=== PATIENT | male | born 1935 | race Caucasian/White ===

== ENCOUNTER 2016-11-01 09:59 | Inpatient (IN) | payer MEDICARE, BC ==
[~2016-11-01] VITALS: Ht 162.6 cm; Wt 98.9 kg
[~2016-11-01 09:59] MED LIST: AMLO10TA2 PO; ASPI81TA2 PO; CLOP75TA PO; FURO20TA4 PO; POTA10CA37 PO
--- OUTSIDE RECORDS SUMMARY | 2016-11-01 10:04 | XMS REPORT | Referral Summary ---
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 Discharge Diagnosis: Chronic obstructive pulmonary disease, unspecified Discharge Disposition: 01-Home or Self Care Attending Physician: Tatiana Baptiste APRN Admitting Physician: Tataina Baptiste APRN Vital Signs Most recent to 1 oldest [Reference Range]: Temperature Tympanic 36 degC [36.6-38.1 degC] *LOW* (08/26/16 10:42 AM) Peripheral Pulse 76 bpm Rate [60-100 bpm] (08/26/16 10:42 AM) Blood Pressure 148/88 mmHg [90-140/60-90 mmHg] *HI* (08/26/16 10:42 AM) Problem List Condition Effective Dates Status Health Status Informant Obesity(Confirmed) Active patient Allergies, Adverse Reactions, Alerts No Known Medication Allergies Medications atorvastatin 80 mg oral tablet 80 mg 1 tabs, Oral, Daily, given by dr merlyn mcgregor, # 30 tabs, 6 Refill(s), Pharmacy: [id number], 1 tabs Oral Daily,Instr:given by dr merlyn mcgregor Start Date: 08/26/16 Status: Ordered losartan 50 mg oral tablet 50 mg 1 tabs, Oral, Daily, # 30 tabs, 2 Refill(s), Pharmacy: [facility], 1 tabs Oral Daily Start Date: 08/26/16 Status: Ordered nitrofurantoin macrocrystals 50 mg oral capsule 50 mg 1 caps, Oral, QID, X 7 days, # 28 caps, 0 Refill(s), Pharmacy: [facility], 1 caps Oral QID,x7 days Start Date: 08/24/16 Stop Date: 08/31/16 Status: Ordered Nitrostat 0.4 mg sublingual tablet 0.4 mg 1 tabs, SubLingual, q5min, as needed for chest pain, If chest pain not relieved in 5 minutes after first dose, seek immediate medical attention, # 25 tabs, 3 Refill(s) Start Date: 08/26/16 Status: Ordered Plavix 75 mg oral tablet 75 mg 1 tabs, Oral, Daily, # 30 tabs, 2 Refill(s), Pharmacy: [facility], 1 tabs Oral Daily Start Date: 08/26/16 Status: Ordered Results No data available for this section Immunizations No data available for this section Procedures No data available for this section Social History Social History Type Response Smoking Status Former smoker; Type: Cigarettes Assessment and Plan Extracted from: Title: Office Visit Note-UTI/CDM Author: Tatiana Baptiste DIAZO TECHNICIAN Date: Assessment/Plan 1.Bacterial urinary tract infection Change to Macrodantinwhenavailable from the pharmacy. Continue to push fluids. Plan repeat UA in 2 weeks to verify resolution of infection. Ordered: Office Visit Level 4 Est 76213 2.Atherosclerotic heart disease of [place] coronary artery without angina pectoris Discussed with the patient the rationale forrestartingLipitor. He is agreeable. He wasn't aware that with a long-term medication. Refill of nitroglycerin provided if he has anyangina. Ordered: Office Visit Level 4 Est 71166 3.Benign essential HTN Restart [id number] mg daily. Monitor blood pressures periodically. Goal is less than 140/90. This will also be beneficial for his kidney disease. Ordered: Office Visit Level 4 Est 37411 4.Chronic combined systolic (congestive) and diastolic (congestive) heart failure Continue support stockings. For now I do not feel like me to restart his Lasix and potassium supplementation. Ordered: Office Visit Level 4 Est 80216 5.Chronic kidney disease, stage 3 (moderate) Plan to recheck in 2 weeks. Ordered: Office Visit Level 4 Est 88893 6.Chronic obstructive pulmonary disease, unspecified No specific respiratory issues at this time. Will not restart respiratory meds. Ordered: Office Visit Level 4 Est 31678 Plan follow-up in 2 weeks or sooner if medical needs arise.
--- OUTSIDE RECORDS SUMMARY | 2016-11-01 10:04 | XMS REPORT | Continuity of Care Document ---
Author Author [facility] Organization [facility] Address Unknown Phone Unavailable Support Name Relationship Address Phone LOUANN ROBERTO MD Caregiver [address] [place] [address] Unavailable WERNER ALARCON MD Caregiver [address] [place] [address] Unavailable ANDREA PICHARDO Next Of Kin [address] [place], [place] [id number] Insurance Providers Guarantor Elie Pichardo Address [address] [place] [address] Email DENIED PT PORTAL Payer [employer]Me Federal Policy Number [id number] Subscriber's Name FrankieElie Charanjit Relationship 18 Self Group Number [id number] Payer Medicare Policy Number [id number] Subscriber's Name FrankieElie Charanjit Relationship 18 Self Advance Directives Directive Response Recorded Date/Time Advanced Directives Type None 04/16/16 8:10pm Chief Complaint and Reason for Visit Chief Complaint Neuro Symptoms/Deficits Reason for Visit TIA (transient ischemic attack) Problems Active Problems Medical Problem Onset Date Status Acute exacerbation of chronic bronchitis Unknown Acute Hypertension Unknown Acute Past Problems Medical Problem Onset Date TIA (transient ischemic attack) Unknown Medications Current Home Medications Medication Dose Units Route Directions Days Qty Instructions Start Date Amlodipine Besylate 10 Mg Tablet 10 Mg Oral Daily 04/16/16 Aspirin 81 Mg Tab.chew 81 Mg Oral Daily 04/16/16 Clopidogrel Bisulfate (Plavix) 75 Mg Tablet 1 Tab Oral Daily 30 Tablet 04/16/16 Furosemide 20 Mg Tablet 20 Mg Oral Daily 04/16/16 Potassium Chloride 10 Meq Capsule.er 10 Meq Oral Daily 04/16/16 Social History Social History Problem Response Recorded Date/Time Onset Date Status Hx Substance Use No 04/16/2016 8:30pm Not Applicable Not Applicable Hx Alcohol Use Y SOCIALLY 04/16/2016 8:30pm Not Applicable Not Applicable Tobacco Usage none 10/04/2015 12:53pm Not Applicable Not Applicable Query Response Start Date Stop Date Smoking Status Former smoker Hospital Discharge Instructions No hospital discharge instructions. Plan of Care Discharge Date 04/16/16 10:25pm Disposition 01 DISCHARGED HOME, SELF-CARE Condition at Discharge Improved Instructions/Education Provided DI for Transient Ischemic Attack Prescriptions See Medication Section Referrals WERNER ALARCON MD Address: [address] [place] [address] [phone] Additional Instructions/Education Plavix one tablet daily instead of aspirin Stop aspirin therapy Call Dr. Alarcon first thing Tuesday to arrange outpatient evaluation for transient ischemic attack, TIA. Return immediately by ambulance for any worsening in symptoms Care Plan and Goals Physician Care Plan Problem: TIA Goal: Follow up with primary care provider Instructions: Take medications and follow care plan as discussed/written Plavix one tablet daily instead of aspirin Stop aspirin therapy Call Dr. Alarcon first thing Tuesday to arrange outpatient evaluation for transient ischemic attack, TIA. Return immediately by ambulance for any worsening in symptoms Functional Status No functional status results. Allergies, Adverse Reactions, Alerts No known allergies. Immunizations Query Response on File Recorded Date/Time Hx Influenza Vaccination Y 05/201109/14/11 10:02am Hx Pneumococcal Vaccination No 09/14/11 10:02am Hx Influenza Vaccination Y 05/201109/14/11 10:02am Influenza Vaccine Hx NOT REC'D 04/16/16 8:30pm Vital Signs Acute Vital Signs Vital Response Date/Time Temperature (Fahrenheit) 97.7 deg F (96.8 - 99.1) 04/16/2016 10:25pm Temperature (Calculated Celsius) 36.73618 degrees C (36.0 - 37.3) 04/16/2016 10:25pm Pulse Rate (adult) 63 bpm (60 - 100) 04/16/2016 10:25pm Respiratory Rate 38 breaths/min (10 - 20) 04/16/2016 10:25pm O2 Sat by Pulse Oximetry 95 % (90 - 100) 04/16/2016 10:25pm Blood Pressure 186/81 mm Hg 04/16/2016 10:25pm Height (Feet) 5 feet 04/16/2016 8:10pm Height (Inches) 4.50 inches 04/16/2016 8:10pm Weight (Kilograms) 106.700 kg 04/16/2016 8:10pm Body Mass Index (BMI) 39.0 04/16/2016 8:10pm Results Laboratory Results Test Name Result Units Flags Reference Collection Date/Time Result Date/ Time Comments White Blood Count 8.8 T/MM3 4.5-11.0 04/16/2016 8:47pm 04/16/2016 9: 03pm Red Blood Count 4.57 M/MM3 4.50-5.90 04/16/2016 8:47pm 04/16/2016 9: 03pm Hemoglobin 13.7 GM/DL 13.5-17.5 04/16/2016 8:47pm 04/16/2016 9:03pm Hematocrit 43.0 % 41-53 04/16/2016 8:47pm 04/16/2016 9:03pm Mean Corpuscular Volume 94.1 UM3 80-100 04/16/2016 8:47pm 04/16/2016 9: 03pm Mean Corpuscular Hemoglobin 30.0 UUG 26-34 04/16/2016 8:47pm 2015 9:03pm Mean Corpuscular Hemoglobin Concent 31.9 GM/DL 31-37 04/16/2016 8:47pm 04/16/2016 9:03pm RDW Standard Deviation 47.7 FL 36.9-50.2 04/16/2016 8:47pm 04/16/2016 9 :03pm Platelet Count 231 T/MM3 130-400 04/16/2016 8:47pm 04/16/2016 9:03pm Mean Platelet Volume 9.4 UM3 9.4-12.4 04/16/2016 8:47pm 04/16/2016 9: 03pm Neutrophils (%) (Auto) 63.0 % 33-66 04/16/2016 8:47pm 04/16/2016 9: 03pm Lymphocytes (%) (Auto) 25.3 % 23-45 04/16/2016 8:47pm 04/16/2016 9: 03pm Monocytes (%) (Auto) 6.9 % 0-9.0 04/16/2016 8:47pm 04/16/2016 9:03pm Eosinophils (%) (Auto) 4.2 % H 0-4 04/16/2016 8:47pm 04/16/2016 9:03pm Basophils (%) (Auto) 0.3 % 0-2 04/16/2016 8:47pm 04/16/2016 9:03pm Immature Granulocyte % (Auto) 0.3 % 0.0-0.5 04/16/2016 8:47pm 2015 9:03pm Absolute Neutrophils (auto) 5.5 T/MM3 1.8-7.7 04/16/2016 8:47pm 2015 9:03pm Absolute Lymphocytes (auto) 2.2 T/MM3 1-4.8 04/16/2016 8:47pm 2015 9:03pm Absolute Monocytes (auto) 0.6 T/MM3 0-0.8 04/16/2016 8:47pm 04/16/2016 9:03pm Absolute Eosinophils (auto) 0.4 T/MM3 0-0.5 04/16/2016 8:47pm 2015 9:03pm Absolute Basophils (auto) 0.0 T/MM3 0-0.2 04/16/2016 8:47pm 04/16/2016 9:03pm Absolute Immature Granulocyte (auto 0.03 T/MM3 0.00-0.03 04/16/2016 8: 47pm 04/16/2016 9:03pm Prothromb Time International Ratio 1.00 0.99-1.21 04/16/2016 8:47pm 04/16/2016 9:00pm THERAPUTIC RANGE=2.00-3.00 FOR ANTI-THROMBOSIS THERAPUTIC RANGE=2.50-3.50 FOR IMPLANTED VALVE Activated Partial Thromboplast Time 30.9 SEC 24-36 04/16/2016 8:47pm 9:00pm Icterus Index < 2 0-7 04/16/2016 8:47pm 04/16/2016 9:02pm Chemistry Specimen Hemolysis < 15 0-25 04/16/2016 8:47pm 04/16/2016 9 :02pm 0-25: Specimen Exhibited No Hemolysis. Turbidity < 20 0-20 04/16/2016 8:47pm 04/16/2016 9:02pm Sodium Level 144 MEQ/L 134-144 04/16/2016 8:47pm 04/16/2016 9:02pm Potassium Level 4.1 MEQ/L 3.6-5 04/16/2016 8:47pm 04/16/2016 9:02pm Chloride Level 104 MEQ/L 98-107 04/16/2016 8:47pm 04/16/2016 9:02pm Carbon Dioxide Level 31 MEQ/L H 22-30 04/16/2016 8:47pm 04/16/2016 9: 02pm Anion Gap 9 MEQ/L 5-15 04/16/2016 8:47pm 04/16/2016 9:02pm Blood Urea Nitrogen 17.0 MG/DL 9-20 04/16/2016 8:47pm 04/16/2016 9: 02pm Creatinine 1.2 MG/DL 0.8-1.5 04/16/2016 8:47pm 04/16/2016 9:02pm BUN/Creatinine Ratio 14 RATIO 6-26 04/16/2016 8:47pm 04/16/2016 9:02pm Glomerular Filtration Rate Calc 58 04/16/2016 8:47pm 04/16/2016 9: 02pm Glucose Level 81 MG/DL 75-110 04/16/2016 8:47pm 04/16/2016 9:02pm Calculated Osmolality 278 MOSM/KG 261-280 04/16/2016 8:47pm 04/16/2016 9:02pm Calcium Level 9.3 MG/DL 8.4-10.2 04/16/2016 8:47pm 04/16/2016 9:02pm Total Bilirubin 0.50 MG/DL 0.20-1.30 04/16/2016 8:47pm 04/16/2016 9: 02pm Alkaline Phosphatase 105 U/L 38-126 04/16/2016 8:47pm 04/16/2016 9: 02pm Total Protein 6.2 G/DL L 6.3-8.2 04/16/2016 8:47pm 04/16/2016 9:02pm Albumin 3.4 G/DL L 3.5-5.0 04/16/2016 8:47pm 04/16/2016 9:02pm Globulin 2.8 G/DL 2.4-3.6 04/16/2016 8:47pm 04/16/2016 9:02pm Albumin/Globulin Ratio 1.2 RATIO 1.1-2.2 04/16/2016 8:47pm 04/16/2016 9 :02pm Aspartate Amino Transf (AST/SGOT) 17 U/L 17-59 04/16/2016 8:47pm 2015 9:02pm Alanine Aminotransferase (ALT/SGPT) 20 U/L L 21-72 04/16/2016 8:47pm 04/2016 9:02pm Troponin I < 0.012 ng/ml 0-0.12 04/16/2016 8:47pm 04/16/2016 9:13pm Troponin values with a difference of 55% increase from orginal troponin value represent a true biological DELTA value. (%increase Calc=Orginal Troponin value, divided by subsequent Troponin value, multiplied by 100) Urine Collection Type CLEANCATCH-MIDSTREAM 04/16/2016 9:52pm 2015 9:56pm Urine Color YELLOW YELLOW 04/16/2016 9:52pm 04/16/2016 9:56pm Urine Turbidity CLEAR CLEAR 04/16/2016 9:52pm 04/16/2016 9:56pm Urine Specific [place] 1.015 1.015-1.025 04/16/2016 9:52pm 2015 9:56pm Urine pH 7.0 5.0-8.0 04/16/2016 9:52pm 04/16/2016 9:56pm Urine Leukocyte Esterase NEGATIVE NEGATIVE 04/16/2016 9:52pm 2015 9:56pm Urine Nitrite NEGATIVE NEGATIVE 04/16/2016 9:52pm 04/16/2016 9:56pm Urine Protein NEGATIVE NEGATIVE 04/16/2016 9:52pm 04/16/2016 9:56pm Urine Glucose (UA) NEGATIVE NEGATIVE 04/16/2016 9:52pm 04/16/2016 9: 56pm Urine Ketones NEGATIVE NEGATIVE 04/16/2016 9:52pm 04/16/2016 9:56pm Urine Urobilinogen 0.2 EU/DL NORMAL 04/16/2016 9:52pm 04/16/2016 9: 56pm Urine Bilirubin NEGATIVE NEGATIVE 04/16/2016 9:52pm 04/16/2016 9: 56pm Urine Blood NEGATIVE NEGATIVE 04/16/2016 9:52pm 04/16/2016 9:56pm Urinalysis Comment MICROSCOPIC NOT IND. 04/16/2016 9:52pm 2015 9:56pm Procedures No known history of procedures. Encounters Encounter Location Arrival/Admit Date Discharge/Depart Date Attending Provider Departed Emergency Room [facility] 04/16/16 8:10pm 04/16/16 10: 25pm LOUANN ROBERTO MD Recent Diagnosis
--- OUTSIDE RECORDS SUMMARY | 2016-11-01 10:05 | XMS REPORT | Continuity of Care Document ---
Author Author [facility] Organization [facility] Address Unknown Phone Unavailable Allergies Active Description Code Type Severity Reaction Onset Reported/Identified Relationship to Patient Clinical Status Yes No Known Drug Allergies No Known Drug Allergies Drug Allergy Unknown NONE 02/12/2013 Yes No Known Drug Intolerances No Known Drug Intolerances Drug Allergy Unknown NONE 02/12/2013 Yes No Known Allergies No Known Allergies Drug Allergy Unknown N/A 02/18/2014 Yes No Known Medication Allergies NKMA N/A N/A 10/08/2015 Medications Problems Date Dx Coded Attending Type Code Diagnosis Diagnosed By 02/12/2013 Serge Blankenship DO 272.4 HYPERLIPIDEMIA NEC/NOS 02/12/2013 Serge Blankenship DO 327.23 OBSTRUCTIVE SLEEP APNEA (ADULT) (PEDIATRIC) 02/12/2013 Serge Blankenship DO 414.00 CORON ATHEROSCLER NOS TYPE VESSEL, STEBBINS OR GRAFT 02/12/2013 Serge Blankenship DO 435.9 TRANS CEREB ISCHEMIA NOS 02/12/2013 Serge Blankenship DO 511.9 PLEURAL EFFUSION NOS 02/12/2013 Serge Blankenship DO 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 02/12/2013 Serge Blankenship DO 784.51 DYSARTHRIA 02/12/2013 Serge Blankenship DO 784.59 OTHER SPEECH DISTURBANCE 02/12/2013 Serge Blankenship DO 799.02 HYPOXEMIA 02/12/2013 Serge Blankenship DO V45.81 AORTOCORONARY BYPASS Procedures Code Description Performed By Performed On 86.04 OTHER SKIN SUBQ I D Aaron MIX, Valeri Burns 02/18/2014 Results Test Result Range CBC W/DIFF - 02/12/13 17:20 GRANULOCYTE # 6.8 k/cumm 2.0-9.0 GRANULOCYTE % 79 % 50-75 LYMPHOCYTE # 1.5 k/cumm 1.0-4.0 LYMPHOCYTE % 17 % 20-30 MEAN CELL HGB 30.7 pg 27.0-33.0 MEAN CELL HGB CONCENTRATION 33.6 g/dl 32.0-36.0 MEAN CELL VOLUME 91.5 fl 80.0-100.0 MONOCYTE # 0.3 k/cumm 0.1-1.0 MONOCYTE % 4 % 4-6 RED BLOOD CELL 5.09 m/cumm 4.00-6.00 RED CELL DISTRIBUTION WIDTH 13.8 % 11.0- 15.6 WHITE BLOOD CELL 8.6 k/cumm 5.0-10.0 HEMOGLOBIN 15.6 gm/dL 14.0-18.0 HEMATOCRIT 46.5 % 40.0-54.0 PLATELET COUNT 183 k/cumm 150-450 METABOLIC PANEL, BASIC - 02/12/13 17:20 POTASSIUM 4.5 mmol/L 3.5-5.3 EST GFR (MDRD) > 60 mL/min > 59 ANION GAP 10 mmol/L 5-15 EST CrCl (CG) 45 mL/min > 59 GLUCOSE 94 mg/dL 70-99 CALCIUM 9.0 mg/dL 8.5-10.1 BLOOD UREA NITROGEN 21 mg/dL 7-20 CREATININE 1.2 mg/dL 0.8-1.3 SODIUM 141 mmol/L 135-148 CHLORIDE 104 mmol/L 98-110 CARBON DIOXIDE 27 mmol/L 21-32 PROTHROMBIN TIME WITH INR - 02/12/13 17:20 INTERNATIONAL NORMAL RATIO 1.0 0.9-1.1 PROTHROMBIN TIME 10.8 sec 9.2-12.2 TROPONIN I - 02/12/13 23:57 TROPONIN I < 0.02 ng/mL < 0.07 CBC W/DIFF - 02/13/13 05:55 EOSINOPHIL # 0.3 k/cumm 0.1-0.5 EOSINOPHIL % 4 % 2-4 GRANULOCYTE # 4.7 k/cumm 2.0-9.0 GRANULOCYTE % 60 % 50-75 LYMPHOCYTE # 2.0 k/cumm 1.0-4.0 LYMPHOCYTE % 26 % 20-30 MEAN CELL HGB 29.4 pg 27.0-33.0 MEAN CELL HGB CONCENTRATION 31.5 g/dL 32.0-37.0 MEAN CELL VOLUME 93.2 fl 80.0-100.0 MONOCYTE # 0.7 k/cumm 0.1-1.0 MONOCYTE % 9 % 4-6 RED BLOOD CELL 5.14 m/cumm 4.00-6.00 RED CELL DISTRIBUTION WIDTH 13.7 % 11.0- 15.6 WHITE BLOOD CELL 7.7 k/cumm 5.0-10.0 HEMOGLOBIN 15.1 gm/dL 14.0-18.0 HEMATOCRIT 47.9 % 40.0-54.0 PLATELET COUNT 185 k/cumm 150-400 METABOLIC PANEL, BASIC - 02/13/13 05:55 POTASSIUM 4.8 mmol/L 3.5-5.3 EST GFR (MDRD) > 60 mL/min > 59 ANION GAP 6 mmol/L 5-15 EST CrCl (CG) 49 mL/min > 59 GLUCOSE 83 mg/dL 70-99 CALCIUM 8.6 mg/dL 8.5-10.1 BLOOD UREA NITROGEN 20 mg/dL 7-20 CREATININE 1.1 mg/dL 0.8-1.3 SODIUM 143 mmol/L 135-148 CHLORIDE 107 mmol/L 98-110 CARBON DIOXIDE 30 mmol/L 21-32 LIPID PANEL - 02/13/13 05:55 CHOLESTEROL/HDL RATIO 4.6 < 5.0 LDL CHOLESTEROL 97 mg/dL < 100 VLDL CHOLESTEROL 19 mg/dL < 30 TRIGLYCERIDES 96 mg/dL < 150 CHOLESTEROL 148 mg/dL < 200 HDL CHOLESTEROL 32 mg/dL > 39 PHOSPHORUS - 02/13/13 05:55 PHOSPHORUS 2.4 mg/dL 2.5-4.9 MAGNESIUM - 02/13/13 05:55 MAGNESIUM 2.0 mg/dL 1.8-2.4 TROPONIN I - 02/13/13 05:55 TROPONIN I < 0.02 ng/mL < 0.07 GLUCOSE (POC) - 02/13/13 06:10 GLUCOSE (POC) 98 mg/dL 70-99 GLUCOSE (POC) - 02/13/13 09:37 GLUCOSE (POC) 107 mg/dL 70-99 TROPONIN I - 02/13/13 12:49 TROPONIN I < 0.02 ng/mL < 0.07 GLUCOSE (POC) - 02/13/13 14:08 GLUCOSE (POC) 109 mg/dL 70-99 GLUCOSE (POC) - 02/13/13 19:34 GLUCOSE (POC) 122 mg/dL 70-99 GRAM STAIN - 02/18/14 12:12 Microbiology Comprehensive Metabolic Panel (CMP) - 12/26/15 10:33 Albumin 3.6 g/dL 3.4-4.8 Alkaline Phosphatase 108 U/L 40-150 ALT (SGPT) 11 U/L 0-55 Anion Gap 9 NA 3-20 AST (SGOT) 15 U/L 5-34 Bilirubin Total 0.8 mg/dL 0.2-1.2 BUN 16 mg/dL 8-26 Calcium 9.1 mg/dL 8.9-10.5 Chloride 105 mEq/L 99-111 CO2 29 mEq/L 23-31 Creatinine 1.18 mg/dL 0.72-1.25 Globulin 1.7 g/dL 1.8-4.0 Glucose 84 mg/dL 70-99 Potassium 4.3 mEq/L 3.5-5.2 Protein 5.3 g/dL 6.2-8.1 Sodium 143 mEq/L 135-144 Lipid Panel - 12/26/15 10:33 Cardiac Risk 3.3 0.0-5.7 Cholesterol 133 mg/dL 0-199 HDL Cholesterol 40 mg/dL 40-84 LDL Cholesterol 78 mg/dL 0-130 Triglycerides 76 mg/dL 0-149 VLDL Cholesterol 15 mg/dL 0-28 eGFR - 12/26/15 10:33 eGFR 59 mL/min >60 Urinalysis with reflex microscopic - 08/18/16 11:32 Appearance Cloudy NA Bilirubin Negative NA Negative Blood Pos 2+ NA Negative Color Yellow NA Glucose, Urine Negative NA Negative Ketones Negative NA Negative Leukocyte Esterase Pos 3+ NA Negative Nitrites Positive NA Negative pH 5.5 NA 5.0-8.0 Protein Pos 1+ NA Negative Specific [place] 1.010 NA 1.003-1.030 UA Collection type Clean Catch NA Urobilinogen 0.2 mg/dL <=1.0 Urine Microscopic - 08/18/16 11:32 Bacteria Numerous NA Epithelial Cells 2 /hpf RBC, Urine 10 /hpf 0-2 WBC, Urine >50 /hpf 0-4 Encounters ACCT No. Visit Date/Time Discharge Status Pt. Type Provider Facility Loc./Unit Complaint [id number] 02/18/2014 09:34:00 2013 12:20:00 [id number] 02/12/2013 17:37:00 2012 21:15:00 DIS Inpatient Pattie INMAN [facility] [id number].10TN
--- OUTSIDE RECORDS SUMMARY | 2016-11-01 10:05 | XMS REPORT | Referral Summary ---
Author Author [facility] Organization [facility] Address Unknown Phone Unavailable Care Team Providers Care Customer Program Specialist Name Role Phone Antoine Nellie Primary Care Physician [phone] Encounter VC Date(s): 08/18/16 - 08/18/16 [facility], [address] [place] [id number] Discharge Diagnosis: Lower urinary tract symptoms Discharge Disposition: 01-Home or Self Care Attending Physician: Tatiana Baptiste APRN Admitting Physician: Tatiana Baptiste APRN Vital Signs Most recent to 1 oldest [Reference Range]: Temperature Tympanic 36.4 degC [36.6-38.1 degC] *LOW* (08/18/16 11:06 AM) Peripheral Pulse 76 bpm Rate [60-100 bpm] (08/18/16 11:06 AM) Blood Pressure 148/90 mmHg [90-140/60-90 mmHg] *HI* (08/18/16 11:06 AM) Problem List Condition Effective Dates Status Health Status Informant Obesity(Confirmed) Active patient Allergies, Adverse Reactions, Alerts No Known Medication Allergies Medications amLODIPine 5 mg oral tablet 5 mg 1 tabs, Oral, Daily, # 30 tabs, 6 Refill(s), Pharmacy: [facility], 1 tabs Oral Daily Start Date: 10/08/15 Status: Ordered Anoro Ellipta 62.5 mcg-25 mcg/inh inhalation powder 1 puffs, Inhalation, Daily, # 30 Each, 0 Refill(s), samples given to patient (Rx ) Start Date: 10/23/15 Status: Ordered atorvastatin 80 mg oral tablet 80 mg 1 tabs, Oral, Daily, given by dr merlyn mcgregor, # 30 tabs, 6 Refill(s), Pharmacy: [facility], 1 tabs Oral Daily,Instr:given by dr merlyn mcgregor Start Date: 03/26/16 Status: Ordered Cipro 500 mg oral tablet 500 mg 1 tabs, Oral, q12hr, X 10 days, # 20 tabs, 0 Refill(s), Pharmacy: [facility], 1 tabs Oral q12hr,x10 days Start Date: 08/18/16 Stop Date: 08/28/16 Status: Ordered furosemide 20 mg oral tablet 20 mg 1 tabs, Oral, Daily, # 30 tabs, 6 Refill(s), Pharmacy: [facility], 1 tabs Oral Daily Start Date: 10/23/15 Status: Ordered losartan 50 mg oral tablet 50 mg 1 tabs, Oral, Daily, # 30 tabs, 6 Refill(s), Pharmacy: [facility], 1 tabs Oral Daily Start Date: 03/26/16 Status: Ordered Mucinex Fast-Max Severe Congestion & Cold oral tablet 1 tabs, Oral, q4hr, as needed for cold symptoms, # 50 tabs, 0 Refill(s), called to pharmacy (Rx) Start Date: 01/01/16 Stop Date: 12/31/16 Status: Ordered Nitrostat 0.4 mg sublingual tablet 0.4 mg 1 tabs, SubLingual, q5min, as needed for chest pain, given by dr merlyn mcgregor , # 25 tabs, 3 Refill(s), called to pharmacy (Rx) Start Date: 01/01/16 Status: Ordered Plavix 75 mg oral tablet 75 mg 1 tabs, Oral, Daily, 0 Refill(s) Start Date: 04/19/16 Status: Ordered potassium chloride 10 mEq oral tablet, extended release 10 mEq 1 tabs, Oral, Daily, # 30 tabs, 6 Refill(s), Pharmacy: [facility], 1 tabs Oral Daily Start Date: 10/23/15 Status: Ordered Ventolin HFA 90 mcg/inh inhalation aerosol 90 mcg 1 puffs, Inhalation, q4hr, as needed for wheezing, # 18 g, 3 Refill(s), Pharmacy: [facility], 1 puffs Inhalation q4hr,PRN:as needed for wheezing Start Date: 10/21/15 Status: Ordered Results Urinalysis Most recent to 1 oldest [Reference Range]: UA Color Yellow (08/18/16 11:32 AM) UA Appear Cloudy *ABN* (08/18/16 11:32 AM) UA pH [5.0-8.0] 5.5 (08/18/16 11:32 AM) UA Leuk Est Pos 3+ [Negative] *ABN* (08/18/16 11:32 AM) UA Nitrite Positive [Negative] *ABN* (08/18/16 11:32 AM) UA Protein Pos 1+ [Negative] *ABN* (08/18/16 11:32 AM) UA Glucose Negative [Negative] (08/18/16 11:32 AM) UA Ketones Negative [Negative] (08/18/16 11:32 AM) UA Urobilinogen 0.2 mg/dL [<=1.0 mg/dL] (08/18/16 11:32 AM) UA Bili [Negative] Negative (08/18/16 11:32 AM) UA Blood [Negative] Pos 2+ *ABN* (08/18/16 11:32 AM) UA Spec Grav 1.010 [1.003-1.030] (08/18/16 11:32 AM) Type Clean Catch (08/18/16 11:32 AM) UA WBC [0-4 /HPF] >50 /HPF *ABN* (08/18/16 11:32 AM) UA RBC [0-2] 10-20 *ABN* (08/18/16 11:32 AM) Epithelial Cells 2-5 (08/18/16 11:32 AM) UA Bacteria Numerous *ABN* (08/18/16 11:32 AM) Immunizations No data available for this section Procedures No data available for this section Social History Social History Type Response Smoking Status Former smoker; Type: Cigarettes Assessment and Plan Extracted from: Title: Office Visit Note-UTI Author: Tatiana Baptiste APRN Date: 08/18/16 Assessment/Plan 1.Lower urinary tract symptoms Urinalysis indicative of urinary tract infection.Results reviewed with patient. Start Cipro 500 mg one by mouth twice a day 10 days. Push fluids. If he is unable to void her symptoms felt to improve over the next 24- 48 hours he is to let us know or go to the ER. Questions and concerns were answered.
[2016-11-01] MEDS ORDERED: NORMAL SALINE 1,000 ML IV ONE (10:11)
--- NOTE | 2016-11-01 10:27 | ERPDOC ---
Departure Disposition Decision Date: Nov 01, 2016 Disposition Decision Time: 11:45 Disposition: 02 TO [facility] Impression Impression Impression: Primary Impression: Atrial fibrillation, new onset Additional Impressions: Elevated troponin Rhabdomyolysis Rhabdomyolysis type: traumatic Encounter type: initial encounter Qualified Codes: T79.6XXA - Traumatic ischemia of muscle, initial encounter Fall at home Encounter type: initial encounter Qualified Codes: W19.XXXA - Unspecified fall, initial encounter; Y92.099 - Unspecified place in other non-institutional residence as the place of occurrence of the external cause COPD (chronic obstructive pulmonary disease) COPD type: COPD with acute exacerbation Qualified Codes: J44.1 - Chronic obstructive pulmonary disease with (acute) exacerbation Severity: Moderate Condition: Improved Seen By: Physician only Referrals: WERNER ALARCON MD (Family) Problems/Meds/Labs Reviewed?: Yes Medications reviewed and manag: Yes Follow up care ordered?: Yes (admitted) Mental Status: Alert, Oriented HPI - General Medical General Chief Complaint: Acute Medical Problem Stated Complaint: DIFF BREATHING Time Seen by Provider: 10:11 Source: patient, RN notes reviewed, old records Exam Limitations: no limitations HPI - General Medical Initial Comments This patient comes in via EMS after he was found on the floor of his garage all night. He did fall and hit his head. He was incontinent so he took off his clothes. He was complaining of difficulty breathing when his son found him this morning. 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 He is not sure if he lost consciousness, but he was uncertain of where he was through the night. He did try to get up several times, but couldn't make it. He does not complain of any specific injury from the fall, but was very cold. He was noted to have some dyspnea by EMS so they gave him several nebulized treatments en route to the hospital. He does say that he has been feeling like he was catching a cold the past few days. He denies chest pain. Occurred At: home Onset: Rapid Duration: 12-24 hrs Date Last Known Well: Oct 31, 2016 Time Last Known Well: 19:00 Last Known Well Approximated: No Pain Scale: Now: 0/10, Worst: 5/10 Modifying Factors: IMPROVES WITH: medication, other (warm blankets) Associated Symptoms: shortness of breath, weakness Hx of Similar Symptoms: Yes Allergies: Coded Allergies: No Known Allergies (Unverified , 11/01/16) Past History Past Medical History Metabolic: hypercholesterolemia, hypertension ENMT: sleep apnea (doesn't use C PAP) Cardiac: CAD, CHF Respiratory: COPD, other (part of my lung "is no good"), pulmonary embolus GI: GERD Male: BPH, UTI, kidney stones Neurological: TIA Musculoskeletal: osteoarthritis Psychological: depression Surgical History Cardiac: cardiac bypass Joint: other (left wrist) Vaccines Hx Influenza Vaccination: Yes (05/2011) Hx Pneumococcal Vaccination: No Social History Smoking Status: Unknown if ever smoked Substance Use Type: does not use Alcohol Intake: occasionally, a few times a month Last Drink: unknown Marital Status: Single Housing: house Current Occupational Status: retired Record Review Pertinent history updated: Yes Review of Systems Constitutional Constitutional: see HPI, weakness, DENIES: fever Eyes General: DENIES: erythema, exudate Lids/Accessories: DENIES: erythema Vision: blurring (wears glasses) ENMT Ears: DENIES: pain Sinuses: DENIES: congestion, rhinorrhea Mouth/Throat: DENIES: sore throat Cardiovascular Cardiac: dyspnea on exertion, DENIES: chest pain Rhythm/Rate: DENIES: tachycardia Vascular: DENIES: pedal edema Pulmonary Respiratory: cough, dyspnea, see HPI GI Upper Abdomen: DENIES: heartburn/indigestion, nausea, vomiting Lower Abdomen: DENIES: blood in stool, constipation, diarrhea General: incontinence, nocturia, see HPI, DENIES: dysuria, hematuria Male: frequency, DENIES: hesitancy Musculoskeletal General: DENIES: joint pain, pain Integumentary Skin: DENIES: itching, rash Neurological General: memory disturbances ("age related"), see HPI, weakness, DENIES: headache, seizures, syncope Psychiatric Psychiatric: DENIES: anxiety, depression Endocrine Endocrine: DENIES: heat/cold intolerance Hematologic/Lymphatic Hematologic/Lymphatic: DENIES: anemia, easy bruising Allergic/Immunological Allergic/Immunoligical: DENIES: hives All other Systems All Other Systems: Reviewed and Negative Physical Exam General General Nourishment: well nourished, well developed, appears stated age, no acute distress, adult General Body Habitus: disheveled Vitals and Pain First Documented Vital Signs Date Time Temp Pulse Resp B/P Pulse Ox O2 Delivery O2 Flow Rate FiO2 11/01/16 10:03 96.7 123 24 136/83 96 Room Air 11/01/16 11:26 1.00 Weight: Kilograms: 105.200 Height (feet): 5 Height (inches): 4.00 Triage Pain Scale: RN VS reviewed by Provider: Yes Comments shaking since neb treatments given Normal Exams: Head: Normocephalic w/o trauma Eyes: Pupils are PERRLA w/ EOMI, No scleral icterus, irritation, or foreign bodies noted ENMT: No facial trauma, nasal exudates, pharyngeal erythema, or exudates are noted Dental: No fractured Neck: Full range of motion, without adenopathy, JVD, bruits or thyromegaly Chest/Resp: Clear all [place] CV: Pulses 2+ all extremities, capillary refill, no pedal edema noted Abdomen: Bowel sounds positive, soft, non-tender Lymphatic: No lymphadenopathy Musculoskeletal: No tenderness, or deformity noted, good range of motion, all extremities Integumentary: No rashes, hives Neurologic: Patient is alert, and oriented, cranial nerves, motor/sensory/ cerebellar, exams w/o gross deficits, to observation Psychiatric: Patient exhibits, appropriate attention, emotion and affect Respiratory (brief) Comments air flow symmetrical, decreased at bases Cardiovascular (brief) Cardiac: NOT FOUND: regular rate, regular rhythm Comments irregularly irregular rhythm, with mildly elevated rate in [id number] Differential Diagnoses Considering: Hypo/Hyperglycemia, Hypo/Hyperkalemia, Hypo/Hypernatremia, Intracranial Hemorrhage, Metabolic, Pneumonia, TIA, UTI, Other (rhabdomyolysis, hyothermia from exposure) Progress Results/Orders Orders Procedure Category Date Status Time Cmp - Comprehensive LAB 11/01/16 Complete Metabolic 10:11 Cbc W/Auto LAB 11/01/16 Complete Diff-Reflex Manual 10:11 Blood Culture IAN 11/01/16 In Process 10:11 Tsh - Thyroid Stim LAB 11/01/16 Complete Hormone 10:11 Troponin I W LAB 11/01/16 Complete Hemolysis Index 10:11 Ua, Dip Wreflex LAB 11/01/16 Logged [employer]sc & [employer]al Manager 10:11 Bgm (Ed) EDM 11/01/16 Transmitted 10:11 EKG EKG 11/01/16 Taken 10:11 Chest 1 View RAD 11/01/16 Resulted 10:11 Iv Lock (Ed Only) EDM 11/01/16 Transmitted 10:11 Normal Saline (Normal PHA 11/01/16 Complete Saline Iv) 10:11 Oxygen Administration EDM 11/01/16 Transmitted 10:11 Ck - Cpk LAB 11/01/16 Complete Probnp LAB 11/01/[address] Head W/O Contrast CT 11/01/16 Resulted Lab Results Laboratory Tests Test 11/01/16 10:06 11/01/16 10:34 11/01/16 10:46 White Blood Count 12.4T/MM3 Red Blood Count 5.26M/MM3 Hemoglobin 15.5GM/DL Hematocrit 48.0% Mean Corpuscular Volume 91.3UM3 Mean Corpuscular Hemoglobin 29.5UUG Mean Corpuscular Hemoglobin Concent 32.3GM/DL RDW Standard Deviation 49.0FL Platelet Count 207T/MM3 Mean Platelet Volume 10.1UM3 Immature Granulocyte % (Auto) 0.2% Neutrophils (%) (Auto) 84.8% Lymphocytes (%) (Auto) 5.6% Monocytes (%) (Auto) 9.0% Eosinophils (%) (Auto) 0.0% Basophils (%) (Auto) 0.4% Absolute Immature Granulocyte (auto 0.03T/MM3 Absolute Neutrophils (auto) 10.5T/MM3 Absolute Lymphocytes (auto) 0.7T/MM3 Absolute Monocytes (auto) 1.1T/MM3 Absolute Eosinophils (auto) 0.0T/MM3 Absolute Basophils (auto) 0.1T/MM3 Turbidity < 20 Sodium Level 144MEQ/L Potassium Level 4.5MEQ/L Chloride Level 102MEQ/L Carbon Dioxide Level 26MEQ/L Anion Gap 16MEQ/L Blood Urea Nitrogen 30.0MG/DL Creatinine 1.2MG/DL Glomerular Filtration Rate Calc 58 BUN/Creatinine Ratio 25RATIO Glucose Level 127MG/DL Calculated Osmolality 285MOSM/KG Calcium Level 9.3MG/DL Total Bilirubin 1.30MG/DL Icterus Index < 2 Aspartate Amino Transf (AST/SGOT) 114U/L Alanine Aminotransferase (ALT/SGPT) 37U/L Alkaline Phosphatase 150U/L Total Creatine Kinase 4331U/L Troponin I 0.441ng/ml Total Protein 7.1G/DL Albumin 3.7G/DL Globulin 3.4G/DL Albumin/Globulin Ratio 1.1RATIO Thyroid Stimulating Hormone (TSH) 1.65MIU/L Chemistry Specimen Hemolysis 20 Glucometer 129mg/dL OD-Wgr-O-Type Natriuretic Peptide 34567TW/ML Medications Current ED Medications Sodium Chloride (Normal Saline IV) 1,000 ml @ 0 mls/hr Q0M ONCE IV Last administered on 11/01/16t 10:36; Start 11/01/16 at 10:11; Stop 11/01/16 at 10:15 ; Status DC Progress Progress Patient given warm blankets and IV fluids. He was quite shaky on arrival after several nebs. EKG shows new rhythm since last two EKGs here. His troponin is elevated as is the BNP. CK is quite elevated consistent with history of laying on the ground overnight, giving concern for rhabdomyolysis. His creatinine is stable at 1.2 with elevated BUN today probably due to volume contraction. UA is still pending at the time of admission. Patient will need to be admitted for further care. Hospitalist contacted. EKG EKG : Rate: >100 Rhythm: atrial fibrillation [place]: normal QRS: normal ST/T: non-specific changes Interpreted by: signing physician EKG Comments past two EKGS show sinus nhung with 1st degree AV block -- no history of a fib noted Consult/PCP Consult/PCP : Type of discussion: Admit Discussion/PCP Comments 11:45 -- Dr John -- admit -- discussed presentation and labs and EKG and CT Xray Xray : Xray: CXR Portable Interpretation: Abnormal (pleural thickening and volume loss on left, stable from prior film) CT Date CT Interpreted for [place]: Nov 01, 2016 CT : CT: Head no contrast Interpretation: Abnormal (chronic mild ischemic changes/atrophy, ethmoid and maxillary sinusitis, no acute bleeds), Reviewed Written Report JENNIFER VOGEL MD Nov 01, 2016 10:27
--- OUTSIDE RECORDS SUMMARY | 2016-11-01 10:27 | XMS REPORT | Continuity of Care Document ---
Author Author [facility] Organization [facility] Address Unknown Phone Unavailable Allergies Active Description [...] DO 414.00 CORON ATHEROSCLER NOS TYPE VESSEL, [place] OR GRAFT 02/12/2013 Serge Blankenship DO 435.9 [...] 5.0-8.0 Protein Pos 1+ NA Negative Specific [place] 1.010 NA 1.003-1.030 UA Collection type Clean Catch NA Urobilinogen 0.2 mg/dL <=1.0 Urine Microscopic - 08/18/16 11:32 Bacteria Numerous NA Epithelial Cells 2 /hpf RBC, Urine 10 /hpf 0-2 WBC, Urine >50 /hpf 0-4 Encounters ACCT No. Visit Date/Time Discharge Status Pt. Type Provider Facility Loc./Unit Complaint [id number] 02/18/2014 09:34:00 2013 12:20:00 [id number] 02/12/2013 17:37:00 2012 21:15:00 DIS Inpatient Pattie INMAN [facility] W.10TN
[2016-11-01 10:28] LABS: BASOPHILS # (AUTO) 0.1 T/MM3 (0-0.2); BASOPHILS % (AUTO) 0.4 % (0-2); HGB - HEMOGLOBIN 15.5 GM/DL (13.5-17.5); IMMATURE GRANULOCYTE # (AUTO) 0.03 T/MM3 (0.00-0.03); IMMATURE GRANULOCYTE % (AUTO) 0.2 % (0.0-0.5); LYMPHOCYTES # (AUTO) 0.7 T/MM3 (1-4.8); LYMPHOCYTES % (AUTO) 5.6 % (23-45); MEAN CORPUSCULAR HGB 29.5 UUG (26-34); MEAN CORPUSCULAR HGB CONC(MCHC 32.3 GM/DL (31-37); MEAN CORPUSCULAR VOLUME 91.3 UM3 (80-100); MEAN PLATELET VOLUME 10.1 UM3 (9.4-12.4); MONOCYTES # (AUTO) 1.1 T/MM3 (0-0.8); NEUTROPHILS #(AUTO)-ABSOLUTE 10.5 T/MM3 (1.8-7.7); NEUTROPHILS % (AUTO) 84.8 % (33-66); RED BLOOD COUNT 5.26 M/MM3 (4.50-5.90); WBC - WHITE BLOOD COUNT 12.4 T/MM3 (4.5-11.0)
--- NOTE | 2016-11-01 10:28 | NUR ---
LAB LAB AT BEDSIDE FOR BLOOD CULTURES
--- NOTE | 2016-11-01 10:31 | NUR ---
PROVIDER DR Nellie VOGEL AT BEDSIDE FOR H&P
--- NOTE | 2016-11-01 10:39 | NUR ---
XRAY RADIOLOGY AT BEDSIDE FOR CHEST XRAY
[2016-11-01] MEDS ORDERED: LOSA50TA52 PO (10:41)
[2016-11-01] MEDS ORDERED: NITR0.4T39 SL (10:41)
[2016-11-01] MEDS ORDERED: CLOP75TA33 PO (10:41)
[2016-11-01] MEDS ORDERED: ATOR80TA76 PO (10:41)
--- NOTE | 2016-11-01 11:00 | DI ---
Indication: ITS.REASON: low sats PROCEDURE: CHEST 1 VIEW: Encounter: Initial Comparison: Two-view chest, 10/04/2015 Findings: A single frontal chest radiograph demonstrates volume loss on the left with left hemidiaphragmatic elevation, ipsilateral tracheal shift, and diffuse pleural thickening enveloping the left lung. Although fibrothorax is the strongest consideration, would recommend clinical correlation for surgical or posttraumatic or inflammatory history of the pleura. The right lung remains clear. No pleural fluid on the right. Heart unenlarged. Impression: 1. Stable volume loss in the left with pleural thickening on the left. See above discussion. .
[2016-11-01 11:08] LABS: ALBUMIN 3.7 G/DL (3.5-5.0); ALBUMIN/GLOBULIN RATIO 1.1 RATIO (1.1-2.2); ALKALINE PHOSPHATASE 150 U/L (38-126); ALT (SGPT) 37 U/L (21-72); ANION GAP 16 MEQ/L (5-15); AST (SGOT) 114 U/L (17-59); BUN/CREATININE RATIO 25 RATIO (6-26); CALCIUM 9.3 MG/DL (8.4-10.2); CHLORIDE 102 MEQ/L (98-107); CO2 - CARBON DIOXIDE 26 MEQ/L (22-30); CREATININE 1.2 MG/DL (0.8-1.5); GLOMERULAR FILTRATION RATE 58; GLUCOSE 127 MG/DL (75-110); POTASSIUM 4.5 MEQ/L (3.6-5); SODIUM 144 MEQ/L (134-144); TOTAL PROTEIN 7.1 G/DL (6.3-8.2)
[2016-11-01 11:26] VITALS: BP 133/58; PULSE 115; RESP 24; TEMP 96.4; O2SAT 95
--- NOTE | 2016-11-01 11:31 | DI ---
Indication: ITS.REASON: fall, hit head PROCEDURE: CT HEAD W/O CONTRAST: Encounter: Initial Comparison: None Technique: Axial CT images through the head were performed without contrast. Iterative Reconstruction dose reducing technique was utilized. FINDINGS: The ventricles are of normal size, shape, and contour for the patient's age. There are scattered areas of low attenuation in the white matter which most likely represent changes from chronic microvascular ischemia. The brainstem, cerebellum, and cerebral hemispheres otherwise have a normal morphology and CT attenuation. There is no evidence of midline displacement. No hemorrhage, signs of acute territorial stroke, mass effect, mass lesions, or edema is evident. There is mild mucosal thickening of some ethmoid air cells and maxillary sinuses consistent with chronic inflammatory changes. IMPRESSION: 1. Chronic ischemia and atrophy. 2. No acute intracranial abnormality or hemorrhage. 3. Mild chronic sinusitis. .
[2016-11-01 11:37] LABS: THYROID STIM HORMONE-TSH 1.65 MIU/L (0.47-4.68)
--- NOTE | 2016-11-01 12:12 | NUR ---
REPORT REPORT GIVEN TO GRACIA LINCOLN ON MEDICAL UNIT.
--- OUTSIDE RECORDS SUMMARY | 2016-11-01 12:16 | XMS REPORT | Continuity of Care Document ---
Author Author [facility] Organization [facility] Address Unknown Phone Unavailable Allergies Active [...] DO 414.00 CORON ATHEROSCLER NOS TYPE VESSEL, [place] OR GRAFT 02/12/2013 Serge Blankenship DO 435.9 [...] 5.0-8.0 Protein Pos 1+ NA Negative Specific [place] 1.010 NA 1.003-1.030 UA Collection type Clean Catch NA Urobilinogen 0.2 mg/dL <=1.0 Urine Microscopic - 08/18/16 11:32 Bacteria Numerous NA Epithelial Cells 2 /hpf RBC, Urine 10 /hpf 0-2 WBC, Urine >50 /hpf 0-4 Encounters ACCT No. Visit Date/Time Discharge Status Pt. Type Provider Facility Loc./Unit Complaint [id number] 02/18/2014 09:34:00 2013 12:20:00 [id number] 02/12/2013 17:37:00 2012 21:15:00 DIS Inpatient Pattie INMAN [facility] W.10TN
--- NOTE | 2016-11-01 12:20 | NUR ---
ADMIT PATIENT TAKEN TO ROOM 147 PER CART, STABLE. BELONGINGS WITH PATIENT.
--- NOTE | 2016-11-01 12:20 | NUR ---
ADMIT PT ARRIVED TO ROOM 147 VIA CART. PT MOVED FROM CART TO THE BED VIA SMOOTH DISTILLERY MANAGER, PT MOVED WITH ASSIST X4. PT SETTLED IN THE BED. VITALS TAKEN. OXYGEN APPLIED. PT'S SON PRESENT IN ROOM TO HELP GIVE INFORMATION RELATED TO PT'S HEALTH HISTORY.
[2016-11-01 12:28] VITALS: Ht 162.6 cm; Wt 98.9 kg
--- NOTE | 2016-11-01 12:30 | NUR ---
Admit Patient admitted to medical room 147. Patient alert and oriented however seems to have a little confusion at times. Patient dirty from laying on garage floor, shower given. Patient placed on 1l/nc, sats 86% on RA. SOA, wheezes. Patient complains of a sore throat.
[2016-11-01 14:12] VITALS: O2SAT 94
[2016-11-01] MEDS: ALBUTEROL/IPRATROPIUM INHAL. 2.5mg-0.5mg/3ml Neb. AEROSOL SCH ×2 (14:20→19:00)
[2016-11-01] MEDS ORDERED: GUAIFENESIN 200 MG TABLET PO PRN (14:45)
[2016-11-01] MEDS ORDERED: NITROGLYCERIN 0.4 MG SUBLINGUAL TABLET SL PRN (14:45)
[2016-11-01] MEDS ORDERED: PredniSONE 20 MG TABLET PO ONE (14:45)
[2016-11-01] MEDS ORDERED: ONDANSETRON 4mg/2ml INJECTION IV PRN (14:45)
[2016-11-01] MEDS ORDERED: ALBUTEROL/IPRATROPIUM INHAL. 2.5mg-0.5mg/3ml Neb. AEROSOL PRN (14:45)
[2016-11-01] MEDS ORDERED: MILK OF MAGNESIA 30 ML SUSP PO PRN (14:45)
[2016-11-01] MEDS: FLUTICASONE NASAL SPRAY 50 MCG EA NOSTRIL SCH (14:45)
[2016-11-01] MEDS ORDERED: BISACODYL 10 MG SUPPOSITORY RECTALLY PRN (14:45)
[2016-11-01] MEDS ORDERED: SENNA + DOCUSATE TAB PO PRN (14:45)
[2016-11-01] MEDS: NORMAL SALINE 1,000 ML IV SCH (15:27)
[2016-11-01 15:33] LABS: INR 1.15 (0.76-1.04); PROTHROMBIN TIME 12.5 SEC (9.31-12.49); PTT 26.9 SEC (24-36)
--- NOTE | 2016-11-01 15:36 | HPPDOC ---
AJAY ANDINO SALES AND MARKETING SPECIALIST 11/01/16 1340: HPI - Adult Date DATE: 11/01/16 TIME: 13:37 General Chief Complaint: Fall History of Present Illness "Chris" is an 81 year old male went into the garage looking for a lal in the evening of 11/01/16, but then lost his balance and fell onto his left side, striking the left side of his head. He was knocked unconscious, but isn't sure if he passed out before he fell or as a result of the fall. He describes a spinning sensation before the fall, and reports that he hears ringing in his ears. He ended up spending all night on the wet concrete floor of the garage, too weak and dizzy to get up on his own. He estimated spending about 14 hours on the floor. 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 He's fallen 2-3 times in the last 6 months or so. He lives independently and still drives. Patient describes memory problems, and son Foreign confirms - sometimes he cannot recall where [place] is or forgets previous conversations. He still takes care of his own ADLs and IADLs though his self-hygiene has begun to suffer. His son, Foreign, calls him every morning at 0800, and on 11/01/16 he didn't answer which is unusual. Foreign called the police for a wellness check, and he was found lying on the floor of his detached garage. 911 was activated and he was transferred to [facility] [place] Leukocytosis was noted with a white count of 12.4. On CMP, BUN was 30 and creatinine was 1.2, GFR 58. AST was mildly elevated at 114, and alkaline phosphatase was also slightly high at 150. Total creatinine kinase was 4331. Troponin was 0.441, and BNP was 31,000. Head CT showed chronic ischemia and atrophy, mild chronic sinusitis, but was negative for intracranial abnormality or hemorrhage. Chest x-ray showed volume loss in the left with pleural thickening, and his son reports that this is actually improving. He was also found to be in A. fib with RVR with rates up to 124. He was given a liter of IV fluids, and his heart rate decreased to 100-110. Blood pressure was stable. Given this patient's multiple diagnoses, including new onset A. fib with RVR, rhabdomyolysis, and elevated troponin, he was placed into inpatient admission status. Length of stay is expected to exceed 2 overnights, as the patient will require close renal and cardiovascular evaluation and treatment. ROS is positive for recent congestion, runny nose, sore throat, no fever or sweating, c/o pounding heart rate on occasion. He's had a poor appetite - just doesn't feel like eating. No chest pain, or shortness of breath until he arrived in his room on the medical unit, but states he does use oxygen at home HS and during the day if he needs it (though he's not sure how much he uses). Denies abdominal pain, n/v/d, or bloody urine. He's seen Dr. Schultz a couple times over the last few months for burning on urination and dx with UTI. He states he bruises and bleeds very easily. Past Medical History Past Medical History Patient's Medical History: (1) TIA (transient ischemic attack) (2) CAD (coronary artery disease) (3) COPD (chronic obstructive pulmonary disease) (4) Systolic and diastolic CHF, chronic (5) Dyslipidemia (6) CKD (chronic kidney disease), stage III (7) BPH (benign prostatic hypertrophy) (8) Atrial fibrillation, new onset (9) Hypertension (10) JAYLA (obstructive sleep apnea) (11) Obesity (BMI 30-39.9) Surgical History Patient's Surgical History: CABG x5 (2007) left wrist ORIF (2011) Never had colonoscopy Current Medications Home Meds Reported Medications Atorvastatin Calcium (Atorvastatin Calcium) 80 Mg Tablet, 80 MG PO HS 11/01/16 Losartan Potassium (Losartan Potassium) 50 Mg Tablet, 50 MG PO DAILY 11/01/16 Nitroglycerin (Nitroglycerin) 0.4 Mg Tab.subl, 0.4 MG SL Q5MIN Y for CHEST PAIN 11/01/16 Clopidogrel Bisulfate (Clopidogrel) 75 Mg Tablet, 75 MG PO DAILY 11/01/16 Allergies: Coded Allergies: No Known Allergies (Unverified , 11/01/16) Family History Family History: Father at age 65 of pulmonary embolism Mother at age 102, old age. Sister is 84, healthy. 1 son, 1 daughter - healthy. 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 Schultz Chainstitch Felled Seam Operator: Dr. Ahumada Review of Systems Constitutional: REPORTS: appetite decrease, chills, dizziness, weakness, DENIES : fever Eyes Vision: DENIES: vision changes ENMT Sinuses: FOUND: congestion, rhinorrhea Mouth/Throat: REPORTS: sore throat ENMT Teeth: other (decay) Cardiovascular DENIES: chest pain, dyspnea on exertion Rhythm/Rate: palpitations (pounding) Vascular: DENIES: pedal edema Pulmonary Respiratory: cough, sputum GI Upper Abdomen: DENIES: nausea, pain, vomiting Lower Abdomen: DENIES: constipation, diarrhea General: dysuria, see HPI, DENIES: hematuria Musculoskeletal General: joint pain (left hip) Integumentary Skin: DENIES: color change, rash Neurological General: headache, memory disturbances, syncope, weakness, DENIES: vertigo Psychiatric Psychiatric: memory impairment Hematologic/Lymphatic easy bruising Allergic/Immunological DENIES: frequent infections All Other Systems All Other Systems: Reviewed (remainder of 10-point ROS Neg.) Physical Exam General General Nourishment: well nourished, well developed, obese Vital Signs Vital Signs Date Time Temp Pulse Resp B/P Pulse Ox O2 Delivery O2 Flow Rate FiO2 11/01/16 12:20 96.8 102 22 129/73 91 Room Air Height (Feet): 5 Height (Inches): 4.00 Eyes Brief: FOUND: EOMI, PERRL, NOT FOUND: scleral icterus, trauma ENMT Brief: FOUND: pharnyx erythema (mild), NOT FOUND: mucosa moist (dry), normal dentition (decayed) Neck Brief: NOT FOUND: JVD, adenopathy, nuchal rigidity Respiratory Inspection: FOUND: audible wheezing, increased effort Auscultation: FOUND: decreased, wheezes, NOT FOUND: rales, rhonchi Cardiovascular Auscultation: FOUND: S1, S2, irregular Peripheral Pulses: 2+: Dorasalis Pedis (L), Dorsalis Pedis (R), Posterior Tibial (L), Posterior Tibial (R), Radial (L), Radial (R) Edema: 0: Anasarca, Arm (L), Arm (R), Face Comments trace lower ext edema Abdomen Inspection: NOT FOUND: distention Palpation: FOUND: soft, NOT FOUND: McBurney's point tender, Agrawal's sign, involuntary guarding, rebound, tender, voluntary guarding Auscultation: FOUND: normo active Lymphatic (brief) Lymphatic Brief: NOT FOUND: adenopathy Musculoskeletal (brief) Musculoskeletal Brief: FOUND: extremities move equally, NOT FOUND: deformity Integumentary (brief) Integumentary Brief: FOUND: other (mottled; cap refill >3 sec.) Comments left shoulder contusion bruising to both forearms erythema to left thigh/hip ecchymosis to left ear pinna Integumentary General: FOUND: dry, warm Color: FOUND: pink Neurologic (brief) Neurological Brief: FOUND: cranial 2-12 intact (grossly), motor (equal b/l) Neurologic GCS Eye Opening: (4)Spontaneous GCS Verbal: (5)Oriented GCS Motor: (6)Obeys Commands RN Documented GCS Eye Opening: (4)Spontaneous Verbal: (5)Oriented Motor: (6)Obeys Commands Total: 15 Psychiatric (brief) FOUND: alert, attentive, normal affect, oriented Laboratory Laboratory Tests Test 11/01/16 10:06 11/01/16 10:34 11/01/16 10:46 White Blood Count 12.4T/MM3 Red Blood Count 5.26M/MM3 Hemoglobin 15.5GM/DL Hematocrit 48.0% Mean Corpuscular Volume 91.3UM3 Mean Corpuscular Hemoglobin 29.5UUG Mean Corpuscular Hemoglobin Concent 32.3GM/DL RDW Standard Deviation 49.0FL Platelet Count 207T/MM3 Mean Platelet Volume 10.1UM3 Immature Granulocyte % (Auto) 0.2% Neutrophils (%) (Auto) 84.8% Lymphocytes (%) (Auto) 5.6% Monocytes (%) (Auto) 9.0% Eosinophils (%) (Auto) 0.0% Basophils (%) (Auto) 0.4% Absolute Immature Granulocyte (auto 0.03T/MM3 Absolute Neutrophils (auto) 10.5T/MM3 Absolute Lymphocytes (auto) 0.7T/MM3 Absolute Monocytes (auto) 1.1T/MM3 Absolute Eosinophils (auto) 0.0T/MM3 Absolute Basophils (auto) 0.1T/MM3 Turbidity < 20 Sodium Level 144MEQ/L Potassium Level 4.5MEQ/L Chloride Level 102MEQ/L Carbon Dioxide Level 26MEQ/L Anion Gap 16MEQ/L Blood Urea Nitrogen 30.0MG/DL Creatinine 1.2MG/DL Glomerular Filtration Rate Calc 58 BUN/Creatinine Ratio 25RATIO Glucose Level 127MG/DL Calculated Osmolality 285MOSM/KG Calcium Level 9.3MG/DL Total Bilirubin 1.30MG/DL Icterus Index < 2 Aspartate Amino Transf (AST/SGOT) 114U/L Alanine Aminotransferase (ALT/SGPT) 37U/L Alkaline Phosphatase 150U/L Total Creatine Kinase 4331U/L Troponin I 0.441ng/ml Total Protein 7.1G/DL Albumin 3.7G/DL Globulin 3.4G/DL Albumin/Globulin Ratio 1.1RATIO Thyroid Stimulating Hormone (TSH) 1.65MIU/L Chemistry Specimen Hemolysis 20 Glucometer 129mg/dL NO-Ajy-Q-Type Natriuretic Peptide 28384XA/ML Assessment & Plan Problems: (1) Atrial fibrillation, new onset Status: Acute (2) Rhabdomyolysis Status: Acute Qualifiers: Rhabdomyolysis type: traumatic Encounter type: initial encounter Qualified Codes: T79.6XXA - Traumatic ischemia of muscle, initial encounter (3) COPD (chronic obstructive pulmonary disease) Status: Acute Qualifiers: COPD type: COPD with acute exacerbation Qualified Codes: J44.1 - Chronic obstructive pulmonary disease with (acute) exacerbation (4) Elevated troponin Status: Acute (5) Fall at home Status: Acute Qualifiers: Encounter type: initial encounter Qualified Codes: W19.XXXA - Unspecified fall, initial encounter; Y92.099 - Unspecified place in other non-institutional residence as the place of occurrence of the external cause (6) Leukocytosis Status: Acute (7) Elevated liver function tests Status: Acute (8) Systolic and diastolic CHF, chronic Status: Chronic Assessment & Plan: hx 5-vessel bypass 2007 (9) Hypertension Status: Chronic (10) TIA (transient ischemic attack) Status: Chronic (11) JAYLA (obstructive sleep apnea) Status: Chronic Assessment & Plan: Supposed to wear CPAP HS but doesn't like to use it. He does use nocturnal oxygen (he doesn't know flow rate). (12) BPH (benign prostatic hypertrophy) Status: Chronic (13) CAD (coronary artery disease) Status: Chronic (14) Dyslipidemia Status: Chronic (15) CKD (chronic kidney disease), stage III Status: Chronic (16) Obesity (BMI 30-39.9) Status: Chronic Plan/Intensity of Service Admit, inpatient status. Attending: Dr. Galvez. PCP: Dr. Schultz 1. New onset atrial fibrillation with rapid ventricular response and 2. Elevated troponin, NSTEMI vs. CHF vs.effect of rhabdomyolysis * Heart rate improved after 1 L of IV fluids in the emergency department. * Consult Dr. Ahumada * Monitor on telemetry and trend troponin * Check lipid panel * Continue Plavix. Check PTT and INR and consider additional testing for blood dyscrasias based on patient history and son's history of easy bruising and [id number]-[id number]-[id number] bleeding. With history of frequent falls, will defer starting an anticoagulant at this time. The patient is in agreement. 2. Rhabdomyolysis 3. Elevated AST and alkaline phosphatase * Normal saline at 75 ML's per hour. * Hold statin * Monitor renal status. 4. COPD exacerbation * DuoNeb 4 times a day, incentive spirometer. * Prednisone 40 mg daily. * 84-[id number]-[id number] history of smoking. 5. Vertigo and gait instability * Consult PT and OT. 6. Leukocytosis. * Suspect stress response * Check urinalysis 7. Mild chronic sinusitis. * Start Flonase. * Consider follow-up with ENT, as this may be contributing to vertigo. 8. Memory deficits * Recommend MAX prior to discharge. Pt lives independently. 9. CODE STATUS * Patient requests full resuscitation. Recommend further discussion prior to discharge, or in outpatient setting. DVT Prophylaxis: SCD'S Code Status Full Code Hospital Course Summary Disclaimer The hospital course summary below is not to be considered part of the above Progress Note. Hospital Course Summary 11/01/16 Admit, inpatient status. 1. New onset atrial fibrillation with rapid ventricular response and 2. Elevated troponin, NSTEMI vs. CHF vs.effect of rhabdomyolysis * Heart rate improved after 1 L of IV fluids in the emergency department. * Consult Dr. Ahumada * Monitor on telemetry and trend troponin * Check lipid panel * Continue Plavix. Check PTT and INR and consider additional testing for blood dyscrasias based on patient history and son's history of easy bruising and [id number] bleeding. With history of frequent falls, will defer starting an anticoagulant at this time. The patient is in agreement. 2. Rhabdomyolysis 3. Elevated AST and alkaline phosphatase * Normal saline at 75 ML's per hour. * Hold statin * Monitor renal status. 4. COPD exacerbation * DuoNeb 4 times a day, incentive spirometer. * Prednisone 40 mg daily. * [id number]-osse-[id number] history of smoking. 5. Vertigo and gait instability * Consult PT and OT. 6. Leukocytosis. * Suspect stress response * Check urinalysis 7. Mild chronic sinusitis. * Start Flonase. * Consider follow-up with ENT, as this may be contributing to vertigo. 8. Memory deficits * Recommend MAX prior to discharge. Pt lives independently. 9. CODE STATUS * Patient requests full resuscitation. Recommend further discussion prior to discharge, or in outpatient setting. LAISHA GALVEZ DO 11/01/16 1819: HPI - Adult General History of Present Illness 11/01/2016 Dr. Galvez note: I saw Mr. David right after he first came to his room from the emergency department. He complained of candidate being achy all over and denied any chest pain. Admits to shortness of breath. He is single but infused. It took him a while to remember to tell us he was found in his garage. He states his legs don't work to only falls down a lot. He also states his memory is not the best and he forgets a lot, sometimes with frequency. He thinks he may been knocked out when he fell in his garage. He tells us his CT of his head and ER was negative for any trauma Past Medical History Current Medications Home Meds Reported Medications Atorvastatin Calcium (Atorvastatin Calcium) 80 Mg Tablet, 80 MG PO HS 11/01/16 Losartan Potassium (Losartan Potassium) 50 Mg Tablet, 50 MG PO DAILY 11/01/16 Nitroglycerin (Nitroglycerin) 0.4 Mg Tab.subl, 0.4 MG SL Q5MIN Y for CHEST PAIN 11/01/16 Clopidogrel Bisulfate (Clopidogrel) 75 Mg Tablet, 75 MG PO DAILY 11/01/16 Allergies: Coded Allergies: No Known Allergies (Unverified , 11/01/16) Assessment & Plan Plan/Intensity of Service 11/01/2016 Dr. Galvez assessment and plan: When examined his heart demonstrates an irregularly irregular rhythm, he is in atrial fib; lives at this time show no wheezing, breath sounds are heard equally bilaterally ; abdomen is obese, bowel sounds are physiologic; extremities show no clubbing cyanosis or edema; no large areas of bruising or raw skin are seen on the integument; diagnoses are as follows: 1. Rhabdomyolysis with a CK of 3918 2. Elevated troponin of 0.441; 3. New onset atrial fibrillation with RVR, EKG shows a heart rate of 112; 4. Leukocytosis with a white count of over 12,000; 5. Coronary artery disease, chronic; 6. COPD, chronic 7. CHF, chronic with a BNP of 31,000 in our emergency department 8. Hypertension, chronic 9. BPH, chronic 10. Memory deficits which have been obvious to family for some time patient does live by himself and that may need to be addressed in the near future here we plan to monitor his troponin Dr. Ahumada who has been his protozoology teacher for some time has been consulted. We will Hydrate this patient and watch him closely. I reviewed the history and physical as done by Ms. Andino and I agree with the findings, the listing of problems and the assessment and plan as stated. AJAY ANDINO APRN Nov 01, 2016 13:40 LAISHA GALVEZ DO Nov 01, 2016 18:19
[2016-11-01 15:42] LABS: PREALBUMIN 10.4 MG/DL (17.6-36.0)
[2016-11-01 16:34] VITALS: BP 140/67; PULSE 104; RESP 24
[2016-11-01 17:02] LABS: CK - CPK 3918 U/L (55-170)
[2016-11-01 20:00] VITALS: PULSE 106; RESP 22
[2016-11-01] MEDS: GUAIFENESIN LA 600 MG TABLET PO SCH (21:00)
[2016-11-01] MEDS ORDERED: ATORVASTATIN 40 MG TABLET PO SCH (22:00)
[2016-11-01 23:00] VITALS: BP 146/71; PULSE 100; RESP 24; TEMP 98.5; O2SAT 94
[2016-11-02] VITALS (9 sets, daily range): BP systolic 154–171; BP diastolic 78–111; PULSE 75–94; RESP 16–22; TEMP 96.7–98.5; O2SAT 76–96
[2016-11-02 03:12] LABS: LDL CHOLESTEROL,CALCULATED 83.2 (66-159); RISK FACTOR 3.4 RATIO (0-5.0); VLDL CHOLESTEROL 17.8 MG/DL (0-28)
[2016-11-02 05:51] LABS: HCT - HEMATOCRIT 39.9 % (41-53); MEAN CORPUSCULAR HGB 29.5 UUG (26-34); MEAN CORPUSCULAR HGB CONC(MCHC 32.6 GM/DL (31-37); MEAN CORPUSCULAR VOLUME 90.7 UM3 (80-100); MEAN PLATELET VOLUME 11.1 UM3 (9.4-12.4); WBC - WHITE BLOOD COUNT 11.8 T/MM3 (4.5-11.0)
[2016-11-02 06:23] LABS: LYMPHOCYTES # (MANUAL) 1.2 T/MM3 (1-4.8); MONOCYTES # (MANUAL) 0.6 T/MM3 (0-0.8); TOTAL CELLS COUNTED 100 %
[2016-11-02 06:23] LABS: ANION GAP 12 MEQ/L (5-15); BUN/CREATININE RATIO 29 RATIO (6-26); CALCIUM 8.6 MG/DL (8.4-10.2); CHLORIDE 111 MEQ/L (98-107); CO2 - CARBON DIOXIDE 21 MEQ/L (22-30); CREATININE 1.4 MG/DL (0.8-1.5); GLOMERULAR FILTRATION RATE 49; GLUCOSE 83 MG/DL (75-110); SODIUM 144 MEQ/L (134-144)
[2016-11-02] MEDS: NORMAL SALINE 1,000 ML IV SCH (06:25)
--- NOTE | 2016-11-02 06:33 | NUR ---
STATUS PT IS ALERT AND ORIENTED X 2-3. NOTED TO BE CONFUSED AT TIMES. PT WILL STATE HE IS [place]. IT SEEMS AT TIMES HE DON'T UNDERSTAND WHAT STAFF IS TELLING HIM. AT TIMES HE BECOMES VERY UP SET AT STAFF. HE THEN WILL TELL STAFF HE IS VERY SORRY, THEN SAY I DON'T KNOW WHY I DO THAT. PT IN BED AND CONTINUE TO SIT ON THE SIDE OF THE BED OR TO STAND UP. BED ALARM WAS ON. PT WAS CONFUSED ATTEMPTED TO SIT UP. HE WRAPPED HIS 02 TUBING AROUND HIS NECK X 3. THIS NURSE ENTER HIS ROOM AND ASSISTED HIM BY TAKING THE TUBING OFF OF HIS NECK. APPLIED 02 PER NC, PT WOULD PULL IT OFF. CONTINUE TO REORIENT PT WHY HE NEEDED THE 02 ON. PT WAS TRANSFER TO RECLINER, PAD ALARM ON, SOFT CALL LIGHT WITHIN REACH. PT ATTEMPTED TO STAND UP TO GO INTO THE BATHROOM. STAFF X 2 ASSIST, WITH GAIT BELT, FWW. PT BECAME UPSET WHEN ASKED IF HE COULD USE THE URINAL OR BSC. WHEN HE WALKED INTO THE BATHROOM STAFF ENCOURAGE PT TO SIT DOWN TO VOID. PT STATES I AM A MAN, I STAND UP. HE TOLD STAFF HE WAS SORRY AFTER RETURNING TO BED. PT VISITED CONCERNING WHAT A DNR IS? HE FELT IT WAS TO DIFFICULT TO TALK ABOUT. ENCOURAGE PT TO TALK WITH SPANISH LITERATURE PROFESSOR OR HIS FREIGHT BREAKER. CALL LIGHT WITHIN REACH. CHAIR ALARM ON.
[2016-11-02] MEDS: ALBUTEROL/IPRATROPIUM INHAL. 2.5mg-0.5mg/3ml Neb. AEROSOL SCH ×4 (07:41→19:25)
[2016-11-02 07:44] LABS: BLOOD, URINE 3+ (NEGATIVE); COLOR,URINE YELLOW (YELLOW); LEUKOCYTE ESTERASE ,URINE NEGATIVE (NEGATIVE); NITRITE,URINE POSITIVE (NEGATIVE); UROBILINOGEN,URINE 0.2 EU/DL (NORMAL)
[2016-11-02 07:57] LABS: BACTERIA,URINE 4+ (NEGATIVE); RBC,URINE 0-1 /HPF (0-3); SQUAMOUS EPITHELIAL CELL,UR 0-5
[2016-11-02 07:58] LABS: COARSE GRANULAR CASTS,URINE 0-1 /LPF; HYALINE CASTS, URINE 0-1 /LPF
[2016-11-02] MEDS ORDERED: LOSARTAN 50 MG TABLET PO SCH (09:00)
[2016-11-02] MEDS: PredniSONE 20 MG TABLET PO SCH (09:08)
[2016-11-02] MEDS: CLOPIDOGREL 75 MG TABLET PO SCH (09:08)
[2016-11-02] MEDS: GUAIFENESIN LA 600 MG TABLET PO SCH ×2 (09:08→22:59)
[2016-11-02] MEDS: FLUTICASONE NASAL SPRAY 50 MCG EA NOSTRIL SCH (09:10)
--- NOTE | 2016-11-02 11:16 | DI ---
Indication: ITS.REASON: hypoxia PROCEDURE: CHEST 1 VIEW: Encounter: Initial Comparison: November 01, 2016 Findings: Left-sided pleural thickening and volume loss is again noted. No new consolidative process identified. No pneumothorax or definite pleural effusion. Poststernotomy changes. Cardiomediastinal contours are stable. Pulmonary vascularity is mildly congested. Impression: No focal pneumonia. Mild vascular congestion. .
[2016-11-02] MEDS ORDERED: HALOPERIDOL 0.5 MG TABLET PO PRN (11:45)
--- NOTE | 2016-11-02 11:49 | PNPDOC ---
AJAY ANDINO AWNING HANGER HELPER 11/02/16 1013: Subjective Date DATE: 11/02/16 TIME: 10:10 Subjective Chris was alert and oriented this morning, but was confused to the night. At times, he became upset with staff. Patient complains of having some soreness from lying on the ground for so long, and some left hip pain. He has been ambulating fairly well. He continues to have audible wheezing, and states that he feels a little bit short of breath. He states he notices heart palpitations more when he short of breath. He denies any chest pain. He denies any abdominal pain or nausea, and ate 100% of his breakfast. Objective Vital Signs Vital signs Vital Signs Date Time Temp Pulse Resp B/P Pulse Ox O2 Delivery O2 Flow Rate FiO2 11/02/16 09:17 94 22 11/02/16 07:51 76 Nasal Cannula 3.00 11/02/16 07:19 96.7 171/78 Height (Feet): 5 Height (Inches): 4.00 Weight (Kilograms): 106.600 General General Appearance: Alert, Orientated x 3, Well Nourished, Well Developed, Confused, No Acute Distress Eyes (Brief) Eyes: FOUND: PERRL, NOT FOUND: scleral icterus ENMT (Brief) ENMT: FOUND: mucosa moist, NOT FOUND: pharnyx erythema Respiratory (Brief) Respiratory: FOUND: rales, wheezes Cardiovascular (Brief) Cardiac: FOUND: other (irregularly irregular), NOT FOUND: regular rate, regular rhythm Abdomen (Brief) Abdominal: FOUND: BS normo active x4, soft, NOT FOUND: distended, tender Extremities (Brief) Extremity : Side: Bilateral Extremity: leg Extremity Finding: FOUND: edema (2+) Musculoskeletal (Brief) Musculoskeletal: NOT FOUND: tenderness Comments Ecchymosis/bruising to left shoulder. Range of motion at baseline, difficulty with flexion secondary to previous rotator cuff injury. Integumentary (Brief) Integumentary: FOUND: dry, other (areas of bruising as noted yesterday), pink ( mottled appearance has resolved), warm Neurologic (Brief) Neurological: FOUND: cranial 2-12 intact (grossly intact) Psychiatric (Brief) Psychiatric: FOUND: alert, attentive, normal affect, oriented Laboratory Laboratory Laboratory Tests 11/01/16 10:06 11/02/16 06:06 Laboratory Tests 11/01/16 10:06 11/02/16 04:36 Microbiology Microbiology Microbiology Date/Time Source Procedure Growth Status 11/01/16 10:47 Peripheral/Iv Start Blood Culture - Preliminary CULTURE INITIATED - RESULTS PENDING Resulted 11/01/16 10:46 Peripheral/Iv Start Blood Culture - Preliminary CULTURE INITIATED - RESULTS PENDING Resulted 11/02/16 07:58 Not Provided Urine Culture - Preliminary CULTURE INITIATED - RESULTS PENDING Resulted Assessment & Plan Problems: (1) Atrial fibrillation, new onset Status: Acute (2) Rhabdomyolysis Status: Acute Qualifiers: Rhabdomyolysis type: traumatic Encounter type: initial encounter Qualified Codes: T79.6XXA - Traumatic ischemia of muscle, initial encounter (3) COPD (chronic obstructive pulmonary disease) Status: Acute Qualifiers: COPD type: COPD with acute exacerbation Qualified Codes: J44.1 - Chronic obstructive pulmonary disease with (acute) exacerbation (4) Elevated troponin Status: Acute (5) Fall at home Status: Acute Qualifiers: Encounter type: initial encounter Qualified Codes: W19.XXXA - Unspecified fall, initial encounter; Y92.099 - Unspecified place in other non-institutional residence as the place of occurrence of the external cause (6) Leukocytosis Status: Acute Qualifiers: Leukocytosis type: bandemia Qualified Codes: D72.825 - Bandemia (7) Elevated liver function tests Status: Acute (8) Systolic and diastolic CHF, chronic Status: Chronic Assessment & Plan: hx 5-vessel bypass 2007 (9) Hypertension Status: Chronic (10) TIA (transient ischemic attack) Status: Chronic (11) JAYLA (obstructive sleep apnea) Status: Chronic Assessment & Plan: Supposed to wear CPAP HS but doesn't like to use it. He does use nocturnal oxygen (he doesn't know flow rate). (12) BPH (benign prostatic hypertrophy) Status: Chronic (13) CAD (coronary artery disease) Status: Chronic (14) Dyslipidemia Status: Chronic (15) CKD (chronic kidney disease), stage III Status: Chronic (16) Obesity (BMI 30-39.9) Status: Chronic (17) Protein-calorie malnutrition, mild Status: Acute Plan/Intensity of Service Hypoxia, positive fluid balance and 3.3 kg weight gain since yesterday: Stop IV fluids, repeat chest x-ray today. May need cautious diuresis. Repeat creatinine kinase this morning. Creatinine increased to 1.4. Will hold Cozaar. A. fib with RVR: Heart rate is under better control. Discussed with Dr. Ahumada, will obtain echocardiogram. Troponins are trending down. COPD exacerbation: Continue with prednisone and DuoNeb treatments. Acute encephalopathy: Patient was confused, restless, irritable and angry with staff last night. This morning he is calm and cooperative. We'll add Haldol BID PRN. DVT Prophylaxis: SCD'S Code Status Full Code Hospital Course Summary Disclaimer The hospital course summary below is not to be considered part of the above Progress Note. Hospital Course Summary 11/01/16 Admit, inpatient status. 1. New onset atrial fibrillation with rapid ventricular response and 2. Elevated troponin, NSTEMI vs. CHF vs.effect of rhabdomyolysis * Heart rate improved after 1 L of IV fluids in the emergency department. * Consult Dr. Ahumada * Monitor on telemetry and trend troponin * Check lipid panel * Continue Plavix. Check PTT and INR and consider additional testing for blood dyscrasias based on patient history and son's history of easy bruising and [id number] bleeding. With history of frequent falls, will defer starting an anticoagulant at this time. The patient is in agreement. 2. Rhabdomyolysis 3. Elevated AST and alkaline phosphatase * Normal saline at 75 ML's per hour. * Hold statin * Monitor renal status. 4. COPD exacerbation * DuoNeb 4 times a day, incentive spirometer. * Prednisone 40 mg daily. * [id number] history of smoking. 5. Vertigo and gait instability * Consult PT and OT. 6. Leukocytosis. * Suspect stress response * Check urinalysis 7. Mild chronic sinusitis. * Start Flonase. * Consider follow-up with ENT, as this may be contributing to vertigo. 8. Memory deficits * Recommend MAX prior to discharge. Pt lives independently. 9. CODE STATUS * Patient requests full resuscitation. Recommend further discussion prior to discharge, or in outpatient setting. * * Hypoxia, positive fluid balance and 3.3 kg weight gain since yesterday: Stop IV fluids, repeat chest x-ray today. May need cautious diuresis. 11/02/16 Hypoxia, positive fluid balance and 3.3 kg weight gain since yesterday: Stop IV fluids, repeat chest x-ray today. May need cautious diuresis. Repeat creatinine kinase this morning. Creatinine increased to 1.4. Will hold Cozaar. A. fib with RVR: Heart rate is under better control. Discussed with Dr. Ahumada, will obtain echocardiogram. Troponins are trending down. COPD exacerbation: Continue with prednisone and DuoNeb treatments. Acute encephalopathy: Patient was confused, restless, irritable and angry with staff last night. This morning he is calm and cooperative. We'll add Haldol BID PRN. LAISHA GALVEZ DO 11/02/166: Assessment & Plan Plan/Intensity of Service 11/02/2016 Dr. Galvez note: I saw Elie David in his room today and he was quite cheerful. He was being interviewed by occupational therapy and he was clearly in join the interview. He stated he felt short of breath part of the time but perhaps not all the time; he denied any current chest pain; he denied any abdominal pain; and he denied any problem with bowel or bladder. He is still somewhat confused but is doing better than yesterday. He thinks that his general aches and pains from his fall and extended stay on the floor might be getting a little better. His exam shows a heart with an irregular rhythm; rate is stable; lungs are auscultated and we hear a few coarse wheezes; abd. is soft and nontender ext show no cyanosis of edema. Cranial nerves II through XII are grossly intact assessment is for Elie David are as follows: Sinus rhythm with many PACs, I spoke with Dr. Ahumada today and he had looked carefully at the EKG and did see some P waves in there, he stresses we will treated any differently than if it were atrial fib because the patient falls down a lot and that would limit our ability to put him on anticoagulants, to rhabdomyolysis from his fall 3. COPD, chronic 4. Elevated troponin, being watched 5. Leukocytosis 6. A follow-up home. CHF, chronic 8. Hypertension, chronic 9. Chronic kidney disease stage III, chronic 10. Hyperlipidemia, chronic and 11 BPH, chronic . We plan to continue the hydration and monitor the CK and monitor his HF is cardiac rhythm. As for now we plan to add no new medications to his regimen. I have read the progress note by Ms. Andino and I fully agree with the findings of assessment and plan as stated. AJAY ANDION APRN Nov 02, 2016 10:13 LAISHA GALVEZ DO Nov 02, 2016 22:36
--- NOTE | 2016-11-02 13:31 | NUR ---
ONESIMO GODINEZ IS 9 Addendum: 11/02/16 at 1332 by JAYSON CORRIGAN Amended: Links added.
--- NOTE | 2016-11-02 13:55 | NUR ---
CM THIS WORKER VISITED PT IN ROOM, WAS PRESENT. THIS WORKER INTRODUCED SELF AND ROLE OF CASE MANAGEMENT. THIS WORKER DISCUSSED PLANS AFTER BEING DISCHARGED, PT STATED HE WILL BE RETURNING HOME WITH . PT STATED HE HAS GOOD FINANCIAL SUPPORT AND FAMILY SUPPORT. CHILDREN AND FAMILY LIVE IN [place]. PT AND DENIED ANY NEEDS. THIS PT WAS GIVEN THIS WORKER'S CONTACT INFORMATION AND ENCOURAGED TO CALL WITH ANY QUESTIONS/NEEDS. Addendum: 11/02/16 at 1359 by MARY CORRIGAN Amended: Links added. Addendum: 11/02/16 at 1422 by MARY CORRIGAN THIS NOTE WAS ENTERED ON WRONG PATIENT, PLEASE DISREGARD.
--- NOTE | 2016-11-02 14:22 | NUR ---
CM THIS WORKER VISITED PT, PT LAYING IN BED RESTING. THIS WORKER INTRODUCED SELF AND ROLE OF CASE MANAGEMENT. THIS WORKER DISCUSSED PT'S PLANS AFTER RETURNING HOME. PT STATED HE WILL BE RETURNING BACK HOME TO [place]. PT STATED HE LIVES BY HIMSELF, AND HIS CHILDREN LIVE IN [facility]. PT STATED HIS CHILDREN HAVE CAME TO VISIT HIM AND WILL BE BACK LATER. PT STATED HIS SON AND HIS ARE CONSIDERING BUYING HIM "LIFE ALERT TO PUT AROUND NECK". PT STATED HE HAS GOOD FINANCIAL SUPPORT. PT DENIED ANY NEEDS AT THIS MOMENT. PT WAS GIVEN THIS WORKER'S CONTACT INFORMATION AND ENCOURAGED TO CALL WITH ANY QUESTIONS/NEEDS. D/C PLANNING WILL BE ONGOING FOR APPROPRIATENESS DUE TO CONCERN OF PT LIVING ALONE. Addendum: 11/02/16 at 1430 by MARY CORRIGAN Amended: Links added.
[2016-11-02] MEDS ORDERED: INFLUENZA VAC High Dose 2016-17 (Fluzone HD*)(>=65yo) 0.5ml IM ONE (16:00)
[2016-11-02] MEDS: MENTHOL COUGH DROPS (RICOLA) MM PRN ×2 (16:23→23:00)
[2016-11-02] MEDS ORDERED: INFLUENZA VAC. ADMIN CHARGE INJ ONE (16:30)
[2016-11-02] MEDS ORDERED: PNEUMOCOCCAL 13 VACCINE 0.5 ML SYRINGE IM ONE (16:30)
[2016-11-02] MEDS ORDERED: PNEUMOCOCCAL VAC. ADMIN. CHARGE INJ ONE (16:30)
--- NOTE | 2016-11-02 18:42 | NUR ---
SHIFT SUMMARY PT ALERT AND ORIENTED X3, HOWEVER CONFUSED AT TIMES. PLEASANT AND COOPERATIVE WITH STAFF THIS SHIFT. PT ON 1.5L/NC, DENIES SOA AT THIS TIME BUT DOES EXPERIENCES SOA WITH EXERTION AND WHEN LYING FLAT IN BED. REPORTS ACHING PAIN TO LEFT SHOULDER, DENIES NEED FOR PAIN MEDICATION. DENIES N/V. TURN Q2H WITH ASSIST X1, UP WITH ASSIST X1, GAIT BELT, WALKER TO RECLINER FOR MEALS. ADEQUATE URINE OUTPUT, INCONTINENT. IVL LEFT CEPHALIC VEIN MIDLINE PATENT, ABLE TO ASPIRATE. BED ALARM ON, CALL LIGHT WITHIN REACH.
[2016-11-02] MEDS ORDERED: BUMETANIDE 1 MG/4 ML INJECTION IV ONE (22:00)
--- NOTE | 2016-11-02 22:10 | CONSPD ---
Consultation Info Date DATE: 11/02/16 TIME: 21:57 Attending Physician: 81 yo wm pt of Dr Lisandro Law , who lives with his son. He has a limited functional capacity as he s been having gradually increased SOA . He denies CP. had a dry cough. didnt notice LE edema. he has known COPD and CHF and ?h/o afib per record. H ehasn't had a heart cath or a stress nuc scan for a "long time" He was admitted thru ER after suffering a fall. He say was stumbling around in his garage when he triped by something and down he went. He hit his head against concrete floor and thats the last thing he remembers. denies angina or palpiations. laid on the floor x 14 hrs and couldnt get up due to feeling very dizzy and weak. seems more like a spinning. son checks on him twice daily he says. was brought to [facility] ED and found to have a rhabdomyolysis an delevated troponin GREGORIA. c/o chronic SOA. denies angina. HPI - Adult Date DATE: 11/02/16 TIME: 21:57 General Date of Admission Date of Admission: Nov 01, 2016 at 11:56 Chief Complaint: Fall History of Present Illness chronic CP . he s feeling soa and congested. lost balance and fell . coudnt get up due to dizziness. doesn's get around much , walks only a little around the house. smoked 1PPD quit 30 ysr ago. has suffered multiple falls. records do indicate copd. Past Medical History Past Medical History Metabolic: hypercholesterolemia, hypertension ENMT: sleep apnea (doesn't use C PAP) Cardiac: CAD, CHF Respiratory: COPD, other (part of my lung "is no good"), pulmonary embolus GI: GERD Male: BPH, UTI, kidney stones Neurological: TIA Musculoskeletal: osteoarthritis Psychological: depression Surgical History Cardiac: cardiac bypass Joint: other (left wrist) Current Medications Home Meds Reported Medications Atorvastatin Calcium (Atorvastatin Calcium) 80 Mg Tablet, 80 MG PO HS 11/01/16 Losartan Potassium (Losartan Potassium) 50 Mg Tablet, 50 MG PO DAILY 11/01/16 Nitroglycerin (Nitroglycerin) 0.4 Mg Tab.subl, 0.4 MG SL Q5MIN Y for CHEST PAIN 11/01/16 Clopidogrel Bisulfate (Clopidogrel) 75 Mg Tablet, 75 MG PO DAILY 11/01/16 Allergies: Coded Allergies: No Known Allergies (Unverified , 11/01/16) Family History FOUND: CAD, CHF, COPD (x 30 yrs +) Vaccines 11/02/16 11/02/16 PCV13 No Social History Smoking Status: Former smoker (quit 30 years ago) # of Packs/Tins per Day: 1 # of Years: 35 Substance Use Type: does not use Alcohol Intake: occasionally, other (once per month) Last Drink: unknown Marital Status: Single, (after 56 years of marraige) Housing: house Service: Yes ([employer]) Current Occupational Status: 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 Advance Directives: No DPOA for Healthcare Only Review of Systems Constitutional: REPORTS: see HPI Eyes Vision: DENIES: vision changes ENMT Ears: DENIES: erythema Hearing: REPORTS: hearing loss Cardiovascular dyspnea on exertion, DENIES: chest pain, orthopnea, paroxysmal nocturnal dysp Vascular: DENIES: intermittent claudication Pulmonary Respiratory: cough, dyspnea, DENIES: pleuritic chest pain, sputum GI Upper Abdomen: DENIES: hematemesis Lower Abdomen: DENIES: blood in stool General: DENIES: hematuria Musculoskeletal General: DENIES: cramps, weakness Integumentary Skin: DENIES: rash Neurological General: memory disturbances, poor coordination, vertigo, DENIES: aphasia, blackouts, blindness Psychiatric Psychiatric: depression Endocrine DENIES: heat/cold intolerance Physical Exam General General Nourishment: obese Vital Signs Vital Signs Date Time Temp Pulse Resp B/P Pulse Ox O2 Delivery O2 Flow Rate FiO2 11/02/16 19:37 88 11/02/16 19:27 16 94 11/02/16 19:27 Nasal Cannula 2.00 11/02/16 16:27 98.5 154/111 Height (Feet): 5 Height (Inches): 4.00 Telemetry Rhythm: Sinus Rhythm Eyes Brief: FOUND: EOMI, PERRL, NOT FOUND: trauma ENMT Brief: FOUND: mucosa moist Neck Brief: FOUND: JVD (mild), NOT FOUND: carotid bruits Respiratory Brief: FOUND: rales (L base), wheezes (diffuse B ronchi ) Cardiovascular (brief) Cardiac Brief: FOUND: gallop (s4 and s3 gallops ), pedal edema (min ankle edema B ), regular rate, regular rhythm, NOT FOUND: murmur (distant s1 s2) Capillary Refill: <2 sec Abdomen (brief) Abdominal Brief: FOUND: BS normo active x4, soft, tender, NOT FOUND: distended Lymphatic (brief) Lymphatic Brief: NOT FOUND: adenopathy, lymphedema Integumentary (brief) Integumentary Brief: FOUND: pink, warm Neurologic (brief) Neurological Brief: FOUND: cranial 2-12 intact, motor, NOT FOUND: facial droop , ptosis Neurologic RN Documented GCS Eye Opening: (4)Spontaneous Verbal: (5)Oriented Motor: (6)Obeys Commands Total: Psychiatric (brief) FOUND: alert, normal affect, oriented Psychiatric Psychiatric General: FOUND: other (very pleasant) Attitude: FOUND: cooperative Laboratory Laboratory Tests Test 11/01/16 10:06 11/01/16 10:34 11/01/16 10:46 11/01/16 15:13 White Blood Count 12.4T/MM3 Red Blood Count 5.26M/MM3 Hemoglobin 15.5GM/DL Hematocrit 48.0% Mean Corpuscular Volume 91.3UM3 Mean Corpuscular Hemoglobin 29.5UUG Mean Corpuscular Hemoglobin Concent 32.3GM/DL RDW Standard Deviation 49.0FL Platelet Count 207T/MM3 Mean Platelet Volume 10.1UM3 Immature Granulocyte % (Auto) 0.2% Neutrophils (%) (Auto) 84.8% Lymphocytes (%) (Auto) 5.6% Monocytes (%) (Auto) 9.0% Eosinophils (%) (Auto) 0.0% Basophils (%) (Auto) 0.4% Absolute Immature Granulocyte (auto 0.03T/MM3 Absolute Neutrophils (auto) 10.5T/MM3 Absolute Lymphocytes (auto) 0.7T/MM3 Absolute Monocytes (auto) 1.1T/MM3 Absolute Eosinophils (auto) 0.0T/MM3 Absolute Basophils (auto) 0.1T/MM3 Turbidity < 20 Sodium Level 144MEQ/L Potassium Level 4.5MEQ/L Chloride Level 102MEQ/L Carbon Dioxide Level 26MEQ/L Anion Gap 16MEQ/L Blood Urea Nitrogen 30.0MG/DL Creatinine 1.2MG/DL Glomerular Filtration Rate Calc 58 BUN/Creatinine Ratio 25RATIO Glucose Level 127MG/DL Calculated Osmolality 285MOSM/KG Calcium Level 9.3MG/DL Total Bilirubin 1.30MG/DL Icterus Index < 2 Aspartate Amino Transf (AST/SGOT) 114U/L Alanine Aminotransferase (ALT/SGPT) 37U/L Alkaline Phosphatase 150U/L Total Creatine Kinase 4331U/L 3918U/L Troponin I 0.441ng/ml 0.366ng/ml Total Protein 7.1G/DL Albumin 3.7G/DL Globulin 3.4G/DL Albumin/Globulin Ratio 1.1RATIO Thyroid Stimulating Hormone (TSH) 1.65MIU/L 1.53MIU/L Chemistry Specimen Hemolysis 20 26 Glucometer 129mg/dL LF-Uwu-K-Type Natriuretic Peptide 36160ID/ML Prothromb Time International Ratio 1.15 Activated Partial Thromboplast Time 26.9SEC Magnesium Level 2.0MG/DL Prealbumin 10.4MG/DL Triglycerides Level 89MG/DL Cholesterol Level 143MG/DL LDL Cholesterol, Calculated 83.2 VLDL Cholesterol 17.8MG/DL HDL Cholesterol Direct 42MG/DL Cholesterol/HDL Ratio 3.4RATIO Test 11/01/16 21:55 11/02/16 04:36 11/02/16 06:06 11/02/16 07:37 Troponin I 0.376ng/ml 0.244ng/ml Chemistry Specimen Hemolysis 88 125 White Blood Count 11.8T/MM3 Red Blood Count 4.40M/MM3 Hemoglobin 13.0GM/DL Hematocrit 39.9% Mean Corpuscular Volume 90.7UM3 Mean Corpuscular Hemoglobin 29.5UUG Mean Corpuscular Hemoglobin Concent 32.6GM/DL RDW Standard Deviation 49.8FL Platelet Count 181T/MM3 Mean Platelet Volume 11.1UM3 Immature Granulocyte % (Auto) % Neutrophils (%) (Auto) % Lymphocytes (%) (Auto) % Monocytes (%) (Auto) % Eosinophils (%) (Auto) % Basophils (%) (Auto) % Absolute Immature Granulocyte (auto T/MM3 Absolute Neutrophils (auto) T/MM3 Absolute Lymphocytes (auto) T/MM3 Absolute Monocytes (auto) T/MM3 Absolute Eosinophils (auto) T/MM3 Absolute Basophils (auto) T/MM3 Neutrophils % (Manual) 68.0% Band Neutrophils % 17.0% Lymphocytes % (Manual) 10.0% Monocytes % (Manual) 5.0% Absolute Neutrophils (Manual) 8.0T/MM3 Band Neutrophils # 2.0T/MM3 Lymphocytes # (Manual) 1.2T/MM3 Monocytes # (Manual) 0.6T/MM3 Red Cell Morphology Comment Normal Turbidity < 20 Sodium Level 144MEQ/L Potassium Level 5.0MEQ/L Chloride Level 111MEQ/L Carbon Dioxide Level 21MEQ/L Anion Gap 12MEQ/L Blood Urea Nitrogen 40.0MG/DL Creatinine 1.4MG/DL Glomerular Filtration Rate Calc 49 BUN/Creatinine Ratio 29RATIO Glucose Level 83MG/DL Calculated Osmolality 286MOSM/KG Calcium Level 8.6MG/DL Icterus Index < 2 Urine Collection Type Urine Color Yellow Urine Turbidity Sl cloudy Urine pH 5.5 Urine Specific [place] >=1.030 Urine Protein 2+ Urine Glucose (UA) Negative Urine Ketones 1+ Urine Blood 3+ Urine Nitrite Positive Urine Bilirubin Negative Urine Urobilinogen 0.2EU/DL Urine Leukocyte Esterase Negative Urine RBC 0-1/HPF Urine WBC 10-20/HPF Urine Squamous Epithelial Cells 0-5 Urine Bacteria 4+ Urine Hyaline Casts 0-1/LPF Urine Coarse Granular Casts 0-1/LPF Urine Culture Indicated Cult reflexed &setup Test 11/02/16 10:40 Total Creatine Kinase 4394U/L Microbiology extensive artifact ,prob NSR w frequent pac's. no acute changes Radiology mild pulm edema. 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
[2016-11-03] VITALS (13 sets, daily range): BP systolic 147–183; BP diastolic 69–140; PULSE 66–87; RESP 18–22; TEMP 95.5–96.8; O2SAT 82–97
--- NOTE | 2016-11-03 04:44 | NUR ---
STATUS PT ALERT AND ORIENTED X 3, PLEASANT AND COOPERATIVE WITH CARES. PT STATES HE LIKES TO JOKE AROUND AND IS VERY SORRY IF HE HAS HURT ANY STAFFS FEELING. RE-SURE PT HIS JOKING IS OK AND NO ONE IS UP SET AT HIM. PT ENJOYS TO VISIT WITH STAFF WHEN CARES ARE PROVIDED. DENIES PAIN, MILD LEFT SHOULDER DISCOMFORT. PT REFUSED PAIN MEDICATION. PT REQUEST TO WALK TO THE BATHROOM TO VOID. PT WAS ASSISTED WITH 1-2 ASSIST, FWW AND GAIT BELT. GAIT IS UNSTEADY AT TIMES. INCONTINENT OF URINE AND STOOL SMEAR. PT ENCOURAGED TO SIT ON THE TOILET. HE WAS ABLE TO HAVE A MED BM. ATTEMPTED TO DRAW BLOOD FROM MIDLINE. WAS UNSUCCESSFUL TO CHERYL BLOOD. CALL LIGHT WITHIN REACH. CHAIR ALARM ON.
[2016-11-03 05:54] LABS: BASOPHILS % (AUTO) 0.2 % (0-2); HCT - HEMATOCRIT 40.3 % (41-53); HGB - HEMOGLOBIN 13.3 GM/DL (13.5-17.5); IMMATURE GRANULOCYTE # (AUTO) 0.03 T/MM3 (0.00-0.03); IMMATURE GRANULOCYTE % (AUTO) 0.3 % (0.0-0.5); LYMPHOCYTES # (AUTO) 1.2 T/MM3 (1-4.8); LYMPHOCYTES % (AUTO) 10.2 % (23-45); MEAN CORPUSCULAR HGB 29.6 UUG (26-34); MEAN CORPUSCULAR VOLUME 89.8 UM3 (80-100); MEAN PLATELET VOLUME 10.5 UM3 (9.4-12.4); MONOCYTES % (AUTO) 8.7 % (0-9.0); NEUTROPHILS #(AUTO)-ABSOLUTE 9.4 T/MM3 (1.8-7.7); NEUTROPHILS % (AUTO) 80.6 % (33-66); RED BLOOD COUNT 4.49 M/MM3 (4.50-5.90); WBC - WHITE BLOOD COUNT 11.7 T/MM3 (4.5-11.0)
[2016-11-03 05:57] LABS: ALBUMIN 3.1 G/DL (3.5-5.0); ALKALINE PHOSPHATASE 86 U/L (38-126); ALT (SGPT) 58 U/L (21-72); ANION GAP 9 MEQ/L (5-15); AST (SGOT) 166 U/L (17-59); BUN/CREATININE RATIO 32 RATIO (6-26); CALCIUM 9.2 MG/DL (8.4-10.2); CHLORIDE 110 MEQ/L (98-107); CO2 - CARBON DIOXIDE 23 MEQ/L (22-30); CREATININE 1.3 MG/DL (0.8-1.5); GLOMERULAR FILTRATION RATE 53; GLUCOSE 92 MG/DL (75-110); MAGNESIUM 2.2 MG/DL (1.6-2.3); POTASSIUM 4.9 MEQ/L (3.6-5); SODIUM 142 MEQ/L (134-144); TOTAL PROTEIN 6.2 G/DL (6.3-8.2)
[2016-11-03] MEDS: ALBUTEROL/IPRATROPIUM INHAL. 2.5mg-0.5mg/3ml Neb. AEROSOL SCH ×3 (08:02→18:29)
[2016-11-03] MEDS: MENTHOL COUGH DROPS (RICOLA) MM PRN ×3 (09:30→11:56)
[2016-11-03] MEDS: CLOPIDOGREL 75 MG TABLET PO SCH (09:30)
[2016-11-03] MEDS: PredniSONE 20 MG TABLET PO SCH (09:31)
[2016-11-03] MEDS: GUAIFENESIN LA 600 MG TABLET PO SCH ×2 (09:31→22:12)
[2016-11-03] MEDS: FLUTICASONE NASAL SPRAY 50 MCG EA NOSTRIL SCH (09:32)
[2016-11-03] MEDS ORDERED: CEFTRIAXONE 1 G in NORMAL SALINE 100 ML IV SCH (13:00)
--- NOTE | 2016-11-03 13:14 | PNPDOC ---
AJAY ANDINO PHOTORESIST PRINTER 11/03/16 1246: Subjective Date DATE: 11/03/16 TIME: 12:44 Subjective Chris is about the same. His breathing is sometimes good, and sometimes a bit short. He isn't wheezing as much, but started to have a cough last night. He states it kept him up all night. He also reports that he choked last night and couldn't swallow his chambers. He has a hx of choking. He feels very weak in general. He began to have a coughing fit, which took his breath away and took him a couple minutes to recover. Objective Vital Signs Vital signs Vital Signs Date Time Temp Pulse Resp B/P Pulse Ox O2 Delivery O2 Flow Rate FiO2 11/03/16 09:35 93 Nasal Cannula 1.50 11/03/16 08:09 63 11/03/16 08:00 16 11/03/16 07:30 95.5 162/71 Telemetry Rhythm: Sinus Rhythm Height (Feet): 5 Height (Inches): 4.00 Weight (Kilograms): 106.800 General General Appearance: Alert, Obese, Orientated x 3, Well Nourished, Well Developed, No Acute Distress Eyes (Brief) Eyes: FOUND: PERRL, NOT FOUND: scleral icterus ENMT (Brief) ENMT: FOUND: mucosa moist, NOT FOUND: pharnyx erythema Respiratory (Brief) Respiratory: FOUND: wheezes (coarse, decreased, wheezing) Comments coughs frequently Cardiovascular (Brief) Cardiac: FOUND: regular rate, regular rhythm Abdomen (Brief) Abdominal: FOUND: BS normo active x4, soft, NOT FOUND: distended, tender Extremities (Brief) Extremity : Side: Bilateral Extremity: thigh Extremity Finding: FOUND: edema Musculoskeletal (Brief) Musculoskeletal: NOT FOUND: tenderness (calves nontender) Integumentary (Brief) Integumentary: FOUND: dry, pink, rash (arms, back, legs - nonpruritic, papular ; slightly scaly to arms), warm Comments multiple areas of ecchymosis new areas noted to right side of back left shoulder with significant bruising Psychiatric (Brief) Psychiatric: FOUND: alert, attentive, normal affect, oriented Laboratory Laboratory Laboratory Tests 11/02/16 06:06 11/03/16 04:54 Laboratory Tests 11/02/16 04:36 11/03/16 04:54 Microbiology Microbiology Microbiology Date/Time Source Procedure Growth Status 11/01/16 10:47 Peripheral/Iv Start Blood Culture - Preliminary NO GROWTH AFTER 48 HOURS Resulted 11/01/16 10:46 Peripheral/Iv Start Blood Culture - Preliminary NO GROWTH AFTER 48 HOURS Resulted 11/02/16 07:58 Not Provided Urine Culture - Preliminary Gram Negative Suraj Resulted Assessment & Plan Problems: (1) CHF (congestive heart failure) Status: Acute Qualifiers: Congestive heart failure chronicity: acute Assessment & Plan: volume up. (2) Atrial fibrillation, new onset Status: Acute (3) Rhabdomyolysis Status: Acute Qualifiers: Rhabdomyolysis type: traumatic Encounter type: initial encounter Qualified Codes: T79.6XXA - Traumatic ischemia of muscle, initial encounter (4) COPD (chronic obstructive pulmonary disease) Status: Acute Qualifiers: COPD type: COPD with acute exacerbation Qualified Codes: J44.1 - Chronic obstructive pulmonary disease with (acute) exacerbation (5) Elevated troponin Status: Acute Assessment & Plan: Type 2 PR demand/supply imbalance (6) Fall at home Status: Acute Qualifiers: Encounter type: initial encounter Qualified Codes: W19.XXXA - Unspecified fall, initial encounter; Y92.099 - Unspecified place in other non-institutional residence as the place of occurrence of the external cause (7) Leukocytosis Status: Acute Qualifiers: Leukocytosis type: bandemia Qualified Codes: D72.825 - Bandemia (8) Elevated liver function tests Status: Acute (9) Systolic and diastolic CHF, chronic Status: Chronic Assessment & Plan: hx 5-vessel bypass 2007 (10) Hypertension Status: Chronic (11) TIA (transient ischemic attack) Status: Chronic (12) JAYLA (obstructive sleep apnea) Status: Chronic Assessment & Plan: Supposed to wear CPAP HS but doesn't like to use it. He does use nocturnal oxygen (he doesn't know flow rate). (13) BPH (benign prostatic hypertrophy) Status: Chronic (14) CAD (coronary artery disease) Status: Chronic (15) Dyslipidemia Status: Chronic (16) CKD (chronic kidney disease), stage III Status: Chronic (17) Obesity (BMI 30-39.9) Status: Chronic (18) Protein-calorie malnutrition, mild Status: Acute Plan/Intensity of Service Type 2 demand ischemia PR; CHF, volume up - Dr. Ahumada saw him yesterday and gave him a dose of Bumex. Recommends low dose BB when wheezing improves. Hx dysphagia & frequent cough - consult speech therapy for eval. CXR in am. COPD exac - cont Prednisone, DuoNebs. Hypoxia - start weaning O2. Likely will need ambulatory O2 assessment and/or nocturnal ox. prior to discharge. Rhabdo - CK decreasing; renal status stable. Cont. to hold ARB & Lipitor. Weakness - cont therapy. Pt and son are interested in going to IRU here. DVT Prophylaxis: SCD'S Code Status Full Code Hospital Course Summary Disclaimer The hospital course summary below is not to be considered part of the above Progress Note. Hospital Course Summary 11/01/16 Admit, inpatient status. 1. New onset atrial fibrillation with rapid ventricular response and 2. Elevated troponin, NSTEMI vs. CHF vs.effect of rhabdomyolysis * Heart rate improved after 1 L of IV fluids in the emergency department. * Consult Dr. Ahumada * Monitor on telemetry and trend troponin * Check lipid panel * Continue Plavix. Check PTT and INR and consider additional testing for blood dyscrasias based on patient history and son's history of easy bruising and [id number]-[id number] bleeding. With history of frequent falls, will defer starting an anticoagulant at this time. The patient is in agreement. 2. Rhabdomyolysis 3. Elevated AST and alkaline phosphatase * Normal saline at 75 ML's per hour. * Hold statin * Monitor renal status. 4. COPD exacerbation * DuoNeb 4 times a day, incentive spirometer. * Prednisone 40 mg daily. * [id number]-levk history of smoking. 5. Vertigo and gait instability * Consult PT and OT. 6. Leukocytosis. * Suspect stress response * Check urinalysis 7. Mild chronic sinusitis. * Start Flonase. * Consider follow-up with ENT, as this may be contributing to vertigo. 8. Memory deficits * Recommend MAX prior to discharge. Pt lives independently. 9. CODE STATUS * Patient requests full resuscitation. Recommend further discussion prior to discharge, or in outpatient setting. * * Hypoxia, positive fluid balance and 3.3 kg weight gain since yesterday: Stop IV fluids, repeat chest x-ray today. May need cautious diuresis. 11/02/16 Hypoxia, positive fluid balance and 3.3 kg weight gain since yesterday: Stop IV fluids, repeat chest x-ray today. May need cautious diuresis. Repeat creatinine kinase this morning. Creatinine increased to 1.4. Will hold Cozaar. A. fib with RVR: Heart rate is under better control. Discussed with Dr. Ahumada, will obtain echocardiogram. Troponins are trending down. COPD exacerbation: Continue with prednisone and DuoNeb treatments. Acute encephalopathy: Patient was confused, restless, irritable and angry with staff last night. This morning he is calm and cooperative. We'll add Haldol BID PRN. 11/03/16 Type 2 demand ischemia PR; CHF, volume up - Dr. Ahumada saw him yesterday and gave him a dose of Bumex. Recommends low dose BB when wheezing improves. Hx dysphagia & frequent cough - consult speech therapy for eval. CXR in am. COPD exac - cont Prednisone, DuoNebs. Hypoxia - start weaning O2. Likely will need ambulatory O2 assessment and/or nocturnal ox. prior to discharge. Rhabdo - CK decreasing; renal status stable. Cont. to hold ARB & Lipitor. Weakness - cont therapy. Pt and son are interested in going to IRU here. LAISHA DECKER DO 11/03/162036: Assessment & Plan Plan/Intensity of Service 11/03/2016 Lenny note I saw Elie Christie in his room when he was just finishing a breathing treatment this afternoon. Does look better and he says he feels better his Resp Therapist says he is slowly improving she is a quite sure. He denies any chest pain. He admits to some coughing occasionally coughing quite hard. He denies any abdominal pain and he feels like he gets much shorter breath when he gets up and walks around. His achiness for the rhabdomyolysis is getting better. Heart is auscultated he still sounds like he has atrial fibrillation at Dr. Héctor Riojas and I agree visits sinus rhythm with a lot of PACs; lungs have some crackles in the bases he has worked pretty hard to breathe ; abdomen is obese, soft, nontender sounds are present; extremities show no edema or cyanosis. Integument is warm pink and dry assessments are as follows : 1 CHF and some exacerbation 2. Sinus rhythm with many PACs, sounds like atrial fib 3. Rhabdomyolysis, doing better with the total CK dropping from 4400 yesterday to 3000 little over 3000 today. He had a type II PR, but demand supply differential but his troponin is down to 0.24 for now 5. Follow home 6. Hypertension, chronic 7. BPH, chronic A. Coronary artery disease, chronic 10. Obesity 11. COPD our current plan is to maintain the antibiotic therapy and the breathing treatments. Although it's a slow process is definitely getting better. Looks like he may want to stay at our rehabilitation unit and I have written fully prove the progress note, assessment and plan Ms. Andino. We discussed that at some length. AJAY ANDINO APRN Nov 03, 2016 12:46 LAISHA DECKER DO Nov 03, 2016 20:37
--- NOTE | 2016-11-03 15:18 | NUR ---
IRU referral received. Met with patient and son (Foreign) and reviewed programmatic expectations of IRU. Patient acknowledged expectation of 3 hrs of therapy, 5 days/week and reported his goal and desire is to return home independently. Patient and son voiced interest in IRU. Case reviewed with Dr. Lopez and Dr. Lopez accepted patient for admission. Discussed with CM and will look to admit on or Tuesday this week.
--- NOTE | 2016-11-03 15:36 | STEVAL ---
Eval Subjective and History Date/Time of Eval DATE: 11/03/16 TIME: 15:19 Medical Diagnosis SPEECH THERAPY CONSULTATION FOR UNSPECIFIED DYSPHAGIA Treatment Order: Assessment, Dev./Imp. tx plan Orientations: x 3, Cooperative Primary Complaint: RHABDOMYOLYSIS Pain: No Date of Onset of Primary Com: 11/03/2016 Secondary Complaint: R/O DYSPHAGIA Prior History of This Problem: Yes (REPORTS "CHOKING A LOT") Patient's Goals: NONE STATED Significant Past Medical Hx: PMH: TIA, CAD, COPD, SYSTOLIC & DIASTOLIC CHF, DYSLIPIDEMIA, CKD, BPH, AFIB, HTN, JAYLA ASSESSMENT: RHABDOMYOLYSIS, AFIB, COPD, LEUKOCYTOSIS Medical History Form Reviewed: Yes Residence Type: Private home/apartment Lives With: Alone Caregiver Status: Yes (SON CALLS AND CHECKS ON HIM DAILY) Prior Functional Status: PATIENT LIVES INDEPENDENTLY IN [place]. HE FELL ON HIS LEFT SIDE, STRIKING HIS HEAD. EMS DID A WELL PERSON CHECK AFTER HIS SON WAS UNABLE TO GET AHOLD OF HIM- THEY REPORT HE WAS PROBABLY DOWN FOR 14(+/-) HOURS. SON REPORTS MEMORY IMPAIRMENT IS BASELINE, STATED HE FEELS IT IS NO WORSE SINCE THE FALL. Current Functional Status: INCREASED RISK OF ASPIRATION Education Subject: Diet Person(s) Educated: Patient Education Comment CERTIFIED MIDWIFE EDUCATED PATIENT AND SON ON REASONING FOR EVALUATION, THEY VERBALIZED UNDERSTANDING. RECOMMENDATIONS WERE REVIEWED AND OUTLINED WITH PATIENT WHO VERBALIZED UNDERSTANDING. PLEASE SEE BELOW FOR LIST OF RECOMMENDATIONS. Subjective and History Comment: "ANDREI" IS A 81YOM WHO WAS EVALUATED THIS AFTERNOON FOR C/O OF CHOKING ON CERRATO. REPORTS HE CHOKES FREQUENTLY ON MEATS. HE HAD NO ACUTE C/O PAIN OR FATIGUE, HE WAS PLEASANT AND COOPERATIVE. SON WAS PRESENT DURING EVALUATION. HE HAD JUST FINISHED PT. Dysphagia Evaluation Evaluation Location: Chair Evaluation Angle: 90 Oral Peripheral Exam-facial: Facial Symmetry: Generalized Facial Asymmetry Comment: BIALTERALLY Tongue Elevation: No Impairment (WFL) Tongue Lateralization: No Impairment (WFL) Tongue Protrusion: No Impairment (WFL) Tongue Retraction: No Impairment (WFL) Tongue Extension Midline: No Impairment (WFL) Labial Approximation: No Impairment (WFL) Intraoral Air Pressure: No Impairment (WFL) Volitional Cough: No Impairment (WFL) Larynx Elevation During Swallo: No Impairment (WFL) Dentition: Natural Oral Peripheral Exam Comment: PATIENTS LINGUAL ROM FUNCTIONAL. PATIENT WITH POOR NATURAL DENTITION. HAS NO UPPER OR LOWER MOLARS. STATES IT IS HARD TO CHEW SECONDARY TO LACK OF DENTITION. REPORTS HE HAS NO PARTIAL DENTURES. HYOLARYNGEAL ELEVATION WAS FUNCTIONAL UPON PALPATION. Lip Seal: Adequate-liquid, Adequate-pudding, Adequate-solid Lingual Manipulation: Adequate-liquid, Adequate-pudding, Adequate-solid Chewing: Adequate-pudding, Adequate-solid Oral cavity clear post swallow: Adequate-liquid, Adequate-pudding, Adequate- solid Swallow initiated w/o delay: Adequate-liquid, Adequate-pudding, Adequate-solid Multiple swallows not needed: Adequate-liquid, Adequate-pudding, Adequate-solid Voice clear&dry post swallow: Adequate-liquid, Adequate-pudding, Adequate-solid No cough/throat clear: Adequate-liquid, Adequate-pudding, Adequate-solid Comments ANDREI WAS EVALUATED SITTING UPRIGHT IN BEDSIDE CHAIR. HE INITIALLY CONSUMED SIPS OF WATER VIA SPOON THEN CUP WITH PROMPT SWALLOW RESPONSE AND NO CLINICAL S/ S OF ASPIRATION. PATIENT THEN CONSUMED SEVERAL BITES OF PUDDING. HE WAS WITHOUT ORAL RESIDUE UPON PROMPT SWALLOW RESPONSE AND NO CLINICAL S/S OF ASPIRATION. FINALLY, PATIENT MASTICATED A JEEVAN CRACKER. MASTICATION WAS REDUCED WITH MINIMAL AMOUNTS OF ORAL RESIDUE PRESENT AFTER INITIAL SWALLOW. NO CLINICAL S/S OF ASPIRATION WERE OBSERVED DURING THIS EVALUATION. WHAT PATIENT IS DESCRIBING WHEN ITEMS GET "STUCK" SOUNDS LIKE REDUCED CRICOPHARYNGEAL OPENING OR POOR PHARYNGEAL CLEARING. RECOMMENDATIONS OUTLINED BELOW. Assessment/Plan of Care Speech Therapy Impressions: PATIENT PRESENTS WITH OROPHARYNGEAL DYSPHAGIA CHARACTERIZED BY REDUCED MASTICATION DURING ORAL PHASE OF SWALLOW AND GLOBUS TYPE SENSATION AFTER SWALLOW ON SOLIDS. ST Treatment Plan: Evaluation Only ST Treatment Plan Frequency: N/A Treatment Plan Duration: N/A Plan of Care Comment RECOMMENDATIONS: 1) MODIFY DIET TO SOFT WITH CHOPPED MEATS, EXTRA GRAVIES - THIN LIQUIDS - MEDICATIONS TOLERATED 2) SWALLOW STRATEGIES: - SMALL SIPS/BITES - ALTERNATE SOLIDS AND LIQUIDS - ADD CONDIMENTS TO DRIED ITEMS SUCH KETCHUP/GRAVIES ON MEAT - LIMIT INTAKE OF HARD TO MASTICATE ITEMS - BE MINDFUL OF CHEWING - SIT UPRIGHT FOR ALL INTAKE - AVOID ITEMS THAT TRIGGER RESPONSE (I.E. CERRATO) 3) PATIENT MAY BENEFIT FROM OUTPATIENT MBSS IF COMPLAINT CONTINUES 4) MAY ALSO BENEFIT FROM OTHER UPPER GI SERIES REVIEW TO R/O REFLUX 5) SON REPORTS MEMORY IS BASELINE- RECOMMEND SUPERVISION UPON DISCHARGE - NO SKILLED ST RECOMMENDED Date of Visit 11/03/16 Time Visit Began: 15:00 Time Visit Ended: 15:11 ST Assess/Plan of Care: ST Treatment Charge: Swallow Eval Minutes of Individual Therapy: 11 CONNOR ARTHUR MS CCC-CERTIFIED MIDWIFE Nov 03, 2016 15:22
--- NOTE | 2016-11-03 16:00 | NUR ---
HYPOXIA PATIENT ON 1L WHEN HE USED BATHROOM. UPON RETURNING TO CHAIR FROM BATHROOM, PATIENT VISIBLY SOA. O2 SAT 82%. PT TURNED TO 3L NC UNTIL ABOVE 90%. NOW ON 2L NC AND O2 SATURATION IS 94%. PATIENT RECOVERED.
--- NOTE | 2016-11-03 17:08 | NUR ---
CM SPOKE WITH PT, RE: DC PLAN OF IRU. PT STATED HE WOULD LIKE THIS. HE GAVE PERMISSION FOR THIS WORKER TO CONTACT HIS SON ABOUT DC PLANNING.
--- NOTE | 2016-11-03 18:08 | NUR ---
SHIFT SUMMARY VSS, HOWEVER PT SLIGHTLY HYPERTENSIVE. CONTINUES ON 2L NC DUE TO SOA AND HYPOXIA WITH ACTIVITY. ADEQUATE URINE OUTPUT. FAIR APPETITE AND INTAKE. MIDLINE FLUSHES BUT DOES NOT ASPIRATE, SALINE LOCKED. UP TO CHAIR ALL DAY, PT DISLIKES BED. CHAIR ALARM IN USE.
--- NOTE | 2016-11-03 19:08 | PNPDOC ---
Subjective Date DATE: 11/03/16 TIME: 18:55 Subjective no new problems . denies cp . still feeling SOA. dry cough Objective Vital Signs Vital signs Vital Signs 11/03/16 11/03/16 11/03/16 11/03/16 07:30 07:40 08:00 08:00 Temp 95.5 Pulse 67 67 65 Resp 20 20 16 B/P 162/71 Pulse Ox 95 93 O2 Delivery Nasal Cannula O2 Flow Rate 2.00 11/03/16 11/03/16 11/03/16 11/03/16 08:00 08:09 09:35 15:14 Temp 96.5 Pulse 63 76 Resp 20 B/P 159/69 Pulse Ox 94 93 94 O2 Delivery Nasal Cannula Nasal Cannula Nasal Cannula O2 Flow Rate 1.00 1.50 1.50 11/03/16 11/03/16 11/03/16 11/03/16 15:15 15:59 15:59 17:12 Pulse 80 Resp 18 Pulse Ox 93 82 93 O2 Delivery Nasal Cannula Nasal Cannula O2 Flow Rate 1.00 1.00 2.00 11/03/16 11/03/16 11/03/16 11/03/16 17:12 17:12 18:31 18:31 Pulse 62 76 Resp 18 Pulse Ox 95 94 O2 Delivery Nasal Cannula O2 Flow Rate 1.00 11/03/16 18:33 Pulse 78 Telemetry Rhythm: Sinus Rhythm Height (Feet): 5 Height (Inches): 4.00 Weight (Kilograms): 106.800 General Alert, Obese (chrconically ill), Orientated x 3, Cooperative, No Acute Distress Eyes (Brief) EOMI, PERRL, NOT FOUND: trauma ENMT (Brief) mucosa moist Neck (Brief) JVD (mild) Respiratory (Brief) rales (L base), wheezes (B with ronchi) Cardiovascular (Brief) gallop (s4), pedal edema (trace ), regular rate, regular rhythm, NOT FOUND: murmur Capillary Refill: <2 sec Abdomen (Brief) BS normo active x4, other (obese), soft, NOT FOUND: distended, tender Extremities (Brief) Extremity : Extremity Finding: edema (trace), NOT FOUND: clubbing, cyanosis, deformity Lymphatic (Brief) NOT FOUND: adenopathy, lymphedema Musculoskeletal (Brief) NOT FOUND: deformity Integumentary (Brief) dry, pink, warm Neurologic (Brief) FOUND: cranial 2-12 intact, motor, NOT FOUND: facial droop, ptosis Psychiatric (Brief) alert, attentive (very pleasant), normal affect, oriented Laboratory Laboratory Laboratory Tests 11/03/16 04:54 Laboratory Tests 11/03/16 04:54 Microbiology Microbiology Microbiology Date/Time Source Procedure Growth Status 11/01/16 10:47 Peripheral/Iv Start Blood Culture - Preliminary NO GROWTH AFTER 48 HOURS Resulted 11/01/16 10:46 Peripheral/Iv Start Blood Culture - Preliminary NO GROWTH AFTER 48 HOURS Resulted 11/02/16 07:58 Not Provided Urine Culture - Preliminary Gram Negative Suraj Resulted Radiology mild pulm congestion on cXR Assessment & Plan Assessment elevated troponin associated with rhabdo and CHF DCHF CABG COPD Rhabdo iV bumex 2 mg x1 (poor response to 1 mg and wt and volume appears up) suspect BUN high due to steroids. CV stable. BP better control ,Rx ordered. please resume usual cardiac meds once stabilized. I ll follow intermittently.please call w CV concerns LORI LAW MD Nov 03, 2016 19:01
[2016-11-03] MEDS ORDERED: AMLODIPINE 5 MG TABLET PO ONE ×2 (19:15)
[2016-11-03] MEDS ORDERED: BUMETANIDE 1 MG/4 ML INJECTION IV ONE (19:15)
--- NOTE | 2016-11-03 19:19 | NUR ---
NORVASC CLARIFICATION DR LAW ENTERED ORDERS FOR NORVASC 5MG AND 2.5MG ONE TIME NOW. CLARIFIED WITH DR LAW, PATIENT ONLY TO RECEIVE NORVASC 2.5MG. DO NOT GIVE 5MG DOSE.
--- NOTE | 2016-11-03 22:48 | NUR ---
MEDICATION REFUSAL: PT REFUSED TO TAKE HIS EVENING MEDICATIONS. I TRIED LATER AND HE WANTED TO TALK TO HIS SON; PT SEEMS A LITTLE CONFUSED. AFTER GETTING OFF THE PHONE FROM HIS SON, HE DECIDED TO TAKE HIS MEDICATIONS. ADMINISTERED MEDS.
[2016-11-04] VITALS (12 sets, daily range): BP systolic 155–186; BP diastolic 69–86; PULSE 65–78; RESP 17–26; TEMP 95.9–97; O2SAT 93–99
--- NOTE | 2016-11-04 00:20 | NUR ---
HIGH BLOOD PRESSURE: PT'S BP WAS 189/86. SENT TIGER TEXT AND RECEIVED A CALL BACK FROM DR. HARRIS. SHE SAID SINCE THE PT IS AGITATED TO ADMINISTER HIS PRN HALDOL. GAVE PT'S PRN HALDOL (SEE EMAR).
--- NOTE | 2016-11-04 04:04 | NUR ---
V-TACH RUN: TELEMETRY CALLED TO SAY PT RAN A 6 BEAT RUN OV V-TACH. SENT TIGER TEXT AND HEARD BACK TO VIA TEXT THAT I JUST NEED TO MONITOR PT. AND THAT THERE IS NO NEW ORDERS. PT'S VITALS ARE STABLE, PT DENIES SOA, AND NO PAIN, SMILING. WILL CONTINUE TO MONITOR.
[2016-11-04 05:06] LABS: HCT - HEMATOCRIT 42.4 % (41-53); HGB - HEMOGLOBIN 13.5 GM/DL (13.5-17.5); MEAN CORPUSCULAR HGB 29.3 UUG (26-34); MEAN CORPUSCULAR HGB CONC(MCHC 31.8 GM/DL (31-37); MEAN CORPUSCULAR VOLUME 92.2 UM3 (80-100); MEAN PLATELET VOLUME 9.9 UM3 (9.4-12.4); WBC - WHITE BLOOD COUNT 9.7 T/MM3 (4.5-11.0)
[2016-11-04 05:17] LABS: ALBUMIN 3.3 G/DL (3.5-5.0); ALBUMIN/GLOBULIN RATIO 1.1 RATIO (1.1-2.2); ALKALINE PHOSPHATASE 92 U/L (38-126); ALT (SGPT) 75 U/L (21-72); ANION GAP 7 MEQ/L (5-15); AST (SGOT) 133 U/L (17-59); BUN/CREATININE RATIO 34 RATIO (6-26); CALCIUM 9.3 MG/DL (8.4-10.2); CHLORIDE 105 MEQ/L (98-107); CK - CPK 1232 U/L (55-170); CO2 - CARBON DIOXIDE 32 MEQ/L (22-30); CREATININE 1.3 MG/DL (0.8-1.5); GLOMERULAR FILTRATION RATE 53; GLUCOSE 109 MG/DL (75-110); POTASSIUM 4.4 MEQ/L (3.6-5); SODIUM 144 MEQ/L (134-144); TOTAL PROTEIN 6.4 G/DL (6.3-8.2)
[2016-11-04 06:35] LABS: BAND NEUTROPHILS # 0.5 T/MM3; LYMPHOCYTES # (MANUAL) 1.1 T/MM3 (1-4.8); MONOCYTES # (MANUAL) 0.3 T/MM3 (0-0.8); NEUTROPHILS #(MANUAL)-ABSOLUTE 7.9 T/MM3 (1.8-7.7); TOTAL CELLS COUNTED 100 %
[2016-11-04] MEDS: ALBUTEROL/IPRATROPIUM INHAL. 2.5mg-0.5mg/3ml Neb. AEROSOL SCH ×4 (07:38→19:12)
--- NOTE | 2016-11-04 07:50 | NUR ---
SHIFT SUMMARY: PT IS A&OX3, DIFFICULT TO DEAL WITH AT TIMES; PT WOULD NOT TAKE HIS EVENING MEDICATIONS, BUT DID TAKE THEM LATER AFTER SPEAKING WITH HIS SON ON THE PHONE. PT TOLD HIS SON THAT WE WERE TRYING TO POISON HIM. PT'S SON CAME SHORTLY AFTER SPEAKING WITH HIS FATHER, AND STAYED OVERNIGHT IN THE PT'S ROOM. PT IS UP TO THE BATHROOM TO VOID, BUT CAN BE FOUND INCONTINENT AT TIMES. PT IS ON 2L 02 NC. MIDLINE FLUSHES, BUT DOES NOT ASPIRATE. CALL LIGHT WITHIN REACH, BED ALARM ON.
--- NOTE | 2016-11-04 08:38 | DI ---
INDICATION: ITS.REASON: chf; cough PROCEDURE: CHEST 2-VIEWS UPRIGHT (PA \T\ LAT) Encounter: Initial COMPARISON: November 02, 2016 FINDINGS: Left-sided pleural thickening is again seen. Increasing peripheral interstitial markings on the left. Right lung is stable and grossly clear. No pneumothorax. Heart size and mediastinal contours are unchanged. Prior CABG. Impression: Mild pulmonary vascular congestion or edema. Extensive left pleural thickening. .
[2016-11-04] MEDS: GUAIFENESIN LA 600 MG TABLET PO SCH ×2 (09:06→21:39)
[2016-11-04] MEDS: CLOPIDOGREL 75 MG TABLET PO SCH (09:06)
[2016-11-04] MEDS: FLUTICASONE NASAL SPRAY 50 MCG EA NOSTRIL SCH (09:07)
[2016-11-04] MEDS: CEFEPIME 1 G in NORMAL SALINE 100 ML IV SCH ×3 (09:08→21:40)
--- NOTE | 2016-11-04 09:16 | PNPDOC ---
AJAY ANDINO SECOND CRUSHER 11/04/16 0904: Subjective Date DATE: 11/04/16 TIME: 09:00 Subjective Chris was awake, alert and oriented 3. He had a rough night, and was confused and at times agitated. Initially, he refused his night meds, but after his son talked to him, he agreed to take them. His son ended up spending the night with him because of his behaviors. This morning, he feels like his breathing is doing a bit better, but he is still coughing. He still feels quite weak in general. Earlier he was on up to 6 L of oxygen, but this was back down to 2 L. He became tearful, and apologized for his behaviors. He also expressed gratitude for the care that has been provided here. He doesn't always want to work with therapy but with his son's encouragement, he consented and was able to walk 190 feet yesterday with the walker. Objective Vital Signs Vital signs Vital Signs Date Time Temp Pulse Resp B/P Pulse Ox O2 Delivery O2 Flow Rate FiO2 11/04/16 07:42 68 11/04/16 07:41 98 Nasal Cannula 3.00 11/04/16 07:38 24 11/04/16 03:52 155/86 11/04/16 00:01 95.9 Telemetry Rhythm: Sinus Rhythm Height (Feet): 5 Height (Inches): 4.00 Weight (Kilograms): 106.800 General General Appearance: Alert, Orientated x 3, Well Nourished, Well Developed, No Acute Distress Eyes (Brief) Eyes: FOUND: PERRL, NOT FOUND: scleral icterus ENMT (Brief) ENMT: FOUND: mucosa moist, NOT FOUND: pharnyx erythema Respiratory (Brief) Respiratory: FOUND: wheezes (+ rhonchi) Comments Decreased air movement bilaterally Cardiovascular (Brief) Cardiac: FOUND: other (distant heart sounds), regular rate, regular rhythm Abdomen (Brief) Abdominal: FOUND: BS normo active x4, soft, NOT FOUND: distended, tender Extremities (Brief) Extremity : Extremity: leg Extremity Finding: FOUND: edema (trace bilaterally) Musculoskeletal (Brief) Musculoskeletal: FOUND: tenderness (left lower back paraspinal tenderness) Integumentary (Brief) Integumentary: FOUND: dry, pink, warm Neurologic (Brief) Neurological: FOUND: cranial 2-12 intact (grossly intact) Psychiatric (Brief) Psychiatric: FOUND: alert, attentive, normal affect, oriented Laboratory Laboratory Laboratory Tests 11/03/16 04:54 11/04/16 04:54 Laboratory Tests 11/03/16 04:54 11/04/16 04:54 Microbiology Microbiology Microbiology Date/Time Source Procedure Growth Status 11/01/16 10:47 Peripheral/Iv Start Blood Culture - Preliminary NO GROWTH AFTER 48 HOURS Resulted 11/01/16 10:46 Peripheral/Iv Start Blood Culture - Preliminary NO GROWTH AFTER 48 HOURS Resulted 11/02/16 07:58 Not Provided Urine Culture - Final Enterobacter Cloacae Complete Assessment & Plan Problems: (1) Ventricular tachyarrhythmia Onset Date: 11/04/2016 Status: Acute (2) CHF (congestive heart failure) Status: Acute Qualifiers: Congestive heart failure chronicity: acute Assessment & Plan: volume up. (3) Encephalopathy Status: Acute (4) Atrial fibrillation, new onset Status: Resolved (5) Rhabdomyolysis Status: Acute Qualifiers: Rhabdomyolysis type: traumatic Encounter type: initial encounter Qualified Codes: T79.6XXA - Traumatic ischemia of muscle, initial encounter (6) COPD (chronic obstructive pulmonary disease) Status: Acute Qualifiers: COPD type: COPD with acute exacerbation Qualified Codes: J44.1 - Chronic obstructive pulmonary disease with (acute) exacerbation (7) Elevated troponin Status: Acute Assessment & Plan: Type 2 AR demand/supply imbalance (8) Fall at home Status: Acute Qualifiers: Encounter type: initial encounter Qualified Codes: W19.XXXA - Unspecified fall, initial encounter; Y92.099 - Unspecified place in other non-institutional residence as the place of occurrence of the external cause (9) Leukocytosis Status: Acute Qualifiers: Leukocytosis type: bandemia Qualified Codes: D72.825 - Bandemia (10) Elevated liver function tests Status: Acute (11) Systolic and diastolic CHF, chronic Status: Chronic Assessment & Plan: hx 5-vessel bypass 2007 (12) Hypertension Status: Chronic (13) TIA (transient ischemic attack) Status: Chronic (14) JAYLA (obstructive sleep apnea) Status: Chronic Assessment & Plan: Supposed to wear CPAP HS but doesn't like to use it. He does use nocturnal oxygen (he doesn't know flow rate). (15) BPH (benign prostatic hypertrophy) Status: Chronic (16) CAD (coronary artery disease) Status: Chronic (17) Dyslipidemia Status: Chronic (18) CKD (chronic kidney disease), stage III Status: Chronic (19) Obesity (BMI 30-39.9) Status: Chronic (20) Protein-calorie malnutrition, mild Status: Acute Plan/Intensity of Service Nurses report 6 beat run of V. tach around 0400. Patient was asymptomatic. Since then, he has been in sinus. Dr. Ahumada is following. Diastolic CHF: Dr. Ahumada gave Bumex 2 mg last night. CXR was repeated this am - showed mild edema. Echo report pending. Acute hypoxic respiratory failure: Required up to 6 L earlier today, and CO2 on lab increased to 32 (contraction alkalosis? - BUN also up to 44 today). He currently is on 2 L oxygen but still has wheezing and coarse breath sounds. Acute encephalopathy: Could be related to steroids. Will decrease dose of prednisone to 20 mg. Vit B12 was low-normal at 261 - will start replacement. COPD exacerbation: O2 and steroids, DuoNebs. Continues to wheeze. Rhabdomyolysis: CK improved to 1232. Discussed with Dr. Galvez. Pt has been accepted to IRU when medically stable. DVT Prophylaxis: SCD'S Code Status Full Code Hospital Course Summary Disclaimer The hospital course summary below is not to be considered part of the above Progress Note. Hospital Course Summary 11/01/16 Admit, inpatient status. 1. New onset atrial fibrillation with rapid ventricular response and 2. Elevated troponin, NSTEMI vs. CHF vs.effect of rhabdomyolysis * Heart rate improved after 1 L of IV fluids in the emergency department. * Consult Dr. Ahumada * Monitor on telemetry and trend troponin * Check lipid panel * Continue Plavix. Check PTT and INR and consider additional testing for blood dyscrasias based on patient history and son's history of easy bruising and [id number] bleeding. With history of frequent falls, will defer starting an anticoagulant at this time. The patient is in agreement. 2. Rhabdomyolysis 3. Elevated AST and alkaline phosphatase * Normal saline at 75 ML's per hour. * Hold statin * Monitor renal status. 4. COPD exacerbation * DuoNeb 4 times a day, incentive spirometer. * Prednisone 40 mg daily. * [id number] history of smoking. 5. Vertigo and gait instability * Consult PT and OT. 6. Leukocytosis. * Suspect stress response * Check urinalysis 7. Mild chronic sinusitis. * Start Flonase. * Consider follow-up with ENT, as this may be contributing to vertigo. 8. Memory deficits * Recommend MAX prior to discharge. Pt lives independently. 9. CODE STATUS * Patient requests full resuscitation. Recommend further discussion prior to discharge, or in outpatient setting. * * Hypoxia, positive fluid balance and 3.3 kg weight gain since yesterday: Stop IV fluids, repeat chest x-ray today. May need cautious diuresis. 11/02/16 Hypoxia, positive fluid balance and 3.3 kg weight gain since yesterday: Stop IV fluids, repeat chest x-ray today. May need cautious diuresis. Repeat creatinine kinase this morning. Creatinine increased to 1.4. Will hold Cozaar. A. fib with RVR: Heart rate is under better control. Discussed with Dr. Ahumada, will obtain echocardiogram. Troponins are trending down. COPD exacerbation: Continue with prednisone and DuoNeb treatments. Acute encephalopathy: Patient was confused, restless, irritable and angry with staff last night. This morning he is calm and cooperative. We'll add Haldol BID PRN. 11/03/16 Type 2 demand ischemia AR; CHF, volume up - Dr. Ahumada saw him yesterday and gave him a dose of Bumex. Recommends low dose BB when wheezing improves. Hx dysphagia & frequent cough - consult speech therapy for eval. CXR in am. COPD exac - cont Prednisone, DuoNebs. Hypoxia - start weaning O2. Likely will need ambulatory O2 assessment and/or nocturnal ox. prior to discharge. Rhabdo - CK decreasing; renal status stable. Cont. to hold ARB & Lipitor. Weakness - cont therapy. Pt and son are interested in going to IRU here. 11/04/16 Nurses report 6 beat run of V. tach around 0400. Patient was asymptomatic. Since then, he has been in sinus. Dr. Ahumada is following. Diastolic CHF: Dr. Ahumada gave Bumex 2 mg last night. CXR was repeated this am - showed mild edema. Echo report pending. Acute hypoxic respiratory failure: Required up to 6 L earlier today, and CO2 on lab increased to 32 (contraction alkalosis? - BUN also up to 44 today). He currently is on 2 L oxygen but still has wheezing and coarse breath sounds. Acute encephalopathy: Could be related to steroids. Will decrease dose of prednisone to 20 mg. Vit B12 was low-normal at 261 - will start replacement. COPD exacerbation: O2 and steroids, DuoNebs. Continues to wheeze. Rhabdomyolysis: CK improved to 1232. Pt has been accepted to IRU when medically stable. LAISHA GALVEZ DO 11/04/162143: Subjective Subjective 11/04/2016 Dr. Galvez note: Elie, we calling by the because that's what he likes to be called, was pathology's for his rowdy behavior last night. His rowdy behavior consisted of refused to take his medications, his son came in and ended up spending the rest of the night with him I eventually got him calmed down to where he quit apologizing and he promised to do much better in the future. He said we should all know we have great nurses here and he doesn't want to consult any of them. He still has her shortness of breath but he says is doing much better; he denies any chest pain and also denies any abdominal pain at the moment. He says his general aches and pains from the fall and the line on the garage floor all night are really starting to lessen. Significantly , his creatinine kinase is gone from 4402 about 3000 and now is down to about roughly 1200. Sort of regular in the right direction. Lungs still show a few crackles and occasional wheeze; Heart has her regular rate and rhythm at the moment; Abdomen is soft, nontender bowel sounds are present; Patient is alert and oriented 3 and carries on a conversation easily Show no edema and no cyanosis Chris is making slow but steady progress and hopefully will be able to go home and perhaps 3 days Diagnoses are as follows: Ventricular tachycardia, he had a short run last night and a Dr. Ahumada does not think this is really significant 2. Atrial fibrillation, new onset, resolved 3. Rhabdomyolysis, improving rapidly 4. COPD, with exacerbation 5. Encephalopathy acute, and now better 6. Elevated troponin, unclear what causes 7. A fall at home A. Leukocytosis, acute, resolved 9. Congestive heart failure, chronic 10. Elevated liver enzymes, resolving 11. Hypertension, chronic 12. Obstructive sleep apnea, chronic 13. BPH, chronic 14. Coronary artery disease, chronic 15. Hyperlipidemia 16. Chronic kidney disease stage III he now has a 53 GFR which is better than when he first came in the hospital 17. Obesity, chronic Mr. David is Gated patient and we have to do a lot of things to help him feel better we will increase the exercise slowly and we may even hitting with some diuresis in the next few hours 24 hours, but most importantly he is improving albeit slowly and the hopefully will be able to go home in a few days. I discussed Mr. David at length with Ms. Orozco and I have read and approved of her assessments and plan AJAY ANDINO APRN Nov 04, 2016 09:04 LAISHA GALVEZ DO Nov 04, 2016 21:44
[2016-11-04] MEDS: CYANOCOBALAMIN (B-12) 500mcg TABLET PO SCH (09:33)
--- NOTE | 2016-11-04 19:22 | NUR ---
SHIFT SUMMARY PT ALERT AND ORIENTED X3. VITAL SIGNS STABLE. 2L OF O2, SOA WITH ACTIVITIES. PT COOPERATED WITH TREATMENTS AND CARE. PT IS UP WITH X1 ASSISTANCE.
--- NOTE | 2016-11-04 19:29 | PNPDOC ---
Subjective Date DATE: 11/04/16 TIME: 19:20 Subjective feels he s getting stronger. He s breathing easier and took a couple of walks with staff. deneis cp or paiptations. had a short run of NSVT Objective Vital Signs Vital signs Vital Signs 11/04/16 11/04/16 11/04/16 11/04/16 07:35 07:38 07:39 07:41 Pulse 72 Resp 24 Pulse Ox 99 99 98 O2 Delivery Nasal Cannula Nasal Cannula O2 Flow Rate 6.00 3.00 11/04/16 11/04/16 11/04/16 11/04/16 07:42 08:00 09:43 11:18 Temp 97.0 Pulse 68 65 68 Resp 17 20 B/P 175/83 Pulse Ox 97 96 O2 Delivery Nasal Cannula O2 Flow Rate 2.00 11/04/16 11/04/16 11/04/16 11/04/16 11:24 11:25 15:09 15:39 Temp 96.5 Pulse 77 74 78 Resp 20 20 B/P 166/69 Pulse Ox 93 93 O2 Delivery Nasal Cannula O2 Flow Rate 2.00 11/04/16 11/04/16 15:40 15:41 Pulse 79 78 Telemetry Rhythm: Sinus Rhythm, V-Tachycardia (nonsustained <2 sec) Height (Feet): 5 Height (Inches): 4.00 Weight (Kilograms): 106.800 General Alert, Obese, Orientated x 3 Eyes (Brief) EOMI, PERRL, NOT FOUND: trauma ENMT (Brief) mucosa moist Neck (Brief) JVD (slight) Respiratory (Brief) equal bilaterally, wheezes (occ. drcreaed air movement) Cardiovascular (Brief) gallop (s4), pedal edema (trace ), regular rate, regular rhythm, NOT FOUND: murmur Capillary Refill: <2 sec Abdomen (Brief) BS normo active x4, soft, NOT FOUND: distended, tender Extremities (Brief) Extremity : Extremity Finding: NOT FOUND: clubbing, cyanosis Lymphatic (Brief) NOT FOUND: lymphedema Musculoskeletal (Brief) NOT FOUND: deformity Integumentary (Brief) dry, pink, warm Neurologic (Brief) FOUND: cranial 2-12 intact, motor, NOT FOUND: facial droop, ptosis Psychiatric (Brief) alert, attentive, normal affect, oriented Laboratory Laboratory Laboratory Tests 11/04/16 04:54 Laboratory Tests 11/04/16 04:54 Microbiology Microbiology Microbiology Date/Time Source Procedure Growth Status 11/02/16 07:58 Not Provided Urine Culture - Final Enterobacter Cloacae Complete Assessment & Plan Assessment elevated troponin associated with rhabdo and CHF DCHF acute on chronic CABG COPD Rhabdo NSVT short run and asymptomatic . consider low dose BB such as metorprolol 12.5 mg BID or bystolic 2.5 -5 mg daily and watch for wheezing . HTN hoping for better control once his Losartan gets restarted. suspect BUN high due to steroids. CV stable. BP better control ,Rx ordered. please resume usual cardiac meds once stabilized. 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 medical Rx for now . Plan/Intensity of Service consider restarting his Losartan with close monitoring of BMP as inpt and outpt. along with restarting his usal cardiac meds. call me with CV concerns please LORI LAW MD Nov 04, 2016 19:23
[2016-11-04] MEDS ORDERED: NS 500 ML IV PRN (22:00)
[2016-11-05 00:01] VITALS: BP 183/82; PULSE 70; RESP 20; TEMP 96.6; O2SAT 93
[2016-11-05 01:34] VITALS: BP 170/86
[2016-11-05] MEDS: CEFEPIME 1 G in NORMAL SALINE 100 ML IV SCH ×2 (02:56→09:14)
[2016-11-05 05:03] LABS: BASOPHILS % (AUTO) 0.1 % (0-2); HCT - HEMATOCRIT 40.5 % (41-53); HGB - HEMOGLOBIN 12.8 GM/DL (13.5-17.5); IMMATURE GRANULOCYTE # (AUTO) 0.03 T/MM3 (0.00-0.03); IMMATURE GRANULOCYTE % (AUTO) 0.4 % (0.0-0.5); LYMPHOCYTES # (AUTO) 1.5 T/MM3 (1-4.8); LYMPHOCYTES % (AUTO) 17.5 % (23-45); MEAN CORPUSCULAR HGB 29.2 UUG (26-34); MEAN CORPUSCULAR HGB CONC(MCHC 31.6 GM/DL (31-37); MEAN CORPUSCULAR VOLUME 92.5 UM3 (80-100); MONOCYTES # (AUTO) 0.5 T/MM3 (0-0.8); MONOCYTES % (AUTO) 5.7 % (0-9.0); NEUTROPHILS #(AUTO)-ABSOLUTE 6.3 T/MM3 (1.8-7.7); NEUTROPHILS % (AUTO) 76.3 % (33-66); RED BLOOD COUNT 4.38 M/MM3 (4.50-5.90); WBC - WHITE BLOOD COUNT 8.3 T/MM3 (4.5-11.0)
[2016-11-05 05:14] LABS: ALBUMIN 3.1 G/DL (3.5-5.0); ALBUMIN/GLOBULIN RATIO 1.1 RATIO (1.1-2.2); ALKALINE PHOSPHATASE 78 U/L (38-126); ALT (SGPT) 67 U/L (21-72); ANION GAP 7 MEQ/L (5-15); AST (SGOT) 85 U/L (17-59); BUN/CREATININE RATIO 36 RATIO (6-26); CALCIUM 9.1 MG/DL (8.4-10.2); CHLORIDE 105 MEQ/L (98-107); CK - CPK 537 U/L (55-170); CO2 - CARBON DIOXIDE 32 MEQ/L (22-30); CREATININE 1.2 MG/DL (0.8-1.5); GLOMERULAR FILTRATION RATE 58; GLUCOSE 108 MG/DL (75-110); POTASSIUM 4.7 MEQ/L (3.6-5); SODIUM 144 MEQ/L (134-144); TOTAL PROTEIN 5.8 G/DL (6.3-8.2)
--- NOTE | 2016-11-05 05:27 | NUR ---
Status Pt on 2 L O2 during shift. Compliant with cares and oriented x3. In chair during shift. Ambulates to BR at times. Incontinent at times. Midline flushes but does not aspirate. Denies pain, but has some lower back discomfort from sitting in chair at all times. Call light within reach. Will continue to monitor.
[2016-11-05 07:17] VITALS: BP 148/82; PULSE 71; RESP 18; TEMP 96; O2SAT 90
[2016-11-05 07:22] VITALS: PULSE 71; RESP 18
[2016-11-05] MEDS: ALBUTEROL/IPRATROPIUM INHAL. 2.5mg-0.5mg/3ml Neb. AEROSOL SCH ×2 (07:44→12:06)
[2016-11-05 07:46] VITALS: O2SAT 92
[2016-11-05] MEDS ORDERED: PredniSONE 20 MG TABLET PO SCH (08:00)
[2016-11-05] MEDS: CYANOCOBALAMIN (B-12) 500mcg TABLET PO SCH (09:14)
[2016-11-05] MEDS: CLOPIDOGREL 75 MG TABLET PO SCH (09:15)
[2016-11-05] MEDS: FLUTICASONE NASAL SPRAY 50 MCG EA NOSTRIL SCH (09:15)
[2016-11-05] MEDS: GUAIFENESIN LA 600 MG TABLET PO SCH (09:15)
[2016-11-05] MEDS ORDERED: PRED20TA PO (11:39)
[2016-11-05] MEDS ORDERED: IPRA3AMP AEROSOL ×2 (11:39)
[2016-11-05] MEDS ORDERED: SENN-152 PO (11:39)
[2016-11-05] MEDS ORDERED: FLUT16SP EA NOSTRIL (11:39)
[2016-11-05] MEDS ORDERED: CIPR-212 PO (11:39)
[2016-11-05] MEDS ORDERED: BISA10SU8 RECTALLY (11:39)
[2016-11-05] MEDS ORDERED: CYAN500T2 PO (11:39)
[2016-11-05] MEDS ORDERED: GUAI600T PO (11:39)
--- NOTE | 2016-11-05 11:55 | DSPDOC ---
LAUREN ELMORE V LEGAL PROJECT MANAGER 11/05/16 1148: General Date Date DATE: 11/05/16 TIME: 11:45 Attending Physician Laisha Galvez DO Admitting Physician Laisha Galvez DO Consulting Physician Micheal Ahumada MD Admitting Diagnosis rhabdolyolysis, elevated troponin, atrial fibrillation, new onset Discharge Diagnosis Rhabdomyolysis New-onset atrial fibrillation Encephalopathy Fall at home Elevated troponin Elevated LFTs Hypertension COPD Congestive heart failure Procedures None Laboratory Laboratory Tests Test 11/04/16 04:54 11/05/16 04:40 White Blood Count 9.7T/MM3 (4.5-11.0) 8.3T/MM3 (4.5-11.0) Red Blood Count 4.60M/MM3 (4.50-5.90) 4.38M/MM3 (4.50-5.90) Hemoglobin 13.5GM/DL (13.5-17.5) 12.8GM/DL (13.5-17.5) Hematocrit 42.4% (41-53) 40.5% (41-53) Mean Corpuscular Volume 92.2UM3 (80-100) 92.5UM3 (80-100) Mean Corpuscular Hemoglobin 29.3UUG (26-34) 29.2UUG (26-34) Mean Corpuscular Hemoglobin Concent 31.8GM/DL (31-37) 31.6GM/DL (31-37) RDW Standard Deviation 49.3FL (36.9-50.2) 48.7FL (36.9-50.2) Platelet Count 181T/MM3 (130-400) 179T/MM3 (130-400) Mean Platelet Volume 9.9UM3 (9.4-12.4) 10.0UM3 (9.4-12.4) Immature Granulocyte % (Auto) % (0.0-0.5) 0.4% (0.0-0.5) Neutrophils (%) (Auto) % (33-66) 76.3% (33-66) Lymphocytes (%) (Auto) % (23-45) 17.5% (23-45) Monocytes (%) (Auto) % (0-9.0) 5.7% (0-9.0) Eosinophils (%) (Auto) % (0-4) 0.0% (0-4) Basophils (%) (Auto) % (0-2) 0.1% (0-2) Absolute Immature Granulocyte (auto T/MM3 (0.00-0.03) 0.03T/MM3 (0.00-0.03) Absolute Neutrophils (auto) T/MM3 (1.8-7.7) 6.3T/MM3 (1.8-7.7) Absolute Lymphocytes (auto) T/MM3 (1-4.8) 1.5T/MM3 (1-4.8) Absolute Monocytes (auto) T/MM3 (0-0.8) 0.5T/MM3 (0-0.8) Absolute Eosinophils (auto) T/MM3 (0-0.5) 0.0T/MM3 (0-0.5) Absolute Basophils (auto) T/MM3 (0-0.2) 0.0T/MM3 (0-0.2) Neutrophils % (Manual) 81.0% (33-66) Band Neutrophils % 5.0% (0-6) Lymphocytes % (Manual) 11.0% (23-45) Monocytes % (Manual) 3.0% (0-9.0) Absolute Neutrophils (Manual) 7.9T/MM3 (1.8-7.7) Band Neutrophils # 0.5T/MM3 Lymphocytes # (Manual) 1.1T/MM3 (1-4.8) Monocytes # (Manual) 0.3T/MM3 (0-0.8) Red Cell Morphology Comment Normal Turbidity < 20 (0-20) < 20 (0-20) Sodium Level 144MEQ/L (134-144) 144MEQ/L (134-144) Potassium Level 4.4MEQ/L (3.6-5) 4.7MEQ/L (3.6-5) Chloride Level 105MEQ/L (98-107) 105MEQ/L (98-107) Carbon Dioxide Level 32MEQ/L (22-30) 32MEQ/L (22-30) Anion Gap 7MEQ/L (5-15) 7MEQ/L (5-15) Blood Urea Nitrogen 44.0MG/DL (9-20) 43.0MG/DL (9-20) Creatinine 1.3MG/DL (0.8-1.5) 1.2MG/DL (0.8-1.5) Glomerular Filtration Rate Calc 53 58 BUN/Creatinine Ratio 34RATIO (6-26) 36RATIO (6-26) Glucose Level 109MG/DL (75-110) 108MG/DL (75-110) Calculated Osmolality 289MOSM/KG (261-280) 289MOSM/KG (261-280) Calcium Level 9.3MG/DL (8.4-10.2) 9.1MG/DL (8.4-10.2) Total Bilirubin 0.70MG/DL (0.20-1.30) 0.70MG/DL (0.20-1.30) Icterus Index < 2 (0-7) < 2 (0-7) Aspartate Amino Transf (AST/SGOT) 133U/L (17-59) 85U/L (17-59) Alanine Aminotransferase (ALT/SGPT) 75U/L (21-72) 67U/L (21-72) Alkaline Phosphatase 92U/L (38-126) 78U/L (38-126) Total Creatine Kinase 1232U/L (55-170) 537U/L (55-170) Total Protein 6.4G/DL (6.3-8.2) 5.8G/DL (6.3-8.2) Albumin 3.3G/DL (3.5-5.0) 3.1G/DL (3.5-5.0) Globulin 3.1G/DL (2.4-3.6) 2.7G/DL (2.4-3.6) Albumin/Globulin Ratio 1.1RATIO (1.1-2.2) 1.1RATIO (1.1-2.2) Chemistry Specimen Hemolysis < 15 (0-25) < 15 (0-25) Microbiology PATIENT: KAYLYN PICHARDO Act#:[id number] Loc: [facility] 147-P Specimen: [id number] Collected: 11/02/16 Received: 11/02/[address]: JENNIFER VOGEL MD Source: UNK Procedure Result Verified MICROBIOLOGY URINE CULTURE. Final 11/04/16 Organism 1 ENTEROBACTER CLOACAE COLONY COUNT >100,000 CFU/ml E CLOACAE INTERP IAN ------ --------- AMOX/CLAV ACID R >=32 CEFAZOLIN R >=64 CEFEPIME S <=1 CEFTAZIDIME S 8 CEFTRIAXONE I 32 CIPROFLOXACIN S 1 ERTAPENEM S <=0.5 GENTAMICIN S <=1 LEVOFLOXACIN S 1 TOBRAMYCIN S <=1 TRIMETH/SULFA R >=320 PIPERACILL/TAZO S 8 URINE CULTURE. Preliminary (changed) 11/04/16 Organism 1 ENTEROBACTER CLOACAE COLONY COUNT >100,000 CFU/ml E CLOACAE INTERP IAN ------ --------- AMOX/CLAV ACID R >=32 CEFAZOLIN R >=64 CEFEPIME S <=1 CEFTAZIDIME S 8 CEFTRIAXONE I 32 CIPROFLOXACIN S 1 ERTAPENEM S <=0.5 GENTAMICIN S <=1 LEVOFLOXACIN S 1 TOBRAMYCIN S <=1 TRIMETH/SULFA R >=320 L=Low, H=High, *L=Critical Low, *H=Critical High, A=Abnormal, *A=Critical Abnormal, D=Delta PATIENT: LAURENT PICHARDOKAI Donohue Age/Sex: 81/M Loc: MED 147-P : 1935 Status: ADM IN Unit#: [id number] Attending Dr: LAISHA GALVEZ DO PATIENT: KAYLYN PICHARDO Charanjit Act#:[id number] Loc: MED 147-P Specimen: [id number] Collected: 11/01/16-1046 Received: 11/01/16-[address]: JENNIFER VOGEL MD Source: PERIPHERAL Procedure Result Verified MICROBIOLOGY BLOOD CULTURE. Preliminary 11/05/16-1049 NO GROWTH AFTER 4 DAYS BLOOD CULTURE. Preliminary (changed) 11/04/16 NO GROWTH AFTER 72 HOURS BLOOD CULTURE. Preliminary (changed) 11/03/16 NO GROWTH AFTER 48 HOURS BLOOD CULTURE. Preliminary (changed) 11/02/16 NO GROWTH AFTER 24 HOURS BLOOD CULTURE. Preliminary (changed) 11/01/16 CULTURE INITIATED - RESULTS PENDING Radiology 11/01/16-CT scan of the head reveals chronic ischemia and atrophy. No acute intracranial abnormalities or hemorrhage 11/01/16-chest x-ray pleural thickening noted -mild vascular congestion. No focal infiltrate 11/04/16-mild pulmonary vascular congestion and edema with extensive left pleural thickening History of Present Illness "Chris" is an 81 year old male went into the garage looking for a lal in the evening of 11/01/16, but then lost his balance and fell onto his left side, striking the left side of his head. He was knocked unconscious, but isn't sure if he passed out before he fell or as a result of the fall. He describes a spinning sensation before the fall, and reports that he hears ringing in his ears. He ended up spending all night on the wet concrete floor of the garage, too weak and dizzy to get up on his own. He estimated spending about 14 hours on the floor. 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 He's fallen 2-3 times in the last 6 months or so. He lives independently and still drives. Patient describes memory problems, and son Foreign confirms - sometimes he cannot recall where [place] is or forgets previous conversations. He still takes care of his own ADLs and IADLs though his self-hygiene has begun to suffer. His son, Foreign, calls him every morning at 0800, and on 11/01/16 he didn't answer which is unusual. Foreign called the police for a wellness check, and he was found lying on the floor of his detached garage. 911 was activated and he was transferred to [facility]. Leukocytosis was noted with a white count of 12.4. On CMP, BUN was 30 and creatinine was 1.2, GFR 58. AST was mildly elevated at 114, and alkaline phosphatase was also slightly high at 150. Total creatinine kinase was 4331. Troponin was 0.441, and BNP was 31,000. Head CT showed chronic ischemia and atrophy, mild chronic sinusitis, but was negative for intracranial abnormality or hemorrhage. Chest x-ray showed volume loss in the left with pleural thickening, and his son reports that this is actually improving. He was also found to be in A. fib with RVR with rates up to 124. He was given a liter of IV fluids, and his heart rate decreased to 100-110. Blood pressure was stable. Given this patient's multiple diagnoses, including new onset A. fib with RVR, rhabdomyolysis, and elevated troponin, he was placed into inpatient admission status. Length of stay is expected to exceed 2 overnights, as the patient will require close renal and cardiovascular evaluation and treatment. ROS is positive for recent congestion, runny nose, sore throat, no fever or sweating, c/o pounding heart rate on occasion. He's had a poor appetite - just doesn't feel like eating. No chest pain, or shortness of breath until he arrived in his room on the medical unit, but states he does use oxygen at home HS and during the day if he needs it (though he's not sure how much he uses). Denies abdominal pain, n/v/d, or bloody urine. He's seen Dr. Alarcon a couple times over the last few months for burning on urination and dx with UTI. He states he bruises and bleeds very easily. Hospital Course 11/01/16 Admit, inpatient status. 1. New onset atrial fibrillation with rapid ventricular response and 2. Elevated troponin, NSTEMI vs. CHF vs.effect of rhabdomyolysis * Heart rate improved after 1 L of IV fluids in the emergency department. * Consult Dr. Ahumada * Monitor on telemetry and trend troponin * Check lipid panel * Continue Plavix. Check PTT and INR and consider additional testing for blood dyscrasias based on patient history and son's history of easy bruising and [id number] bleeding. With history of frequent falls, will defer starting an anticoagulant at this time. The patient is in agreement. 2. Rhabdomyolysis 3. Elevated AST and alkaline phosphatase * Normal saline at 75 ML's per hour. * Hold statin * Monitor renal status. 4. COPD exacerbation * DuoNeb 4 times a day, incentive spirometer. * Prednisone 40 mg daily. * [id number] history of smoking. 5. Vertigo and gait instability * Consult PT and OT. 6. Leukocytosis. * Suspect stress response * Check urinalysis 7. Mild chronic sinusitis. * Start Flonase. * Consider follow-up with ENT, as this may be contributing to vertigo. 8. Memory deficits * Recommend MAX prior to discharge. Pt lives independently. 9. CODE STATUS * Patient requests full resuscitation. Recommend further discussion prior to discharge, or in outpatient setting. * * Hypoxia, positive fluid balance and 3.3 kg weight gain since yesterday: Stop IV fluids, repeat chest x-ray today. May need cautious diuresis. 11/02/16 Hypoxia, positive fluid balance and 3.3 kg weight gain since yesterday: Stop IV fluids, repeat chest x-ray today. May need cautious diuresis. Repeat creatinine kinase this morning. Creatinine increased to 1.4. Will hold Cozaar. A. fib with RVR: Heart rate is under better control. Discussed with Dr. Ahumada, will obtain echocardiogram. Troponins are trending down. COPD exacerbation: Continue with prednisone and DuoNeb treatments. Acute encephalopathy: Patient was confused, restless, irritable and angry with staff last night. This morning he is calm and cooperative. We'll add Haldol BID PRN. 11/03/16 Type 2 demand ischemia GA; CHF, volume up - Dr. Ahumada saw him yesterday and gave him a dose of Bumex. Recommends low dose BB when wheezing improves. Hx dysphagia & frequent cough - consult speech therapy for eval. CXR in am. COPD exac - cont Prednisone, DuoNebs. Hypoxia - start weaning O2. Likely will need ambulatory O2 assessment and/or nocturnal ox. prior to discharge. Rhabdo - CK decreasing; renal status stable. Cont. to hold ARB & Lipitor. Weakness - cont therapy. Pt and son are interested in going to IRU here. 11/04/16 Nurses report 6 beat run of V. tach around 0400. Patient was asymptomatic. Since then, he has been in sinus. Dr. Ahumada is following. Diastolic CHF: Dr. Ahumada gave Bumex 2 mg last night. CXR was repeated this am - showed mild edema. Echo report pending. Acute hypoxic respiratory failure: Required up to 6 L earlier today, and CO2 on lab increased to 32 (contraction alkalosis? - BUN also up to 44 today). He currently is on 2 L oxygen but still has wheezing and coarse breath sounds. Acute encephalopathy: Could be related to steroids. Will decrease dose of prednisone to 20 mg. Vit B12 was low-normal at 261 - will start replacement. COPD exacerbation: O2 and steroids, DuoNebs. Continues to wheeze. Rhabdomyolysis: CK improved to 1232. Pt has been accepted to IRU when medically stable. 11/05/16- Discharge Mr Pichardo is seen and examined today with his family at the bedside. Overall, he states that he is feeling better and continues to require 2 liters of oxygen by nasal cannula. He does admit that he has multiple oxygen concentrators as well as CPAP at home, however, he does not utilize them appropriately. Continues to have mild amount of coughing. He verbalizes that he is continues to be overall weak, however, is making gains. He is excited about further rehabilitation on the IRU unit. Son verbalizes is hoped to be discharged home independently. Did review all medications and discharge plans. We will continue patient on the prednisone taper. 20 milligrams starting today daily 5 days, then decrease to 10 milligrams daily 5 days. In light of findings of urinary tract infection positive for Enterobacter Cloacae will switch patient to Cipro 500 twice a day times 5 days. Will discontinue cefepime. At this point will hold on restarting Lipitor until LFTs have returned to baseline. Will likely be able to resume normal dosing at time of discharge from the IRU. Will need to monitor patient carefully as he may require some further diuresing. This is a general summation of the patients hospital course. Please refer to the medical record if additional detail is needed. Total discharge time greater than 35 minutes Problems: (1) Ventricular tachyarrhythmia Onset Date: 11/04/2016 Status: Acute (2) CHF (congestive heart failure) Status: Acute Assessment & Plan: volume up. (3) Encephalopathy Status: Acute (4) Atrial fibrillation, new onset Status: Resolved (5) Rhabdomyolysis Status: Acute (6) COPD (chronic obstructive pulmonary disease) Status: Acute (7) Elevated troponin Status: Acute Assessment & Plan: Type 2 GA demand/supply imbalance (8) Fall at home Status: Acute (9) Leukocytosis Status: Acute (10) Elevated liver function tests Status: Acute (11) Systolic and diastolic CHF, chronic Status: Chronic Assessment & Plan: hx 5-vessel bypass 2007 (12) Hypertension Status: Chronic (13) TIA (transient ischemic attack) Status: Chronic (14) JAYLA (obstructive sleep apnea) Status: Chronic Assessment & Plan: Supposed to wear CPAP HS but doesn't like to use it. He does use nocturnal oxygen (he doesn't know flow rate). (15) BPH (benign prostatic hypertrophy) Status: Chronic (16) CAD (coronary artery disease) Status: Chronic (17) Dyslipidemia Status: Chronic (18) CKD (chronic kidney disease), stage III Status: Chronic (19) Obesity (BMI 30-39.9) Status: Chronic (20) Protein-calorie malnutrition, mild Status: Acute Code Status Full Code Home Meds Active Scripts Ciprofloxacin HCl (Cipro) 500 Mg Tablet, 500 MG PO Q12HR for 5 Days, #10 TAB Prov:LAUREN ELMORE APRN 11/05/16 Cyanocobalamin (Vitamin B-12) (Vitamin B-12) 500 Mcg Tablet, 1000 MCG PO DAILY for 30 Days, #60 TAB Prov:LAUREN ELMORE APRN 11/05/16 Prednisone (Prednisone) 20 Mg Tablet, 20 MG PO WB for 5 Days, #5 TAB Prov:LAUREN ELMORE APRN 11/05/16 Sennosides/Docusate Sodium (Senna Plus Tablet) 1 Tab Tablet, 2 TAB PO BID Y for CONSTIPATION for 30 Days, #120 TAB Prov:LAUREN ELMORE APRN 11/05/16 Bisacodyl (Bisacodyl) 10 Mg Supp.rect, 10 MG RECTALLY BID Y for CONSTIPATION for 30 Days Prov:LAUREN ELMORE APRN 11/05/16 Fluticasone Propionate (Fluticasone Prop 50 mcg/actuation Nasal Randolph) 120 Randolph /16 G Randolph, 2 SPRAY EA NOSTRIL DAILY for 30 Days, ML Prov:LAUREN ELMORE APRN 11/05/16 Guaifenesin (Mucinex) 600 Mg Tbbp.12hr, 600 MG PO BID for 30 Days Prov:LAUREN ELMORE APRN 11/05/16 Ipratropium/Albuterol Sulfate (Iprat-Albut 0.5-3(2.5) mg/3 ml) 3 Ml Ampul.neb, 3 ML AEROSOL Q2H Y for WHEEZING for 30 Days Prov:LAUREN ELMORE APRN 11/05/16 Ipratropium/Albuterol Sulfate (Iprat-Albut 0.5-3(2.5) mg/3 ml) 3 Ml Ampul.neb, 3 ML AEROSOL RTQID for 30 Days Prov:LAUREN ELMORE APRN 11/05/16 Reported Medications Losartan Potassium (Losartan Potassium) 50 Mg Tablet, 50 MG PO DAILY 11/01/16 Nitroglycerin (Nitroglycerin) 0.4 Mg Tab.subl, 0.4 MG SL Q5MIN Y for CHEST PAIN 11/01/16 Clopidogrel Bisulfate (Clopidogrel) 75 Mg Tablet, 75 MG PO DAILY 11/01/16 Discontinued Reported Medications Atorvastatin Calcium (Atorvastatin Calcium) 80 Mg Tablet, 80 MG PO HS 11/01/16 Face to Face Encounter I met with patient on the day of dismissal and discussed follow up appointments , medications, and safety plan. Discharge Disposition stable Copies To 1: WERNER ALARCON MD Copies To 2: MICHEAL AHUMADA MD, DOYLE D MD 11/05/16 1300: Hospital Course Home Meds Active Scripts Ciprofloxacin HCl (Cipro) 500 Mg Tablet, 500 MG PO Q12HR for 5 Days, #10 TAB Prov:LAUREN ELMORE APRN 11/05/16 Cyanocobalamin (Vitamin B-12) (Vitamin B-12) 500 Mcg Tablet, 1000 MCG PO DAILY for 30 Days, #60 TAB Prov:LAUREN ELMORE APRN 11/05/16 Prednisone (Prednisone) 20 Mg Tablet, 20 MG PO WB for 5 Days, #5 TAB Prov:LAUREN ELMORE APRN 11/05/16 Sennosides/Docusate Sodium (Senna Plus Tablet) 1 Tab Tablet, 2 TAB PO BID Y for CONSTIPATION for 30 Days, #120 TAB Prov:LAUREN ELMORE APRN 11/05/16 Bisacodyl (Bisacodyl) 10 Mg Supp.rect, 10 MG RECTALLY BID Y for CONSTIPATION for 30 Days Prov:LAUREN ELMORE APRN 11/05/16 Fluticasone Propionate (Fluticasone Prop 50 mcg/actuation Nasal Randolph) 120 Randolph /16 G Randolph, 2 SPRAY EA NOSTRIL DAILY for 30 Days, ML Prov:LAUREN ELMORE APRN 11/05/16 Guaifenesin (Mucinex) 600 Mg Tbbp.12hr, 600 MG PO BID for 30 Days Prov:LAUREN ELMORE APRN 11/05/16 Ipratropium/Albuterol Sulfate (Iprat-Albut 0.5-3(2.5) mg/3 ml) 3 Ml Ampul.neb, 3 ML AEROSOL Q2H Y for WHEEZING for 30 Days Prov:LAUREN ELMORE APRN 11/05/16 Ipratropium/Albuterol Sulfate (Iprat-Albut 0.5-3(2.5) mg/3 ml) 3 Ml Ampul.neb, 3 ML AEROSOL RTQID for 30 Days Prov:LAUREN ELMORE APRN 11/05/16 Reported Medications Losartan Potassium (Losartan Potassium) 50 Mg Tablet, 50 MG PO DAILY 11/01/16 Nitroglycerin (Nitroglycerin) 0.4 Mg Tab.subl, 0.4 MG SL Q5MIN Y for CHEST PAIN 11/01/16 Clopidogrel Bisulfate (Clopidogrel) 75 Mg Tablet, 75 MG PO DAILY 11/01/16 Discontinued Reported Medications Atorvastatin Calcium (Atorvastatin Calcium) 80 Mg Tablet, 80 MG PO HS 11/01/16 Face to Face Encounter Have independently interviewed and examined pt. Chart reviewed. Case discussed with CM and my LEGAL PROJECT MANAGER. Care plan developed with my supervision; agree with above. Doing well today. Some cough, but no pain with breathing. Eating well. No ab pain. Strength improving slowly. Lungs: decreased CV: regular AB: soft Obese NT/ND BS decreased MSE: awake alert appropriate Plan: Medically stable for discharge to IRU to maximize functional status. See orders for details. Copies To 1: WERNER ALARCON MD Copies To 2: MICHEAL AHUMADA MD, JULIE V APRN Nov 05, 2016 11:48 JOSÉ MEHTA MD Nov 05, 2016 13:00
[2016-11-05 12:07] VITALS: O2SAT 91
--- NOTE | 2016-11-05 13:35 | NUR ---
DISMISSAL TO IRU VSS. 2L NC. DENIES PAIN. MIDLINE IN LEFT ARM. BELONGINGS SENT WITH PT, INCLUDING HOME MEDS.
--- NOTE | 2016-11-05 17:35 | ECHOF ---
DATE OF SERVICE 11/02/2016 INDICATION Elevated troponin. TECHNICAL QUALITY Technically good 2D, M-mode, Doppler echocardiographic images were submitted for interpretation. FINDINGS 1. CARDIAC CHAMBERS: Left atrium is borderline enlarged. It measures 4.1 cm. All other cardiac chambers are normal in size. RV size and contractility appear normal. Aortic root diameter is normal. 2. LEFT VENTRICLE: Left ventricular analysis reveals borderline concentric LVH. Wall motion analysis is somewhat limited but appears to be preserved with normal systolic function. EF of 61%. Systolic dysfunction grade 1/4 is present. 3. VALVES: Aortic and mitral valve exhibit sclerotic changes of a mild degree. Valve excursion is normal. Tricuspid valve structure and motion appear normal with normal valve excursion. 4. DOPPLER: Doppler shows mild diastolic dysfunction, trace insufficiency involving the tricuspid valve, normal flow velocities, and no evidence of significant valvular dysfunction. 5. No evidence of pericardial effusion, intracardiac masses, or demonstrable shunts. 6. Normal central venous pressure. Normal systolic PA pressure estimated at 22 mmHg. IMPRESSION 1. Normal LV systolic function. EF of 61%. 2. No significant valvular dysfunction. 3. Borderline atrial enlargement. 4. Mild diastolic dysfunction. MTDD
== END 2016-11-05 13:35 | DRG 280 ==
LOC: ED 09:59 → MED 11:56 → EDHOLD 11:56
PROC: 3E0234Z Introduction of Serum, Toxoid and Vaccine into Muscle, Percutaneous Approach (ICD-10-PCS; principal; 2016-11-02)
PROC: B24BZZZ Ultrasonography of Heart with Aorta (ICD-10-PCS; 2016-11-02)
DX: I48.91 Unspecified atrial fibrillation (principal); G93.40 Encephalopathy, unspecified; I21.3 ST elevation (STEMI) myocardial infarction of unspecified site; I13.0 Hypertensive heart and chronic kidney disease with heart failure and stage 1 through stage 4 chronic kidney disease, or unspecified chronic kidney disease; I50.42 Chronic combined systolic (congestive) and diastolic (congestive) heart failure; J44.1 Chronic obstructive pulmonary disease with (acute) exacerbation; E44.1 Mild protein-calorie malnutrition; N18.3 Chronic kidney disease, stage 3 (moderate); T79.6XXA Traumatic ischemia of muscle, initial encounter; N40.0 Benign prostatic hyperplasia without lower urinary tract symptoms; I25.10 Atherosclerotic heart disease of native coronary artery without angina pectoris; E66.9 Obesity, unspecified; G47.33 Obstructive sleep apnea (adult) (pediatric); E78.5 Hyperlipidemia, unspecified; R79.89 Other specified abnormal findings of blood chemistry; J32.9 Chronic sinusitis, unspecified; R26.9 Unspecified abnormalities of gait and mobility; R42 Dizziness and giddiness; R09.02 Hypoxemia; D72.825 Bandemia; I47.2 Ventricular tachycardia; Z95.1 Presence of aortocoronary bypass graft; Z86.73 Personal history of transient ischemic attack (TIA), and cerebral infarction without residual deficits; W19.XXXA Unspecified fall, initial encounter; Z79.899 Other long term (current) drug therapy; Z87.891 Personal history of nicotine dependence; Y92.015 Private garage of single-family (private) house as the place of occurrence of the external cause; Z23 Encounter for immunization; Z68.39 Body mass index [BMI] 39.0-39.9, adult
CPT/HCPCS: 36415; 36416; 80048; 80053; 80061; 81001; 82550; 82607; 82948; 83735; 83880; 84134; 84443; 84484; 85025; 85610; 85730; 87040; 87077; 87086; 87186; 90662; 93005; 93306; 94640; 94664; 94762; 96360

== ENCOUNTER 2016-11-05 13:37 | Inpatient (IN) | payer MEDICARE, BC ==
[~2016-11-05] VITALS: Ht 162.6 cm; Wt 104.9 kg
[~2016-11-05 13:37] MED LIST changes: -AMLO10TA2 PO; -ASPI81TA2 PO; +ATOR80TA76 PO; +BISA10SU8 RECTALLY; +CIPR-212 PO; -CLOP75TA PO; +CLOP75TA33 PO; +CYAN500T2 PO; +FLUT16SP EA NOSTRIL; -FURO20TA4 PO; +GUAI600T PO; +IPRA3AMP AEROSOL; +LOSA50TA52 PO; +NITR0.4T39 SL; -POTA10CA37 PO; +PRED20TA PO; +SENN-152 PO
--- NOTE | 2016-11-05 13:37 | NUR ---
ADMISSION NOTE PATIENT ADMITTED TO IRU ROOM 177 FROM MEDICAL UNIT. PATIENT TRAVELED WITH NURSE ASSISTANCE AND NURSE VIA WHEELCHAIR ON TELE AND 2L NC. PATIENT HAS LAC MIDLINE, DENIES PAIN, PATIENT ORRIENTED TO UNIT. BED, LOW AND IN LOCKED POSITION, VITALS TAKEN. WILL CONT TO MONITOR.
--- OUTSIDE RECORDS SUMMARY | 2016-11-05 14:11 | XMS REPORT | Continuity of Care Document ---
Author Author [facility] Organization [facility] Address Unknown Phone Unavailable Support Name Relationship Address Phone JENNIFER VOGEL MD Caregiver [address] [place] [address] [place] [address] Unavailable LAISHA GALVEZ DO Caregiver [address] [place] [address] Unavailable LAISHA GALVEZ DO Caregiver [address] [place] [address] Unavailable WERNER ALARCON MD Caregiver [address] [place] [address] Unavailable ANDREA PICHARDO Next Of Kin [address] [place] [address] Insurance Providers Guarantor Elie Pichardo Address [address] [place] [address] Email DENIED 11-01-16 Payer [employer] Federal Policy Number [id number] Subscriber's Name Elie Pichardo Relationship 18 Self Group Number [id number] Payer Medicare Policy Number [id number] Subscriber's Name Elie Pichardo Relationship 18 Self Advance Directives Directive Response Recorded Date/Time Advanced Directives Type Unable to Obtain 11/01/16 10:03am Ordered Resuscitation Status Full Code 11/01/16 2:51pm Resuscitation Documents on File No 11/01/16 12:29pm DPOA for Healthcare Only No 11/02/16 10:09pm Living Will No 11/01/16 12:29pm Advanced Directive or Resuscitation Comments PLEASE GIVE INFORMATION RELATED TO ADVANCED DIRECTIVES 11/01/16 12:29pm Problems Active Problems Medical Problem Onset Date Status Acute exacerbation of chronic bronchitis Unknown Acute BPH (benign prostatic hypertrophy) Unknown Chronic CAD (coronary artery disease) Unknown Chronic CHF (congestive heart failure) Unknown Acute CKD (chronic kidney disease), stage III Unknown Chronic COPD (chronic obstructive pulmonary disease) Unknown Acute Dyslipidemia Unknown Chronic Elevated liver function tests Unknown Acute Encephalopathy Unknown Acute Hypertension Unknown Chronic Leukocytosis Unknown Acute JAYLA (obstructive sleep apnea) Unknown Chronic Obesity (BMI 30-39.9) Unknown Chronic Protein-calorie malnutrition, mild Unknown Acute Systolic and diastolic CHF, chronic Unknown Chronic TIA (transient ischemic attack) Unknown Chronic Ventricular tachyarrhythmia 11/04/2016 Acute Past Problems Medical Problem Onset Date Atrial fibrillation, new onset Unknown Elevated troponin Unknown Fall at home Unknown Rhabdomyolysis Unknown TIA (transient ischemic attack) Unknown Medications Current Home Medications Medication Dose Units Route Directions Days Qty Instructions Start Date Bisacodyl 10 Mg Supp.rect 10 Mg Rectally Twice A Day as needed for Constipation 30 Days 11/05/16 Ciprofloxacin Hcl (Cipro) 500 Mg Tablet 500 Mg Oral Every 12 Hours 5 Days 10 Tablet 11/05/16 Clopidogrel Bisulfate (Clopidogrel) 75 Mg Tablet 75 Mg Oral Daily 11/01/16 Cyanocobalamin (Vitamin B-12) (Vitamin B-12) 500 Mcg Tablet 1,000 Mcg Oral Daily 30 Days 60 Tablet 11/05/16 Fluticasone Propionate (Fluticasone Prop 50 Mcg/Actuation Nasal Ravenna) 120 Ravenna/16 G Ravenna 2 Ravenna Each Nostril Daily 30 Days 11/05/16 Guaifenesin (Mucinex) 600 Mg Tbbp.12hr 600 Mg Oral Twice A Day 30 Days 11/05/16 Ipratropium/Albuterol Sulfate (Iprat-Albut 0.5-3(2.5) Mg/3 Ml) 3 Ml Ampul.neb 3 Ml Aerosol Tx. Resp.tx 4 Times A Day 30 Days 11/05/16 Ipratropium/Albuterol Sulfate (Iprat-Albut 0.5-3(2.5) Mg/3 Ml) 3 Ml Ampul.neb 3 Ml Aerosol Tx. Every 2 Hours as needed for Wheezing 30 Days Losartan Potassium 50 Mg Tablet 50 Mg Oral Daily 11/01/16 Nitroglycerin 0.4 Mg Tab.subl 0.4 Mg Sublingual Every 5 Minutes X 3 as needed for Chest Pain 11/01/16 Prednisone 20 Mg Tablet 20 Mg Oral Give With Breakfast 5 Days 5 Tablet 11/05/16 Sennosides/Docusate Sodium (Senna Plus Tablet) 1 Tab Tablet 2 Tab Oral Twice A Day as needed for Constipation 30 Days 120 Tablet 11/05/16 Past Home Medications Medication Directions Ordered Status Atorvastatin Calcium 80 Mg Tablet, 80 Mg Oral Bedtime 11/01/16 Discontinued Social History Social History Problem Response Recorded Date/Time Onset Date Status Reason for Hospitalization Rhabdo, A-FIB new onset 11/05/2016 11:46am Not Applicable Not Applicable Hx Substance Use No 11/01/2016 10:45am Not Applicable Not Applicable Hx Alcohol Use Y 1 BEER PER MONTH 11/01/2016 10:45am Not Applicable Not Applicable Has the pt used tobacco in the last 12 months No 11/01/2016 12:37pm Not Applicable Not Applicable Tobacco Usage none 10/04/2015 12:53pm Not Applicable Not Applicable Query Response Start Date Stop Date Smoking Status Former smoker Hospital Discharge Instructions Instructions: Care Instructions: Reason for Hospitalization: Shae Cary-FIB new onset I was in the hospital because (patient own words): "I SLEPT WITH NO CLOTHES ON LAST NIGHT ON THE [employer]LOOR Discharge Diet: Cardiac diet Discharge Activity: Activity as tolerated Follow Up Appointments: N/A Pending Lab / Results: No Pending Lab Patient Instructions: Prednisone 20 md daily for 5 days then decrease to 10 mg daily x5 then stop Will hold Lipitor until LFTs return to baseline Wound/Incision Care: N/a Pain Management/Treatment: Tylenol as needed for pain Expected Signs/Symptoms: Continued improvement in strenght and breathing Notify Physician If: N/A During Business Hours:: Will be on IRU After Business Hours:: Will be on IRU Condition at time of discharge: Good Plan of Care Discharge Date 11/05/16 1:35pm Disposition [facility] TO [facility] Instructions/Education Provided Atrial Fibrillation (DC) Rhabdomyolysis (DC) Prescriptions See Medication Section Care Plan and Goals See Discharge Instructions Section Functional Status Query Response Date Recorded Mobility Status Ambulatory November 05, 2016 11:46am Assistive Devices None November 05, 2016 11:46am Activity Limitations Weakness November 05, 2016 11:46am Feeding Ability Independent November 05, 2016 11:46am Toileting Ability Independent November 05, 2016 11:46am Grooming Ability Independent November 05, 2016 11:46am Dressing Ability Independent November 05, 2016 11:46am Driving Ability Independent November 05, 2016 11:46am Housework Ability Independent November 05, 2016 11:46am Meal Preparation Ability Independent November 05, 2016 11:46am Stair Climbing Ability Assist November 05, 2016 11:46am Ability to complete ADL's impeded by No change November 05, 2016 11:46am Cognitive/Perceptual Impairments Impaired vision Impaired hearing November 05, 2016 11:46am Visual Assistive Devices Glasses November 04, 2016 1:55pm Hearing Assistive Devices Left hearing aid Right hearing aid November 04, 2016 1:55pm Allergies, Adverse Reactions, Alerts No known allergies. 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 VIS Given Influenza, high dose seasonal 11/02/16 Administered 1 [id number] [employer] Pasteur 03/14/15 Pneumococcal conjugate PCV 13 11/02/16 Administered 1 [id number] Pfizer Query Response on File Recorded Date/Time Hx Influenza Vaccination No 11/01/16 12:37pm Hx Pneumococcal Vaccination No 11/01/16 12:37pm Hx Influenza Vaccination No 11/01/16 12:37pm Influenza Vaccine Hx 11/02/16 11/02/16 4:26pm Vital Signs Acute Vital Signs Vital Response Date/Time Temperature (Fahrenheit) 96.0 deg F (96.8 - 99.1) 11/05/2016 7:17am Temperature (Calculated Celsius) 35.17396 degrees C (36.0 - 37.3) 11/05/2016 7:17am Pulse Rate (adult) 71 bpm (60 - 100) 11/05/2016 7:22am Respiratory Rate 18 breaths/min (10 - 20) 11/05/2016 7:22am O2 Sat by Pulse Oximetry 91 % (90 - 100) 11/05/2016 12:07pm Oxygen Delivery Method Nasal Cannula 11/05/2016 12:07pm Oxygen Delivery Method Nasal Cannula 11/05/2016 7:17am Oxygen Flow Rate 2.00 L/min 11/05/2016 12:07pm Blood Pressure 148/82 mm Hg 11/05/2016 7:17am Blood Pressure Source Manual/Auscultation 11/05/2016 7:17am Height (Feet) 5 feet 11/04/2016 7:29pm Height (Inches) 4.00 inches 11/04/2016 7:29pm Weight (Kilograms) 98.900 kg 11/05/2016 9:54am Body Mass Index (BMI) 38.9 11/01/2016 12:28pm Results Laboratory Results Test Name Result Units Flags Reference Collection Date/Time Result Date/ Time Comments White Blood Count 8.3 T/MM3 4.5-11.0 11/05/2016 4:40am 11/05/2016 5: 03am Red Blood Count 4.38 M/MM3 L 4.50-5.90 11/05/2016 4:40am 11/05/2016 5: 03am Hemoglobin 12.8 GM/DL L 13.5-17.5 11/05/2016 4:40am 11/05/2016 5:03am Hematocrit 40.5 % L 41-53 11/05/2016 4:40am 11/05/2016 5:03am Mean Corpuscular Volume 92.5 UM3 80-100 11/05/2016 4:40am 11/05/2016 5: 03am Mean Corpuscular Hemoglobin 29.2 UUG 26-34 11/05/2016 4:40am 2016 5:03am Mean Corpuscular Hemoglobin Concent 31.6 GM/DL 31-37 11/05/2016 4:40am 11/05/2016 5:03am RDW Standard Deviation 48.7 FL 36.9-50.2 11/05/2016 4:40am 11/05/2016 5 :03am Platelet Count 179 T/MM3 130-400 11/05/2016 4:40am 11/05/2016 5:03am Mean Platelet Volume 10.0 UM3 9.4-12.4 11/05/2016 4:40am 11/05/2016 5: 03am Neutrophils (%) (Auto) 76.3 % H 33-66 11/05/2016 4:40am 11/05/2016 5: 03am Lymphocytes (%) (Auto) 17.5 % L 23-45 11/05/2016 4:40am 11/05/2016 5: 03am Monocytes (%) (Auto) 5.7 % 0-9.0 11/05/2016 4:40am 11/05/2016 5:03am Eosinophils (%) (Auto) 0.0 % 0-4 11/05/2016 4:40am 11/05/2016 5:03am Basophils (%) (Auto) 0.1 % 0-2 11/05/2016 4:40am 11/05/2016 5:03am Immature Granulocyte % (Auto) 0.4 % 0.0-0.5 11/05/2016 4:40am 2016 5:03am Absolute Neutrophils (auto) 6.3 T/MM3 1.8-7.7 11/05/2016 4:40am 2016 5:03am Absolute Lymphocytes (auto) 1.5 T/MM3 1-4.8 11/05/2016 4:40am 2016 5:03am Absolute Monocytes (auto) 0.5 T/MM3 0-0.8 11/05/2016 4:40am 11/05/2016 5:03am Absolute Eosinophils (auto) 0.0 T/MM3 0-0.5 11/05/2016 4:40am 2016 5:03am Absolute Basophils (auto) 0.0 T/MM3 0-0.2 11/05/2016 4:40am 11/05/2016 5:03am Absolute Immature Granulocyte (auto 0.03 T/MM3 0.00-0.03 11/05/2016 4: 40am 11/05/2016 5:03am Neutrophils % (Manual) 81.0 % H 33-66 11/04/2016 4:54am 11/04/2016 6: 37am Band Neutrophils % 5.0 % D 0-6 11/04/2016 4:54am 11/04/2016 6:37am Lymphocytes % (Manual) 11.0 % L 23-45 11/04/2016 4:54am 11/04/2016 6: 37am Monocytes % (Manual) 3.0 % 0-9.0 11/04/2016 4:54am 11/04/2016 6:37am Band Neutrophils # 0.5 T/MM3 11/04/2016 4:54am 11/04/2016 6:37am Absolute Neutrophils (Manual) 7.9 T/MM3 H 1.8-7.7 11/04/2016 4:54am 6:37am Lymphocytes # (Manual) 1.1 T/MM3 1-4.8 11/04/2016 4:54am 11/04/2016 6: 37am Monocytes # (Manual) 0.3 T/MM3 0-0.8 11/04/2016 4:54am 11/04/2016 6: 37am Red Cell Morphology Comment NORMAL 11/04/2016 4:54am 11/04/2016 6: 37am Prothromb Time International Ratio 1.15 H 0.76-1.04 11/01/2016 3:13pm 11/01/2016 3:33pm THERAPUTIC RANGE=2.00-3.00 FOR ANTI-THROMBOSIS THERAPUTIC RANGE=2.50-3.50 FOR IMPLANTED VALVE Activated Partial Thromboplast Time 26.9 SEC 24-36 11/01/2016 3:13pm 3:33pm Icterus Index < 2 0-7 11/05/2016 4:40am 11/05/2016 5:14am Chemistry Specimen Hemolysis < 15 0-25 11/05/2016 4:40am 11/05/2016 5 :14am 0-25: Specimen Exhibited No Hemolysis. Turbidity < 20 0-20 11/05/2016 4:40am 11/05/2016 5:14am Sodium Level 144 MEQ/L 134-144 11/05/2016 4:40am 11/05/2016 5:14am Potassium Level 4.7 MEQ/L 3.6-5 11/05/2016 4:40am 11/05/2016 5:14am Chloride Level 105 MEQ/L 98-107 11/05/2016 4:40am 11/05/2016 5:14am Carbon Dioxide Level 32 MEQ/L H 22-30 11/05/2016 4:40am 11/05/2016 5: 14am Anion Gap 7 MEQ/L 5-15 11/05/2016 4:40am 11/05/2016 5:14am Blood Urea Nitrogen 43.0 MG/DL H 9-20 11/05/2016 4:40am 11/05/2016 5: 14am Creatinine 1.2 MG/DL 0.8-1.5 11/05/2016 4:40am 11/05/2016 5:14am BUN/Creatinine Ratio 36 RATIO H 6-26 11/05/2016 4:40am 11/05/2016 5: 14am Glomerular Filtration Rate Calc 58 11/05/2016 4:40am 11/05/2016 5: 14am Glucose Level 108 MG/DL 75-110 11/05/2016 4:40am 11/05/2016 5:14am Calculated Osmolality 289 MOSM/KG H 261-280 11/05/2016 4:40am 2016 5:14am Calcium Level 9.1 MG/DL 8.4-10.2 11/05/2016 4:40am 11/05/2016 5:14am Total Bilirubin 0.70 MG/DL 0.20-1.30 11/05/2016 4:40am 11/05/2016 5: 14am Alkaline Phosphatase 78 U/L 38-126 11/05/2016 4:40am 11/05/2016 5:14am Total Protein 5.8 G/DL L 6.3-8.2 11/05/2016 4:40am 11/05/2016 5:14am Albumin 3.1 G/DL L 3.5-5.0 11/05/2016 4:40am 11/05/2016 5:14am Globulin 2.7 G/DL 2.4-3.6 11/05/2016 4:40am 11/05/2016 5:14am Albumin/Globulin Ratio 1.1 RATIO 1.1-2.2 11/05/2016 4:40am 11/05/2016 5 :14am Aspartate Amino Transf (AST/SGOT) 85 U/L H 17-59 11/05/2016 4:40am 11/05 5:14am Alanine Aminotransferase (ALT/SGPT) 67 U/L 21-72 11/05/2016 4:40am 5:14am Cholesterol Level 143 MG/DL 132-199 11/01/2016 3:13pm 11/02/2016 3: 12am Triglycerides Level 89 MG/DL 40-160 11/01/2016 3:13pm 11/02/2016 3: 12am HDL Cholesterol Direct 42 MG/DL 40-60 11/01/2016 3:13pm 11/02/2016 3: 12am LDL Cholesterol, Calculated 83.2 66-159 11/01/2016 3:13pm 11/02/2016 3:12am VLDL Cholesterol 17.8 MG/DL 0-28 11/01/2016 3:13pm 11/02/2016 3:12am Cholesterol/HDL Ratio 3.4 RATIO 0-5.0 11/01/2016 3:13pm 11/02/2016 3: 12am Total Creatine Kinase 537 U/L H 55-170 11/05/2016 4:40am 11/05/2016 5: 14am Troponin I 0.244 ng/ml H 0-0.12 11/02/2016 6:06am 11/02/2016 6:34am Troponin values greater than 0.120 ng/ml are considered a critical value. Troponin values with a difference of 55% increase from orginal troponin value represent a true biological DELTA value. (%increase Calc=Orginal Troponin value, divided by subsequent Troponin value, multiplied by 100) WK-Lbs-I-Type Natriuretic Peptide 60271 PG/ML H 0-175 11/01/2016 10:46am 11/01/2016 11:16am Rule in cut points: <50 years old=450; 50-75 years old=900; >75 years old=1800; When utilizing ProBNP rule-in cut points, adjustment for impaired renal function is typically not required. Magnesium Level 2.2 MG/DL 1.6-2.3 11/03/2016 4:54am 11/03/2016 5:57am Vitamin B12 Level 261 PG/ML 239-931 11/01/2016 3:13pm 11/03/2016 2: 18am Thyroid Stimulating Hormone (TSH) 1.65 MIU/L 0.47-4.68 11/01/2016 10: 06am 11/01/2016 11:37am Thyroid Stimulating Hormone (TSH) 1.53 MIU/L 0.47-4.68 11/01/2016 3: 13pm 11/01/2016 4:19pm Prealbumin 10.4 MG/DL L 17.6-36.0 11/01/2016 3:13pm 11/01/2016 3:42pm Urine Color YELLOW YELLOW 11/02/2016 7:37am 11/02/2016 7:44am Urine Turbidity SL CLOUDY CLEAR 11/02/2016 7:37am 11/02/2016 7:44am Urine Specific [place] >=1.030 H 1.015-1.025 11/02/2016 7:37am 2016 7:44am Urine pH 5.5 5.0-8.0 11/02/2016 7:37am 11/02/2016 7:44am Urine Leukocyte Esterase NEGATIVE NEGATIVE 11/02/2016 7:37am 2016 7:44am Urine Nitrite POSITIVE A NEGATIVE 11/02/2016 7:37am 11/02/2016 7:44am Urine Protein 2+ A NEGATIVE 11/02/2016 7:37am 11/02/2016 7:44am Urine Glucose (UA) NEGATIVE NEGATIVE 11/02/2016 7:37am 11/02/2016 7: 44am Urine Ketones 1+ A NEGATIVE 11/02/2016 7:37am 11/02/2016 7:44am Urine Urobilinogen 0.2 EU/DL NORMAL 11/02/2016 7:37am 11/02/2016 7: 44am Urine Bilirubin NEGATIVE NEGATIVE 11/02/2016 7:37am 11/02/2016 7: 44am Urine Blood 3+ A NEGATIVE 11/02/2016 7:37am 11/02/2016 7:44am Urine WBC 10-20 /HPF H 0-5 11/02/2016 7:37am 11/02/2016 7:58am Urine RBC 0-1 /HPF 0-3 11/02/2016 7:37am 11/02/2016 7:58am Urine Squamous Epithelial Cells 0-5 11/02/2016 7:37am 11/02/2016 7: 58am Urine Bacteria 4+ H NEGATIVE 11/02/2016 7:37am 11/02/2016 7:58am Urine Hyaline Casts 0-1 /LPF 11/02/2016 7:37am 11/02/2016 7:58am Urine Coarse Granular Casts 0-1 /LPF 11/02/2016 7:37am 11/02/2016 7: 58am Urine Culture Indicated CULT REFLEXED &SETUP 11/02/2016 7:37am 7:58am Glucometer 129 mg/dL H 75-110 11/01/2016 10:34am 11/01/2016 10:37am Microbiology Results Procedure Source Organism/Result Collection Date/Time Result Date/Time Result Status Blood Culture Peripheral/Iv Start NO GROWTH AFTER 4 DAYS 11/01/2016 10: 47am 11/05/2016 10:50am Preliminary Urine Culture Not Provided ENTEROBACTER CLOACAE 11/02/2016 7:58am 2016 7:34am Final Name: ELIE PICHARDO Unit #: [id number] : 1935 Sex: M DISCHARGE SUMMARY Admit Date: 11/01/16 Report #: [id number] [facility] LAUREN ELMORE V A R SPECIALIST 11/05/16 1148: General Date Date DATE: 11/05/16 TIME: 11:45 Attending Physician Laisha Galvez DO Admitting Physician Laisha Galvez DO Consulting Physician Micheal Ahumada MD Admitting Diagnosis rhabdolyolysis, elevated troponin, atrial fibrillation, new onset Discharge Diagnosis Rhabdomyolysis New-onset atrial fibrillation Encephalopathy Fall at home Elevated troponin Elevated LFTs Hypertension COPD Congestive heart failure Procedures None Laboratory Laboratory Tests Test 11/04/16 04:54 11/05/16 04:40 White Blood Count 9.7T/MM3 (4.5-11.0) 8.3T/MM3 (4.5-11.0) Red Blood Count 4.60M/MM3 (4.50-5.90) 4.38M/MM3 (4.50-5.90) Hemoglobin 13.5GM/DL (13.5-17.5) 12.8GM/DL (13.5-17.5) Hematocrit 42.4% (41-53) 40.5% (41-53) Mean Corpuscular Volume 92.2UM3 (80-100) 92.5UM3 (80-100) Mean Corpuscular Hemoglobin 29.3UUG (26-34) 29.2UUG (26-34) Mean Corpuscular Hemoglobin Concent 31.8GM/DL (31-37) 31.6GM/DL (31-37) RDW Standard Deviation 49.3FL (36.9-50.2) 48.7FL (36.9-50.2) Platelet Count 181T/MM3 (130-400) 179T/MM3 (130-400) Mean Platelet Volume 9.9UM3 (9.4-12.4) 10.0UM3 (9.4-12.4) Immature Granulocyte % (Auto) % (0.0-0.5) 0.4% (0.0-0.5) Neutrophils (%) (Auto) % (33-66) 76.3% (33-66) Lymphocytes (%) (Auto) % (23-45) 17.5% (23-45) Monocytes (%) (Auto) % (0-9.0) 5.7% (0-9.0) Eosinophils (%) (Auto) % (0-4) 0.0% (0-4) Basophils (%) (Auto) % (0-2) 0.1% (0-2) Absolute Immature Granulocyte (auto T/MM3 (0.00-0.03) 0.03T/MM3 (0.00-0.03) Absolute Neutrophils (auto) T/MM3 (1.8-7.7) 6.3T/MM3 (1.8-7.7) Absolute Lymphocytes (auto) T/MM3 (1-4.8) 1.5T/MM3 (1-4.8) Absolute Monocytes (auto) T/MM3 (0-0.8) 0.5T/MM3 (0-0.8) Absolute Eosinophils (auto) T/MM3 (0-0.5) 0.0T/MM3 (0-0.5) Absolute Basophils (auto) T/MM3 (0-0.2) 0.0T/MM3 (0-0.2) Neutrophils % (Manual) 81.0% (33-66) Band Neutrophils % 5.0% (0-6) Lymphocytes % (Manual) 11.0% (23-45) Monocytes % (Manual) 3.0% (0-9.0) Absolute Neutrophils (Manual) 7.9T/MM3 (1.8-7.7) Band Neutrophils # 0.5T/MM3 Lymphocytes # (Manual) 1.1T/MM3 (1-4.8) Monocytes # (Manual) 0.3T/MM3 (0-0.8) Red Cell Morphology Comment Normal Turbidity < 20 (0-20) < 20 (0-20) Sodium Level 144MEQ/L (134-144) 144MEQ/L (134-144) Potassium Level 4.4MEQ/L (3.6-5) 4.7MEQ/L (3.6-5) Chloride Level 105MEQ/L (98-107) 105MEQ/L (98-107) Carbon Dioxide Level 32MEQ/L (22-30) 32MEQ/L (22-30) Anion Gap 7MEQ/L (5-15) 7MEQ/L (5-15) Blood Urea Nitrogen 44.0MG/DL (9-20) 43.0MG/DL (9-20) Creatinine 1.3MG/DL (0.8-1.5) 1.2MG/DL (0.8-1.5) Glomerular Filtration Rate Calc 53 58 BUN/Creatinine Ratio 34RATIO (6-26) 36RATIO (6-26) Glucose Level 109MG/DL (75-110) 108MG/DL (75-110) Calculated Osmolality 289MOSM/KG (261-280) 289MOSM/KG (261-280) Calcium Level 9.3MG/DL (8.4-10.2) 9.1MG/DL (8.4-10.2) Total Bilirubin 0.70MG/DL (0.20-1.30) 0.70MG/DL (0.20-1.30) Icterus Index < 2 (0-7) < 2 (0-7) Aspartate Amino Transf (AST/SGOT) 133U/L (17-59) 85U/L (17-59) Alanine Aminotransferase (ALT/SGPT) 75U/L (21-72) 67U/L (21-72) Alkaline Phosphatase 92U/L (38-126) 78U/L (38-126) Total Creatine Kinase 1232U/L (55-170) 537U/L (55-170) Total Protein 6.4G/DL (6.3-8.2) 5.8G/DL (6.3-8.2) Albumin 3.3G/DL (3.5-5.0) 3.1G/DL (3.5-5.0) Globulin 3.1G/DL (2.4-3.6) 2.7G/DL (2.4-3.6) Albumin/Globulin Ratio 1.1RATIO (1.1-2.2) 1.1RATIO (1.1-2.2) Chemistry Specimen Hemolysis < 15 (0-25) < 15 (0-25) Microbiology PATIENT: ELIE PICHARDO Act#:[id number] Loc: [facility] 147-P Specimen: [id number] Collected: 11/02/16 Received: 11/02/[address]: JENNIFER VOGEL MD Source: UNK Procedure Result Verified MICROBIOLOGY URINE CULTURE. Final 11/04/16 Organism 1 ENTEROBACTER CLOACAE COLONY COUNT >100,000 CFU/ml E CLOACAE INTERP IAN ------ --------- AMOX/CLAV ACID R >=32 CEFAZOLIN R >=64 CEFEPIME S <=1 CEFTAZIDIME S 8 CEFTRIAXONE I 32 CIPROFLOXACIN S 1 ERTAPENEM S <=0.5 GENTAMICIN S <=1 LEVOFLOXACIN S 1 TOBRAMYCIN S <=1 TRIMETH/SULFA R >=320 PIPERACILL/TAZO S 8 URINE CULTURE. Preliminary (changed) 11/04/16 Organism 1 ENTEROBACTER CLOACAE COLONY COUNT >100,000 CFU/ml E CLOACAE INTERP IAN ------ --------- AMOX/CLAV ACID R >=32 CEFAZOLIN R >=64 CEFEPIME S <=1 CEFTAZIDIME S 8 CEFTRIAXONE I 32 CIPROFLOXACIN S 1 ERTAPENEM S <=0.5 GENTAMICIN S <=1 LEVOFLOXACIN S 1 TOBRAMYCIN S <=1 TRIMETH/SULFA R >=320 L=Low, H=High, *L=Critical Low, *H=Critical High, A=Abnormal, *A=Critical Abnormal, D=Delta PATIENT: LAURENT PICHARDOKAI Donohue Age/Sex: 81/M Loc: MED 147-P : 1935 Status: ADM IN Unit#: [id number] Attending Dr: LAISHA GALVEZ DO PATIENT: LAURENT PICHARDOKAI Donohue Act#:[id number] Loc: [facility] 147-P Specimen: [id number] Collected: 11/01/16-1046 Received: 11/01/16-[address]: JENNIFER VOGEL MD Source: PERIPHERAL Procedure Result Verified MICROBIOLOGY BLOOD CULTURE. Preliminary 11/05/16 NO GROWTH AFTER 4 DAYS BLOOD CULTURE. Preliminary (changed) 11/04/16 NO GROWTH AFTER 72 HOURS BLOOD CULTURE. Preliminary (changed) 11/03/16 NO GROWTH AFTER 48 HOURS BLOOD CULTURE. Preliminary (changed) 11/02/16 NO GROWTH AFTER 24 HOURS BLOOD CULTURE. Preliminary (changed) 11/01/16 CULTURE INITIATED - RESULTS PENDING Radiology 11/01/16-CT scan of the head reveals chronic ischemia and atrophy. No acute intracranial abnormalities or hemorrhage 11/01/16-chest x-ray pleural thickening noted -mild vascular congestion. No focal infiltrate 11/04/16-mild pulmonary vascular congestion and edema with extensive left pleural thickening History of Present Illness "Chris" is an 81 year old male went into the garage looking for a lal in the evening of 11/01/16, but then lost his balance and fell onto his left side, striking the left side of his head. He was knocked unconscious, but isn't sure if he passed out before he fell or as a result of the fall. He describes a spinning sensation before the fall, and reports that he hears ringing in his ears. He ended up spending all night on the wet concrete floor of the garage, too weak and dizzy to get up on his own. He estimated spending about 14 hours on the floor. 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 He's fallen 2-3 times in the last 6 months or so. He lives independently and still drives. Patient describes memory problems, and son Foreign confirms - sometimes he cannot recall where [place] is or forgets previous conversations. He still takes care of his own ADLs and IADLs though his self-hygiene has begun to suffer. His son, Foreign, calls him every morning at 0800, and on 11/01/16 he didn't answer which is unusual. Foreign called the police for a wellness check, and he was found lying on the floor of his detached garage. 911 was activated and he was transferred to [facility]. Leukocytosis was noted with a white count of 12.4. On CMP, BUN was 30 and creatinine was 1.2, GFR 58. AST was mildly elevated at 114, and alkaline phosphatase was also slightly high at 150. Total creatinine kinase was 4331. Troponin was 0.441, and BNP was 31,000. Head CT showed chronic ischemia and atrophy, mild chronic sinusitis, but was negative for intracranial abnormality or hemorrhage. Chest x-ray showed volume loss in the left with pleural thickening, and his son reports that this is actually improving. He was also found to be in A. fib with RVR with rates up to 124. He was given a liter of IV fluids , and his heart rate decreased to 100-110. Blood pressure was stable. Given this patient's multiple diagnoses, including new onset A. fib with RVR, rhabdomyolysis, and elevated troponin, he was placed into inpatient admission status. Length of stay is expected to exceed 2 overnights, as the patient will require close renal and cardiovascular evaluation and treatment. ROS is positive for recent congestion, runny nose, sore throat, no fever or sweating, c/o pounding heart rate on occasion. He's had a poor appetite - just doesn't feel like eating. No chest pain, or shortness of breath until he arrived in his room on the medical unit, but states he does use oxygen at home HS and during the day if he needs it (though he's not sure how much he uses). Denies abdominal pain, n/v/d, or bloody urine. He's seen Dr. Alarcon a couple times over the last few months for burning on urination and dx with UTI. He states he bruises and bleeds very easily. Hospital Course 11/01/16 Admit, inpatient status. 1. New onset atrial fibrillation with rapid ventricular response and 2. Elevated troponin, NSTEMI vs. CHF vs.effect of rhabdomyolysis * Heart rate improved after 1 L of IV fluids in the emergency department. * Consult Dr. Ahumada * Monitor on telemetry and trend troponin * Check lipid panel * Continue Plavix. Check PTT and INR and consider additional testing for blood dyscrasias based on patient history and son's history of easy bruising and [id number] bleeding. With history of frequent falls, will defer starting an anticoagulant at this time. The patient is in agreement. 2. Rhabdomyolysis 3. Elevated AST and alkaline phosphatase * Normal saline at 75 ML's per hour. * Hold statin * Monitor renal status. 4. COPD exacerbation * DuoNeb 4 times a day, incentive spirometer. * Prednisone 40 mg daily. * [id number] history of smoking. 5. Vertigo and gait instability * Consult PT and OT. 6. Leukocytosis. * Suspect stress response * Check urinalysis 7. Mild chronic sinusitis. * Start Flonase. * Consider follow-up with ENT, as this may be contributing to vertigo. 8. Memory deficits * Recommend MAX prior to discharge. Pt lives independently. 9. CODE STATUS * Patient requests full resuscitation. Recommend further discussion prior to discharge, or in outpatient setting. * * Hypoxia, positive fluid balance and 3.3 kg weight gain since yesterday: Stop IV fluids, repeat chest x-ray today. May need cautious diuresis. 11/02/16 Hypoxia, positive fluid balance and 3.3 kg weight gain since yesterday: Stop IV fluids, repeat chest x-ray today. May need cautious diuresis. Repeat creatinine kinase this morning. Creatinine increased to 1.4. Will hold Cozaar. A. fib with RVR: Heart rate is under better control. Discussed with Dr. Ahumada, will obtain echocardiogram. Troponins are trending down. COPD exacerbation: Continue with prednisone and DuoNeb treatments. Acute encephalopathy: Patient was confused, restless, irritable and angry with staff last night. This morning he is calm and cooperative. We'll add Haldol BID PRN. 11/03/16 Type 2 demand ischemia LA; CHF, volume up - Dr. Ahumada saw him yesterday and gave him a dose of Bumex. Recommends low dose BB when wheezing improves. Hx dysphagia & frequent cough - consult speech therapy for eval. CXR in am. COPD exac - cont Prednisone, DuoNebs. Hypoxia - start weaning O2. Likely will need ambulatory O2 assessment and/or nocturnal ox. prior to discharge. Rhabdo - CK decreasing; renal status stable. Cont. to hold ARB & Lipitor. Weakness - cont therapy. Pt and son are interested in going to IRU here. 11/04/16 Nurses report 6 beat run of V. tach around 0400. Patient was asymptomatic. Since then, he has been in sinus. Dr. Ahumada is following. Diastolic CHF: Dr. Ahumada gave Bumex 2 mg last night. CXR was repeated this am - showed mild edema. Echo report pending. Acute hypoxic respiratory failure: Required up to 6 L earlier today, and CO2 on lab increased to 32 (contraction alkalosis? - BUN also up to 44 today). He currently is on 2 L oxygen but still has wheezing and coarse breath sounds. Acute encephalopathy: Could be related to steroids. Will decrease dose of prednisone to 20 mg. Vit B12 was low-normal at 261 - will start replacement. COPD exacerbation: O2 and steroids, DuoNebs. Continues to wheeze. Rhabdomyolysis: CK improved to 1232. Pt has been accepted to IRU when medically stable. 11/05/16- Discharge Mr Pichardo is seen and examined today with his family at the bedside. Overall, he states that he is feeling better and continues to require 2 liters of oxygen by nasal cannula. He does admit that he has multiple oxygen concentrators as well as CPAP at home, however, he does not utilize them appropriately. Continues to have mild amount of coughing. He verbalizes that he is continues to be overall weak, however, is making gains. He is excited about further rehabilitation on the IRU unit. Son verbalizes is hoped to be discharged home independently. Did review all medications and discharge plans. We will continue patient on the prednisone taper. 20 milligrams starting today daily 5 days, then decrease to 10 milligrams daily 5 days. In light of findings of urinary tract infection positive for Enterobacter Cl[place]ae will switch patient to Cipro 500 twice a day times 5 days. Will discontinue cefepime. At this point will hold on restarting Lipitor until LFTs have returned to baseline. Will likely be able to resume normal dosing at time of discharge from the IRU. Will need to monitor patient carefully as he may require some further diuresing. This is a general summation of the patients hospital course. Please refer to the medical record if additional detail is needed. Total discharge time greater than 35 minutes Problems: (1) Ventricular tachyarrhythmia Onset Date: 11/04/2016 Status: Acute (2) CHF (congestive heart failure) Status: Acute Assessment & Plan: volume up. (3) Encephalopathy Status: Acute (4) Atrial fibrillation, new onset Status: Resolved (5) Rhabdomyolysis Status: Acute (6) COPD (chronic obstructive pulmonary disease) Status: Acute (7) Elevated troponin Status: Acute Assessment & Plan: Type 2 LA demand/supply imbalance (8) Fall at home Status: Acute (9) Leukocytosis Status: Acute (10) Elevated liver function tests Status: Acute (11) Systolic and diastolic CHF, chronic Status: Chronic Assessment & Plan: hx 5-vessel bypass 2007 (12) Hypertension Status: Chronic (13) TIA (transient ischemic attack) Status: Chronic (14) JAYLA (obstructive sleep apnea) Status: Chronic Assessment & Plan: Supposed to wear CPAP HS but doesn't like to use it. He does use nocturnal oxygen (he doesn't know flow rate). (15) BPH (benign prostatic hypertrophy) Status: Chronic (16) CAD (coronary artery disease) Status: Chronic (17) Dyslipidemia Status: Chronic (18) CKD (chronic kidney disease), stage III Status: Chronic (19) Obesity (BMI 30-39.9) Status: Chronic (20) Protein-calorie malnutrition, mild Status: Acute Code Status Full Code Home Meds Active Scripts Ciprofloxacin HCl (Cipro) 500 Mg Tablet, 500 MG PO Q12HR for 5 Days, #10 TAB Prov:LAUREN ELMORE APRN 11/05/16 Cyanocobalamin (Vitamin B-12) (Vitamin B-12) 500 Mcg Tablet, 1000 MCG PO DAILY for 30 Days, #60 TAB Prov:LAUREN ELMORE APRN 11/05/16 Prednisone (Prednisone) 20 Mg Tablet, 20 MG PO WB for 5 Days, #5 TAB Prov:LAUREN ELMORE APRN 11/05/16 Sennosides/Docusate Sodium (Senna Plus Tablet) 1 Tab Tablet, 2 TAB PO BID Y for CONSTIPATION for 30 Days, #120 TAB Prov:LAUREN ELMORE APRN 11/05/16 Bisacodyl (Bisacodyl) 10 Mg Supp.rect, 10 MG RECTALLY BID Y for CONSTIPATION for 30 Days Prov:LAUREN ELMORE APRN 11/05/16 Fluticasone Propionate (Fluticasone Prop 50 mcg/actuation Nasal [place]) 120 [place] /16 G [place], 2 SPRAY EA NOSTRIL DAILY for 30 Days, ML Prov:LAUREN ELMORE APRN 11/05/16 Guaifenesin (Mucinex) 600 Mg Tbbp.12hr, 600 MG PO BID for 30 Days Prov:LAUREN ELMORE APRN 11/05/16 Ipratropium/Albuterol Sulfate (Iprat-Albut 0.5-3(2.5) mg/3 ml) 3 Ml Ampul.neb, 3 ML AEROSOL Q2H Y for WHEEZING for 30 Days Prov:LAUREN ELMORE APRN 11/05/16 Ipratropium/Albuterol Sulfate (Iprat-Albut 0.5-3(2.5) mg/3 ml) 3 Ml Ampul.neb, 3 ML AEROSOL RTQID for 30 Days Prov:LAUREN ELMORE APRN 11/05/16 Reported Medications Losartan Potassium (Losartan Potassium) 50 Mg Tablet, 50 MG PO DAILY 11/01/16 Nitroglycerin (Nitroglycerin) 0.4 Mg Tab.subl, 0.4 MG SL Q5MIN Y for CHEST PAIN 11/01/16 Clopidogrel Bisulfate (Clopidogrel) 75 Mg Tablet, 75 MG PO DAILY 11/01/16 Discontinued Reported Medications Atorvastatin Calcium (Atorvastatin Calcium) 80 Mg Tablet, 80 MG PO HS 11/01/16 Face to Face Encounter I met with patient on the day of dismissal and discussed follow up appointments , medications, and safety plan. Discharge Disposition stable Copies To 1: WERNER ALARCON MD Copies To 2: MICHEAL AHUMADA MD, DOYLE D MD 11/05/16 1300: Hospital Course Home Meds Active Scripts Ciprofloxacin HCl (Cipro) 500 Mg Tablet, 500 MG PO Q12HR for 5 Days, #10 TAB Prov:LAUREN ELMORE APRN 11/05/16 Cyanocobalamin (Vitamin B-12) (Vitamin B-12) 500 Mcg Tablet, 1000 MCG PO DAILY for 30 Days, #60 TAB Prov:LAUREN ELMORE APRN 11/05/16 Prednisone (Prednisone) 20 Mg Tablet, 20 MG PO WB for 5 Days, #5 TAB Prov:LAUREN ELMORE APRN 11/05/16 Sennosides/Docusate Sodium (Senna Plus Tablet) 1 Tab Tablet, 2 TAB PO BID Y for CONSTIPATION for 30 Days, #120 TAB Prov:LAUREN ELMORE APRN 11/05/16 Bisacodyl (Bisacodyl) 10 Mg Supp.rect, 10 MG RECTALLY BID Y for CONSTIPATION for 30 Days Prov:LAUREN ELMORE APRN 11/05/16 Fluticasone Propionate (Fluticasone Prop 50 mcg/actuation Nasal [place]) 120 [place] /16 G [place], 2 SPRAY EA NOSTRIL DAILY for 30 Days, ML Prov:LAUREN ELMORE APRN 11/05/16 Guaifenesin (Mucinex) 600 Mg Tbbp.12hr, 600 MG PO BID for 30 Days Prov:LAUREN ELMORE APRN 11/05/16 Ipratropium/Albuterol Sulfate (Iprat-Albut 0.5-3(2.5) mg/3 ml) 3 Ml Ampul.neb, 3 ML AEROSOL Q2H Y for WHEEZING for 30 Days Prov:LAUREN ELMORE APRN 11/05/16 Ipratropium/Albuterol Sulfate (Iprat-Albut 0.5-3(2.5) mg/3 ml) 3 Ml Ampul.neb, 3 ML AEROSOL RTQID for 30 Days Prov:LAUREN ELMORE APRN 11/05/16 Reported Medications Losartan Potassium (Losartan Potassium) 50 Mg Tablet, 50 MG PO DAILY 11/01/16 Nitroglycerin (Nitroglycerin) 0.4 Mg Tab.subl, 0.4 MG SL Q5MIN Y for CHEST PAIN 11/01/16 Clopidogrel Bisulfate (Clopidogrel) 75 Mg Tablet, 75 MG PO DAILY 11/01/16 Discontinued Reported Medications Atorvastatin Calcium (Atorvastatin Calcium) 80 Mg Tablet, 80 MG PO HS 11/01/16 Face to Face Encounter Have independently interviewed and examined pt. Chart reviewed. Case discussed with CM and my A R SPECIALIST. Care plan developed with my supervision; agree with above. Doing well today. Some cough, but no pain with breathing. Eating well. No ab pain. Strength improving slowly. Lungs: decreased CV: regular AB: soft Obese NT/ND BS decreased MSE: awake alert appropriate Plan: Medically stable for discharge to IRU to maximize functional status. See orders for details. Copies To 1: WERNER ALARCON MD Copies To 2: MICHEAL AHUMADA MD, JULIE V APRN Nov 05, 2016 11:48 JOSÉ MEHTA MD Nov 05, 2016 13:00 Procedures No known history of procedures. Encounters Encounter Location Arrival/Admit Date Discharge/Depart Date Attending Provider Discharged Inpatient [facility] 11/01/16 11:56am 11/05/16 1:35pm LAISHA GALVEZ DO
--- OUTSIDE RECORDS SUMMARY | 2016-11-05 14:12 | XMS REPORT | Continuity of Care Document ---
Author Author [facility] Organization [facility] Address Unknown Phone Unavailable Allergies Active [...] DO 414.00 CORON ATHEROSCLER NOS TYPE VESSEL, KIVALINA OR GRAFT 02/12/2013 Serge Blankenship DO 435.9 [...] 5.0-8.0 Protein Pos 1+ NA Negative Specific [place] 1.010 NA 1.003-1.030 UA Collection type Clean Catch NA Urobilinogen 0.2 mg/dL <=1.0 Urine Microscopic - 08/18/16 11:32 Bacteria Numerous NA Epithelial Cells 2 /hpf RBC, Urine 10 /hpf 0-2 WBC, Urine >50 /hpf 0-4 Encounters ACCT No. Visit Date/Time Discharge Status Pt. Type Provider Facility Loc./Unit Complaint [id number] 02/18/2014 09:34:00 2013 12:20:00 [id number] 02/12/2013 17:37:00 2012 21:15:00 DIS Inpatient Pattie INMAN [facility] [id number]
[2016-11-05] MEDS ORDERED: PRN ORDERS MC (14:15)
[2016-11-05 15:30] VITALS: Ht 162.6 cm; Wt 104.9 kg
[2016-11-05 15:32] VITALS: BP 180/73; PULSE 84; RESP 20; TEMP 97.7; O2SAT 94
[2016-11-05 18:15] VITALS: PULSE 84
[2016-11-05] MEDS ORDERED: SENNA + DOCUSATE TAB PO PRN (18:15)
[2016-11-05] MEDS ORDERED: BISACODYL 10 MG SUPPOSITORY RECTALLY PRN (18:15)
[2016-11-05 19:08] VITALS: BP 159/73
[2016-11-05] MEDS: ALBUTEROL/IPRATROPIUM INHAL. 2.5mg-0.5mg/3ml Neb. AEROSOL SCH (19:11)
[2016-11-05 19:12] VITALS: O2SAT 97
--- NOTE | 2016-11-05 20:50 | NUR ---
SHIFT SUMMARY PATIENT ALERT AND ORIENTED TO PERSON AND PLACE. DENIES PAIN, O2 2L NC, TELE IN PLACE. FAMILY AT BEDSIDE. ONE EPISODE OF INCONTINENT URINE, NO BM SINCE ARRIVING TO UNIT TODAY. WILL CONT TO MONITOR.
[2016-11-05] MEDS: DOCUSATE SODIUM 100 MG CAPSULE PO SCH (21:17)
[2016-11-05] MEDS: CIPROFLOXACIN 500 MG TABLET PO SCH (21:17)
[2016-11-05] MEDS: GUAIFENESIN LA 600 MG TABLET PO SCH (21:17)
[2016-11-05 21:50] VITALS: BP 197/79; PULSE 65; RESP 20; TEMP 97.9; O2SAT 97
[2016-11-06 03:45] VITALS: O2SAT 96
[2016-11-06] MEDS: ALBUTEROL/IPRATROPIUM INHAL. 2.5mg-0.5mg/3ml Neb. AEROSOL PRN (03:50)
[2016-11-06 06:09] LABS: BASOPHILS % (AUTO) 0.1 % (0-2); EOSINOPHILS # (AUTO) 0.1 T/MM3 (0-0.5); EOSINOPHILS % (AUTO) 0.5 % (0-4); HCT - HEMATOCRIT 43.6 % (41-53); HGB - HEMOGLOBIN 13.9 GM/DL (13.5-17.5); IMMATURE GRANULOCYTE # (AUTO) 0.09 T/MM3 (0.00-0.03); IMMATURE GRANULOCYTE % (AUTO) 0.9 % (0.0-0.5); LYMPHOCYTES # (AUTO) 1.6 T/MM3 (1-4.8); LYMPHOCYTES % (AUTO) 15.1 % (23-45); MEAN CORPUSCULAR HGB 29.4 UUG (26-34); MEAN CORPUSCULAR HGB CONC(MCHC 31.9 GM/DL (31-37); MEAN CORPUSCULAR VOLUME 92.4 UM3 (80-100); MEAN PLATELET VOLUME 10.1 UM3 (9.4-12.4); MONOCYTES # (AUTO) 0.8 T/MM3 (0-0.8); MONOCYTES % (AUTO) 7.8 % (0-9.0); NEUTROPHILS % (AUTO) 75.6 % (33-66); RED BLOOD COUNT 4.72 M/MM3 (4.50-5.90); WBC - WHITE BLOOD COUNT 10.5 T/MM3 (4.5-11.0)
[2016-11-06 06:20] LABS: ANION GAP 12 MEQ/L (5-15); BUN/CREATININE RATIO 40 RATIO (6-26); CALCIUM 9.1 MG/DL (8.4-10.2); CHLORIDE 104 MEQ/L (98-107); CO2 - CARBON DIOXIDE 29 MEQ/L (22-30); GLOMERULAR FILTRATION RATE 72; GLUCOSE 82 MG/DL (75-110); SODIUM 145 MEQ/L (134-144)
[2016-11-06] MEDS: ALBUTEROL/IPRATROPIUM INHAL. 2.5mg-0.5mg/3ml Neb. AEROSOL SCH ×4 (07:00→19:33)
--- NOTE | 2016-11-06 07:23 | NUR ---
SHIFT SUMMARY "Chris" chose to sleep in recliner last night. He reported some "gaulding" pain in his buttocks. Upon inspection noted some dried bm. Skin was cleansed thoroughly and barrier cream applied. He was reluctant to try sleeping part of night in bed. He voided standing at toilet. Was continent of bowel, dribbling did occur in his pullup. O2 on at 2 L/NC. Telemetry showed Sinus Filippo throughout shift. Skin assessment reveals no open areas. He has thick fungal toenails that are quite long. He reports that he doesn't eat or drink much at home. Per history, he doesn't do much for personal hygiene either so patient is quite reluctant for staff to perform skin assessment, cares, or for shower with therapy this a.m. He agrees though. Ambulates, chair transfer with min assist using FWW. Changes out of clothes reluctantly and refuses HS oral cares. He is quite emotional when sharing about the dealth of his . He is kind hearted and doesn't want to "be a bother" so doesn't use call light. With rounding, he is checked and if awake, cares offered. He seemed confused at some checks and seemed to "forget" that he had a call light or how to use it. Midline in Left arm flushes. Does not aspirate. Lab drawn from R arm. Wheezes noted upon auscultation, and audible wheezes at approx 2am. PRN Neb treatment provided at this time by Resp. Therapy.
[2016-11-06 08:00] VITALS: PULSE 75; RESP 18
[2016-11-06] MEDS: PredniSONE 20 MG TABLET PO SCH (08:22)
[2016-11-06] MEDS: GUAIFENESIN LA 600 MG TABLET PO SCH ×2 (08:22→21:01)
[2016-11-06] MEDS: CLOPIDOGREL 75 MG TABLET PO SCH (08:22)
[2016-11-06] MEDS: CYANOCOBALAMIN (B-12) 500mcg TABLET PO SCH (08:22)
[2016-11-06] MEDS: DOCUSATE SODIUM 100 MG CAPSULE PO SCH ×2 (08:23→21:01)
[2016-11-06] MEDS: FLUTICASONE NASAL SPRAY 50 MCG EA NOSTRIL SCH (08:24)
[2016-11-06] MEDS: CIPROFLOXACIN 500 MG TABLET PO SCH ×2 (08:25→21:01)
[2016-11-06] MEDS: LOSARTAN 50 MG TABLET PO SCH (08:25)
[2016-11-06 09:01] VITALS: BP 141/70; PULSE 75; RESP 18; TEMP 98.1; O2SAT 97
[2016-11-06 11:02] VITALS: O2SAT 96
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
[2016-11-06] MEDS: AMLODIPINE 10 MG TABLET PO SCH (14:47)
[2016-11-06] MEDS: POTASSIUM CHLORIDE 10 MEQ TABLET PO SCH (14:47)
[2016-11-06] MEDS: FUROSEMIDE 40 MG TABLET PO SCH (14:47)
--- NOTE | 2016-11-06 14:48 | HPPDOC ---
HPI Date DATE: 11/06/16 TIME: 14:43 General Chief Complaint: "My COPD is the issue" History of Present Illness 81-year-old gentleman status post fall. Patient has significant downtime and ultimately was diagnosed with rhabdomyolysis and new onset A. fib during hospitalization. He does have difficulty breathing as well, with COPD issues. He is unable to ambulate far enough to maintain ADLs, has significant weakness due to the rhabdomyolysis. As well as preinjury decline. He is admitted IRU for strengthening, improving stability. Past Medical History Past Medical History (1) TIA (transient ischemic attack) (2) CAD (coronary artery disease) (3) COPD (chronic obstructive pulmonary disease) (4) Systolic and diastolic CHF, chronic (5) Dyslipidemia (6) CKD (chronic kidney disease), stage III (7) BPH (benign prostatic hypertrophy) (8) Atrial fibrillation, new onset (9) Hypertension (10) JAYLA (obstructive sleep apnea) (11) Obesity (BMI 30-39.9) Surgical History Patient's Surgical History: CABG x5 (2007) left wrist ORIF (2011) Never had colonoscopy Current Medications Home Meds Active Scripts Ciprofloxacin HCl (Cipro) 500 Mg Tablet, 500 MG PO Q12HR for 5 Days, #10 TAB Prov:LAUREN ELMORE APRN 11/05/16 Cyanocobalamin (Vitamin B-12) (Vitamin B-12) 500 Mcg Tablet, 1000 MCG PO DAILY for 30 Days, #60 TAB Prov:LAUREN ELMORE APRN 11/05/16 Prednisone (Prednisone) 20 Mg Tablet, 20 MG PO WB for 5 Days, #5 TAB Prov:LAUREN ELMORE APRN 11/05/16 Sennosides/Docusate Sodium (Senna Plus Tablet) 1 Tab Tablet, 2 TAB PO BID Y for CONSTIPATION for 30 Days, #120 TAB Prov:LAUREN ELMORE APRN 11/05/16 Bisacodyl (Bisacodyl) 10 Mg Supp.rect, 10 MG RECTALLY BID Y for CONSTIPATION for 30 Days Prov:LAUREN ELMORE APRN 11/05/16 Fluticasone Propionate (Fluticasone Prop 50 mcg/actuation Nasal Funk) 120 Funk /16 G Funk, 2 SPRAY EA NOSTRIL DAILY for 30 Days, ML Prov:LAUREN ELMORE APRN 11/05/16 Guaifenesin (Mucinex) 600 Mg Tbbp.12hr, 600 MG PO BID for 30 Days Prov:LAUREN ELMORE V DONTA 11/05/16 Ipratropium/Albuterol Sulfate (Iprat-Albut 0.5-3(2.5) mg/3 ml) 3 Ml Ampul.neb, 3 ML AEROSOL Q2H Y for WHEEZING for 30 Days Prov:CATARINALAUREN Meng DONTA 11/05/16 Ipratropium/Albuterol Sulfate (Iprat-Albut 0.5-3(2.5) mg/3 ml) 3 Ml Ampul.neb, 3 ML AEROSOL RTQID for 30 Days Prov:CATARINALAUREN Meng DONTA 11/05/16 Reported Medications Losartan Potassium (Losartan Potassium) 50 Mg Tablet, 50 MG PO DAILY 11/01/16 Nitroglycerin (Nitroglycerin) 0.4 Mg Tab.subl, 0.4 MG SL Q5MIN Y for CHEST PAIN 11/01/16 Clopidogrel Bisulfate (Clopidogrel) 75 Mg Tablet, 75 MG PO DAILY 11/01/16 Discontinued Reported Medications Atorvastatin Calcium (Atorvastatin Calcium) 80 Mg Tablet, 80 MG PO HS 11/01/16 Allergies: Coded Allergies: No Known Allergies (Unverified , 11/01/16) Family History Family History: Father at age 65 of pulmonary embolism Mother at age 102, old age. Sister is 84, healthy. 1 son, 1 daughter - healthy. 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 Advance Directives: No DPOA for Healthcare Only Review of Systems Constitutional: REPORTS: weakness, weight loss Cardiovascular see HPI Rhythm/Rate: see HPI Pulmonary Respiratory: see HPI Musculoskeletal General: see HPI Neurological General: change in strength All Other Systems All Other Systems: Reviewed Physical Exam General General Nourishment: well nourished, well developed, adult General Body Habitus: well groomed Vital Signs Vital Signs Date Time Temp Pulse Resp B/P Pulse Ox O2 Delivery O2 Flow Rate FiO2 11/06/16 11:04 86 11/06/16 11:02 16 96 4/1/17 09:01 98.1 141/70 Nasal Cannula 2.00 Height (Feet): 5 Height (Inches): 4.00 Eyes Brief: FOUND: EOMI, PERRL Neck Brief: NOT FOUND: adenopathy, thyromegaly Respiratory Brief: FOUND: equal bilaterally, wheezes (very mild) Cardiovascular (brief) Cardiac Brief: NOT FOUND: regular rate, regular rhythm Capillary Refill: <2 sec Abdomen (brief) Abdominal Brief: FOUND: BS normo active x4, soft, NOT FOUND: tender Neurologic (brief) Neurological Brief: FOUND: cranial 2-12 intact, motor, sensory Neurologic RN Documented GCS Eye Opening: Verbal: Motor: Total: Laboratory Laboratory Tests Test 11/06/16 05:42 White Blood Count 10.5T/MM3 Red Blood Count 4.72M/MM3 Hemoglobin 13.9GM/DL Hematocrit 43.6% Mean Corpuscular Volume 92.4UM3 Mean Corpuscular Hemoglobin 29.4UUG Mean Corpuscular Hemoglobin Concent 31.9GM/DL RDW Standard Deviation 48.6FL Platelet Count 210T/MM3 Mean Platelet Volume 10.1UM3 Immature Granulocyte % (Auto) 0.9% Neutrophils (%) (Auto) 75.6% Lymphocytes (%) (Auto) 15.1% Monocytes (%) (Auto) 7.8% Eosinophils (%) (Auto) 0.5% Basophils (%) (Auto) 0.1% Absolute Immature Granulocyte (auto 0.09T/MM3 Absolute Neutrophils (auto) 8.0T/MM3 Absolute Lymphocytes (auto) 1.6T/MM3 Absolute Monocytes (auto) 0.8T/MM3 Absolute Eosinophils (auto) 0.1T/MM3 Absolute Basophils (auto) 0.0T/MM3 Turbidity < 20 Sodium Level 145MEQ/L Potassium Level 4.0MEQ/L Chloride Level 104MEQ/L Carbon Dioxide Level 29MEQ/L Anion Gap 12MEQ/L Blood Urea Nitrogen 40.0MG/DL Creatinine 1.0MG/DL Glomerular Filtration Rate Calc 72 BUN/Creatinine Ratio 40RATIO Glucose Level 82MG/DL Calculated Osmolality 288MOSM/KG Calcium Level 9.1MG/DL Icterus Index < 2 Chemistry Specimen Hemolysis < 15 Assessment & Plan Problems: (1) Protein-calorie malnutrition, mild Status: Acute Assessment & Plan: Dietary work with patient (2) Encephalopathy Status: Acute Assessment & Plan: Medical to manage (3) Fall in elderly patient Status: Acute Assessment & Plan: PT and OT will work on stability (4) CHF (congestive heart failure) Status: Chronic Qualifiers: Congestive heart failure type: diastolic Congestive heart failure chronicity: acute on chronic Qualified Codes: I50.33 - Acute on chronic diastolic (congestive) heart failure (5) Rhabdomyolysis Status: Resolved Qualifiers: Rhabdomyolysis type: traumatic Encounter type: sequela Qualified Codes: T79.6XXS - Traumatic ischemia of muscle, sequela Assessment & Plan: Resolving, continue to follow with medical (6) Atrial fibrillation Status: Chronic Qualifiers: Atrial fibrillation type: unspecified Qualified Codes: I48.91 - Unspecified atrial fibrillation Assessment & Plan: Managed by cardiology (7) COPD (chronic obstructive pulmonary disease) Status: Chronic Qualifiers: COPD type: unspecified COPD Qualified Codes: J44.9 - Chronic obstructive pulmonary disease, unspecified (8) Myopathy Assessment & Plan: PT and OT to work with patient, plan of care to be developed DVT Prophylaxis: SCD'S Code Status Full Code, unverified Interventions to Obtain Goals PT Treatment Plan: Therapeutic Exercise, Gait Training, Functional Activities , Patient/Family Education, Balance/Proprioception OT Treatment Plan: ADL's (basic care), Ther. Exercise for ADL's, UE Functional Training, Balance Training, Pt./Family Education, IADL's Hospital Course Summary Disclaimer The hospital course summary below is not to be considered part of the above Progress Note. RIZWAN FAIRBANKS MD Nov 06, 2016 14:46
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
[2016-11-06 16:44] VITALS: BP 153/65; PULSE 72; RESP 18; TEMP 98.8; O2SAT 94
--- NOTE | 2016-11-06 18:07 | NUR ---
Shift Summary Pt is resting in the recliner at this time. He is alert and oriented to person, place, and occasionally time. Has denied pain. Ambulates well with assist of 1, FWW, and gait belt. He is on 2 L/NC of O2, which he also uses at home. Worked well with therapy this shift. He has been continent of bowel and bladder this shift, able to manage his own clothing but needed minimal assist with hygiene. He has telemetry which has been running Sinus Rhythm. Midline IVL to the LUE flushed well. Ate well for all meals, did not need assist with his tray, ambulated to the dining room. Pt did not want to drink much water this shift, but he did drink several glasses of Lemonade. When in the chair the alarm is in use and call light is within reach.
[2016-11-06 21:42] VITALS: BP 137/69; PULSE 71; RESP 18; TEMP 98; O2SAT 93
--- NOTE | 2016-11-06 22:10 | NUR ---
STATUS Patient reports feeling like his buttocks are "gaulded". Tried a different chair cushion for him with a cut out area in back. Skin assessed is all blanchable, no open areas. Barrier cream is applied to protect skin.
[2016-11-07 05:40] LABS: BASOPHILS % (AUTO) 0.2 % (0-2); EOSINOPHILS # (AUTO) 0.2 T/MM3 (0-0.5); EOSINOPHILS % (AUTO) 1.7 % (0-4); HGB - HEMOGLOBIN 13.1 GM/DL (13.5-17.5); IMMATURE GRANULOCYTE % (AUTO) 1.9 % (0.0-0.5); LYMPHOCYTES # (AUTO) 1.7 T/MM3 (1-4.8); LYMPHOCYTES % (AUTO) 15.7 % (23-45); MEAN CORPUSCULAR HGB 29.4 UUG (26-34); MEAN CORPUSCULAR VOLUME 91.9 UM3 (80-100); MONOCYTES # (AUTO) 0.7 T/MM3 (0-0.8); MONOCYTES % (AUTO) 6.7 % (0-9.0); NEUTROPHILS #(AUTO)-ABSOLUTE 7.8 T/MM3 (1.8-7.7); NEUTROPHILS % (AUTO) 73.8 % (33-66); RED BLOOD COUNT 4.46 M/MM3 (4.50-5.90); WBC - WHITE BLOOD COUNT 10.5 T/MM3 (4.5-11.0)
[2016-11-07 05:49] LABS: ALBUMIN 3.1 G/DL (3.5-5.0); ANION GAP 6 MEQ/L (5-15); BUN/CREATININE RATIO 34 RATIO (6-26); CALCIUM 9.1 MG/DL (8.4-10.2); CHLORIDE 103 MEQ/L (98-107); CO2 - CARBON DIOXIDE 32 MEQ/L (22-30); CREATININE 1.2 MG/DL (0.8-1.5); GLOMERULAR FILTRATION RATE 58; GLUCOSE 85 MG/DL (75-110); MAGNESIUM 2.2 MG/DL (1.6-2.3); PHOSPHORUS 2.5 MG/DL (2.5-4.5); POTASSIUM 3.9 MEQ/L (3.6-5); SODIUM 141 MEQ/L (134-144)
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
[2016-11-07 08:22] VITALS: BP 156/69; PULSE 64; RESP 20; TEMP 97.8; O2SAT 90
[2016-11-07] MEDS: FLUTICASONE NASAL SPRAY 50 MCG EA NOSTRIL SCH (08:31)
[2016-11-07] MEDS: AMLODIPINE 10 MG TABLET PO SCH (08:31)
[2016-11-07] MEDS: CLOPIDOGREL 75 MG TABLET PO SCH (08:31)
[2016-11-07] MEDS: ASPIRIN *EC* 81mg TABLET PO SCH (08:31)
[2016-11-07] MEDS: CYANOCOBALAMIN (B-12) 500mcg TABLET PO SCH (08:31)
[2016-11-07] MEDS: CIPROFLOXACIN 500 MG TABLET PO SCH ×2 (08:31→20:37)
[2016-11-07] MEDS: LOSARTAN 50 MG TABLET PO SCH (08:31)
[2016-11-07] MEDS: GUAIFENESIN LA 600 MG TABLET PO SCH ×2 (08:34→20:37)
[2016-11-07] MEDS: POTASSIUM CHLORIDE 10 MEQ TABLET PO SCH (08:34)
[2016-11-07] MEDS: PredniSONE 20 MG TABLET PO SCH (08:34)
[2016-11-07] MEDS: DOCUSATE SODIUM 100 MG CAPSULE PO SCH ×2 (08:35→20:37)
[2016-11-07] MEDS: FUROSEMIDE 40 MG TABLET PO SCH (08:35)
[2016-11-07 09:00] VITALS: PULSE 64; RESP 20
[2016-11-07] MEDS: ALBUTEROL/IPRATROPIUM INHAL. 2.5mg-0.5mg/3ml Neb. AEROSOL SCH ×4 (09:44→20:10)
--- NOTE | 2016-11-07 13:29 | PNPDOC ---
Subjective Date DATE: 11/07/16 TIME: 13:13 Sd Perez is seen this AM in follow up for his recent fall with rhabdomyolysis and respiratory insufficiency. He is seen while sitting in his recliner in his room , watching TV. He denies any complaints and states that he thinks he's doing better. He continues to have dyspnea that is worse with exertion and admits to feeling short of breath on exam. It was noted that his wall oxygen was not on and was turned back on to 2L with improvement in shortness of breath. His appetite is good and his bowels are moving. On exam, he is very pleasant and alert and orientated. Cardiac exam reveals regular rate and rhythm. Lungs are diminished bilaterally with scattered wheezing and crackles noted. Abdomen is soft, distended with active bowel sounds. 3+ pitting edema noted to bilateral lower extremities extending to abdomen. 1+ pedal pulses bilaterally. Labs today showed WBC 10.5, hgb 13.1, plt 212, Na 141, K 3.9. BUN and SCr slightly elevated as compared to yesterday at 41 and 1.2 respectively. Objective Vital Signs Vital signs Vital Signs Date Time Temp Pulse Resp B/P Pulse Ox O2 Delivery O2 Flow Rate FiO2 11/07/16 11:07 76 11/07/16 11:07 18 11/07/16 09:45 Nasal Cannula 2.00 11/07/16 08:22 97.8 156/69 90 Height (Feet): 5 Height (Inches): 4.00 Weight (Kilograms): 103.100 General General Appearance: Alert, Cooperative, No Acute Distress Eyes (Brief) Eyes: FOUND: PERRL, NOT FOUND: scleral icterus ENMT (Brief) ENMT: FOUND: mucosa moist Neck (Brief) Neck: FOUND: midline, NOT FOUND: nuchal rigidity, tracheal deviation Respiratory (Brief) Respiratory: FOUND: rales, wheezes, NOT FOUND: symmetrical Comments diminished bilaterally with wheezing and rales. Cardiovascular (Brief) Cardiac: FOUND: pedal edema (3+ pitting), regular rate, regular rhythm Abdomen (Brief) Abdominal: FOUND: BS normo active x4, distended, soft, NOT FOUND: tender Extremities (Brief) Extremity : Side: Bilateral Extremity: leg Extremity Finding: FOUND: edema (3+), NOT FOUND: deformity Musculoskeletal (Brief) Musculoskeletal: FOUND: extremities move equally, NOT FOUND: deformity, loss of motion Integumentary (Brief) Integumentary: FOUND: dry, pink, warm Comments afebrile Neurologic (Brief) Neurological: NOT FOUND: facial droop Psychiatric (Brief) Psychiatric: FOUND: alert, attentive, oriented Laboratory Laboratory Laboratory Tests 11/06/16 05:42 11/07/16 05:29 Laboratory Tests 11/06/16 05:42 11/07/16 05:29 Assessment & Plan Problems: (1) Fall in elderly patient Status: Acute (2) Rhabdomyolysis Status: Resolved Qualifiers: Rhabdomyolysis type: traumatic Encounter type: sequela Qualified Codes: T79.6XXS - Traumatic ischemia of muscle, sequela (3) Cognitive decline Status: Chronic (4) Grief Status: Chronic (5) CHF (congestive heart failure) Status: Chronic Qualifiers: Congestive heart failure type: diastolic Congestive heart failure chronicity: acute on chronic Qualified Codes: I50.33 - Acute on chronic diastolic (congestive) heart failure (6) COPD (chronic obstructive pulmonary disease) Status: Chronic Qualifiers: COPD type: unspecified COPD Qualified Codes: J44.9 - Chronic obstructive pulmonary disease, unspecified (7) JAYLA (obstructive sleep apnea) Status: Chronic (8) Hypertension Status: Chronic Qualifiers: Hypertension type: essential hypertension Qualified Codes: I10 - Essential (primary) hypertension (9) CKD (chronic kidney disease), stage III Status: Chronic (10) Dyslipidemia Status: Chronic (11) CAD (coronary artery disease) Status: Chronic Qualifiers: Associated angina: angina presence unspecified (12) BPH (benign prostatic hypertrophy) Status: Chronic Qualifiers: Prostatic enlargement morphology: unspecified morphology Lower urinary tract symptom presence: presence of symptoms unspecified Qualified Codes: N40.0 - Benign prostatic hyperplasia without lower urinary tract symptoms (13) Atrial fibrillation Status: Chronic Qualifiers: Atrial fibrillation type: unspecified Qualified Codes: I48.91 - Unspecified atrial fibrillation Plan/Intensity of Service 11/07/16: [place]. Overall, Chris is making slow gains. He continues to require supplemental oxygen due to pulmonary congestion secondary to CHF. Continue rehabilitation per Dr. Lopez for strengthening and increased functional abilities. Encourage participation in therapy. Continue supplemental oxygen to maintain SAO2 >92% and wean as able. Currently at 2L. Will repeat CXR on 11/08 to monitor pulmonary congestion as patient continues to have 3+ pitting edema bilaterally and rales on exam with dry cough. In light of lower extremity swelling, Doppler ultrasound was obtained and negative for DVT Continue daily Lasix for fluid motivation. Monitor renal function closely in light of recent renal injury prior to arrival on IRU. SCr increased to 1.2 after reinitiation of Lasix. Recheck BMP in AM to monitor electrolytes and renal function. Monitor daily weight as well. JORDY hose. Continue to provide safe and supportive environment. Continue Duoneb and Symbicort for supportive care. Blood pressure better controlled. Continue Norvasc and Lasix. Monitor blood pressure closely. DVT Prophylaxis: JORDY Hose, other Code Status Full Code, unverified Hospital Course Summary Disclaimer The hospital course summary below is not to be considered part of the above Progress Note. Hospital Course Summary 11/06/16- Spencer/Dora *Fall, prolonged down time; Secondary rhabdo PT/OT per acute rehab team. Continue to monitor labs. S/P IV resuscitation. *HFpEF, JAYLA, Obesity Hypoventilation Resume Lasix- he still has significant abdominal and LE edema despite fairly dry on labs. Will assess venous doppler given prolonged down time. Continue O2, supportive care for COPD. Pleural thickening on CXR- may want to consider CT. I dont want to get a CTA given high risk for renal failure with IV contrast. Repeat CXR. *COPD with mild exacerbation Continue O2, Duoneb. Add Symbicort for supportive care. *HTN- Resume Norvasc, Lasix as BP is uncontrolled. *CAD- Continue ASA, Plavix. No statin due to rhabdo. *AFib with RVR and Ventricular Tachyarrhythmia- Not requiring rate control. No anticoagulation due to fall risk. *Cognitive deficits-May need MAX eval in the future. *Peripheral edema- Restart Lasix,KCL. Consider JORDY hose if sono is negative. Chart is reviewed during this visit. Thank you for the consult. QUINN RUSSELL Nov 07, 2016 13:17
--- NOTE | 2016-11-07 13:44 | DI ---
Indication: ITS.REASON: Edema, SOA PROCEDURE: US VENOUS DUPLEX, LOWER EXT BI: Encounter: Initial Comparison: None Technique: Color Doppler duplex and grayscale sonographic imaging of both lower extremities was performed. Findings: There is no evidence for acute deep venous thrombosis in either thigh. Specifically, serial graded compression was performed from the inguinal ligament to the popliteal bifurcation, bilaterally, demonstrating appropriate compressibility of the deep venous system. In addition, color and pulsed Doppler demonstrate appropriate spontaneous flow, variation with respiration, and augmentation with calf compression. At the ankle, normal flow is identified in the posterior tibial veins; these vessels are also normal in caliber. Impression: No evidence of acute DVT in either lower limb. There is a preliminary report by [facility]. .
--- NOTE | 2016-11-07 13:52 | DI ---
INDICATION: ITS.REASON: SOA, cough, pleural thickening PROCEDURE: CHEST 2-VIEWS UPRIGHT (PA \T\ LAT) Encounter: Initial COMPARISON: November 04, 2016 FINDINGS: Lungs are stable in appearance with left pleural thickening and chronic appearing left basilar opacity. No pneumothorax. Right lung is clear. No right-sided effusion. Heart size and mediastinal contours are stable. Prior CABG. Impression: No change. .
[2016-11-07 16:28] VITALS: BP 130/87; PULSE 81; RESP 20; TEMP 97.8; O2SAT 94
--- NOTE | 2016-11-07 19:20 | NUR ---
Shift Summary Pt is resting in the recliner at this time, he does not like to lay in the bed due to feeling like he cannot breath. He did have to get into the bed due to having a venous ultrasound done, which immediately following he wanted out of the bed. He is alert and oriented to person, place, and occasionally time. Has denied pain, except for occasional discomfort and pain to his buttock. Ambulates well with assist of 1, FWW, and gait belt. He continues on 2 L/NC of O2. He has been continent of bowel and bladder this shift, able to manage his own clothing but needed minimal assist with hygiene. He has telemetry which has been running Sinus Rhythm. Midline IVL to the LUE flushed well. Ate well for all meals, did not need assist with his tray, ambulated to the dining room. Pt did not want to drink much water this shift, but he did drink several glasses of Lemonade. JORDY hose placed this afternoon, pt has tolerated them well. When in the chair the alarm is in use and call light is within reach.
[2016-11-07 20:30] VITALS: PULSE 71; RESP 16
[2016-11-07 20:38] VITALS: BP 141/68; PULSE 71; RESP 20; TEMP 97.9; O2SAT 94
--- NOTE | 2016-11-07 22:37 | PDIRUOPC ---
Overall Plan of Care Date DATE: 11/07/16 TIME: 22:35 Relevant Changes Relevant Changes: No I have reviewed the patient's information and concur with the finding and results of the pre-admission screen. Certification I certify the patient for rehabilitation. Patient Impairments Prior Medical Conditions: (1) Protein-calorie malnutrition, mild Status: Acute Additional Information: Dietary work with patient (2) Encephalopathy Status: Acute Additional Information: Medical to manage (3) Fall in elderly patient Status: Acute Additional Information: PT and OT will work on stability (4) CHF (congestive heart failure) Status: Chronic (5) Rhabdomyolysis Status: Resolved Additional Information: Resolving, continue to follow with medical (6) Atrial fibrillation Status: Chronic Additional Information: Managed by cardiology (7) COPD (chronic obstructive pulmonary disease) Status: Chronic (8) Myopathy Additional Information: PT and OT to work with patient, plan of care to be developed Current Medical Conditions: (1) Protein-calorie malnutrition, mild Status: Acute Additional Information: Dietary work with patient (2) Encephalopathy Status: Acute Additional Information: Medical to manage (3) Fall in elderly patient Status: Acute Additional Information: PT and OT will work on stability (4) CHF (congestive heart failure) Status: Chronic (5) Rhabdomyolysis Status: Resolved Additional Information: Resolving, continue to follow with medical (6) Atrial fibrillation Status: Chronic Additional Information: Managed by cardiology (7) COPD (chronic obstructive pulmonary disease) Status: Chronic (8) Myopathy Additional Information: PT and OT to work with patient, plan of care to be developed Medical Prognosis Fair IRF Tx That Should Address Dx: (1) Encephalopathy (2) Myopathy (3) Rhabdomyolysis Dx Requiring Medical FU: (1) Rhabdomyolysis (2) Atrial fibrillation (3) Encephalopathy Vital Signs Vital Signs Date Time Temp Pulse Resp B/P Pulse Ox O2 Delivery O2 Flow Rate FiO2 11/07/16 20:55 18 11/07/16 20:38 97.9 71 141/68 94 Room Air 11/07/16 20:25 2.00 Laboratory Laboratory Tests Test 11/06/16 05:42 11/07/16 05:29 White Blood Count 10.5T/MM3 10.5T/MM3 Red Blood Count 4.72M/MM3 4.46M/MM3 Hemoglobin 13.9GM/DL 13.1GM/DL Hematocrit 43.6% 41.0% Mean Corpuscular Volume 92.4UM3 91.9UM3 Mean Corpuscular Hemoglobin 29.4UUG 29.4UUG Mean Corpuscular Hemoglobin Concent 31.9GM/DL 32.0GM/DL RDW Standard Deviation 48.6FL 48.2FL Platelet Count 210T/MM3 212T/MM3 Mean Platelet Volume 10.1UM3 10.0UM3 Immature Granulocyte % (Auto) 0.9% 1.9% Neutrophils (%) (Auto) 75.6% 73.8% Lymphocytes (%) (Auto) 15.1% 15.7% Monocytes (%) (Auto) 7.8% 6.7% Eosinophils (%) (Auto) 0.5% 1.7% Basophils (%) (Auto) 0.1% 0.2% Absolute Immature Granulocyte (auto 0.09T/MM3 0.20T/MM3 Absolute Neutrophils (auto) 8.0T/MM3 7.8T/MM3 Absolute Lymphocytes (auto) 1.6T/MM3 1.7T/MM3 Absolute Monocytes (auto) 0.8T/MM3 0.7T/MM3 Absolute Eosinophils (auto) 0.1T/MM3 0.2T/MM3 Absolute Basophils (auto) 0.0T/MM3 0.0T/MM3 Turbidity < 20 < 20 Sodium Level 145MEQ/L 141MEQ/L Potassium Level 4.0MEQ/L 3.9MEQ/L Chloride Level 104MEQ/L 103MEQ/L Carbon Dioxide Level 29MEQ/L 32MEQ/L Anion Gap 12MEQ/L 6MEQ/L Blood Urea Nitrogen 40.0MG/DL 41.0MG/DL Creatinine 1.0MG/DL 1.2MG/DL Glomerular Filtration Rate Calc 72 58 BUN/Creatinine Ratio 40RATIO 34RATIO Glucose Level 82MG/DL 85MG/DL Calculated Osmolality 288MOSM/KG 280MOSM/KG Calcium Level 9.1MG/DL 9.1MG/DL Icterus Index < 2 < 2 Chemistry Specimen Hemolysis < 15 < 15 Phosphorus Level 2.5MG/DL Magnesium Level 2.2MG/DL Albumin 3.1G/DL Anticipated Interventions The patient requires inpatient IRF care for PT, OT, and/or ST for residuals remaining from [] resulting in muscular weakness and strength deficits. Strength Deficits: Left Lower Extremity, Right Lower Extremity FIM Scores Ambulation Distance: 123 Ambulation Ability: 4 Minimal Assistance Ambulation Assistance Needed: 1 Person Walk FIM Score Reason: 09/14 A d/t distance, 11/12 CGA Stairs: 2 Maximum Assistance Stair Assistance Needed: 1 Person Number of Stairs: 4 Reason for Stair FIM: with B HR ; pt completed with 5/ SBA, but 2/ per FIM Eating Ability-FIM: 5 Supervision/Setup Grooming Ability: 5 Supervision/Setup Grooming FIM Score Reason: Standing at sink Bathing Ability: 4 Minimal Assistance Upper Body Dressing Ability: 5 Supervision/Setup Lower Body Dressing Ability: 4 Minimal Assistance Toileting Ability: 4 Minimal Assistance Toileting Assistance Needed: 1 Person Bed Transfer Ability: 3 Moderate Assistance Bed Transfer Assistance Needed: 1 Person Chair Transfer Ability: 4 Minimal Assistance Chair Transfer Assistance Need: 1 Person Overall Toilet / Commode Trans: 4 Minimal Assistance Toilet / Commode Transfer Assi: 1 Person Tub / Shower Transfer Ability: 4 Minimal Assistance Tub / Shower Transfer [place]: 1 Person Comprehension Ability: 6 Modified [place] Social Interaction: 5 Supervision/Setup Problem Solvin Minimal Assistance Expression Ability: 6 Modified [place] Memory: 5 Supervision/Setup Current Functional Status Patient Requires * Patient has been determined to have significant functional limitations requiring at least two therapy disciplines. * Rehabilitation medical practitioner will provide admission approval, assessment and oversight and program coordination at least daily. * Intensive rehabilitative nursing services on site and available 24 hours a day. * The treatment plan will be developed within 24 hours of admission. * Interdisciplinary and goal oriented treatment by professional nursing, social science manager, and rehabilitation therapist. * Interdisciplinary team meeting weekly inclusive of ongoing comprehensive discharge planning. First team meeting by . Weekly meetings to follow. * Rehab Physician is the team meeting leader. * Pharmacy and diagnostic services will be available. * Ongoing comprehensive rehab program with at least 2 disciplines and greater than or equal to 3 hours a day, 5 days a week. Limitations require: mobility impairment, cognitive impairment, desire/ability to participate Physical Therapy Minutes: 90 Occupational Therapy Minutes: 90 Therapy The patient is to receive therapy at least 5 days a week. PT Treatment Plan: Therapeutic Exercise, Gait Training, Functional Activities , Patient/Family Education, Balance/Proprioception Treatment Plan Frequency: five times per week Treatment Plan Duration: two weeks Plan of Care Comment: 6x/wk for 1st wk; 5x/wk for 2nd and 3rd wks. OT Treatment Plan: ADL's (basic care), Ther. Exercise for ADL's, UE Functional Training, Balance Training, Pt./Family Education, IADL's OT Treatment Plan Frequency: five times per week OT Treatment Plan Duration: three weeks Anticapted LOS/Outcomes Anticipated Functional Outcome improvement to pre admit status based on PT and OT inputl Anticipated DC Destination: Home, self longterm Safety Plan The patient will be provided with the development of a Home Safety Plan for return to a home or home-like environment and to ensure safety post discharge. Complicating Conditions Complications since IRF admit: (1) Protein-calorie malnutrition, mild Status: Acute Comments: Dietary work with patient (2) Encephalopathy Status: Acute Comments: Medical to manage (3) Fall in elderly patient Status: Acute Comments: PT and OT will work on stability (4) CHF (congestive heart failure) Status: Chronic (5) Rhabdomyolysis Status: Resolved Comments: Resolving, continue to follow with medical (6) Atrial fibrillation Status: Chronic Comments: Managed by cardiology (7) COPD (chronic obstructive pulmonary disease) Status: Chronic (8) Myopathy Comments: PT and OT to work with patient, plan of care to be developed Other Contributing Factors: Plan to Avoid Complications Barriers to Attaining Goals: weakness, balance, pain control Plan to Avoid Complications The patient cannot receive this care in a lesser intensive setting such as Correction or Outpatient Therapy due to the patient requiring the following afib, weakness, rhabdomyolysis The patient requires oversight by a rehabilitation physician to manage their rehabilitation treatment plan and the multidisciplinary approach to care that can only be provided in an IRF and requires a multidisciplinary approach to care , provided by professional PTs, OTs, STs, dieticians, RTs, rehabilitation nurses and is not available in lesser levels of care. The frequency and duration for therapy, as recommended by the professional Rehabilitation therapists, meet the patient's initial rehabilitation treatment plan needs and will be further evaluated on a weekly basis for progress and/or changes needed. Problem Qualifiers (1) CHF (congestive heart failure): Congestive heart failure type: diastolic Congestive heart failure chronicity: acute on chronic Qualified Codes: I50.33 - Acute on chronic diastolic ( congestive) heart failure (2) Rhabdomyolysis: Rhabdomyolysis type: traumatic Encounter type: sequela Qualified Codes: T79.6XXS - Traumatic ischemia of muscle, sequela (3) Atrial fibrillation: Atrial fibrillation type: unspecified Qualified Codes: I48.91 - Unspecified atrial fibrillation (4) COPD (chronic obstructive pulmonary disease): COPD type: unspecified COPD Qualified Codes: J44.9 - Chronic obstructive pulmonary disease, unspecified RIZWAN FAIRBANKS MD Nov 07, 2016 22:37
--- NOTE | 2016-11-07 23:32 | NUR ---
Chart Check 24 hour chart check completed
[2016-11-08 05:31] LABS: ANION GAP 12 MEQ/L (5-15); BUN/CREATININE RATIO 35 RATIO (6-26); CALCIUM 9.1 MG/DL (8.4-10.2); CHLORIDE 100 MEQ/L (98-107); CO2 - CARBON DIOXIDE 29 MEQ/L (22-30); CREATININE 1.3 MG/DL (0.8-1.5); GLOMERULAR FILTRATION RATE 53; GLUCOSE 91 MG/DL (75-110); POTASSIUM 4.4 MEQ/L (3.6-5); SODIUM 141 MEQ/L (134-144)
--- NOTE | 2016-11-08 06:25 | NUR ---
Summary Chris is a pleasant and cooperative pt . He has denied pain.He has a Mid line to his left upper arm which flushes fairly well. he also reports weakness / deficit to his left shoulder due to a past injury.He is alert and oriented x three.He has been incontinent of bladder x one with staff managing hygiene and changing of pullup and pants.He reports to staff that he can not sleep in a bed so pt slept in his recliner with feet elevated.Call light within reach.Chair alarm intact.He was bladder scanned post void 196 cc noted.When he is in the bathroom he can manage his clothes and hygiene.
[2016-11-08] MEDS: ALBUTEROL/IPRATROPIUM INHAL. 2.5mg-0.5mg/3ml Neb. AEROSOL SCH ×4 (07:24→19:45)
[2016-11-08 07:25] VITALS: O2SAT 98
[2016-11-08 08:00] VITALS: BP 154/68; PULSE 69; RESP 18; TEMP 97.6; O2SAT 95
[2016-11-08] MEDS: FLUTICASONE NASAL SPRAY 50 MCG EA NOSTRIL SCH (08:13)
[2016-11-08] MEDS: PredniSONE 20 MG TABLET PO SCH (08:14)
[2016-11-08] MEDS: ASPIRIN *EC* 81mg TABLET PO SCH (08:14)
[2016-11-08] MEDS: CYANOCOBALAMIN (B-12) 500mcg TABLET PO SCH (08:14)
[2016-11-08] MEDS: CLOPIDOGREL 75 MG TABLET PO SCH (08:15)
[2016-11-08] MEDS: FUROSEMIDE 40 MG TABLET PO SCH (08:15)
[2016-11-08] MEDS: GUAIFENESIN LA 600 MG TABLET PO SCH ×2 (08:15→22:13)
[2016-11-08] MEDS: AMLODIPINE 10 MG TABLET PO SCH (08:15)
[2016-11-08] MEDS: POTASSIUM CHLORIDE 10 MEQ TABLET PO SCH (08:16)
[2016-11-08] MEDS: LOSARTAN 50 MG TABLET PO SCH (08:16)
--- NOTE | 2016-11-08 08:16 | DI ---
INDICATION: ITS.REASON: dyspnea, CHF PROCEDURE: CHEST 2-VIEWS UPRIGHT (PA \T\ LAT) Encounter: Initial COMPARISON: November 06, 2016 FINDINGS: Lungs are stable. Left-sided pleural thickening and opacity. Right lung is clear. No pneumothorax. Heart size and mediastinal contours are unchanged. Pulmonary vascularity is stable. Impression: Stable chest. .
[2016-11-08] MEDS: DOCUSATE SODIUM 100 MG CAPSULE PO SCH ×2 (08:17→22:13)
[2016-11-08] MEDS: CIPROFLOXACIN 500 MG TABLET PO SCH ×2 (08:17→22:13)
--- NOTE | 2016-11-08 09:05 | NUR ---
SPEECH THERAPY DYSPHAGIA SCREEN PATIENT SCREENED THIS AM FOR DYSPHAGIA SECONDARY C/O OF CHOKING ON MEATS. PATIENT CONSUMED A SOFT DIET WITH CHOPPED MEATS WITH NO CLINICAL S/S OF ASPIRATION. PT NOTED TO HAVE THROAT CLEAR WHEN ATTEMPTING TO SWALLOW/SPEAK AT THE SAME TIME. PATIENT TOOK MEDICATIONS SEVERAL AT A TIME WITH THIN WATER WITHOUT DIFFICULTY. RECOMMEND CONTINUATION OF SOFT/CHOPPED MEAT DIET WITH THIN LIQUIDS. PLEASE CONTACT ST DEPARTMENT IF QUESTION/CONCERNS ARISE.
[2016-11-08 11:15] VITALS: O2SAT 97
[2016-11-08 14:52] VITALS: O2SAT 95
[2016-11-08 16:06] VITALS: BP 133/67; PULSE 69; RESP 18; TEMP 97.8; O2SAT 92
--- NOTE | 2016-11-08 17:52 | NUR ---
Shift Summary Pt is in the dining room at this time eating dinner. He does not like to lay in the bed due to feeling like he cannot breath, due to his COPD. He is alert and oriented to person, place, and occasionally time. Has denied pain, except for occasional discomfort and pain to his buttock, but has not complained of it as much as previous shifts, reports that it is feeling better. Ambulates well with assist of 1, FWW, and gait belt. He continues on 2 L/NC of O2, which is used at home as well. He has been continent of bowel and bladder this shift, able to manage his own clothing but needed minimal assist with hygiene; does dribble on his clothes on occasion. He has telemetry which has been running Sinus Rhythm. Midline IVL to the LUE flushed well, infusion therapy changed his dressing on the Midline IVL. Ate well for all meals, did not need assist with his tray, ambulated to the dining room. Enjoys drinking glasses of Lemonade, but will occasionally have some coffee or tea, but not much. Worked well with therapy, except he did refuse to have a bath today with occupational therapy. When in the chair the alarm is in use and call light is within reach.
[2016-11-08 19:53] VITALS: BP 136/66; PULSE 68; RESP 22; TEMP 98; O2SAT 93
--- NOTE | 2016-11-08 21:13 | PNPDOC ---
IRU Subjective Date DATE: 11/08/16 TIME: 21:11 IRU Objective Vital Signs Vital signs Vital Signs Date Time Temp Pulse Resp B/P Pulse Ox O2 Delivery O2 Flow Rate FiO2 11/08/16 19:57 82 11/08/16 19:53 98.0 22 136/66 93 Nasal Cannula 2.00 Height (Feet): 5 Height (Inches): 4.00 Weight (Kilograms): 104.900 Laboratory Laboratory Laboratory Tests Test 11/07/16 05:29 11/08/16 04:34 White Blood Count 10.5T/MM3 Red Blood Count 4.46M/MM3 Hemoglobin 13.1GM/DL Hematocrit 41.0% Mean Corpuscular Volume 91.9UM3 Mean Corpuscular Hemoglobin 29.4UUG Mean Corpuscular Hemoglobin Concent 32.0GM/DL RDW Standard Deviation 48.2FL Platelet Count 212T/MM3 Mean Platelet Volume 10.0UM3 Immature Granulocyte % (Auto) 1.9% Neutrophils (%) (Auto) 73.8% Lymphocytes (%) (Auto) 15.7% Monocytes (%) (Auto) 6.7% Eosinophils (%) (Auto) 1.7% Basophils (%) (Auto) 0.2% Absolute Immature Granulocyte (auto 0.20T/MM3 Absolute Neutrophils (auto) 7.8T/MM3 Absolute Lymphocytes (auto) 1.7T/MM3 Absolute Monocytes (auto) 0.7T/MM3 Absolute Eosinophils (auto) 0.2T/MM3 Absolute Basophils (auto) 0.0T/MM3 Turbidity < 20 < 20 Sodium Level 141MEQ/L 141MEQ/L Potassium Level 3.9MEQ/L 4.4MEQ/L Chloride Level 103MEQ/L 100MEQ/L Carbon Dioxide Level 32MEQ/L 29MEQ/L Anion Gap 6MEQ/L 12MEQ/L Blood Urea Nitrogen 41.0MG/DL 46.0MG/DL Creatinine 1.2MG/DL 1.3MG/DL Glomerular Filtration Rate Calc 58 53 BUN/Creatinine Ratio 34RATIO 35RATIO Glucose Level 85MG/DL 91MG/DL Calculated Osmolality 280MOSM/KG 283MOSM/KG Calcium Level 9.1MG/DL 9.1MG/DL Phosphorus Level 2.5MG/DL Magnesium Level 2.2MG/DL Icterus Index < 2 < 2 Albumin 3.1G/DL Chemistry Specimen Hemolysis < 15 19 Assessment & Plan Problems: (1) Protein-calorie malnutrition, mild Status: Acute Assessment & Plan: Dietary working with pt. (2) Encephalopathy Status: Acute Assessment & Plan: MEdical to follow. (3) Fall in elderly patient Status: Acute Assessment & Plan: PT and OT working to increase strength and stability. Cont with PT and OT plan of care, reeval wed team meeting. (4) CHF (congestive heart failure) Status: Chronic Qualifiers: Congestive heart failure type: diastolic Congestive heart failure chronicity: acute on chronic Qualified Codes: I50.33 - Acute on chronic diastolic (congestive) heart failure Assessment & Plan: medical to follow. (5) Rhabdomyolysis Status: Resolved Qualifiers: Rhabdomyolysis type: traumatic Encounter type: sequela Qualified Codes: T79.6XXS - Traumatic ischemia of muscle, sequela Assessment & Plan: Medical to follow kidney function and hyydration. PT and OT workign with pt to increase strength and prevent future issues if possible. (6) Atrial fibrillation Status: Chronic Qualifiers: Atrial fibrillation type: unspecified Qualified Codes: I48.91 - Unspecified atrial fibrillation (7) COPD (chronic obstructive pulmonary disease) Status: Chronic Qualifiers: COPD type: unspecified COPD Qualified Codes: J44.9 - Chronic obstructive pulmonary disease, unspecified (8) Myopathy Assessment & Plan: PT and OT working to increase strength and stability. Cont with PT and OT plan of care, reeval wed team meeting. Code Status Full Code, unverified Interventions to Obtain Goals PT Treatment Plan: Therapeutic Exercise, Gait Training, Functional Activities , Patient/Family Education, Balance/Proprioception OT Treatment Plan: ADL's (basic care), Ther. Exercise for ADL's, UE Functional Training, Balance Training, Pt./Family Education, IADL's Hospital Course Summary Disclaimer The hospital course summary below is not to be considered part of the above Progress Note. Hospital Course Summary 11/06/16- Spencer/Dora *Fall, prolonged down time; Secondary rhabdo PT/OT per acute rehab team. Continue to monitor labs. S/P IV resuscitation. *HFpEF, JAYLA, Obesity Hypoventilation Resume Lasix- he still has significant abdominal and LE edema despite fairly dry on labs. Will assess venous doppler given prolonged down time. Continue O2, supportive care for COPD. Pleural thickening on CXR- may want to consider CT. I dont want to get a CTA given high risk for renal failure with IV contrast. Repeat CXR. *COPD with mild exacerbation Continue O2, Duoneb. Add Symbicort for supportive care. *HTN- Resume Norvasc, Lasix as BP is uncontrolled. *CAD- Continue ASA, Plavix. No statin due to rhabdo. *AFib with RVR and Ventricular Tachyarrhythmia- Not requiring rate control. No anticoagulation due to fall risk. *Cognitive deficits-May need MAX eval in the future. *Peripheral edema- Restart Lasix,KCL. Consider JORDY mallory if sono is negative. Chart is reviewed during this visit. Thank you for the consult. RIZWAN FAIRBANKS MD Nov 08, 2016 21:13
--- NOTE | 2016-11-08 23:31 | NUR ---
Chart Check 24 hour chart check completed
[2016-11-09 03:12] VITALS: PULSE 68; RESP 22
--- NOTE | 2016-11-09 06:17 | NUR ---
Summary Chris is a pleasant and cooperative pt . He has denied pain.He has a Mid line to his left upper arm which flushes well. He reports weakness / deficit to his left shoulder due to a past injury.He is alert and oriented x three.He has been continent of bladder. He reports to staff that he can not sleep in a bed so pt slept in his recliner with feet elevated.Call light within reach.Chair alarm intact.When he is in the bathroom he can manage his clothes and hygiene.
[2016-11-09] MEDS: ALBUTEROL/IPRATROPIUM INHAL. 2.5mg-0.5mg/3ml Neb. AEROSOL SCH ×3 (06:57→19:00)
[2016-11-09 06:58] VITALS: O2SAT 98
[2016-11-09] MEDS: POTASSIUM CHLORIDE 10 MEQ TABLET PO SCH (08:28)
[2016-11-09] MEDS: GUAIFENESIN LA 600 MG TABLET PO SCH ×2 (08:28→20:12)
[2016-11-09] MEDS: PredniSONE 20 MG TABLET PO SCH (08:28)
[2016-11-09] MEDS: CLOPIDOGREL 75 MG TABLET PO SCH (08:29)
[2016-11-09] MEDS: FUROSEMIDE 40 MG TABLET PO SCH (08:29)
[2016-11-09] MEDS: ASPIRIN *EC* 81mg TABLET PO SCH (08:29)
[2016-11-09] MEDS: LOSARTAN 50 MG TABLET PO SCH (08:29)
[2016-11-09] MEDS: CYANOCOBALAMIN (B-12) 500mcg TABLET PO SCH (08:29)
[2016-11-09] MEDS: CIPROFLOXACIN 500 MG TABLET PO SCH ×2 (08:29→20:12)
[2016-11-09] MEDS: AMLODIPINE 10 MG TABLET PO SCH (08:30)
[2016-11-09] MEDS: DOCUSATE SODIUM 100 MG CAPSULE PO SCH ×2 (08:30→20:12)
[2016-11-09] MEDS: FLUTICASONE NASAL SPRAY 50 MCG EA NOSTRIL SCH (08:36)
[2016-11-09 08:56] VITALS: BP 131/57; PULSE 73; RESP 18; TEMP 97.6; O2SAT 96
--- NOTE | 2016-11-09 12:55 | NUR ---
LIFE LINE SON, SHARIFA PICHARDO BROUGHT PT A LIFE LINE WITH CAN INTAKE WORKER. LIFE LINE PLACED ON PT BY SON & CAN INTAKE WORKER PLUGGED IN. SON STATES THAT LIFE LINE NEEDS TO BE CHARGED DURING NOC.
--- NOTE | 2016-11-09 14:00 | NUR ---
Transfer Pt transferred amb with FWW & PT from room 177 to 175. Pt's personal belongings also moved to Rm 174.
--- NOTE | 2016-11-09 14:01 | NUR ---
FAMILY MESSAGE LEFT ON SON'SSHARIFA PHONE RE: TRANSFER FROM ROOM 177 TO ROOM 175.
--- NOTE | 2016-11-09 16:23 | NUR ---
CM THIS WORKER LVM FOR PT'S SON, SHARIFA AT [phone] REGARDING D/C PLANNING.
[2016-11-09 16:26] VITALS: BP 140/75; PULSE 65; RESP 18; TEMP 97.8; O2SAT 93
--- NOTE | 2016-11-09 18:50 | NUR ---
Summary Pt A/O x3. Denies discomfort when questioned. Transfers & amb with FWW & 1 assist. Amb to dining room for all meals. Family here @ noon for visit. Incont of bladder x1 with incont care managed by staff. Midline flushed with difficulty. O2 cont @ 2l/nc.
[2016-11-09 20:00] VITALS: BP 141/67; PULSE 66; RESP 22; TEMP 98; O2SAT 90
[2016-11-09 20:45] VITALS: RESP 22
--- NOTE | 2016-11-09 22:22 | NUR ---
STATUS. PT HAS BEEN PLEASANT AND COOPERATIVE. HAS BEEN CONT B AND B THIS EVENING. PT HAS IRRITATED AREA ON RT BUTTOCK/COCCYX. BARRIER CREAM APPLIED AND ENCOURAGED TO REST ON BED FOR A WHILE. PT C/O LOW BACK/SIT DISCOMFORT. REFUSING TYLENOL AT THIS TIME.
--- NOTE | 2016-11-09 23:39 | NUR ---
Chart Check 24 hour chart check completed
--- NOTE | 2016-11-10 06:29 | NUR ---
Shift Summary Pt. began night in bed sleeping. About 0100; pt. awoke and requested to get in the chair. Transferred with assist of one, walker, and gait belt. Slept most of the night in the chair; awoke a few times for urinal. Denies pain.
[2016-11-10] MEDS: ALBUTEROL/IPRATROPIUM INHAL. 2.5mg-0.5mg/3ml Neb. AEROSOL SCH ×4 (07:10→19:05)
[2016-11-10 08:30] VITALS: BP 145/76; PULSE 85; RESP 24; TEMP 97.6; O2SAT 94
[2016-11-10] MEDS: LOSARTAN 50 MG TABLET PO SCH (08:53)
[2016-11-10] MEDS: CIPROFLOXACIN 500 MG TABLET PO SCH ×2 (08:53→20:30)
[2016-11-10] MEDS: CLOPIDOGREL 75 MG TABLET PO SCH (08:53)
[2016-11-10] MEDS: POTASSIUM CHLORIDE 10 MEQ TABLET PO SCH (08:53)
[2016-11-10] MEDS: PredniSONE 20 MG TABLET PO SCH (08:53)
[2016-11-10] MEDS: ASPIRIN *EC* 81mg TABLET PO SCH (08:54)
[2016-11-10] MEDS: DOCUSATE SODIUM 100 MG CAPSULE PO SCH ×2 (08:54→20:30)
[2016-11-10] MEDS: GUAIFENESIN LA 600 MG TABLET PO SCH ×2 (08:54→20:30)
[2016-11-10] MEDS: CYANOCOBALAMIN (B-12) 500mcg TABLET PO SCH (08:54)
[2016-11-10] MEDS: AMLODIPINE 10 MG TABLET PO SCH (08:54)
[2016-11-10] MEDS: FUROSEMIDE 40 MG TABLET PO SCH (08:54)
[2016-11-10 11:24] VITALS: O2SAT 94
--- NOTE | 2016-11-10 12:53 | PNPDOC ---
Subjective Date DATE: 11/10/16 TIME: 12:41 Subjective Mr David is seen this morning during breakfast. He continues to be on oxygen by nasal canula to maintain adequate O2 sats. He is without complaints of pain or shortness of breath. Appetite is good without nausea. Denies difficulty with urination or bowel movements. BP 145/76. Objective Vital Signs Vital signs Vital Signs Date Time Temp Pulse Resp B/P Pulse Ox O2 Delivery O2 Flow Rate FiO2 11/10/16 11:34 81 11/10/16 11:24 20 94 11/10/16 08:30 97.6 145/76 Nasal Cannula 2.00 Height (Feet): 5 Height (Inches): 4.00 Weight (Kilograms): 105.400 General General Appearance: Alert, Orientated x 3, Cooperative, No Acute Distress Eyes (Brief) Eyes: FOUND: EOMI ENMT (Brief) ENMT: FOUND: mucosa moist, normal dentition, NOT FOUND: pharnyx erythema Neck (Brief) Neck: FOUND: midline, NOT FOUND: adenopathy, carotid bruits, tracheal deviation Respiratory (Brief) Respiratory: NOT FOUND: wheezes Comments diminished bilaterally Cardiovascular (Brief) Cardiac: FOUND: regular rate, regular rhythm, NOT FOUND: murmur, pedal edema Capillary Refill: <2 sec Abdomen (Brief) Abdominal: FOUND: BS normo active x4, soft, NOT FOUND: distended, tender Lymphatic (Brief) Lymphatic: NOT FOUND: adenopathy Musculoskeletal (Brief) Musculoskeletal: NOT FOUND: tenderness Integumentary (Brief) Integumentary: FOUND: dry, pink, warm Neurologic (Brief) Neurological: FOUND: cranial 2-12 intact Psychiatric (Brief) Psychiatric: FOUND: alert, attentive, normal affect, oriented Assessment & Plan Problems: (1) Fall in elderly patient Status: Acute (2) Rhabdomyolysis Status: Resolved Qualifiers: Rhabdomyolysis type: traumatic Encounter type: sequela Qualified Codes: T79.6XXS - Traumatic ischemia of muscle, sequela (3) Cognitive decline Status: Chronic (4) Grief Status: Chronic (5) CHF (congestive heart failure) Status: Chronic Qualifiers: Congestive heart failure type: diastolic Congestive heart failure chronicity: acute on chronic Qualified Codes: I50.33 - Acute on chronic diastolic (congestive) heart failure (6) COPD (chronic obstructive pulmonary disease) Status: Chronic Qualifiers: COPD type: unspecified COPD Qualified Codes: J44.9 - Chronic obstructive pulmonary disease, unspecified (7) JAYLA (obstructive sleep apnea) Status: Chronic (8) Hypertension Status: Chronic Qualifiers: Hypertension type: essential hypertension Qualified Codes: I10 - Essential (primary) hypertension (9) CKD (chronic kidney disease), stage III Status: Chronic (10) Dyslipidemia Status: Chronic (11) CAD (coronary artery disease) Status: Chronic Qualifiers: Associated angina: angina presence unspecified (12) BPH (benign prostatic hypertrophy) Status: Chronic Qualifiers: Prostatic enlargement morphology: unspecified morphology Lower urinary tract symptom presence: presence of symptoms unspecified Qualified Codes: N40.0 - Benign prostatic hyperplasia without lower urinary tract symptoms (13) Atrial fibrillation Status: Chronic Qualifiers: Atrial fibrillation type: unspecified Qualified Codes: I48.91 - Unspecified atrial fibrillation Plan/Intensity of Service 11/10/16 Continue to require oxygen to maintain O2 sats. Will evaluate him for home oxygen. Noted that weight is overall up 2 Kg since admission. Continues on Lasix 40 mg daily. Accurate I/O has not been measured. Will continue to follow and may consider additional diuretics. Rod And Tube Straightener is 1.3, Continue to Monitor. Continue to provide safe and supportive environment. Continue Duoneb and Symbicort for supportive care. Continue with encourage work with PT/OT Code Status Full Code, unverified Hospital Course Summary Disclaimer The hospital course summary below is not to be considered part of the above Progress Note. Hospital Course Summary 11/06/16- Spencer/Dora *Fall, prolonged down time; Secondary rhabdo PT/OT per acute rehab team. Continue to monitor labs. S/P IV resuscitation. *HFpEF, JAYLA, Obesity Hypoventilation Resume Lasix- he still has significant abdominal and LE edema despite fairly dry on labs. Will assess venous doppler given prolonged down time. Continue O2, supportive care for COPD. Pleural thickening on CXR- may want to consider CT. I dont want to get a CTA given high risk for renal failure with IV contrast. Repeat CXR. *COPD with mild exacerbation Continue O2, Duoneb. Add Symbicort for supportive care. *HTN- Resume Norvasc, Lasix as BP is uncontrolled. *CAD- Continue ASA, Plavix. No statin due to rhabdo. *AFib with RVR and Ventricular Tachyarrhythmia- Not requiring rate control. No anticoagulation due to fall risk. *Cognitive deficits-May need MAX eval in the future. *Peripheral edema- Restart Lasix,KCL. Consider JORDY mallory if sono is negative. Chart is reviewed during this visit. Thank you for the consult. 11/10/16 Continue to require oxygen to maintain O2 sats. Will evaluate him for home oxygen. Noted that weight is overall up 2 Kg since admission. Continues on Lasix 40 mg daily. Accurate I/O has not been measured. Will continue to follow and may consider additional diuretics. Rod And Tube Straightener is 1.3, Continue to Monitor. Continue to provide safe and supportive environment. Continue Duoneb and Symbicort for supportive care. Continue with encourage work with PT/OT LAUREN ELMORE APRN Nov 10, 2016 12:44
--- NOTE | 2016-11-10 13:30 | NUR ---
NOTE S/W LAUREN CHEYENNE RIVER ABOUT MIDLINE LEAKING AND PROJECTED D/C SOON. RECEIVED ORDERS TO D/C TELE AND D/C MIDLINE.
--- NOTE | 2016-11-10 13:32 | PDIRUTEAM ---
Multidisciplinary Team Meeting Nursing Hx Incontinence: Yes Bladder Goal: 7+ Complete [place] Y/N: No Bladder Continent or Incontine: Incontinent Incontinent Product Used: Pull-up Number of Times Incontinent of: 1 Cleaning Ability-Bladder: 5 Supervision/Setup Bladder Incontinence Managemen: 4 Minimal Assistance Bowel Goal: 7+ Complete [place] Colostomy Y/N: No Bowel Incontinent/Continent: Continent Cleaning Ability-Bowel: 5 Supervision/Setup Toileting Ability: 5 Supervision/Setup Vital Signs Vital Signs Date Time Temp Pulse Resp B/P Pulse Ox O2 Delivery O2 Flow Rate FiO2 11/10/16 11:34 81 11/10/16 11:24 20 94 11/10/16 08:30 97.6 145/76 Nasal Cannula 2.00 Current Medications Current Medications Medications (Trade) Dose Ordered Sig/Taylor Route PRN Reason Start Time Stop Time Status Last Admin Dose Admin Docusate Sodium (Colace) 100 mg BID PO 11/05/16 21:00 11/10/16 08:54 Ciprofloxacin (Cipro) 500 mg Q12HR PO 11/05/16 21:00 11/10/16 08:53 Clopidogrel Bisulfate (Plavix) 75 mg DAILY PO 11/06/16 09:00 11/10/16 08:53 Cyanocobalamin (Vit. B-12) 1,000 mcg DAILY PO 11/06/16 09:00 11/10/16 08:54 Fluticasone Propionate (Flonase) 2 spray DAILY EA NOSTRIL 11/06/16 09:00 11/09/16 08:36 Guaifenesin (Mucinex) 600 mg BID PO 11/05/16 21:00 11/10/16 08:54 Albuterol/ Ipratropium (Duoneb) 3 ml Q2H PRN AEROSOL WHEEZING 11/05/16 18:15 11/06/16 03:50 Albuterol/ Ipratropium (Duoneb) 3 ml RTQID AEROSOL 11/05/16 19:00 11/10/16 11:23 Losartan Potassium (COZAAR 50 mg) 50 mg DAILY PO 11/06/16 09:00 11/10/16 08:53 Prednisone (PredniSONE) 20 mg WB PO 11/06/16 08:00 11/10/16 08:53 Aspirin (Ecotrin) 81 mg DAILY PO 11/07/16 09:00 11/10/16 08:54 Amlodipine Besylate (Norvasc) 10 mg DAILY PO 11/06/16 13:15 11/10/16 08:54 Furosemide (Lasix) 40 mg DAILY PO 11/06/16 13:15 11/10/16 08:54 Potassium Chloride (Kdur) 10 meq WB PO 11/06/16 13:15 11/10/16 08:53 Budesonide/ Formoterol Fumarate (Symbicort 160/ 4.5) 2 puff BID ORAL INH 11/06/16 21:00 11/09/16 20:45 Comments oxygen 2 L nc Physical Therapy Bed Transfer Ability: 5 Supervision/Setup Bed Transfer Assistance Needed: 1 Person Chair Transfer Ability: 6 Modified [place] Chair Transfer Assistance Need: 1 Person Overall Toilet / Commode Trans: 5 Supervision/Setup Ambulation Ability: 5 Supervision/Setup Ambulation Assistance Needed: 1 Person Walk FIM Score Reason: The pt walked 143ft x2,150ft,and 103 ft with the fww and 5/7 assist Ambulation Distance: 382 Comments FIMS 5-6s, except stairs. significant progression. May be able to use single point cane. Occupational Therapy Grooming Ability: 5 Supervision/Setup Grooming FIM Score Reason: Standing at sink Bathing Ability: 4 Minimal Assistance Upper Body Dressing Ability: 5 Supervision/Setup Lower Body Dressing Ability: 5 Supervision/Setup Lower Body Dressing Assistance: 1 Person Toileting Assistance Needed: 1 Person Comments FIMS 5's across board , safety concern with cooking. easy fatigue. Care Plan Condition at time of discharge: Fair IRU Discharge Disposition: Home, self care Interventions/Goals uses oxygen at home on ly when he feels he needs it,but now concentrator does not work. Barriers to d/c: safety, oxygen demand, home oxygen. Durable med equipment. D/c Tuesday if stable. on day . RIZWAN FAIRBANKS MD Nov 10, 2016 13:22
[2016-11-10] MEDS: FLUTICASONE NASAL SPRAY 50 MCG EA NOSTRIL SCH (14:40)
[2016-11-10 16:00] VITALS: BP 137/67; PULSE 84; RESP 12; TEMP 97.9; O2SAT 93
--- NOTE | 2016-11-10 17:05 | NUR ---
ONESIMO SPOKE WITH PT AND SON ABOUT DC PLANNING. DC PLAN IS FOR PT TO RETURN HOME ALONE. HE SAID HE HAS OXYGEN THROUGH [facility] BUT THAT THE CONCENTRATOR IS BROKEN. DISCUSSED HAVING HOME HEALTH, AND PT WANTED THIS. DISCUSSED OPTION OF PRIVATE PAY IN HOME CARE AND PROVIDED SON WITH INFORMATION ABOUT THIS. SON STATED THIS IS NOT NEEDED NOW BUT MAYBE SOON IT WILL BE. HE SAID HE NOW KNOWS THAT HE AND HIS NEED TO BE MORE INVOLVED WITH PT AND THEY WILL BE STOPPING BY PT'S HOME MORE OFTEN. HE ALSO SAID THAT THE PT'S GRANDSON WILL ALSO BE MORE INVOLVED AND VISIT/HELP MORE NEEDED. DISCUSSED DC DATE OF POSSIBLE NEXT WEEK MON OR ( OR ). BOTH PT AND SON AGREEABLE TO THIS. REVIEWED PLAN OF CARE WITH PT; HE SIGNED THIS AND HAD NO QUESTIONS/CONCERNS ABOUT IT. CALLED OLIVIA AT [facility]. SHE CONFIRMED THAT PT IS ON THEIR SERVICES. SHE SAID ON DAY OF DC, THEY CAN DELIVER A PORTABLE OXYGEN TANK TO PT HERE AT THE HOSPITAL, AND THEN THEY CAN DELIVER A NEW CONCENTRATOR TO PT'S HOME AND REMOVE THE OLD ONE. JUST CALL [facility] BEFORE PT DC'S. Addendum: 11/10/16 at 1710 by JAYSON CRORIGAN Amended: Links added.
--- NOTE | 2016-11-10 19:32 | NUR ---
SHIFT SUMMARY PATIENT ALERT AND ORIENTED X 3, PATIENT COOPERATIVE. O2 NC 2L, PATIENT UP WITH ONE ASSIST, GAIT BELT AND WALKER. MIDLINE LEAKING TO DAY, ORDER RECEIVED TO D/C MIDLINE AND D/C TELE. PATIENT ATE MEALS WELL. WILL CONT TO MONITOR.
[2016-11-10 20:40] VITALS: BP 134/56; PULSE 80; RESP 18; TEMP 95.4; O2SAT 94
[2016-11-11] VITALS (11 sets, daily range): BP systolic 103–153; BP diastolic 49–71; PULSE 65–72; RESP 14–24; TEMP 97.4–98.3; O2SAT 93–98
--- NOTE | 2016-11-11 00:26 | PNPDOC ---
IRU Subjective Date DATE: 11/11/16 TIME: 00:24 Subjective Working with PT and OT and improving in strength and stamina IRU Objective Vital Signs Vital signs Vital Signs Date Time Temp Pulse Resp B/P Pulse Ox O2 Delivery O2 Flow Rate FiO2 11/10/16 20:40 95.4 80 18 134/56 94 Nasal Cannula 2.00 Height (Feet): 5 Height (Inches): 4.00 Weight (Kilograms): 105.400 General General Appearance: Alert Cardiovascular (Brief) Cardiac: FOUND: regular rate (no irr rhythm heard today), regular rhythm Assessment & Plan Problems: (1) Protein-calorie malnutrition, mild Status: Acute Assessment & Plan: managed by medical. (2) Encephalopathy Status: Acute Assessment & Plan: managed by medical. (3) Fall in elderly patient Status: Acute Assessment & Plan: PT working on safety issues. (4) CHF (congestive heart failure) Status: Chronic Qualifiers: Congestive heart failure type: diastolic Congestive heart failure chronicity: acute on chronic Qualified Codes: I50.33 - Acute on chronic diastolic (congestive) heart failure Assessment & Plan: managed by medical. (5) Rhabdomyolysis Status: Resolved Qualifiers: Rhabdomyolysis type: traumatic Encounter type: sequela Qualified Codes: T79.6XXS - Traumatic ischemia of muscle, sequela Assessment & Plan: managed by medical. (6) Atrial fibrillation Status: Chronic Qualifiers: Atrial fibrillation type: unspecified Qualified Codes: I48.91 - Unspecified atrial fibrillation (7) COPD (chronic obstructive pulmonary disease) Status: Chronic Qualifiers: COPD type: unspecified COPD Qualified Codes: J44.9 - Chronic obstructive pulmonary disease, unspecified (8) Myopathy Assessment & Plan: Improving with PT and OT per plan of care. Code Status Full Code, unverified Interventions to Obtain Goals PT Treatment Plan: Therapeutic Exercise, Gait Training, Functional Activities , Patient/Family Education, Balance/Proprioception OT Treatment Plan: ADL's (basic care), Ther. Exercise for ADL's, UE Functional Training, Balance Training, Pt./Family Education, IADL's Hospital Course Summary Disclaimer The hospital course summary below is not to be considered part of the above Progress Note. Hospital Course Summary 11/06/16- Spencer/Dora *Fall, prolonged down time; Secondary rhabdo PT/OT per acute rehab team. Continue to monitor labs. S/P IV resuscitation. *HFpEF, JAYLA, Obesity Hypoventilation Resume Lasix- he still has significant abdominal and LE edema despite fairly dry on labs. Will assess venous doppler given prolonged down time. Continue O2, supportive care for COPD. Pleural thickening on CXR- may want to consider CT. I dont want to get a CTA given high risk for renal failure with IV contrast. Repeat CXR. *COPD with mild exacerbation Continue O2, Duoneb. Add Symbicort for supportive care. *HTN- Resume Norvasc, Lasix as BP is uncontrolled. *CAD- Continue ASA, Plavix. No statin due to rhabdo. *AFib with RVR and Ventricular Tachyarrhythmia- Not requiring rate control. No anticoagulation due to fall risk. *Cognitive deficits-May need MAX eval in the future. *Peripheral edema- Restart Lasix,KCL. Consider JORDY mallory if sono is negative. Chart is reviewed during this visit. Thank you for the consult. 11/10/16 Continue to require oxygen to maintain O2 sats. Will evaluate him for home oxygen. Noted that weight is overall up 2 Kg since admission. Continues on Lasix 40 mg daily. Accurate I/O has not been measured. Will continue to follow and may consider additional diuretics. Hosiery Repairer is 1.3, Continue to Monitor. Continue to provide safe and supportive environment. Continue Duoneb and Symbicort for supportive care. Continue with encourage work with PT/OT RIZWAN FAIRBANKS MD Nov 11, 2016 00:26
[2016-11-11] MEDS ORDERED: MILK OF MAGNESIA 30 ML SUSP PO PRN (02:45)
--- NOTE | 2016-11-11 03:15 | NUR ---
SUPPOSITORY Gave Dulcolax supp for no bm since 11/06/16. Pt preferred suppos. to MOM. Med. results within 1 hour of suppos.
[2016-11-11 05:35] LABS: BASOPHILS % (AUTO) 0.2 % (0-2); EOSINOPHILS # (AUTO) 0.1 T/MM3 (0-0.5); EOSINOPHILS % (AUTO) 1.3 % (0-4); HCT - HEMATOCRIT 39.1 % (41-53); HGB - HEMOGLOBIN 12.8 GM/DL (13.5-17.5); IMMATURE GRANULOCYTE # (AUTO) 0.21 T/MM3 (0.00-0.03); LYMPHOCYTES # (AUTO) 1.8 T/MM3 (1-4.8); LYMPHOCYTES % (AUTO) 16.7 % (23-45); MEAN CORPUSCULAR HGB 29.9 UUG (26-34); MEAN CORPUSCULAR HGB CONC(MCHC 32.7 GM/DL (31-37); MEAN CORPUSCULAR VOLUME 91.4 UM3 (80-100); MEAN PLATELET VOLUME 9.9 UM3 (9.4-12.4); MONOCYTES # (AUTO) 0.9 T/MM3 (0-0.8); MONOCYTES % (AUTO) 8.2 % (0-9.0); NEUTROPHILS #(AUTO)-ABSOLUTE 7.6 T/MM3 (1.8-7.7); NEUTROPHILS % (AUTO) 71.6 % (33-66); RED BLOOD COUNT 4.28 M/MM3 (4.50-5.90); WBC - WHITE BLOOD COUNT 10.6 T/MM3 (4.5-11.0)
[2016-11-11 05:44] LABS: ANION GAP 9 MEQ/L (5-15); BUN/CREATININE RATIO 27 RATIO (6-26); CALCIUM 8.8 MG/DL (8.4-10.2); CHLORIDE 100 MEQ/L (98-107); CO2 - CARBON DIOXIDE 28 MEQ/L (22-30); GLOMERULAR FILTRATION RATE 32; GLUCOSE 82 MG/DL (75-110); POTASSIUM 5.1 MEQ/L (3.6-5); SODIUM 137 MEQ/L (134-144)
--- NOTE | 2016-11-11 06:41 | NUR ---
SHIFT SUMMARY "Chris" has been awake part of noc. He awakens frequently to reposition and use bathroom. After no bm since 11/06, suppository was administered during noc with moderate results. Refuses oral cares and to change clothes. Ambulates with 1 assist with FWW. Oriented x 3. Is aware he will be discharging sometime next week.
[2016-11-11] MEDS: ALBUTEROL/IPRATROPIUM INHAL. 2.5mg-0.5mg/3ml Neb. AEROSOL SCH ×4 (07:00→18:55)
[2016-11-11] MEDS: POTASSIUM CHLORIDE 10 MEQ TABLET PO SCH (08:00)
[2016-11-11] MEDS: PredniSONE 20 MG TABLET PO SCH (08:46)
[2016-11-11] MEDS: CYANOCOBALAMIN (B-12) 500mcg TABLET PO SCH (08:46)
[2016-11-11] MEDS: GUAIFENESIN LA 600 MG TABLET PO SCH ×2 (08:46→21:04)
[2016-11-11] MEDS: CLOPIDOGREL 75 MG TABLET PO SCH (08:46)
[2016-11-11] MEDS: FUROSEMIDE 40 MG TABLET PO SCH (08:47)
[2016-11-11] MEDS: DOCUSATE SODIUM 100 MG CAPSULE PO SCH ×2 (08:47→21:04)
[2016-11-11] MEDS: LOSARTAN 50 MG TABLET PO SCH (08:47)
[2016-11-11] MEDS: ASPIRIN *EC* 81mg TABLET PO SCH (08:47)
[2016-11-11] MEDS: AMLODIPINE 10 MG TABLET PO SCH (08:47)
[2016-11-11] MEDS: CIPROFLOXACIN 500 MG TABLET PO SCH (08:47)
--- NOTE | 2016-11-11 10:34 | NUR ---
CM LACE SCORE IS 11. ROTP WILL BE ADDRESSED WITH PT DUE TO PT HAVING RISK FACTORS ASSOCIATED WITH READMISSIONS. Addendum: 11/11/16 at 1034 by JAYSON CORRIGAN Amended: Links added.
[2016-11-11] MEDS: FLUTICASONE NASAL SPRAY 50 MCG EA NOSTRIL SCH (12:00)
--- NOTE | 2016-11-11 13:07 | NUR ---
CM THIS WORKER VISITED PT IN ROOM. THIS WORKER REVIEWED WITH PT DPOA FORM AND HOME HEALTH AGENCY PREFERENCE. PT STATED HE WOULD LIKE TO DISCUSS THIS WITH HIS SON. THIS WORKER CALLED PT'S SON-SHARIFA AND REVIEWED HOME HEALTH AGENCY PREFERENCE. SHARIFA STATED HE HAD NO PREFERENCE REGARDING HOME HEALTH AGENCIES. THIS WORKER EXPLAINED [facility] AND THE FINANCIAL RELATIONSHIP. SHARIFA STATED HE WOULD LIKE THE PT TO HAVE [facility]. SHARIFA STATED HE WOULD LIKE TO SIGN THE DPOA FORMS BEFORE HE NEEDS TO LEAVE AT 2PM. THIS WORKER ARRANGED FOR A NOTARY TO NOTARIZE PT'S DPOA FORMS AT 1:15 TODAY.
[2016-11-11] MEDS: NITROGLYCERIN 0.4 MG SUBLINGUAL TABLET SL PRN ×2 (14:16→19:39)
--- NOTE | 2016-11-11 14:41 | NUR ---
NOTE 1408 PATIENT C/O "TIGHTNESS IN CHEST" VITALS TAKEN, O2 2L IN PLACE. LAUREN ELMORE NOTIFIED, RECEIVED ORDERS FOR EKG AND NITRO SL. NITRO GIVEN. PATIENT REPORTED DECREASED CHEST TIGHTNESS. EKG DONE, AWAITING RESULTS. 1440 VITALS TAKEN AGAIN. VITALS STABLE. WILL CONT TO MONITOR.
--- NOTE | 2016-11-11 14:47 | PNPDOC ---
LAUREN ELMORE APRN 11/11/16 1440: Subjective Date DATE: 11/11/16 TIME: 14:34 Subjective Mr David is seen today in follow up at request of nursing staff. He is currently working with OT and reports having some chest tightness. He reports this pressure is his "chronic heart pain" that he uses NTG for pain. He states that he feels mildly short of breath however this is no different that the past week. Appetie is good. No GI complaints. Continues on 2 liters of oxygen canula to maintain saturations. Objective Vital Signs Vital signs Vital Signs Date Time Temp Pulse Resp B/P Pulse Ox O2 Delivery O2 Flow Rate FiO2 11/11/16 11:43 18 11/11/16 11:40 70 11/11/16 10:07 93 Nasal Cannula 1.00 11/11/16 07:33 97.4 148/71 Height (Feet): 5 Height (Inches): 4.00 Weight (Kilograms): 107.100 General General Appearance: Alert, Orientated x 3, Cooperative, No Acute Distress Eyes (Brief) Eyes: FOUND: EOMI ENMT (Brief) ENMT: FOUND: mucosa moist, normal dentition, NOT FOUND: pharnyx erythema Neck (Brief) Neck: FOUND: midline, NOT FOUND: adenopathy, carotid bruits, tracheal deviation Respiratory (Brief) Respiratory: NOT FOUND: wheezes Comments Diminished bilaterally Cardiovascular (Brief) Cardiac: FOUND: regular rate, regular rhythm, NOT FOUND: murmur, pedal edema Capillary Refill: <2 sec Abdomen (Brief) Abdominal: FOUND: BS normo active x4, soft, NOT FOUND: distended, tender Lymphatic (Brief) Lymphatic: NOT FOUND: adenopathy Musculoskeletal (Brief) Musculoskeletal: NOT FOUND: tenderness Integumentary (Brief) Integumentary: FOUND: dry, pink, warm Neurologic (Brief) Neurological: FOUND: cranial 2-12 intact Psychiatric (Brief) Psychiatric: FOUND: alert, attentive, normal affect, oriented Laboratory Laboratory Laboratory Tests 11/11/16 05:04 Laboratory Tests 11/11/16 05:04 Assessment & Plan Problems: (1) Fall in elderly patient Status: Acute (2) Rhabdomyolysis Status: Resolved Qualifiers: Rhabdomyolysis type: traumatic Encounter type: sequela Qualified Codes: T79.6XXS - Traumatic ischemia of muscle, sequela (3) Cognitive decline Status: Chronic (4) Grief Status: Chronic (5) CHF (congestive heart failure) Status: Chronic Qualifiers: Congestive heart failure type: diastolic Congestive heart failure chronicity: acute on chronic Qualified Codes: I50.33 - Acute on chronic diastolic (congestive) heart failure (6) COPD (chronic obstructive pulmonary disease) Status: Chronic Qualifiers: COPD type: unspecified COPD Qualified Codes: J44.9 - Chronic obstructive pulmonary disease, unspecified (7) JAYLA (obstructive sleep apnea) Status: Chronic (8) Hypertension Status: Chronic Qualifiers: Hypertension type: essential hypertension Qualified Codes: I10 - Essential (primary) hypertension (9) CKD (chronic kidney disease), stage III Status: Chronic (10) Dyslipidemia Status: Chronic (11) CAD (coronary artery disease) Status: Chronic Qualifiers: Associated angina: angina presence unspecified (12) BPH (benign prostatic hypertrophy) Status: Chronic Qualifiers: Prostatic enlargement morphology: unspecified morphology Lower urinary tract symptom presence: presence of symptoms unspecified Qualified Codes: N40.0 - Benign prostatic hyperplasia without lower urinary tract symptoms (13) Atrial fibrillation Status: Chronic Qualifiers: Atrial fibrillation type: unspecified Qualified Codes: I48.91 - Unspecified atrial fibrillation Plan/Intensity of Service 11/12/15 In light of chest pressure. Will obtain a 12-lead EKG. Asked nursing staff to give patient one of his when necessary nitroglycerin to see if this health with pressure. Suspect this is his chronic angina. Continue with oxygen to maintain adequate sats. Will evaluate him for home oxygen. Did evaluate renal function today and Creatinine did increase to 2. Place losartan on hold. Will assess leak continue with Lasix as patient will benefit from ongoing diuresis. Will check renal function again tomorrow. 11/12 Will discontinue Cipro as antimicrobial course has now completed for treatment of UTI Continue with encourage work with PT/OT for ongoing strengthening Code Status Full Code, unverified Hospital Course Summary Disclaimer The hospital course summary below is not to be considered part of the above Progress Note. Hospital Course Summary 11/06/16- Spencer/Dora *Fall, prolonged down time; Secondary rhabdo PT/OT per acute rehab team. Continue to monitor labs. S/P IV resuscitation. *HFpEF, JAYLA, Obesity Hypoventilation Resume Lasix- he still has significant abdominal and LE edema despite fairly dry on labs. Will assess venous doppler given prolonged down time. Continue O2, supportive care for COPD. Pleural thickening on CXR- may want to consider CT. I dont want to get a CTA given high risk for renal failure with IV contrast. Repeat CXR. *COPD with mild exacerbation Continue O2, Duoneb. Add Symbicort for supportive care. *HTN- Resume Norvasc, Lasix as BP is uncontrolled. *CAD- Continue ASA, Plavix. No statin due to rhabdo. *AFib with RVR and Ventricular Tachyarrhythmia- Not requiring rate control. No anticoagulation due to fall risk. *Cognitive deficits-May need MAX eval in the future. *Peripheral edema- Restart Lasix,KCL. Consider JORDY mallory if sono is negative. Chart is reviewed during this visit. Thank you for the consult. 11/10/16 Continue to require oxygen to maintain O2 sats. Will evaluate him for home oxygen. Noted that weight is overall up 2 Kg since admission. Continues on Lasix 40 mg daily. Accurate I/O has not been measured. Will continue to follow and may consider additional diuretics. Pediatric Nurse is 1.3, Continue to Monitor. Continue to provide safe and supportive environment. Continue Duoneb and Symbicort for supportive care. Continue with encourage work with PT/OT 11/12/15 In light of chest pressure. Will obtain a 12-lead EKG. Asked nursing staff to give patient one of his when necessary nitroglycerin to see if this health with pressure. Suspect this is his chronic angina. Continue with oxygen to maintain adequate sats. Will evaluate him for home oxygen. Did evaluate renal function today and Creatinine did increase to 2. Place losartan on hold. Will assess leak continue with Lasix as patient will benefit from ongoing diuresis. Will check renal function again tomorrow. 11/12 Will discontinue Cipro as antimicrobial course has now completed for treatment of UTI Continue with encourage work with PT/OT for ongoing strengthening JOSÉ MEHTA MD 11/11/16 2283: Assessment & Plan Plan/Intensity of Service Have independently interviewed and examined pt. Chart reviewed. Case discussed with my LAY BROTHER. Above care plan developed with my supervision; agree with above. Episode of chest tightness today. Not having increased cough or congestion. No nausea. Tolerating therapy-feels strength improving. Lungs: decreased, no distress CV: regular AB; soft obese nt/nd MSE: awake alert appropriate Plan: Losartan held due to increasing creatinine-will stop Lasix and potassium ( not on at home). Monitor weight off diuretics. Recheck BMP in am (possible some increase in creatinine to be see tomorrow as pt did receive Lasix and losartan today). Encourage therapy. Encourage breathing exercises. Continue with IRU care. ALUREN ELMORE APRN Nov 11, 2016 14:40 JOSÉ MEHTA MD Nov 11, 2016 17:13
--- NOTE | 2016-11-11 17:00 | NUR ---
NOTE NOTIFIED DR. RAE OF PATIENT INCREASE IN WEIGHT TODAY.
--- NOTE | 2016-11-11 19:00 | NUR ---
SHIFT SUMMARY PATIENT ALERT AND ORIENTED X 3. COOPERATIVE. UP WITH ONE WITH GAIT BELT AND WALKER.ON 2L O2. SCDS AND TEDS ON THROUGHOUT DAY. PATIENT C/O "CHEST TIGHTNESS" IN AFTERNOON. VITALS WERE TAKEN AND LAUREN ELMORE NOTIFIED. RECEIVED ORDERS FOR EKG AND NITRO SL. PATIENT REPORTED RESOLVED CHEST TIGHTNESS. LAUREN ELMORE NOTIFIED OF EKG RESULT AND PATIENT REPORTING RESOLVED CHEST TIGHTNESS. WILL CONT TO MONITOR.
--- NOTE | 2016-11-11 19:39 | NUR ---
CHEST PAIN Patient reported chest pain comparable to what he experienced during the day today. Nitro given at this time. VS taken and are WNL. Will cont. to monitor and notify telehospitalist.
--- NOTE | 2016-11-11 20:00 | NUR ---
STATUS Patient reports pain is resolved after 1 Nitro. No N.O. from telehospitalist. Will cont. to monitor. Patient alert, oriented. Laying in his bed on side. 02/ @ 3L/NC temporarily for SOA. Removed JORDY hose per patient request. States everything feels too tight. He is resting and "focusing on my breathing".
--- NOTE | 2016-11-11 21:58 | PNPDOC ---
IRU Subjective Date DATE: 11/11/16 TIME: 21:55 Subjective Worked with PT and OT in am, chest pain in afternoon worked up by medical. IRU Objective Vital Signs Vital signs Vital Signs Date Time Temp Pulse Resp B/P Pulse Ox O2 Delivery O2 Flow Rate FiO2 11/11/16 20:30 98.3 68 24 105/49 98 Nasal Cannula 3.00 Telemetry Rhythm: Sinus Rhythm Height (Feet): 5 Height (Inches): 4.00 Weight (Kilograms): 105.700 General General Appearance: Alert, Orientated x 1 Respiratory (Brief) Respiratory: FOUND: clear all swanson, equal bilaterally, NOT FOUND: rales Cardiovascular (Brief) Cardiac: FOUND: regular rate, regular rhythm Capillary Refill: <2 sec Laboratory Laboratory Laboratory Tests Test 11/11/16 05:04 White Blood Count 10.6T/MM3 Red Blood Count 4.28M/MM3 Hemoglobin 12.8GM/DL Hematocrit 39.1% Mean Corpuscular Volume 91.4UM3 Mean Corpuscular Hemoglobin 29.9UUG Mean Corpuscular Hemoglobin Concent 32.7GM/DL RDW Standard Deviation 49.2FL Platelet Count 274T/MM3 Mean Platelet Volume 9.9UM3 Immature Granulocyte % (Auto) 2.0% Neutrophils (%) (Auto) 71.6% Lymphocytes (%) (Auto) 16.7% Monocytes (%) (Auto) 8.2% Eosinophils (%) (Auto) 1.3% Basophils (%) (Auto) 0.2% Absolute Immature Granulocyte (auto 0.21T/MM3 Absolute Neutrophils (auto) 7.6T/MM3 Absolute Lymphocytes (auto) 1.8T/MM3 Absolute Monocytes (auto) 0.9T/MM3 Absolute Eosinophils (auto) 0.1T/MM3 Absolute Basophils (auto) 0.0T/MM3 Turbidity < 20 Sodium Level 137MEQ/L Potassium Level 5.1MEQ/L Chloride Level 100MEQ/L Carbon Dioxide Level 28MEQ/L Anion Gap 9MEQ/L Blood Urea Nitrogen 54.0MG/DL Creatinine 2.0MG/DL Glomerular Filtration Rate Calc 32 BUN/Creatinine Ratio 27RATIO Glucose Level 82MG/DL Calculated Osmolality 278MOSM/KG Calcium Level 8.8MG/DL Icterus Index < 2 Chemistry Specimen Hemolysis < 15 Assessment & Plan Problems: (1) Protein-calorie malnutrition, mild Status: Acute Assessment & Plan: managed by medical. (2) Encephalopathy Status: Acute Assessment & Plan: improving, managed by medical. (3) Fall in elderly patient Status: Acute Assessment & Plan: PT and OT working to increase stability, cont with current plan of care. (4) CHF (congestive heart failure) Status: Chronic Qualifiers: Congestive heart failure type: diastolic Congestive heart failure chronicity: acute on chronic Qualified Codes: I50.33 - Acute on chronic diastolic (congestive) heart failure (5) Rhabdomyolysis Status: Resolved Qualifiers: Rhabdomyolysis type: traumatic Encounter type: sequela Qualified Codes: T79.6XXS - Traumatic ischemia of muscle, sequela Assessment & Plan: recovery managed by medical. (6) Atrial fibrillation Status: Chronic Qualifiers: Atrial fibrillation type: unspecified Qualified Codes: I48.91 - Unspecified atrial fibrillation Assessment & Plan: chest pain followed and managed by medical today. (7) COPD (chronic obstructive pulmonary disease) Status: Chronic Qualifiers: COPD type: unspecified COPD Qualified Codes: J44.9 - Chronic obstructive pulmonary disease, unspecified (8) Myopathy Assessment & Plan: Pt gaining strength. PT and OT working with him, cont current treatment. Code Status Full Code, unverified Interventions to Obtain Goals PT Treatment Plan: Therapeutic Exercise, Gait Training, Functional Activities , Patient/Family Education, Balance/Proprioception OT Treatment Plan: ADL's (basic care), Ther. Exercise for ADL's, UE Functional Training, Balance Training, Pt./Family Education, IADL's Hospital Course Summary Disclaimer The hospital course summary below is not to be considered part of the above Progress Note. Hospital Course Summary 11/06/16- Spencer/Dora *Fall, prolonged down time; Secondary rhabdo PT/OT per acute rehab team. Continue to monitor labs. S/P IV resuscitation. *HFpEF, JAYLA, Obesity Hypoventilation Resume Lasix- he still has significant abdominal and LE edema despite fairly dry on labs. Will assess venous doppler given prolonged down time. Continue O2, supportive care for COPD. Pleural thickening on CXR- may want to consider CT. I dont want to get a CTA given high risk for renal failure with IV contrast. Repeat CXR. *COPD with mild exacerbation Continue O2, Duoneb. Add Symbicort for supportive care. *HTN- Resume Norvasc, Lasix as BP is uncontrolled. *CAD- Continue ASA, Plavix. No statin due to rhabdo. *AFib with RVR and Ventricular Tachyarrhythmia- Not requiring rate control. No anticoagulation due to fall risk. *Cognitive deficits-May need MAX eval in the future. *Peripheral edema- Restart Lasix,KCL. Consider JORDY hose if sono is negative. Chart is reviewed during this visit. Thank you for the consult. 11/10/16 Continue to require oxygen to maintain O2 sats. Will evaluate him for home oxygen. Noted that weight is overall up 2 Kg since admission. Continues on Lasix 40 mg daily. Accurate I/O has not been measured. Will continue to follow and may consider additional diuretics. Diabetes Territory Manager is 1.3, Continue to Monitor. Continue to provide safe and supportive environment. Continue Duoneb and Symbicort for supportive care. Continue with encourage work with PT/OT 11/12/15 In light of chest pressure. Will obtain a 12-lead EKG. Asked nursing staff to give patient one of his when necessary nitroglycerin to see if this health with pressure. Suspect this is his chronic angina. Continue with oxygen to maintain adequate sats. Will evaluate him for home oxygen. Did evaluate renal function today and Creatinine did increase to 2. Place losartan on hold. Will assess leak continue with Lasix as patient will benefit from ongoing diuresis. Will check renal function again tomorrow. 11/12 Will discontinue Cipro as antimicrobial course has now completed for treatment of UTI Continue with encourage work with PT/OT for ongoing strengthening RIZWAN FAIRBANKS MD Nov 11, 2016 21:58
[2016-11-12] VITALS (8 sets, daily range): BP systolic 139–158; BP diastolic 67; PULSE 63–67; RESP 2–20; TEMP 97.3–97.8; O2SAT 93–98
--- NOTE | 2016-11-12 03:49 | NUR ---
STATUS Patient's SOA and chest pain resolved without further intervention. He reports feeling "panicky" when he thinks he can't breathe well. Distraction seemed to help him. He does have shearing between his buttocks. C/O pain. Upon assessment, skin is red with some peeling. Coffee filter used to separate the skin and give him some relief. He calls for frequent position changes - sometimes 2 x per hour. Is appreciative of care. States he is ready to get home to his comfortable chair and get a good night's sleep.
[2016-11-12 05:53] LABS: ANION GAP 10 MEQ/L (5-15); BUN/CREATININE RATIO 29 RATIO (6-26); CALCIUM 9.1 MG/DL (8.4-10.2); CHLORIDE 104 MEQ/L (98-107); CO2 - CARBON DIOXIDE 25 MEQ/L (22-30); GLOMERULAR FILTRATION RATE 32; GLUCOSE 82 MG/DL (75-110); POTASSIUM 5.5 MEQ/L (3.6-5); SODIUM 139 MEQ/L (134-144)
--- NOTE | 2016-11-12 06:10 | NUR ---
SHIFT SUMMARY Patient did finally sleep for a few hours and was awakened for lab. He went back to sleep after lab draw. Spent most of shift in recliner, but did lay in bed for a while in evening. Took all meds whole with lemonade. Does not drink well, but will when prompted. No further reports of chest pain or unusual SOA.
[2016-11-12] MEDS: ALBUTEROL/IPRATROPIUM INHAL. 2.5mg-0.5mg/3ml Neb. AEROSOL SCH ×4 (07:00→19:33)
[2016-11-12] MEDS: PredniSONE 20 MG TABLET PO SCH (08:02)
[2016-11-12] MEDS: ASPIRIN *EC* 81mg TABLET PO SCH (08:02)
[2016-11-12] MEDS: DOCUSATE SODIUM 100 MG CAPSULE PO SCH ×2 (08:02→20:15)
[2016-11-12] MEDS: AMLODIPINE 10 MG TABLET PO SCH (08:02)
[2016-11-12] MEDS: GUAIFENESIN LA 600 MG TABLET PO SCH ×2 (08:02→20:15)
[2016-11-12] MEDS: CLOPIDOGREL 75 MG TABLET PO SCH (08:02)
[2016-11-12] MEDS: CYANOCOBALAMIN (B-12) 500mcg TABLET PO SCH (08:03)
[2016-11-12] MEDS: FLUTICASONE NASAL SPRAY 50 MCG EA NOSTRIL SCH (08:03)
--- NOTE | 2016-11-12 08:25 | NUR ---
NOTE NOTIFIED LAUREN ELMORE OF PATIENT CRITICAL HIGH BUN, ALSO OF ELEVATED CR AND RAC TENDER BRUISED KNOT. WILL CONT TO MONITOR.
--- NOTE | 2016-11-12 10:40 | PNPDOC ---
LAUREN ELMORE V DEPUTY SHERIFF K9 HANDLER 11/12/16 1014: Subjective Date DATE: 11/12/16 TIME: 10:10 Subjective Elie is seen in the dining rubio sitting up in a chair. He reports that he is doing well today, his only complaint is to his right antecubital.. He reports pain with palpation and bending of the elbow. He did have an episode of chest discomfort during therapy yesterday which was relieved with one sublingual Nitro. He denies any further chest pain or shortness of air. Appetite is good. Objective Vital Signs Vital signs Vital Signs Date Time Temp Pulse Resp B/P Pulse Ox O2 Delivery O2 Flow Rate FiO2 11/12/16 08:00 63 16 11/12/16 07:35 97 11/12/16 07:30 97.3 158/67 Nasal Cannula 2.00 Height (Feet): 5 Height (Inches): 4.00 Weight (Kilograms): 104.000 General General Appearance: Alert, Orientated x 3, Well Nourished, Cooperative, No Acute Distress Eyes (Brief) Eyes: FOUND: EOMI ENMT (Brief) ENMT: FOUND: mucosa moist, normal dentition, NOT FOUND: pharnyx erythema Respiratory (Brief) Respiratory: FOUND: clear all swanson Comments Diminished bases Cardiovascular (Brief) Cardiac: FOUND: peripheral edema (UE+ 2 and LE + 3 bilaterally), regular rate, regular rhythm Abdomen (Brief) Abdominal: FOUND: BS normo active x4, soft Extremities (Brief) Extremity : Side: Right (Ecchymosis to R AC and lateral anterior elbow, two small hematomas), Bilateral Extremity: forearm Extremity Finding: FOUND: edema Integumentary (Brief) Integumentary: FOUND: dry, pink, warm Neurologic (Brief) Neurological: FOUND: cranial 2-12 intact Psychiatric (Brief) Psychiatric: FOUND: alert, normal affect, oriented Laboratory Laboratory Laboratory Tests 11/11/16 05:04 11/12/16 05:11 Laboratory Tests 11/11/16 05:04 Assessment & Plan Problems: (1) Pain and swelling of right upper extremity Status: Acute (2) Acute kidney injury Status: Acute (3) Fall in elderly patient Status: Acute (4) Rhabdomyolysis Status: Resolved Qualifiers: Rhabdomyolysis type: traumatic Encounter type: sequela Qualified Codes: T79.6XXS - Traumatic ischemia of muscle, sequela (5) Cognitive decline Status: Chronic (6) Grief Status: Chronic (7) CHF (congestive heart failure) Status: Chronic Qualifiers: Congestive heart failure type: diastolic Congestive heart failure chronicity: acute on chronic Qualified Codes: I50.33 - Acute on chronic diastolic (congestive) heart failure (8) COPD (chronic obstructive pulmonary disease) Status: Chronic Qualifiers: COPD type: unspecified COPD Qualified Codes: J44.9 - Chronic obstructive pulmonary disease, unspecified (9) JAYLA (obstructive sleep apnea) Status: Chronic (10) Hypertension Status: Chronic Qualifiers: Hypertension type: essential hypertension Qualified Codes: I10 - Essential (primary) hypertension (11) CKD (chronic kidney disease), stage III Status: Chronic (12) Dyslipidemia Status: Chronic (13) CAD (coronary artery disease) Status: Chronic Qualifiers: Associated angina: angina presence unspecified (14) BPH (benign prostatic hypertrophy) Status: Chronic Qualifiers: Prostatic enlargement morphology: unspecified morphology Lower urinary tract symptom presence: presence of symptoms unspecified Qualified Codes: N40.0 - Benign prostatic hyperplasia without lower urinary tract symptoms (15) Atrial fibrillation Status: Chronic Qualifiers: Atrial fibrillation type: unspecified Qualified Codes: I48.91 - Unspecified atrial fibrillation Plan/Intensity of Service 11/12/16 We will obtain a US Doppler of right upper extremity to rule out DVT. Continue to hold Cozaar due to creatine elevation of 2.0 which is unchanged from yesterday. Holding potassium, given hyperkalemia at 5.5, suspect due to hemolysis. Will repeat BMP in AM to follow both renal function and hyperkalemia We will continue his Lasix 40mg and JORDY hose to assist with edema. Continue to monitor his blood pressures currently as he is slightly hypertensive at 158/67 with Cozaar on hold. Continue Amlodipine 10mg daily. Continue with Symbicort inhaler, Mucinex daily and Duoneb breathing treatments PRN. We will decrease Prednisone from 20mg to 10mg for 5 days. Continue to try and wean off oxygen if possible. Currently at 2L NC with saturations running around 96%. Continue with Nitro PRN chest pain, SCDs, Plavix daily and ASA 81mg. Continue to encourage work with PT and OT for strength and gait improvement. DVT Prophylaxis: SCD'S, JORDY Hose Code Status Full Code, unverified Hospital Course Summary Disclaimer The hospital course summary below is not to be considered part of the above Progress Note. Hospital Course Summary 11/06/16- Spencer/Dora *Fall, prolonged down time; Secondary rhabdo PT/OT per acute rehab team. Continue to monitor labs. S/P IV resuscitation. *HFpEF, JAYLA, Obesity Hypoventilation Resume Lasix- he still has significant abdominal and LE edema despite fairly dry on labs. Will assess venous doppler given prolonged down time. Continue O2, supportive care for COPD. Pleural thickening on CXR- may want to consider CT. I dont want to get a CTA given high risk for renal failure with IV contrast. Repeat CXR. *COPD with mild exacerbation Continue O2, Duoneb. Add Symbicort for supportive care. *HTN- Resume Norvasc, Lasix as BP is uncontrolled. *CAD- Continue ASA, Plavix. No statin due to rhabdo. *AFib with RVR and Ventricular Tachyarrhythmia- Not requiring rate control. No anticoagulation due to fall risk. *Cognitive deficits-May need MAX eval in the future. *Peripheral edema- Restart Lasix,KCL. Consider JORDY nataliee if sono is negative. Chart is reviewed during this visit. Thank you for the consult. 11/10/16 Continue to require oxygen to maintain O2 sats. Will evaluate him for home oxygen. Noted that weight is overall up 2 Kg since admission. Continues on Lasix 40 mg daily. Accurate I/O has not been measured. Will continue to follow and may consider additional diuretics. Carpet Jack is 1.3, Continue to Monitor. Continue to provide safe and supportive environment. Continue Duoneb and Symbicort for supportive care. Continue with encourage work with PT/OT 11/12/15 In light of chest pressure. Will obtain a 12-lead EKG. Asked nursing staff to give patient one of his when necessary nitroglycerin to see if this health with pressure. Suspect this is his chronic angina. Continue with oxygen to maintain adequate sats. Will evaluate him for home oxygen. Did evaluate renal function today and Creatinine did increase to 2. Place losartan on hold. Will assess leak continue with Lasix as patient will benefit from ongoing diuresis. Will check renal function again tomorrow. 11/12 Will discontinue Cipro as antimicrobial course has now completed for treatment of UTI Continue with encourage work with PT/OT for ongoing strengthening 11/12/16 We will obtain a US Doppler of right upper extremity to rule out DVT. Continue to hold Cozaar due to creatine elevation of 2.0 which is unchanged from yesterday. Holding potassium, given hyperkalemia at 5.5, suspect due to hemolysis. Will repeat BMP in AM to follow both renal function and hyperkalemia We will continue his Lasix 40mg and JORDY hose to assist with edema. Continue to monitor his blood pressures currently as he is slightly hypertensive at 158/67 with Cozaar on hold. Continue Amlodipine 10mg daily. Continue with Symbicort inhaler, Mucinex daily and Duoneb breathing treatments PRN. We will decrease Prednisone from 20mg to 10mg for 5 days. Continue to try and wean off oxygen if possible. Currently at 2L NC with saturations running around 96%. Continue with Nitro PRN chest pain, SCDs, Plavix daily and ASA 81mg. Continue to encourage work with PT and OT for strength and gait improvement. HEATHER GARCÍA MD 11/12/16 2016: Assessment & Plan Plan/Intensity of Service I have independently evaluated and examined this patient. I reviewed the chart, the patient's history, and the DEPUTY SHERIFF K9 HANDLER's documented findings as above. We discussed and formulated the assessment and plan as above with additions as below: Mr. Christie was seen in the dining area. He denied recurrent chest pain today and reports that he is urinating normally. He incidentally complained of occasional epistaxis which he attributed to nasal dryness. Respirations are nonlabored and breath sounds clear although diminished throughout. Cardiac rhythm regular. Doppler right upper extremity reviewed by myself-no DVT but hematoma present, report given to patient. Renal function unchanged, check urine sodium/urine creatinine. Lasix discontinued yesterday and patient may require IV fluids. Check orthostatic vital signs. Weight is down a couple of kilograms from acute stay when weight was about 106- 107 kg. LAUREN ELMORE APRN Nov 12, 2016 10:14 HEATHER GARCÍA MD Nov 12, 2016 20:16
--- NOTE | 2016-11-12 12:10 | DI ---
Indication: ITS.REASON: RUE swelling at AC site PROCEDURE: US VENOUS DUPLEX, UPPER EXT RT: Encounter: Initial Comparison: None Technique: Color Doppler duplex and grayscale sonographic imaging of the right upper extremity was performed. FINDINGS: There is no evidence for acute deep venous thrombosis in the right arm. The right internal jugular, subclavian, axillary and paired brachial veins were evaluated; compression and augmentation were applied where possible. In addition, color and pulsed Doppler demonstrate appropriate spontaneous flow, cardiac pulsatility and variation with respiration. There is a 2.5 x 0.7 x 4 cm mixed echogenicity region in the antecubital fossa area of swelling consistent with a hematoma. IMPRESSION: No evidence of acute DVT in the right upper extremity. Hematoma in the antecubital fossa. .
--- NOTE | 2016-11-12 15:25 | NUR ---
CM SPOKE WITH PT. PROVIDED [employer] ([facility]) INFORMATION AND EXPLAINED HOW HE WOULD NEED TO CONTACT [facility] IN ORDER TO ARRANGE AN APPOINTMENT FOR ASSESSMENT. PROVIDED THIS TO HIM IN WRITING.
--- NOTE | 2016-11-12 19:00 | NUR ---
SHIFT SUMMARY PATIENT ALERT AND ORIENTED X 3, DENIES CP TODAY, ON 2L NC. RAC RED, BRUISED FIRM LUMP FELT. MD NOTIFIED, U/S DONE, NEG FOR BLOOD CLOT. ELEVATED BUN/CR. MD NOTIFIED, REPEAT LABS SCHEDULED FOR AM. PATIENT UP WITH ONE ASSIST AND GAIT BELT. ATE MOST OF MEALS. NO BM TODAY. CONTINENT OF URINE. WILL CONT TO MONITOR.
--- NOTE | 2016-11-12 23:57 | NUR ---
Chart Check 24 hour chart check completed
[2016-11-13] VITALS (10 sets, daily range): BP systolic 124–165; BP diastolic 58–69; PULSE 63–84; RESP 18–20; TEMP 97.6–98.1; O2SAT 92–97
[2016-11-13] MEDS: SALINE NASAL SPRAY 45ml EA NOSTRIL PRN ×2 (00:16→21:19)
[2016-11-13 00:34] LABS: BLOOD, URINE NEGATIVE (NEGATIVE); COLOR,URINE YELLOW (YELLOW); LEUKOCYTE ESTERASE ,URINE NEGATIVE (NEGATIVE); NITRITE,URINE NEGATIVE (NEGATIVE); UROBILINOGEN,URINE 0.2 EU/DL (NORMAL)
[2016-11-13 00:43] LABS: CREATININE, URINE RANDOM 82.2 MG/DL
[2016-11-13 05:43] LABS: ALBUMIN 3.4 G/DL (3.5-5.0); ANION GAP 9 MEQ/L (5-15); BUN/CREATININE RATIO 31 RATIO (6-26); CALCIUM 9.1 MG/DL (8.4-10.2); CHLORIDE 101 MEQ/L (98-107); CO2 - CARBON DIOXIDE 28 MEQ/L (22-30); CREATININE 1.6 MG/DL (0.8-1.5); GLOMERULAR FILTRATION RATE 42; GLUCOSE 90 MG/DL (75-110); MAGNESIUM 2.6 MG/DL (1.6-2.3); PHOSPHORUS 3.9 MG/DL (2.5-4.5); POTASSIUM 4.8 MEQ/L (3.6-5); SODIUM 138 MEQ/L (134-144)
[2016-11-13] MEDS: ALBUTEROL/IPRATROPIUM INHAL. 2.5mg-0.5mg/3ml Neb. AEROSOL SCH ×4 (07:17→18:51)
--- NOTE | 2016-11-13 08:18 | NUR ---
Summary Chris is a pleasant and cooperative pt . He has denied pain. He is alert and oriented x three.He has been continent of bladder and is able to manage hygiene and clothes. He ambulates with single point cane gaitbelt and stand by assist of one staff.He reports to staff that he can not sleep in a bed so he has slept in his recliner with feet elevated.Call light within reach.Chair alarm intact. He produced a urine sample which was sent to the lab. See MAR. He took all his meds with out issue.O2 at 2L/NC .He has lower bilateral extremity edema of 3 + .He has had his SCD's most of the night but were removed due to them "popping off".Barrier cream applied to his upper buttocks fold ,shearing noted. He reports some blood on a klenex ,medicated with nasal spray . Mepilex was applied to his right posterior forearm due to an abrasion which was seeping bright blood.
[2016-11-13] MEDS: AMLODIPINE 10 MG TABLET PO SCH (08:48)
[2016-11-13] MEDS: CYANOCOBALAMIN (B-12) 500mcg TABLET PO SCH (08:48)
[2016-11-13] MEDS: ASPIRIN *EC* 81mg TABLET PO SCH (08:48)
[2016-11-13] MEDS: GUAIFENESIN LA 600 MG TABLET PO SCH ×2 (08:48→21:16)
[2016-11-13] MEDS: CLOPIDOGREL 75 MG TABLET PO SCH (08:48)
[2016-11-13] MEDS: PredniSONE 10 MG TABLET PO SCH (08:49)
[2016-11-13] MEDS: FLUTICASONE NASAL SPRAY 50 MCG EA NOSTRIL SCH (08:49)
[2016-11-13] MEDS: DOCUSATE SODIUM 100 MG CAPSULE PO SCH ×2 (08:50→21:16)
--- NOTE | 2016-11-13 15:45 | PNPDOC ---
LAUREN ELMORE APRN 11/13/16 1541: Subjective Date DATE: 11/13/16 TIME: 15:38 Subjective Mr David is seen today while sitting up in his chair dozing off. He is pleasant and alert. He continues on 2 liters of oxygen by nasal canula. He denies having chest pain, GI complains or worsening shortness of breath. He complains of having ongoing "backside" pain from the initial fall in his garage. Continues to have lower ext edema 2+ with compression jordy hose intact. BP 141/58. Objective Vital Signs Vital signs Vital Signs Date Time Temp Pulse Resp B/P Pulse Ox O2 Delivery O2 Flow Rate FiO2 11/13/16 15:19 76 11/13/16 15:11 16 11/13/16 11:56 165/67 11/13/16 07:40 97.8 95 Nasal Cannula 2.00 Height (Feet): 5 Height (Inches): 4.00 Weight (Kilograms): 104.000 General General Appearance: Alert, Orientated x 3, Cooperative, No Acute Distress Eyes (Brief) Eyes: FOUND: EOMI ENMT (Brief) ENMT: FOUND: mucosa moist, normal dentition, NOT FOUND: pharnyx erythema Neck (Brief) Neck: FOUND: midline, NOT FOUND: adenopathy, carotid bruits, tracheal deviation Respiratory (Brief) Respiratory: FOUND: clear all swanson, equal bilaterally, NOT FOUND: wheezes Cardiovascular (Brief) Cardiac: FOUND: regular rate, regular rhythm, NOT FOUND: murmur, pedal edema Capillary Refill: <2 sec Abdomen (Brief) Abdominal: FOUND: BS normo active x4, soft, NOT FOUND: distended, tender Extremities (Brief) Extremity : Side: Bilateral Extremity: leg Extremity Finding: FOUND: edema (2+) Lymphatic (Brief) Lymphatic: NOT FOUND: adenopathy Musculoskeletal (Brief) Musculoskeletal: NOT FOUND: tenderness Integumentary (Brief) Integumentary: FOUND: dry, pink, warm Neurologic (Brief) Neurological: FOUND: cranial 2-12 intact Psychiatric (Brief) Psychiatric: FOUND: alert, attentive, normal affect, oriented Laboratory Laboratory Laboratory Tests 11/12/16 05:11 11/13/16 05:08 Assessment & Plan Problems: (1) Pain and swelling of right upper extremity Status: Acute (2) Acute kidney injury Status: Acute (3) Fall in elderly patient Status: Acute (4) Rhabdomyolysis Status: Resolved Qualifiers: Rhabdomyolysis type: traumatic Encounter type: sequela Qualified Codes: T79.6XXS - Traumatic ischemia of muscle, sequela (5) Cognitive decline Status: Chronic (6) Grief Status: Chronic (7) CHF (congestive heart failure) Status: Chronic Qualifiers: Congestive heart failure type: diastolic Congestive heart failure chronicity: acute on chronic Qualified Codes: I50.33 - Acute on chronic diastolic (congestive) heart failure (8) COPD (chronic obstructive pulmonary disease) Status: Chronic Qualifiers: COPD type: unspecified COPD Qualified Codes: J44.9 - Chronic obstructive pulmonary disease, unspecified (9) JAYLA (obstructive sleep apnea) Status: Chronic (10) Hypertension Status: Chronic Qualifiers: Hypertension type: essential hypertension Qualified Codes: I10 - Essential (primary) hypertension (11) CKD (chronic kidney disease), stage III Status: Chronic (12) Dyslipidemia Status: Chronic (13) CAD (coronary artery disease) Status: Chronic Qualifiers: Associated angina: angina presence unspecified (14) BPH (benign prostatic hypertrophy) Status: Chronic Qualifiers: Prostatic enlargement morphology: unspecified morphology Lower urinary tract symptom presence: presence of symptoms unspecified Qualified Codes: N40.0 - Benign prostatic hyperplasia without lower urinary tract symptoms (15) Atrial fibrillation Status: Chronic Qualifiers: Atrial fibrillation type: unspecified Qualified Codes: I48.91 - Unspecified atrial fibrillation Plan/Intensity of Service 11/13/16 Overall doing good. Ferry Operator today did start to trend down at 1.6. Continue with Losartan on hold. Potassium and Lasix both stopped. Continues to have lower ext edema. continue to use Jordy hose. Continues on oxygen at 2 liters. Will recheck BMP tomorrow to follow renal function and electrolytes. Continue to encourage ongoing work with PT/OT Verbalizes that he is ready for discharge as he [place] Code Status Full Code, unverified Hospital Course Summary Disclaimer The hospital course summary below is not to be considered part of the above Progress Note. Hospital Course Summary 11/06/16- Spencer/Dora *Fall, prolonged down time; Secondary rhabdo PT/OT per acute rehab team. Continue to monitor labs. S/P IV resuscitation. *HFpEF, JAYLA, Obesity Hypoventilation Resume Lasix- he still has significant abdominal and LE edema despite fairly dry on labs. Will assess venous doppler given prolonged down time. Continue O2, supportive care for COPD. Pleural thickening on CXR- may want to consider CT. I dont want to get a CTA given high risk for renal failure with IV contrast. Repeat CXR. *COPD with mild exacerbation Continue O2, Duoneb. Add Symbicort for supportive care. *HTN- Resume Norvasc, Lasix as BP is uncontrolled. *CAD- Continue ASA, Plavix. No statin due to rhabdo. *AFib with RVR and Ventricular Tachyarrhythmia- Not requiring rate control. No anticoagulation due to fall risk. *Cognitive deficits-May need MAX eval in the future. *Peripheral edema- Restart Lasix,KCL. Consider JORDY mallory if sono is negative. Chart is reviewed during this visit. Thank you for the consult. 11/10/16 Continue to require oxygen to maintain O2 sats. Will evaluate him for home oxygen. Noted that weight is overall up 2 Kg since admission. Continues on Lasix 40 mg daily. Accurate I/O has not been measured. Will continue to follow and may consider additional diuretics. Ferry Operator is 1.3, Continue to Monitor. Continue to provide safe and supportive environment. Continue Duoneb and Symbicort for supportive care. Continue with encourage work with PT/OT 11/12/15 In light of chest pressure. Will obtain a 12-lead EKG. Asked nursing staff to give patient one of his when necessary nitroglycerin to see if this health with pressure. Suspect this is his chronic angina. Continue with oxygen to maintain adequate sats. Will evaluate him for home oxygen. Did evaluate renal function today and Creatinine did increase to 2. Place losartan on hold. Will assess leak continue with Lasix as patient will benefit from ongoing diuresis. Will check renal function again tomorrow. 11/12 Will discontinue Cipro as antimicrobial course has now completed for treatment of UTI Continue with encourage work with PT/OT for ongoing strengthening 11/12/16 We will obtain a US Doppler of right upper extremity to rule out DVT. Continue to hold Cozaar due to creatine elevation of 2.0 which is unchanged from yesterday. Holding potassium, given hyperkalemia at 5.5, suspect due to hemolysis. Will repeat BMP in AM to follow both renal function and hyperkalemia We will continue his Lasix 40mg and JORDY hose to assist with edema. Continue to monitor his blood pressures currently as he is slightly hypertensive at 158/67 with Cozaar on hold. Continue Amlodipine 10mg daily. Continue with Symbicort inhaler, Mucinex daily and Duoneb breathing treatments PRN. We will decrease Prednisone from 20mg to 10mg for 5 days. Continue to try and wean off oxygen if possible. Currently at 2L NC with saturations running around 96%. Continue with Nitro PRN chest pain, SCDs, Plavix daily and ASA 81mg. Continue to encourage work with PT and OT for strength and gait improvement. 11/13/16 Overall doing good. Ferry Operator today did start to trend down at 1.6. Continue with Losartan on hold. Potassium and Lasix both stopped. Continues to have lower ext edema. continue to use Jordy hose. Continues on oxygen at 2 liters. Will recheck BMP tomorrow to follow renal function and electrolytes. Continue to encourage ongoing work with PT/OT Verbalizes that he is ready for discharge as he misses taking his girlfriend to the [facility] HEATHER GARCÍA MD 11/13/16 0: Assessment & Plan Assessment I have independently evaluated and examined this patient. I reviewed the chart, the patient's history, and the COLD STORAGE WORKER's documented findings as above. We discussed and formulated the assessment and plan as above with additions as below: Patient reports past history of edema which had improved using JORDY hose prior to current hospitalization during which edema has returned. He continues to have sensation of chest congestion triggering cough but minimal sputum production. On examination the patient has decreased breath sounds throughout the lungs but lungs are otherwise clear. +2 bilateral lower extremity edema. Urine sodium/urine creatinine reviewed-fractional excretion sodium 0.45% consistent with prerenal azotemia. Blood pressure modestly elevated, check orthostatics. Echocardiogram reviewed- pulmonary hypertension not described. On amlodipine 10 mg daily-likely contributing to edema if not causative. Decrease dose to 5 mg daily. If creatinine improves further tomorrow will resume losartan. LAUREN ELMORE APRN Nov 13, 2016 15:41 HEATHER GARCÍA MD Nov 13, 2016 17:40
--- NOTE | 2016-11-13 17:49 | NUR ---
Summary Pt. is very pleasant, TANACROSS and A/O x3. VS's stable. He is supervision with transfers x1 assist with cane and gait belt. He has denied SOA and is on 2L O2 via nasal canula continuously. Pt. does have a non-productive cough. Pt. is on Mucinex and has scheduled breathing treatments. Please see eMAR. Pt. has denied pain and nausea. I/O adequate. Encouraged fluids. Pt. takes meds whole w/o difficulty. Pt. is noted to have 3+ edema to bilateral feet and lower extremities. Norman mallory applied and encouraged elevation of legs. Will pass on report to security shift manager.
[2016-11-14] VITALS (12 sets, daily range): BP systolic 112–170; BP diastolic 66–76; PULSE 64–96; RESP 18; TEMP 97.8–98.2; O2SAT 94–98
[2016-11-14] MEDS: ALBUTEROL/IPRATROPIUM INHAL. 2.5mg-0.5mg/3ml Neb. AEROSOL PRN (00:50)
--- NOTE | 2016-11-14 01:53 | NUR ---
Chart Check 24 hour chart check completed
--- NOTE | 2016-11-14 05:21 | NUR ---
Summary Chris is a pleasant and cooperative pt . He has denied pain. He is alert and oriented x three.He has been continent of bladder and bowel and is able to manage his own hygiene and clothes. He ambulates with single point cane gaitbelt and stand by assist of one staff.He slept both in the bed and in the recliner and said he did get some sleep. When in bed the sr up x two and bedalarm intact.When in the chair the chair alarm was activated.Call light within reach. O2 at 3L/NC .He has lower bilateral extremity edema of 3 + .He has had his SCD's off because they pop off . He did report a small nose bleed saline spray was used with relief.Thru the night he seemed to be having some difficulty breathing.RT came to give him a breathing treatment . Chris said it seemed to really help.
[2016-11-14 05:26] LABS: ANION GAP 9 MEQ/L (5-15); BUN/CREATININE RATIO 32 RATIO (6-26); CALCIUM 8.9 MG/DL (8.4-10.2); CHLORIDE 103 MEQ/L (98-107); CO2 - CARBON DIOXIDE 28 MEQ/L (22-30); CREATININE 1.3 MG/DL (0.8-1.5); GLOMERULAR FILTRATION RATE 53; GLUCOSE 84 MG/DL (75-110); POTASSIUM 4.4 MEQ/L (3.6-5); SODIUM 140 MEQ/L (134-144)
[2016-11-14] MEDS: ALBUTEROL/IPRATROPIUM INHAL. 2.5mg-0.5mg/3ml Neb. AEROSOL SCH ×4 (07:46→18:43)
[2016-11-14] MEDS: ASPIRIN *EC* 81mg TABLET PO SCH (08:53)
[2016-11-14] MEDS: GUAIFENESIN LA 600 MG TABLET PO SCH ×2 (08:53→20:47)
[2016-11-14] MEDS: CLOPIDOGREL 75 MG TABLET PO SCH (08:53)
[2016-11-14] MEDS: PredniSONE 10 MG TABLET PO SCH (08:53)
[2016-11-14] MEDS: CYANOCOBALAMIN (B-12) 500mcg TABLET PO SCH (08:53)
[2016-11-14] MEDS: AMLODIPINE 5 MG TABLET PO SCH (08:54)
[2016-11-14] MEDS: POLYETHYL.GLYCOL 3350 PACKET 17gm PO SCH (08:55)
[2016-11-14] MEDS: DOCUSATE SODIUM 100 MG CAPSULE PO SCH ×2 (08:55→20:47)
[2016-11-14] MEDS: FLUTICASONE NASAL SPRAY 50 MCG EA NOSTRIL SCH (08:55)
--- NOTE | 2016-11-14 09:09 | PNPDOC ---
AJAY ANDINO TOOLROOM CHECKER 11/14/16 0859: Subjective Date DATE: 11/14/16 TIME: 08:56 Subjective I saw Chris after his nurse mentioned concerns about abrasions to both forearms and epistaxis. He was getting cleaned up and ready for breakfast. He had no acute complaints and was very thankful for all the care he's been receiving. He did have an episode of epistaxis last night - he doesn't usually have this problem at home. He also c/o sinus congestion. He denies any chest pain, dyspnea , abdominal pain or GI complaints. Objective Vital Signs Vital signs Vital Signs Date Time Temp Pulse Resp B/P Pulse Ox O2 Delivery O2 Flow Rate FiO2 11/14/16 07:55 68 11/14/16 07:46 16 97 11/14/16 03:15 170/76 11/13/16 19:55 98.0 Nasal Cannula 2.00 Height (Feet): 5 Height (Inches): 4.00 Weight (Kilograms): 105.400 General General Appearance: Alert, Obese, Orientated x 3, Well Nourished, Well Developed, No Acute Distress Eyes (Brief) Eyes: FOUND: PERRL, NOT FOUND: scleral icterus ENMT (Brief) ENMT: FOUND: mucosa moist, NOT FOUND: pharnyx erythema Respiratory (Brief) Respiratory: FOUND: clear all swanson, equal bilaterally Cardiovascular (Brief) Cardiac: FOUND: regular rate, regular rhythm Abdomen (Brief) Abdominal: FOUND: BS normo active x4, soft, NOT FOUND: distended, tender Extremities (Brief) Extremity : Side: Bilateral Extremity: leg, foot Extremity Finding: FOUND: edema (2+) Comments swelling noted to both arms, R>L Musculoskeletal (Brief) Musculoskeletal: NOT FOUND: tenderness Integumentary (Brief) Integumentary: FOUND: dry, pink, warm Comments ecchymosis - both arms (hematoma to right elbow), Rt lower back; faded to left shoulder Psychiatric (Brief) Psychiatric: FOUND: alert, attentive, normal affect, oriented Laboratory Laboratory Laboratory Tests 11/13/16 05:08 11/14/16 04:54 Assessment & Plan Problems: (1) Acute kidney injury Status: Resolved (2) Fall in elderly patient Status: Acute (3) Pain and swelling of right upper extremity Status: Acute Assessment & Plan: Venous doppler neg. for DVT (4) Rhabdomyolysis Status: Resolved Qualifiers: Rhabdomyolysis type: traumatic Encounter type: sequela Qualified Codes: T79.6XXS - Traumatic ischemia of muscle, sequela (5) Cognitive decline Status: Chronic (6) Grief Status: Chronic (7) CHF (congestive heart failure) Status: Chronic Qualifiers: Congestive heart failure type: diastolic Congestive heart failure chronicity: acute on chronic Qualified Codes: I50.33 - Acute on chronic diastolic (congestive) heart failure (8) COPD (chronic obstructive pulmonary disease) Status: Chronic Qualifiers: COPD type: unspecified COPD Qualified Codes: J44.9 - Chronic obstructive pulmonary disease, unspecified (9) JAYLA (obstructive sleep apnea) Status: Chronic (10) Hypertension Status: Chronic Qualifiers: Hypertension type: essential hypertension Qualified Codes: I10 - Essential (primary) hypertension (11) CKD (chronic kidney disease), stage III Status: Chronic (12) Dyslipidemia Status: Chronic (13) CAD (coronary artery disease) Status: Chronic Qualifiers: Associated angina: angina presence unspecified (14) BPH (benign prostatic hypertrophy) Status: Chronic Qualifiers: Prostatic enlargement morphology: unspecified morphology Lower urinary tract symptom presence: presence of symptoms unspecified Qualified Codes: N40.0 - Benign prostatic hyperplasia without lower urinary tract symptoms (15) Atrial fibrillation Status: Chronic Qualifiers: Atrial fibrillation type: unspecified Qualified Codes: I48.91 - Unspecified atrial fibrillation Plan/Intensity of Service Renal function improved - BUN 41 and cr. 1.3. Resume Losartan. Epistaxis - [place] PRN. If it recurs, instill Afrin and then clamp x30 min. May need to consider holding ASA temporarily - he's currently on ASA and Plavix. Norvasc dose decreased to 5 mg d/t edema. Hypoxia/chronic pleural thickening - wean oxygen as able. Still requiring 2L. Recheck BMP in am. Code Status Full Code, unverified Hospital Course Summary Disclaimer The hospital course summary below is not to be considered part of the above Progress Note. Hospital Course Summary 11/06/16- Spencer/Dora *Fall, prolonged down time; Secondary rhabdo PT/OT per acute rehab team. Continue to monitor labs. S/P IV resuscitation. *HFpEF, JAYLA, Obesity Hypoventilation Resume Lasix- he still has significant abdominal and LE edema despite fairly dry on labs. Will assess venous doppler given prolonged down time. Continue O2, supportive care for COPD. Pleural thickening on CXR- may want to consider CT. I dont want to get a CTA given high risk for renal failure with IV contrast. Repeat CXR. *COPD with mild exacerbation Continue O2, Duoneb. Add Symbicort for supportive care. *HTN- Resume Norvasc, Lasix as BP is uncontrolled. *CAD- Continue ASA, Plavix. No statin due to rhabdo. *AFib with RVR and Ventricular Tachyarrhythmia- Not requiring rate control. No anticoagulation due to fall risk. *Cognitive deficits-May need MAX eval in the future. *Peripheral edema- Restart Lasix,KCL. Consider JORDY hose if sono is negative. Chart is reviewed during this visit. Thank you for the consult. 11/10/16 Continue to require oxygen to maintain O2 sats. Noted that weight is overall up 2 Kg since admission. Continues on Lasix 40 mg daily. Accurate I/O has not been measured. Will continue to follow and may consider additional diuretics. Retail Pricing Coordinator is 1.3, Continue to Monitor. 11/12/15 In light of chest pressure. Will obtain a 12-lead EKG. Asked nursing staff to give patient one of his when necessary nitroglycerin to see if this health with pressure. Suspect this is his chronic angina. Continue with oxygen to maintain adequate sats. Will evaluate him for home oxygen. Did evaluate renal function today and Creatinine did increase to 2. Place losartan on hold. Will assess leak continue with Lasix as patient will benefit from ongoing diuresis. Will check renal function again tomorrow. 11/12 Will discontinue Cipro as antimicrobial course has now completed for treatment of UTI Continue with encourage work with PT/OT for ongoing strengthening 11/12/16 We will obtain a US Doppler of right upper extremity to rule out DVT. Continue to hold Cozaar due to creatine elevation of 2.0 which is unchanged from yesterday. Holding potassium, given hyperkalemia at 5.5, suspect due to hemolysis. Will repeat BMP in AM to follow both renal function and hyperkalemia We will continue his Lasix 40mg and JORDY hose to assist with edema. Continue to monitor his blood pressures currently as he is slightly hypertensive at 158/67 with Cozaar on hold. Continue Amlodipine 10mg daily. Continue with Symbicort inhaler, Mucinex daily and Duoneb breathing treatments PRN. We will decrease Prednisone from 20mg to 10mg for 5 days. Continue to try and wean off oxygen if possible. Currently at 2L NC with saturations running around 96%. Continue with Nitro PRN chest pain, SCDs, Plavix daily and ASA 81mg. Continue to encourage work with PT and OT for strength and gait improvement. 11/13/16 Overall doing good. Retail Pricing Coordinator today did start to trend down at 1.6. Continue with Losartan on hold. Potassium and Lasix both stopped. Continues to have lower ext edema. continue to use Jordy hose. Continues on oxygen at 2 liters. Will recheck BMP tomorrow to follow renal function and electrolytes. Continue to encourage ongoing work with PT/OT Verbalizes that he is ready for discharge as he [place] 11/14/16 Renal function improved - BUN 41 and cr. 1.3. Resume Losartan. Epistaxis - [place] PRN. If it recurs, instill Afrin and then clamp x30 min. May need to consider holding ASA temporarily - he's currently on ASA and Plavix. Norvasc dose decreased to 5 mg d/t edema. Hypoxia/chronic pleural thickening - wean oxygen as able. Still requiring 2L. HEATHER GARCÍA MD 11/14/161924: Assessment & Plan Problems: (1) Acute kidney injury Status: Resolved (2) Fall in elderly patient Status: Acute (3) Pain and swelling of right upper extremity Status: Acute Assessment & Plan: Venous doppler neg. for DVT (4) Rhabdomyolysis Status: Resolved Qualifiers: Rhabdomyolysis type: traumatic Encounter type: sequela Qualified Codes: T79.6XXS - Traumatic ischemia of muscle, sequela (5) Cognitive decline Status: Chronic (6) Grief Status: Chronic (7) CHF (congestive heart failure) Status: Chronic Qualifiers: Congestive heart failure type: diastolic Congestive heart failure chronicity: acute on chronic Qualified Codes: I50.33 - Acute on chronic diastolic (congestive) heart failure (8) COPD (chronic obstructive pulmonary disease) Status: Chronic Qualifiers: COPD type: unspecified COPD Qualified Codes: J44.9 - Chronic obstructive pulmonary disease, unspecified (9) JAYLA (obstructive sleep apnea) Status: Chronic (10) Hypertension Status: Chronic Qualifiers: Hypertension type: essential hypertension Qualified Codes: I10 - Essential (primary) hypertension (11) CKD (chronic kidney disease), stage III Status: Chronic (12) Dyslipidemia Status: Chronic (13) CAD (coronary artery disease) Status: Chronic Qualifiers: Associated angina: angina presence unspecified (14) BPH (benign prostatic hypertrophy) Status: Chronic Qualifiers: Prostatic enlargement morphology: unspecified morphology Lower urinary tract symptom presence: presence of symptoms unspecified Qualified Codes: N40.0 - Benign prostatic hyperplasia without lower urinary tract symptoms (15) Atrial fibrillation Status: Chronic Qualifiers: Atrial fibrillation type: unspecified Qualified Codes: I48.91 - Unspecified atrial fibrillation Assessment I have independently evaluated and examined this patient. I reviewed the chart, the patient's history, and the TOOLROOM CHECKER's documented findings as above. We discussed and formulated the assessment and plan as above with additions as below: Patient continues to complain of edema in his legs and right arm. He is otherwise in good spirits and denied dyspnea. On examination he is alert and cooperative. There is moderate bruising on the right forearm extending into the hand with +1 edema. +2 edema bilateral lower extremities Continue to monitor renal function with resumption of Cozaar, blood pressure improved following initial dose today. Oral intake is marginal-850 mL total yesterday. Patient reassured that there is no worrisome pathology in his arm but a hematoma and bruising will likely worsen an upcoming days. Outpatient record reviewed-no indication the patient was previously on amlodipine. If edema ongoing may benefit from changed alternate medication. Was previously on losartan 50 mg as a single agent. AJAY ANDINO APRN Nov 14, 2016 08:59 HEATHER GARCÍA MD Nov 14, 2016 19:25
[2016-11-14] MEDS: LOSARTAN 50 MG TABLET PO SCH (11:50)
--- NOTE | 2016-11-14 17:42 | NUR ---
Summary Pt. is very pleasant, NINILCHIK and A/O x3. VS's stable. He is supervision with transfers x1 assist with cane and gait belt. He has denied SOA and was weaned to 1L O2 via nasal canula by RT. Pt. does have a non-productive cough. Pt. is on Mucinex and has scheduled breathing treatments. Please see eMAR. Pt. has denied pain and nausea. I/O adequate. Encouraged fluids. Pt. is continent of bowel and bladder. Pt. takes meds whole w/o difficulty. Pt. is noted to have 3+ edema to bilateral feet and lower extremities. Norman hose applied and encouraged elevation of legs. Will pass on report to operation shift supervisor.
[2016-11-15] VITALS (11 sets, daily range): BP systolic 119–166; BP diastolic 54–78; PULSE 64–78; RESP 14–18; TEMP 97.4–97.8; O2SAT 90–95
--- NOTE | 2016-11-15 05:04 | NUR ---
Chart Check 24 hour chart check completed
[2016-11-15 05:17] LABS: BASOPHILS % (AUTO) 0.1 % (0-2); EOSINOPHILS # (AUTO) 0.3 T/MM3 (0-0.5); EOSINOPHILS % (AUTO) 2.4 % (0-4); HCT - HEMATOCRIT 37.7 % (41-53); HGB - HEMOGLOBIN 12.1 GM/DL (13.5-17.5); IMMATURE GRANULOCYTE # (AUTO) 0.08 T/MM3 (0.00-0.03); IMMATURE GRANULOCYTE % (AUTO) 0.7 % (0.0-0.5); LYMPHOCYTES # (AUTO) 1.8 T/MM3 (1-4.8); LYMPHOCYTES % (AUTO) 15.4 % (23-45); MEAN CORPUSCULAR HGB 29.6 UUG (26-34); MEAN CORPUSCULAR HGB CONC(MCHC 32.1 GM/DL (31-37); MEAN CORPUSCULAR VOLUME 92.2 UM3 (80-100); MONOCYTES # (AUTO) 0.8 T/MM3 (0-0.8); MONOCYTES % (AUTO) 6.5 % (0-9.0); NEUTROPHILS #(AUTO)-ABSOLUTE 8.9 T/MM3 (1.8-7.7); NEUTROPHILS % (AUTO) 74.9 % (33-66); RED BLOOD COUNT 4.09 M/MM3 (4.50-5.90); WBC - WHITE BLOOD COUNT 11.9 T/MM3 (4.5-11.0)
[2016-11-15 05:32] LABS: ANION GAP 7 MEQ/L (5-15); BUN/CREATININE RATIO 27 RATIO (6-26); CALCIUM 8.9 MG/DL (8.4-10.2); CHLORIDE 103 MEQ/L (98-107); CO2 - CARBON DIOXIDE 29 MEQ/L (22-30); CREATININE 1.3 MG/DL (0.8-1.5); GLOMERULAR FILTRATION RATE 53; GLUCOSE 80 MG/DL (75-110); MAGNESIUM 2.5 MG/DL (1.6-2.3); POTASSIUM 4.6 MEQ/L (3.6-5); SODIUM 139 MEQ/L (134-144)
--- NOTE | 2016-11-15 06:19 | NUR ---
Summary Patient laid in bed for a little while tonight, but mostly sat up in chair. He has maintained his SpO2 in the low 90s with 1 L O2 per nasal canula. He has been pleasant and cooperative. BLE continues with 2-3+ Pitting edema. No nose or arm bleeds. BP still drops when standing but did not drop too low. He is in chair with chair alarm on and call light within reach.
[2016-11-15] MEDS: ALBUTEROL/IPRATROPIUM INHAL. 2.5mg-0.5mg/3ml Neb. AEROSOL SCH ×4 (07:18→20:04)
[2016-11-15] MEDS: LOSARTAN 50 MG TABLET PO SCH (08:43)
[2016-11-15] MEDS: AMLODIPINE 5 MG TABLET PO SCH (08:44)
[2016-11-15] MEDS: CYANOCOBALAMIN (B-12) 500mcg TABLET PO SCH (08:44)
[2016-11-15] MEDS: GUAIFENESIN LA 600 MG TABLET PO SCH ×2 (08:44→21:47)
[2016-11-15] MEDS: CLOPIDOGREL 75 MG TABLET PO SCH (08:44)
[2016-11-15] MEDS: POLYETHYL.GLYCOL 3350 PACKET 17gm PO SCH (08:44)
[2016-11-15] MEDS: DOCUSATE SODIUM 100 MG CAPSULE PO SCH ×2 (08:44→21:46)
[2016-11-15] MEDS: FLUTICASONE NASAL SPRAY 50 MCG EA NOSTRIL SCH (08:45)
[2016-11-15] MEDS: PredniSONE 10 MG TABLET PO SCH (08:45)
--- NOTE | 2016-11-15 12:04 | WOUNDPN ---
Nurse to Nurse Wound Consult Pt continues to have moisture associated contact dermatitis. Pt is aware of needing to off load, however he is unable to lay down in a bed due to CHF, so he seats in a recliner . Pt was educated on using coffee filters to help keep moisture controlled and also desitin. MARY BLANCO RN Nov 15, 2016 12:03
--- NOTE | 2016-11-15 13:18 | PDIRUTEAM ---
Multidisciplinary Team Meeting Nursing Hx Incontinence: Yes Bladder Goal: 7+ Complete [place] Y/N: No Bladder Continent or Incontine: Continent Incontinent Product Used: Patient's Own Underwear Number of Times Incontinent of: 0 Cleaning Ability-Bladder: 5 Supervision/Setup Bladder Incontinence Managemen: 4 Minimal Assistance Bowel Goal: 6 Modified [place] Colostomy Y/N: No Bowel Incontinent/Continent: Continent Bowel Number of Accidents: 0 Number of times Incontinent of: 0 Cleaning Ability-Bowel: 5 Supervision/Setup Toileting Ability: 6 Modified [place] Vital Signs Vital Signs Date Time Temp Pulse Resp B/P Pulse Ox O2 Delivery O2 Flow Rate FiO2 11/15/16 11:33 125/54 119/54 131/64 11/15/16 11:13 60 11/15/16 11:13 16 11/15/16 10:52 92 Nasal Cannula 0.50 11/15/16 08:15 97.4 Current Medications Current Medications Medications (Trade) Dose Ordered Sig/Taylor Route PRN Reason Start Time Stop Time Status Last Admin Dose Admin Docusate Sodium (Colace) 100 mg BID PO 11/05/16 21:00 11/15/16 08:44 Bisacodyl (Dulcolax) 10 mg BID PRN RECTALLY CONSTIPATION 11/05/16 18:15 11/11/16 02:46 Ciprofloxacin (Cipro) 500 mg Q12HR PO 11/05/16 21:00 11/11/16 14:44 DC 11/11/16 08:47 Clopidogrel Bisulfate (Plavix) 75 mg DAILY PO 11/06/16 09:00 11/15/16 08:44 Cyanocobalamin (Vit. B-12) 1,000 mcg DAILY PO 11/06/16 09:00 11/15/16 08:44 Fluticasone Propionate (Flonase) 2 spray DAILY EA NOSTRIL 11/06/16 09:00 11/15/16 08:45 Guaifenesin (Mucinex) 600 mg BID PO 11/05/16 21:00 11/15/16 08:44 Albuterol/ Ipratropium (Duoneb) 3 ml Q2H PRN AEROSOL WHEEZING 11/05/16 18:15 11/14/16 00:50 Albuterol/ Ipratropium (Duoneb) 3 ml RTQID AEROSOL 11/05/16 19:00 11/15/16 11:12 Losartan Potassium (COZAAR 50 mg) 50 mg DAILY PO 11/06/16 09:00 Future hold 11/15/16 08:43 Nitroglycerin (Nitrostat) 0.4 mg Q5MIN PRN SL CHEST PAIN 11/05/16 18:15 11/11/16 19:39 Prednisone (PredniSONE) 20 mg WB PO 11/06/16 08:00 11/12/16 10:44 DC 11/12/16 08:02 Aspirin (Ecotrin) 81 mg DAILY PO 11/07/16 09:00 Future Hold 11/14/16 08:53 Amlodipine Besylate (Norvasc) 10 mg DAILY PO 11/06/16 13:15 11/13/16 17:44 DC 11/13/16 08:48 Furosemide (Lasix) 40 mg DAILY PO 11/06/16 13:15 11/11/16 16:39 DC 11/11/16 08:47 Potassium Chloride (Kdur) 10 meq WB PO 11/06/16 13:15 11/11/16 16:39 DC 11/10/16 08:53 Budesonide/ Formoterol Fumarate (Symbicort 160/ 4.5) 2 puff BID ORAL INH 11/06/16 21:00 11/15/16 09:11 Prednisone (PredniSONE) 10 mg WB PO 11/13/16 08:00 11/18/16 09:00 11/15/16 08:45 Sodium Chloride (DEEP SEA Nasal [place]) 1 spray PRN PRN EA NOSTRIL 11/12/16 20:15 11/13/16 21:19 Amlodipine Besylate (Norvasc) 5 mg DAILY PO 11/14/16 09:00 11/15/16 08:44 Comments SKIN care per nursing on buttock. requiring 1 l oxygen Physical Therapy Bed Transfer Ability: 5 Supervision/Setup Bed Transfer Assistance Needed: 1 Person Chair Transfer Ability: 5 Supervision/Setup Chair Transfer Assistance Need: 1 Person Overall Wheelchair Transfer Ab: 0 Activity Does Not Occur Overall Toilet / Commode Trans: 6 Modified [place] Ambulation Ability: 5 Supervision/Setup Ambulation Assistance Needed: 1 Person Walk FIM Score Reason: The pt walked 159ft,192 x2 with the straight cane and 5/7 assist. Ambulation Distance: 200 Comments Safety improving, using single point cane. Occupational Therapy Grooming Ability: 5 Supervision/Setup Grooming FIM Score Reason: Standing at sink Bathing Ability: 5 Supervision/Setup Upper Body Dressing Ability: 6 Modified [place] Lower Body Dressing Ability: 5 Supervision/Setup Lower Body Dressing Assistance: 1 Person Toileting Assistance Needed: 1 Person Toileting FIM Score Reason: uses urinal Comments Improvement ADL, Requiring shower chair on d/c. Care Plan Condition at time of discharge: Fair IRU Discharge Disposition: Home, self care Interventions/Goals . eval for home oxygen.ambulatory oxygen eval. Look to discharge after oxygen eval plan . May be able to d/c tomorrow. RIZWAN FAIRBANKS MD Nov 15, 2016 13:18
--- NOTE | 2016-11-15 14:17 | NUR ---
ONESIMO THIS WORKER MET WITH PT ON THIS DATE. PT REPORTED THAT HE IS PREPARED TO RETURN HOME. PT REPORTED THAT HE NOW HAS A LIFE [employer] BUTTON. PT HAS TRANSPORTATION HOME SET UP WITH SON OR GRANDSON. THIS WORKER REVIEWED DISCHARGE PLANNING. PT EAGER TO RETURN HOME. DENIES ANY ADDITIONAL NEEDS AT THIS TIME.
--- NOTE | 2016-11-15 16:05 | NUR ---
ONESIMO THIS WORKER SPOKE WITH PT AND SON, SHARIFA ON THIS DATE. PT AND FAMILY AWARE OF DISCHARGE PLANNED FOR 11/16/16. DENIES ADDITIONAL NEEDS AT THIS TIME.
--- NOTE | 2016-11-15 17:41 | PNPDOC ---
IRU Subjective Date DATE: 11/15/16 TIME: 17:38 Subjective Pt resting in room. Cooperating with PT and OT, but often feels SOA. IRU Objective Vital Signs Vital signs Vital Signs Date Time Temp Pulse Resp B/P Pulse Ox O2 Delivery O2 Flow Rate FiO2 11/15/16 16:00 97.7 69 14 145/66 90 Room Air 11/15/16 10:52 0.50 Height (Feet): 5 Height (Inches): 4.00 Weight (Kilograms): 106.500 General General Appearance: Alert, Orientated x 2 Respiratory (Brief) Respiratory: FOUND: clear all [place], equal bilaterally Cardiovascular (Brief) Cardiac: FOUND: regular rate, regular rhythm Laboratory Laboratory Laboratory Tests Test 11/14/16 04:54 11/15/16 04:52 Turbidity < 20 < 20 Sodium Level 140MEQ/L 139MEQ/L Potassium Level 4.4MEQ/L 4.6MEQ/L Chloride Level 103MEQ/L 103MEQ/L Carbon Dioxide Level 28MEQ/L 29MEQ/L Anion Gap 9MEQ/L 7MEQ/L Blood Urea Nitrogen 41.0MG/DL 35.0MG/DL Creatinine 1.3MG/DL 1.3MG/DL Glomerular Filtration Rate Calc 53 53 BUN/Creatinine Ratio 32RATIO 27RATIO Glucose Level 84MG/DL 80MG/DL Calculated Osmolality 278MOSM/KG 275MOSM/KG Calcium Level 8.9MG/DL 8.9MG/DL Icterus Index < 2 < 2 Chemistry Specimen Hemolysis < 15 < 15 White Blood Count 11.9T/MM3 Red Blood Count 4.09M/MM3 Hemoglobin 12.1GM/DL Hematocrit 37.7% Mean Corpuscular Volume 92.2UM3 Mean Corpuscular Hemoglobin 29.6UUG Mean Corpuscular Hemoglobin Concent 32.1GM/DL RDW Standard Deviation 49.2FL Platelet Count 260T/MM3 Mean Platelet Volume 10.0UM3 Immature Granulocyte % (Auto) 0.7% Neutrophils (%) (Auto) 74.9% Lymphocytes (%) (Auto) 15.4% Monocytes (%) (Auto) 6.5% Eosinophils (%) (Auto) 2.4% Basophils (%) (Auto) 0.1% Absolute Immature Granulocyte (auto 0.08T/MM3 Absolute Neutrophils (auto) 8.9T/MM3 Absolute Lymphocytes (auto) 1.8T/MM3 Absolute Monocytes (auto) 0.8T/MM3 Absolute Eosinophils (auto) 0.3T/MM3 Absolute Basophils (auto) 0.0T/MM3 Magnesium Level 2.5MG/DL Assessment & Plan Problems: (1) Protein-calorie malnutrition, mild Status: Acute (2) Encephalopathy Status: Acute Assessment & Plan: managed by medical. (3) Fall in elderly patient Status: Acute Assessment & Plan: PT and OT working on stability and strengthening. Safety awareness also. (4) CHF (congestive heart failure) Status: Chronic Qualifiers: Congestive heart failure type: diastolic Congestive heart failure chronicity: acute on chronic Qualified Codes: I50.33 - Acute on chronic diastolic (congestive) heart failure Assessment & Plan: medical to manage (5) Rhabdomyolysis Status: Resolved Qualifiers: Rhabdomyolysis type: traumatic Encounter type: sequela Qualified Codes: T79.6XXS - Traumatic ischemia of muscle, sequela Assessment & Plan: medical to follow. (6) Atrial fibrillation Status: Chronic Qualifiers: Atrial fibrillation type: unspecified Qualified Codes: I48.91 - Unspecified atrial fibrillation Assessment & Plan: managed by medical. (7) COPD (chronic obstructive pulmonary disease) Status: Chronic Qualifiers: COPD type: unspecified COPD Qualified Codes: J44.9 - Chronic obstructive pulmonary disease, unspecified (8) Myopathy Assessment & Plan: Pt showing improvement in FIM scores, discussed in team meeting today. Looking to discharge tomorrow if oxygen issues resolved. Oxygen sat test to be ordered. Assessment I have independently evaluated and examined this patient. I reviewed the chart, the patient's history, and the NOVELTIES SALES REPRESENTATIVE's documented findings as above. We discussed and formulated the assessment and plan as above with additions as below: Patient continues to complain of edema in his legs and right arm. He is otherwise in good spirits and denied dyspnea. On examination he is alert and cooperative. There is moderate bruising on the right forearm extending into the hand with +1 edema. +2 edema bilateral lower extremities Continue to monitor renal function with resumption of Cozaar, blood pressure improved following initial dose today. Oral intake is marginal-850 mL total yesterday. Patient reassured that there is no worrisome pathology in his arm but a hematoma and bruising will likely worsen an upcoming days. Outpatient record reviewed-no indication the patient was previously on amlodipine. If edema ongoing may benefit from changed alternate medication. Was previously on losartan 50 mg as a single agent. Code Status Full Code, unverified Interventions to Obtain Goals PT Treatment Plan: Therapeutic Exercise, Gait Training, Functional Activities , Patient/Family Education, Balance/Proprioception OT Treatment Plan: ADL's (basic care), Ther. Exercise for ADL's, UE Functional Training, Balance Training, Pt./Family Education, IADL's Hospital Course Summary Disclaimer The hospital course summary below is not to be considered part of the above Progress Note. Hospital Course Summary 11/06/16- Spencer/Dora *Fall, prolonged down time; Secondary rhabdo PT/OT per acute rehab team. Continue to monitor labs. S/P IV resuscitation. *HFpEF, JAYLA, Obesity Hypoventilation Resume Lasix- he still has significant abdominal and LE edema despite fairly dry on labs. Will assess venous doppler given prolonged down time. Continue O2, supportive care for COPD. Pleural thickening on CXR- may want to consider CT. I dont want to get a CTA given high risk for renal failure with IV contrast. Repeat CXR. *COPD with mild exacerbation Continue O2, Duoneb. Add Symbicort for supportive care. *HTN- Resume Norvasc, Lasix as BP is uncontrolled. *CAD- Continue ASA, Plavix. No statin due to rhabdo. *AFib with RVR and Ventricular Tachyarrhythmia- Not requiring rate control. No anticoagulation due to fall risk. *Cognitive deficits-May need MAX eval in the future. *Peripheral edema- Restart Lasix,KCL. Consider JORDY mallory if sono is negative. Chart is reviewed during this visit. Thank you for the consult. 11/10/16 Continue to require oxygen to maintain O2 sats. Noted that weight is overall up 2 Kg since admission. Continues on Lasix 40 mg daily. Accurate I/O has not been measured. Will continue to follow and may consider additional diuretics. Bingo Clerk is 1.3, Continue to Monitor. 11/12/15 In light of chest pressure. Will obtain a 12-lead EKG. Asked nursing staff to give patient one of his when necessary nitroglycerin to see if this health with pressure. Suspect this is his chronic angina. Continue with oxygen to maintain adequate sats. Will evaluate him for home oxygen. Did evaluate renal function today and Creatinine did increase to 2. Place losartan on hold. Will assess leak continue with Lasix as patient will benefit from ongoing diuresis. Will check renal function again tomorrow. 11/12 Will discontinue Cipro as antimicrobial course has now completed for treatment of UTI Continue with encourage work with PT/OT for ongoing strengthening 11/12/16 We will obtain a US Doppler of right upper extremity to rule out DVT. Continue to hold Cozaar due to creatine elevation of 2.0 which is unchanged from yesterday. Holding potassium, given hyperkalemia at 5.5, suspect due to hemolysis. Will repeat BMP in AM to follow both renal function and hyperkalemia We will continue his Lasix 40mg and JORDY hose to assist with edema. Continue to monitor his blood pressures currently as he is slightly hypertensive at 158/67 with Cozaar on hold. Continue Amlodipine 10mg daily. Continue with Symbicort inhaler, Mucinex daily and Duoneb breathing treatments PRN. We will decrease Prednisone from 20mg to 10mg for 5 days. Continue to try and wean off oxygen if possible. Currently at 2L NC with saturations running around 96%. Continue with Nitro PRN chest pain, SCDs, Plavix daily and ASA 81mg. Continue to encourage work with PT and OT for strength and gait improvement. 11/13/16 Overall doing good. Bingo Clerk today did start to trend down at 1.6. Continue with Losartan on hold. Potassium and Lasix both stopped. Continues to have lower ext edema. continue to use Jordy hose. Continues on oxygen at 2 liters. Will recheck BMP tomorrow to follow renal function and electrolytes. Continue to encourage ongoing work with PT/OT Verbalizes that he is ready for discharge as he misses [place] his girlfriend to the [place] 11/14/16 Renal function improved - BUN 41 and cr. 1.3. Resume Losartan. Epistaxis - [place] PRN. If it recurs, instill Afrin and then clamp x30 min. May need to consider holding ASA temporarily - he's currently on ASA and Plavix. Norvasc dose decreased to 5 mg d/t edema. Hypoxia/chronic pleural thickening - wean oxygen as able. Still requiring 2L. RIZWAN FAIRBAKNS MD Nov 15, 2016 17:40
--- NOTE | 2016-11-15 19:00 | NUR ---
NOTE PATIENT ALERT AND ORIENTED X 3, UP WITH GAIT BELT AND WALKER, SUPERVISION. PATIENT DENIES PAIN. WEANING O2 TODAY, PATIENT OFF O2 WILL CONT TO MONITOR. PATIENT ATE MEALS WELL.
--- NOTE | 2016-11-15 23:41 | NUR ---
Chart Check 24 hour chart check completed
[2016-11-16 01:50] VITALS: PULSE 69; RESP 18
--- NOTE | 2016-11-16 05:40 | NUR ---
Summary Chris is a pleasant and cooperative pt . He has denied pain. He is alert and oriented x three.He has been continent of bladder and able to manage his own hygiene and clothes with stand by assist. He ambulates with single point cane gaitbelt and stand by assist of one staff.He slept in a pink recliner and said he did sleep better. When in the chair the chair alarm was activated.Call light within reach. Pt is room air.He has lower bilateral extremity edema of 3 + .He has had his SCD's off because they pop off .He reported that he would be going home in the morning.
[2016-11-16] MEDS: ALBUTEROL/IPRATROPIUM INHAL. 2.5mg-0.5mg/3ml Neb. AEROSOL SCH ×2 (07:06→10:08)
[2016-11-16 07:08] VITALS: O2SAT 97
[2016-11-16 08:00] VITALS: BP 150/71; PULSE 69; RESP 20; TEMP 97.5
[2016-11-16] MEDS: CLOPIDOGREL 75 MG TABLET PO SCH (08:58)
[2016-11-16] MEDS: DOCUSATE SODIUM 100 MG CAPSULE PO SCH (08:58)
[2016-11-16] MEDS: PredniSONE 10 MG TABLET PO SCH (08:58)
[2016-11-16] MEDS: LOSARTAN 50 MG TABLET PO SCH (08:59)
[2016-11-16] MEDS: POLYETHYL.GLYCOL 3350 PACKET 17gm PO SCH (08:59)
[2016-11-16] MEDS: GUAIFENESIN LA 600 MG TABLET PO SCH (08:59)
[2016-11-16 09:00] VITALS: BP 130/56; PULSE 71
[2016-11-16] MEDS: AMLODIPINE 5 MG TABLET PO SCH (09:00)
[2016-11-16] MEDS: CYANOCOBALAMIN (B-12) 500mcg TABLET PO SCH (09:00)
[2016-11-16] MEDS: FLUTICASONE NASAL SPRAY 50 MCG EA NOSTRIL SCH (09:01)
--- NOTE | 2016-11-16 09:39 | NUR ---
CM ANTICIPATED D/C DATE TODAY. TEAM IS RECOMMENDING SHOWER CHAIR FOR PT. THIS WORKER MET WITH PT IN DINING ROOM, DISCUSSED D/C DATE TODAY AND IS AWARE AND EXCITED TO GET HOME. PT STATED HE WOULD PURCHASE A SHOWER CHAIR ON HIS OWN. PT STATED [facility] WOULD BE PICKING HIM UP AND GAVE PERMISSION FOR THIS WORKER TO CONTACT ANDREA. THIS WORKER CALLED PT'S GRANDSON-ANDREA. CONFIRMED WITH ANTHONY THAT PT WOULD BE PURCHASING A SHOWER CHAIR, ANTHONY WAS IN AGREEMENT. ANDREA STATED HE WOULD BE PICKING UP PT EARLY THIS AFTERNOON WHEN PT DISCHARGES. Addendum: 11/16/16 at 0944 by MARY CORRIGAN Amended: Links added.
--- NOTE | 2016-11-16 10:01 | NUR ---
CM OXYGEN NEEDS AT DC: PT IS BEING SERVICED BY [facility] FOR OXYGEN. PORTABLE IS BEING DELIVERED TO HIS ROOM. PT NEEDS TO CALL [facility] AT TIME OF DC, AND THEY WILL MEET HIM AT HOME TO SWITCH OUT THE OLD CONCENTRATOR AND REPLACE IT WITH A NEW, WORKING CONCENTRATOR. HOME HEALTH: ORDERS WERE FAXED TO [facility]. THIS WORKER CALLED MARIO ALBERTO ABOUT THIS, REVIEWED THIS.
[2016-11-16 10:10] VITALS: O2SAT 91
[2016-11-16] MEDS ORDERED: LOSA50TA52 PO (10:29)
[2016-11-16] MEDS ORDERED: AMLO5TAB2 PO (10:29)
[2016-11-16] MEDS ORDERED: CLOP75TA33 PO (10:29)
[2016-11-16] MEDS ORDERED: BUDE10.2 ORAL INH (10:29)
[2016-11-16] MEDS ORDERED: ALBU8.5H INH (10:29)
[2016-11-16] MEDS ORDERED: POLY17PO18 PO (10:29)
[2016-11-16 11:16] VITALS: BP_SYST 125; BP_SYST 145; BP_DIAS 62; BP_DIAS 66; PULSE 82; PULSE 92
--- NOTE | 2016-11-16 14:00 | NUR ---
Shift summary Patient ambulating with single point cane, stand by assist, gait belt. Continent of bladder this shift. Transfers with stand by assist. Patient not on oxygen at this time. Denies shortness of breath. Patient feeds self, takes meds whole. Patient refused to wear JORDY hose today and stated he had a bath last night and didn't need one today. Denies pain. Patient looking forward to going home. Worked with PT and OT this shift.
--- NOTE | 2016-11-16 14:10 | NUR ---
Discharge Patient grandson here to transport patient home. Discharge instructions discussed with patient and his grandson. Returned patient's home medications that had been secured at admit. Discussed medications orders for home. Informed patient and grandson of follow up appointment with Dr. Schultz on 12/06/2016. Patient and grandson requested prescriptions to be called to [facility] pharmacy. Patient and grandson verbalized understanding of discharge instructions and had no questions. Antonia called by to inform of patient discharge. Patient discharged home in good condition with his belongings and with O2 tanks that belonged to [facility]. Patient escorted to front [facility] in wheelchair by nursing and transported home in private vehicle with grandlynn. Patient thanked staff for the good care he received while on IRU. Prescriptions called in to [facility] pharmacy as requested
== END 2016-11-16 14:10 | disposition home health service (06) | DRG 945 ==
PROVIDERS: ADMIT Family Medicine; ATTEND Family Medicine
PROC: F07Z9FZ Gait Training/Functional Ambulation Treatment using Assistive, Adaptive, Supportive or Protective Equipment (ICD-10-PCS; principal; 2016-11-05)
PROC: F07M6ZZ Therapeutic Exercise Treatment of Musculoskeletal System - Whole Body (ICD-10-PCS; 2016-11-05)
PROC: F08Z4ZZ Home Management Treatment (ICD-10-PCS; 2016-11-05)
DX: R53.1 Weakness (principal); G93.40 Encephalopathy, unspecified; I50.33 Acute on chronic diastolic (congestive) heart failure; I13.0 Hypertensive heart and chronic kidney disease with heart failure and stage 1 through stage 4 chronic kidney disease, or unspecified chronic kidney disease; I50.42 Chronic combined systolic (congestive) and diastolic (congestive) heart failure; E44.1 Mild protein-calorie malnutrition; J44.1 Chronic obstructive pulmonary disease with (acute) exacerbation; N17.9 Acute kidney failure, unspecified; G72.9 Myopathy, unspecified; I48.91 Unspecified atrial fibrillation; N18.3 Chronic kidney disease, stage 3 (moderate); I25.10 Atherosclerotic heart disease of native coronary artery without angina pectoris; E78.5 Hyperlipidemia, unspecified; N40.0 Benign prostatic hyperplasia without lower urinary tract symptoms; G47.33 Obstructive sleep apnea (adult) (pediatric); E66.9 Obesity, unspecified; Z86.73 Personal history of transient ischemic attack (TIA), and cerebral infarction without residual deficits; Z68.39 Body mass index [BMI] 39.0-39.9, adult; Z95.1 Presence of aortocoronary bypass graft; Z79.52 Long term (current) use of systemic steroids; Z87.891 Personal history of nicotine dependence; M79.601 Pain in right arm; M79.89 Other specified soft tissue disorders
CPT/HCPCS: 36415; 36416; 80048; 80069; 81003; 82570; 83735; 84300; 85025; 93005; 94640

== ENCOUNTER 2016-12-25 20:18 | Emergency (ER) | payer MEDICARE, BC ==
[~2016-12-25] VITALS: Ht 165.1 cm; Wt 104.5 kg
[~2016-12-25 20:18] MED LIST changes: +ALBU8.5H INH; +AMLO5TAB2 PO; -ATOR80TA76 PO; -BISA10SU8 RECTALLY; +BUDE10.2 ORAL INH; -CIPR-212 PO; -GUAI600T PO; -IPRA3AMP AEROSOL; +POLY17PO18 PO; -PRED20TA PO
[2016-12-25 20:20] VITALS: Ht 165.1 cm; Wt 104.5 kg
--- OUTSIDE RECORDS SUMMARY | 2016-12-25 20:24 | XMS REPORT | Continuity of Care Document ---
Author Author [facility] Organization [facility] Address Unknown Phone Unavailable Support Name Relationship Address Phone RIZWAN FAIRBANKS MD Caregiver [address] [place] [address] Unavailable RIZWAN FAIRBANKS MD Caregiver [address] [place] [address] Unavailable WERNER ALARCON MD Caregiver [address] [place] [address] Unavailable ANDREA PICHARDO Next Of Kin [address], [place] [id number] Insurance Providers Guarantor Elie Pichardo Address [address] [place] [address] Email DENIED 11-05-16 Payer [employer] Federal Policy Number [id number] Subscriber's Name FrankieElie Donohue Relationship 18 Self Group Number [id number] Payer Medicare Policy Number [id number] Subscriber's Name FrankieBobElie R Relationship 18 Self Advance Directives Directive Response Recorded Date/Time Dr Ordered Resuscitation Status Full Code, unverified 11/05/16 2:19pm Resuscitation Documents on File No 11/05/16 3:35pm DPOA for Healthcare Only No 11/06/16 2:48pm Living Will No 11/05/16 3:35pm Advanced Directive or Resuscitation Comments wants info on advanced directives to make son DPOA 11/05/16 3:35pm Advance Directive Consult Completed 11/11/16 3:57pm Problems Active Problems Medical Problem Onset Date Status Acute exacerbation of chronic bronchitis Unknown Acute Acute kidney injury Unknown Resolved Atrial fibrillation Unknown Chronic BPH (benign prostatic hypertrophy) Unknown Chronic CAD (coronary artery disease) Unknown Chronic CHF (congestive heart failure) Unknown Chronic CKD (chronic kidney disease), stage III Unknown Chronic COPD (chronic obstructive pulmonary disease) Unknown Chronic Cognitive decline Unknown Chronic Dyslipidemia Unknown Chronic Elevated liver function tests Unknown Acute Encephalopathy Unknown Acute Fall in elderly patient Unknown Acute Grief Unknown Chronic Hypertension Unknown Chronic Leukocytosis Unknown Acute Myopathy Unknown JAYLA (obstructive sleep apnea) Unknown Chronic Obesity (BMI 30-39.9) Unknown Chronic Pain and swelling of right upper extremity Unknown Acute Protein-calorie malnutrition, mild Unknown Acute Rhabdomyolysis Unknown Resolved Systolic and diastolic CHF, chronic Unknown Chronic TIA (transient ischemic attack) Unknown Chronic Ventricular tachyarrhythmia 11/04/2016 Acute Past Problems Medical Problem Onset Date Atrial fibrillation, new onset Unknown Elevated troponin Unknown Fall at home Unknown Rhabdomyolysis Unknown TIA (transient ischemic attack) Unknown Medications Current Home Medications Medication Dose Units Route Directions Days Qty Instructions Start Date Albuterol Sulfate (Proair Hfa 90 Mcg/Actuation) 8.5 Gm Hfa.aer.ad 2 Puff Inhalation Every 4 Hours as needed for Shortness Of Air/Wheezing 1 Inhaler 11/16/16 Amlodipine Besylate 5 Mg Tablet 5 Mg Oral Daily 30 Days 30 Tablet 06/24 Budesonide/Formoterol Fumarate (Symbicort 160-4.5 Mcg Inhaler) 10.2 Gm Hfa.aer.ad 2 Puff Oral Inhalation Twice A Day 30 Days 11/16/16 Clopidogrel Bisulfate (Clopidogrel) 75 Mg Tablet 75 Mg Oral Daily 30 Days 11/16/16 Cyanocobalamin (Vitamin B-12) (Vitamin B-12) 500 Mcg Tablet 1,000 Mcg Oral Daily 30 Days 60 Tablet 11/05/16 Fluticasone Propionate (Fluticasone Prop 50 Mcg/Actuation Nasal [place]) 120 [place]/16 G [place] 2 [place] Each Nostril Daily 30 Days 11/05/16 Losartan Potassium 50 Mg Tablet 50 Mg Oral Daily 30 Days 11/16/16 Nitroglycerin 0.4 Mg Tab.subl 0.4 Mg Sublingual Every 5 Minutes X 3 as needed for Chest Pain 11/01/16 Polyethylene Glycol 3350 (Healthylax) 17 Gm Powd.pack 17 G Oral Daily 30 Days 11/16/16 Sennosides/Docusate Sodium (Senna Plus Tablet) 1 Tab Tablet 2 Tab Oral Twice A Day as needed for Constipation 30 Days 120 Tablet 11/05/16 Past Home Medications Medication Directions Ordered Status Atorvastatin Calcium 80 Mg Tablet, 80 Mg Oral Bedtime 11/01/16 Discontinued Bisacodyl 10 Mg Supp.rect, 10 Mg Rectally Twice A Day as needed for Constipation 11/05/16 Discontinued Ciprofloxacin Hcl (Cipro) 500 Mg Tablet, 500 Mg Oral Every 12 Hours 11/05/16 Discontinued Clopidogrel Bisulfate (Clopidogrel) 75 Mg Tablet, 75 Mg Oral Daily 11/01/16 Discontinued Guaifenesin (Mucinex) 600 Mg Tbbp.12hr, 600 Mg Oral Twice A Day 11/05/16 Discontinued Ipratropium/Albuterol Sulfate (Iprat-Albut 0.5-3(2.5) Mg/3 Ml) 3 Ml Ampul.neb, 3 Ml Aerosol Tx. Resp.tx 4 Times A Day 11/05/16 Discontinued Ipratropium/Albuterol Sulfate (Iprat-Albut 0.5-3(2.5) Mg/3 Ml) 3 Ml Ampul.neb, 3 Ml Aerosol Tx. Every 2 Hours as needed for Wheezing 11/05/16 Discontinued Losartan Potassium 50 Mg Tablet, 50 Mg Oral Daily 11/01/16 Discontinued Prednisone 20 Mg Tablet, 20 Mg Oral Give With Breakfast 11/05/16 Discontinued Social History Social History Problem Response Recorded Date/Time Onset Date Status Reason for Hospitalization Rhabdo, weakness, COPD 11/16/2016 11:46am Not Applicable Not Applicable Hx Substance Use No 11/01/2016 10:45am Not Applicable Not Applicable Hx Alcohol Use Y 1 BEER PER MONTH 11/01/2016 10:45am Not Applicable Not Applicable Has the pt used tobacco in the last 12 months No 11/05/2016 3:40pm Not Applicable Not Applicable Tobacco Usage none 10/04/2015 12:53pm Not Applicable Not Applicable Query Response Start Date Stop Date Smoking Status Former smoker Hospital Discharge Instructions Instructions: Care Instructions: Reason for Hospitalization: Rhabdo, weakness, COPD Discharge Diet: regular diet Discharge Activity: Activity as tolerated Follow Up Appointments: Dr. Marlee Alarcon on 12/06/16 at 1:30 pm for Hosp. follow-up. [address] [place] [address]. . Pending Lab / Results: No Pending Lab Patient Instructions: Take medications as perscribed. Follow up with Dr Alarcon as scheduled Use oxygen as needed to keep sats greater than 92% Wound/Incision Care: N/A Pain Management/Treatment: Tylenol as needed for pain control Expected Signs/Symptoms: Continued improvement in symptoms including strength Notify Physician If: Fever, shortness of breath, chest pain, vomiting or diarrhea During Business Hours:: Please call the physician's office After Business Hours:: Please call [phone] and have the copy camera operator page the physician. Condition at time of discharge: Fair Plan of Care Discharge Date 11/16/16 2:10pm Disposition 06 HOME HEALTH SERVICE Instructions/Education Provided COPD (Chronic Obstructive Pulmonary Disease) ( GEN) Prescriptions See Medication Section Care Plan and Goals See Discharge Instructions Section Functional Status Query Response Date Recorded Mobility Status Ambulatory w/assist November 16, 2016 11:46am Assistive Devices Cane November 16, 2016 11:46am Activity Limitations Weakness November 16, 2016 11:46am Feeding Ability Independent November 16, 2016 11:46am Toileting Ability Assist November 14, 2016 4:43pm Grooming Ability Assist November 16, 2016 11:46am Dressing Ability Assist November 16, 2016 11:46am Driving Ability Dependent November 16, 2016 11:46am Housework Ability Dependent November 16, 2016 11:46am Meal Preparation Ability Dependent November 16, 2016 11:46am Stair Climbing Ability Assist November 16, 2016 11:46am Ability to complete ADL's impeded by Impaired Mobility November 16, 2016 11:46am Cognitive/Perceptual Impairments Impaired hearing November 16, 2016 11:46am Visual Assistive Devices Glasses With patient November 14, 2016 4:43pm Hearing Assistive Devices Left hearing aid Right hearing aid With patient November 08, 2016 1:23pm Preferred Method of Learning Demonstration Listening Hands on November 14, 2016 4:43pm Allergies, Adverse Reactions, Alerts No known allergies. Immunizations Immunization Event Date Type Not Given Reason Dose Number Lot Number Wood Veneer Taper VIS Given Influenza, high dose seasonal 11/02/16 Administered 1 [id number] Sanofi Pasteur 03/14/15 Pneumococcal conjugate PCV 13 11/02/16 Administered 1 [id number] Pfizer Query Response on File Recorded Date/Time Hx Influenza Vaccination No 11/05/16 3:40pm Hx Pneumococcal Vaccination No 11/05/16 3:40pm Hx Influenza Vaccination No 11/05/16 3:40pm Influenza Vaccine Hx 11/02/16 11/06/16 1:05am Vital Signs Acute Vital Signs Vital Response Date/Time Temperature (Fahrenheit) 97.5 deg F (96.8 - 99.1) 11/16/2016 8:00am Temperature (Calculated Celsius) 36.42146 degrees C (36.0 - 37.3) 11/16/2016 8:00am Pulse Rate (adult) 82 bpm (60 - 100) 11/16/2016 11:16am Respiratory Rate 20 breaths/min (10 - 20) 11/16/2016 8:00am O2 Sat by Pulse Oximetry 91 % (90 - 100) 11/16/2016 10:10am Oxygen Delivery Method Room Air 11/15/2016 8:19pm Oxygen Delivery Method Room Air 11/16/2016 8:00am Oxygen Flow Rate 0.50 L/min 11/15/2016 10:52am Blood Pressure 145/66 mm Hg 11/16/2016 11:16am Blood Pressure Source Automatic Cuff 11/16/2016 8:00am Blood Pressure 125/62 mm Hg 11/16/2016 11:16am Height (Feet) 5 feet 11/14/2016 9:09am Height (Inches) 4.00 inches 11/14/2016 9:09am Weight (Kilograms) 104.900 kg 11/16/2016 8:00am Body Mass Index (BMI) 39.0 11/05/2016 3:30pm Results Laboratory Results Test Name Result Units Flags Reference Collection Date/Time Result Date/ Time Comments Neutrophils % (Manual) 81.0 % H 33-66 [...] Time 26.9 SEC 24-36 11/01/2016 3:13pm 3:33pm Total Bilirubin 0.70 MG/DL 0.20-1.30 11/05/2016 4:40am 11/05/2016 5: 14am Alkaline Phosphatase 78 U/L 38-126 11/05/2016 4:40am 11/05/2016 5:14am Total Protein 5.8 G/DL L 6.3-8.2 11/05/2016 4:40am 11/05/2016 5:14am Globulin 2.7 G/DL [...] by subsequent Troponin value, multiplied by 100) JW-Tha-D-Type Natriuretic Peptide 80386 PG/ML H 0-175 11/01/2016 10:46am 11/01/2016 11:16am Rule in cut points: <50 years old=450; 50-75 years old=900; >75 years old=1800; When utilizing ProBNP rule-in cut points, adjustment for impaired renal function is typically not required. Vitamin B12 Level 261 PG/ML 239-931 11/01/2016 3:13pm 11/03/2016 2: 18am Thyroid Stimulating Hormone (TSH) 1.65 MIU/L 0.47-4.68 11/01/2016 10: 06am 11/01/2016 11:37am Thyroid Stimulating Hormone (TSH) 1.53 MIU/L 0.47-4.68 11/01/2016 3: 13pm 11/01/2016 4:19pm Prealbumin 10.4 MG/DL L 17.6-36.0 11/01/2016 3:13pm 11/01/2016 3:42pm Urine WBC 10-20 /HPF H 0-5 11/02/2016 [...] mg/dL H 75-110 11/01/2016 10:34am 11/01/2016 10:37am White Blood Count 11.9 T/MM3 H 4.5-11.0 11/15/2016 4:5211/15/2016 5: 17am Red Blood Count 4.09 M/MM3 L 4.50-5.90 11/15/2016 4:5211/15/2016 5: 17am Hemoglobin 12.1 GM/DL L 13.5-17.5 11/15/2016 4:5211/15/2016 5:17am Hematocrit 37.7 % L 41-53 11/15/2016 4:5211/15/2016 5:17am Mean Corpuscular Volume 92.2 UM3 80-100 11/15/2016 4:5211/15/2016 5: 17am Mean Corpuscular Hemoglobin 29.6 UUG 26-34 11/15/2016 4:522016 5:17am Mean Corpuscular Hemoglobin Concent 32.1 GM/DL 31-37 11/15/2016 4:5211/15/2016 5:17am RDW Standard Deviation 49.2 FL 36.9-50.2 11/15/2016 4:5211/15/2016 5 :17am Platelet Count 260 T/MM3 130-400 11/15/2016 4:5211/15/2016 5:17am Mean Platelet Volume 10.0 UM3 9.4-12.4 11/15/2016 4:5211/15/2016 5: 17am Neutrophils (%) (Auto) 74.9 % H 33-66 11/15/2016 4:5211/15/2016 5: 17am Lymphocytes (%) (Auto) 15.4 % L 23-45 11/15/2016 4:5211/15/2016 5: 17am Monocytes (%) (Auto) 6.5 % 0-9.0 11/15/2016 4:5211/15/2016 5:17am Eosinophils (%) (Auto) 2.4 % 0-4 11/15/2016 4:5211/15/2016 5:17am Basophils (%) (Auto) 0.1 % 0-2 11/15/2016 4:5211/15/2016 5:17am Immature Granulocyte % (Auto) 0.7 % H 0.0-0.5 11/15/2016 4:2016 5:17am Absolute Neutrophils (auto) 8.9 T/MM3 H 1.8-7.7 11/15/2016 4:2016 5:17am Absolute Lymphocytes (auto) 1.8 T/MM3 1-4.8 11/15/2016 4:2016 5:17am Absolute Monocytes (auto) 0.8 T/MM3 0-0.8 11/15/2016 4:11/15/2016 5:17am Absolute Eosinophils (auto) 0.3 T/MM3 0-0.5 11/15/2016 4:2016 5:17am Absolute Basophils (auto) 0.0 T/MM3 0-0.2 11/15/2016 4:11/15/2016 5:17am Absolute Immature Granulocyte (auto 0.08 T/MM3 H 0.00-0.03 11/15/2016 4: 11/15/2016 5:17am Icterus Index < 2 0-7 11/15/2016 4:11/15/2016 5:32am Chemistry Specimen Hemolysis < 15 0-25 11/15/2016 4:11/15/2016 5 :32am 0-25: Specimen Exhibited No Hemolysis. Turbidity < 20 0-20 11/15/2016 4:11/15/2016 5:32am Sodium Level 139 MEQ/L 134-144 11/15/2016 4:11/15/2016 5:32am Potassium Level 4.6 MEQ/L 3.6-5 11/15/2016 4:11/15/2016 5:32am Chloride Level 103 MEQ/L 98-107 11/15/2016 4:11/15/2016 5:32am Carbon Dioxide Level 29 MEQ/L 22-30 11/15/2016 4:11/15/2016 5: 32am Anion Gap 7 MEQ/L 5-15 11/15/2016 4:11/15/2016 5:32am Blood Urea Nitrogen 35.0 MG/DL H 9-20 11/15/2016 4:5211/15/2016 5: 32am Creatinine 1.3 MG/DL 0.8-1.5 11/15/2016 4:5211/15/2016 5:32am BUN/Creatinine Ratio 27 RATIO H 6-26 11/15/2016 4:52am 11/15/2016 5: 32am Glomerular Filtration Rate Calc 53 11/15/2016 4:5211/15/2016 5: 32am Glucose Level 80 MG/DL 75-110 11/15/2016 4:5211/15/2016 5:32am Calculated Osmolality 275 MOSM/KG 261-280 11/15/2016 4:5211/15/2016 5:32am Calcium Level 8.9 MG/DL 8.4-10.2 11/15/2016 4:5211/15/2016 5:32am Phosphorus Level 3.9 MG/DL 2.5-4.5 11/13/2016 5:0811/13/2016 5:43am Albumin 3.4 G/DL L 3.5-5.0 11/13/2016 5:0811/13/2016 5:43am Magnesium Level 2.5 MG/DL H 1.6-2.3 11/15/2016 4:5211/15/2016 5:32am Urine Random Creatinine 82.2 MG/DL 11/13/2016 12:2111/13/2016 12: 43am Urine Random Sodium 32 MEQ/L 30-90 11/13/2016 12:2111/13/2016 12: 43am Urine Collection Type VOIDED-NOT CC-MIDSTR 11/13/2016 12:11/13 12:34am Urine Color YELLOW YELLOW 11/13/2016 12:2211/13/2016 12:34am Urine Turbidity CLEAR CLEAR 11/13/2016 12:11/13/2016 12:34am Urine Specific [place] 1.015 1.015-1.025 11/13/2016 12:222016 12:34am Urine pH 5.0 5.0-8.0 11/13/2016 12:22am 11/13/2016 12:34am Urine Leukocyte Esterase NEGATIVE NEGATIVE 11/13/2016 12:22am 2016 12:34am Urine Nitrite NEGATIVE NEGATIVE 11/13/2016 12:22am 11/13/2016 12: 34am Urine Protein NEGATIVE NEGATIVE 11/13/2016 12:22am 11/13/2016 12: 34am Urine Glucose (UA) NEGATIVE NEGATIVE 11/13/2016 12:22am 11/13/2016 12 :34am Urine Ketones NEGATIVE NEGATIVE 11/13/2016 12:22am 11/13/2016 12: 34am Urine Urobilinogen 0.2 EU/DL NORMAL 11/13/2016 12:22am 11/13/2016 12: 34am Urine Bilirubin NEGATIVE NEGATIVE 11/13/2016 12:22am 11/13/2016 12: 34am Urine Blood NEGATIVE NEGATIVE 11/13/2016 12:22am 11/13/2016 12:34am Microbiology Results Procedure Source Organism/Result Collection Date/Time Result Date/Time Result Status Blood Culture Peripheral/Iv Start NO GROWTH AFTER 5 DAYS 11/01/2016 10: 47am 11/06/2016 10:50am Final Urine Culture Not Provided ENTEROBACTER CLOACAE 11/02/2016 7:58am 2016 7:34am Final Name: ELIE PICHARDO Unit #: [id number] : 1935 Sex: M Admit Date: 11/05/16 Loc / Svc: IRU Discharge Date: DIAGNOSTIC IMAGING REPORT Report #: [id number] [facility] YARED [place] Indication: ITS.REASON: RUE swelling at AC site PROCEDURE: US VENOUS DUPLEX, UPPER EXT RT: Encounter: Initial Comparison: None Technique: Color Doppler duplex and grayscale sonographic imaging of the right upper extremity was performed. FINDINGS: There is no evidence for acute deep venous thrombosis in the right arm. The right internal jugular, subclavian, axillary and paired brachial veins were evaluated; compression and augmentation were applied where possible. In addition, color and pulsed Doppler demonstrate appropriate spontaneous flow, cardiac pulsatility and variation with respiration. There is a 2.5 x 0.7 x 4 cm mixed echogenicity region in the antecubital fossa area of swelling consistent with a hematoma. IMPRESSION: No evidence of acute DVT in the right upper extremity. Hematoma in the antecubital fossa. . Procedures Procedure Status Date Provider(s) Cciiv4 vac no prsv 0.5 ml im Completed 11/01/16 LAISHA DECKER DO Pcv13 vaccine im Completed 11/01/16 LAISHA DECKER DO Immunization admin Completed 11/01/16 LAISHA DECKER DO Immunization admin each add Completed 11/01/16 LAISHA DECKER DO Tte w/o doppler complete Completed 11/01/16 LORI LAW MD INTRODUCTION OF SERUM/TOX/VACCINE INTO MUSCLE, PERC APPROACH Completed LAISHA DECKER DO ULTRASONOGRAPHY OF HEART WITH AORTA Completed 11/02/16 LORI LAW MD Encounters Encounter Location Arrival/Admit Date Discharge/Depart Date Attending Provider Discharged Inpatient [facility] 11/05/16 1:37pm 11/16/16 2:10pm RIZWAN FAIRBANKS MD Discharged Inpatient [facility] 11/01/16 11:56am 11/05/16 1:35pm LAISHA DECKER DO
--- OUTSIDE RECORDS SUMMARY | 2016-12-25 20:24 | XMS REPORT | Continuity of Care Document ---
Author Author [facility] Organization [facility] Address Unknown Phone Unavailable Allergies [...] DO 414.00 CORON ATHEROSCLER NOS TYPE VESSEL, [place] OR GRAFT 02/12/2013 Serge Blankenship DO 435.9 [...] 5.0-8.0 Protein Pos 1+ NA Negative Specific [place] 1.010 NA 1.003-1.030 UA Collection type Clean Catch NA Urobilinogen 0.2 mg/dL <=1.0 Urine Microscopic - 08/18/16 11:32 Bacteria Numerous NA Epithelial Cells 2 /hpf RBC, Urine 10 /hpf 0-2 WBC, Urine >50 /hpf 0-4 Encounters ACCT No. Visit Date/Time Discharge Status Pt. Type Provider Facility Loc./Unit Complaint [id number] 02/18/2014 09:34:00 2013 12:20:00 [id number] 02/12/2013 17:37:00 2012 21:15:00 DIS Inpatient Pattie INMAN [facility] [id number]
[2016-12-25] MEDS ORDERED: AMLO5TAB2 PO (20:33)
[2016-12-25] MEDS ORDERED: BUDE10.2 PO (20:33)
[2016-12-25] MEDS ORDERED: CLOP75TA PO (20:35)
[2016-12-25] MEDS ORDERED: LOSA50TA52 PO (20:35)
--- NOTE | 2016-12-25 20:41 | NUR ---
CT PT TO CT BY CART AT THIS TIME.
--- NOTE | 2016-12-25 20:51 | NUR ---
RETURN PT RETURNED FROM CT BY CART AT THIS TIME.
--- NOTE | 2016-12-25 20:54 | ERPDOC ---
Departure Disposition Decision Date: December 25, 2016 Disposition Decision Time: 22:50 Disposition: 01 DISCHARGED HOME, SELF-CARE Impression Impression Impression: Primary Impression: TIA (transient ischemic attack) Transient cerebral ischemia type: other Qualified Codes: G45.8 - Other transient cerebral ischemic attacks and related syndromes Additional Impressions: UTI (urinary tract infection) Urinary tract infection type: acute cystitis Hematuria presence: without hematuria Qualified Codes: N30.00 - Acute cystitis without hematuria Elevated systolic blood pressure reading with diagnosis of hypertension Condition: Improved Seen By: Mid-level only Referrals: WERNER ALARCON MD (Family) Patient Instructions: Transient Ischemic Attack (DC), Transient Ischemic Attack (ED), Urinary Tract Infection in Men (ED) Problems/Meds/Labs Reviewed?: Yes Medications reviewed and manag: Yes Additional Instructions: Your CT findings did not show any acute findings. Your symptoms are consistent with a TIA. Your labs showed an urinary tract infection. Take cephalexin 500mg three times daily for 7 days. Follow treatment plan. Take your prescribed blood pressure medication as directed. Follow with Dr. Alarcon next week for re-evaluation. Follow up care ordered?: Yes Mental Status: Alert, Oriented Scripts Cephalexin (Cephalexin) 500 Mg Tablet 1 TAB PO TID for 7 Days, #21 TAB Prov: VIVIENNENEGARHarmeet Kaufman APRN 12/25/16 HPI - General Medical General Chief Complaint: Altered Mental Status Stated Complaint: DIZZINESS,CONFUSION Time Seen by Provider: 20:45 Source: patient, family HPI - General Medical Initial Comments 81 YO M brought to ED by EMS for altered mental status. Son who accompanies patient says that he called his father this evening and father was talking in an "alphabet soup". Patient remembers talking to his son and having difficulty findings words. Son says patient was dx. with TIAs a few years ago and had similar difficulty with "alphabet soup". Patient was started on Plavix at that time, but does not belief patient is taking prescribed Plavix. Patient states he has been well. BP is elevated on arrival to ED. Patient is unsure if he has taken is BP medications today. Patient denies fever, chills, CP, SOA, blurred vision, LAO, ataxia. Patient does live by himself, denies any trauma or falls. Associated Symptoms: DENIES: chest pain, cough, diaphoresis, fever/chills, headaches, loss of appetite, malaise, nausea/vomiting, rash, seizure, shortness of breath, syncope, weakness Allergies: Coded Allergies: No Known Allergies (Unverified , 12/25/16) Past History Patient Surgical History CABG x5 (2008) left wrist ORIF (2011) Never had colonoscopy Past Medical History Metabolic: hypercholesterolemia, hypertension ENMT: sleep apnea Cardiac: CAD, CHF Respiratory: COPD, other, pulmonary embolus GI: GERD Male: BPH, UTI, kidney stones Neurological: TIA Musculoskeletal: osteoarthritis Psychological: depression Surgical History Cardiac: cardiac bypass Family History Family PMH: FOUND: CAD, CHF, COPD Vaccines Hx Influenza Vaccination: No Hx Pneumococcal Vaccination: No Social History # of Packs/Tins per Day: 1 # of Years: 35 Substance Use Type: does not use Alcohol Intake: occasionally, other Last Drink: unknown Marital Status: Single, Housing: house Service: Yes ([employer]) Current Occupational Status: 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 Review of Systems Constitutional Constitutional: DENIES: chills, dizziness, fever, weakness Eyes General: DENIES: erythema, exudate Lids/Accessories: DENIES: erythema, swelling Vision: DENIES: blurring ENMT Ears: DENIES: pain Sinuses: DENIES: congestion, rhinorrhea Mouth/Throat: DENIES: sore throat Cardiovascular Cardiac: DENIES: chest pain, murmur Rhythm/Rate: DENIES: palpitations Pulmonary Respiratory: DENIES: cough, dyspnea GI Upper Abdomen: DENIES: nausea, pain, vomiting Lower Abdomen: DENIES: diarrhea, pain General: DENIES: dysuria, pain Musculoskeletal General: DENIES: joint pain, pain, tenderness Integumentary Skin: DENIES: color change, itching, rash Neurological General: DENIES: ataxia, change in strength, numbness, paralysis/paresis, weakness Psychiatric Psychiatric: DENIES: anxiety, depression, nervousness Physical Exam General General Nourishment: well nourished, well developed, no acute distress, adult General Body Habitus: well groomed Vitals and Pain First Documented Vital Signs Date Time Temp Pulse Resp B/P Pulse Ox O2 Delivery O2 Flow Rate FiO2 12/25/16 20:20 97.8 63 20 178/76 94 Room Air Weight: Kilograms: 104.500 Height (feet): 5 Height (inches): 5.00 Triage Pain Scale: Eyes (brief) Eyes Brief: found: EOMI, PERRL ENMT (brief) ENMT Brief: FOUND: TM clear, TM good light reflex, mucosa moist, NOT FOUND: nasal exudate, nasal swelling, pharnyx erythema Neck (brief) Neck: FOUND: trachea midline, NOT FOUND: adenopathy, spasm, tenderness, thyromegaly Respiratory (brief) Respiratory: FOUND: clear all sw[place], equal bilaterally, symmetrical Cardiovascular (brief) Cardiac: FOUND: regular rate, regular rhythm Capillary Refill: <2 sec Pulses: all distal extremities, equal, strong Abdomen (brief) Abdominal Brief: FOUND: bowel normo active x4, soft, NOT FOUND: distended, tender Musculoskeletal (brief) Musculoskeletal Brief: NOT FOUND: deformity, tenderness Integumentary (brief) Integumentary Brief: FOUND: dry, warm Neurologic (brief) Neurological Brief: FOUND: CN w/o gross def to obs Neurologic Cranial Nerves: NOT FOUND: facial asymmetry Motor : Motor Location: foot extension, foot flexion, net finisher strength Motor Degree: 5 Sensation: FOUND: soft touch intact x4 ext DTR's : DTR Side: bilateral DTR Location: Triceps, Patellar DTR Grade: 2+ Psychiatric (brief) Psychiatric Brief: FOUND: alert, normal affect, oriented Differential Diagnoses Considering: CVA, Hypo/Hyperkalemia, Hypo/Hypernatremia, Intracranial Hemorrhage, TIA, UTI Progress Results/Orders Orders Procedure Category Date Status Time Ct Head W/O Contrast CT 12/25/16 Taken Cmp - Comprehensive LAB 12/25/16 Complete Metabolic 21:07 Cbc W/Auto LAB 12/25/16 Complete Diff-Reflex Manual 21:07 Troponin I W LAB 12/25/16 Complete Hemolysis Index 21:07 UA, LAB 12/25/16 Complete Dip&Micro(Complete) & 21:21 Cephalexin Capsule PHA 12/25/16 Complete (Keflex) 23:00 Lab Results Laboratory Tests Test 12/25/16 21:21 12/25/16 21:26 Urine Collection Type Voided-not cc-midstr Urine Color Yellow Urine Turbidity Clear Urine pH 7.0 Urine Specific [place] 1.010 Urine Protein Negative Urine Glucose (UA) Negative Urine Ketones Negative Urine Blood Trace-intact Urine Nitrite Negative Urine Bilirubin Negative Urine Urobilinogen 0.2EU/DL Urine Leukocyte Esterase 3+ Urine RBC 0-1/HPF Urine WBC 30-50/HPF Urine Squamous Epithelial Cells 0-5 Urine Bacteria Trace Urine Culture Indicated Cult not indicated White Blood Count 7.8T/MM3 Red Blood Count 4.25M/MM3 Hemoglobin 12.7GM/DL Hematocrit 38.3% Mean Corpuscular Volume 90.1UM3 Mean Corpuscular Hemoglobin 29.9UUG Mean Corpuscular Hemoglobin Concent 33.2GM/DL RDW Standard Deviation 44.7FL Platelet Count 202T/MM3 Mean Platelet Volume 9.7UM3 Immature Granulocyte % (Auto) 0.1% Neutrophils (%) (Auto) 55.3% Lymphocytes (%) (Auto) 29.7% Monocytes (%) (Auto) 9.3% Eosinophils (%) (Auto) 5.1% Basophils (%) (Auto) 0.5% Absolute Immature Granulocyte (auto 0.01T/MM3 Absolute Neutrophils (auto) 4.3T/MM3 Absolute Lymphocytes (auto) 2.3T/MM3 Absolute Monocytes (auto) 0.7T/MM3 Absolute Eosinophils (auto) 0.4T/MM3 Absolute Basophils (auto) 0.0T/MM3 Turbidity < 20 Sodium Level 139MEQ/L Potassium Level 4.1MEQ/L Chloride Level 104MEQ/L Carbon Dioxide Level 29MEQ/L Anion Gap 6MEQ/L Blood Urea Nitrogen 14.0MG/DL Creatinine 1.1MG/DL Glomerular Filtration Rate Calc 64 BUN/Creatinine Ratio 13RATIO Glucose Level 83MG/DL Calculated Osmolality 268MOSM/KG Calcium Level 8.6MG/DL Total Bilirubin 0.50MG/DL Icterus Index < 2 Aspartate Amino Transf (AST/SGOT) 16U/L Alanine Aminotransferase (ALT/SGPT) 33U/L Alkaline Phosphatase 115U/L Troponin I < 0.012ng/ml Total Protein 5.2G/DL Albumin 2.9G/DL Globulin 2.3G/DL Albumin/Globulin Ratio 1.3RATIO Chemistry Specimen Hemolysis 19 Medications Current ED Medications Cephalexin HCl (Keflex) 500 mg O ONCE PO Last administered on 12/25/16 23:07 ; Start 12/25/16 at 23:00; Stop 12/25/16 at 23:01; Status DC CT CT : CT: Head no contrast (no acute intracranial findings) NEGAR PALAFOX ADMINISTRATIVE ASSISTANT December 25, 2016 20:54 NEGAR PALAFOX APRN December 25, 2016 20:54
--- OUTSIDE RECORDS SUMMARY | 2016-12-25 21:03 | XMS REPORT | Continuity of Care Document ---
Author Author [facility] Organization [facility] Address Unknown Phone Unavailable Allergies Active [...] DO 414.00 CORON ATHEROSCLER NOS TYPE VESSEL, [place] OR GRAFT 02/12/2013 Serge Blankenship DO 435.9 [...] 5.0-8.0 Protein Pos 1+ NA Negative Specific [place] 1.010 NA 1.003-1.030 UA Collection type Clean Catch NA Urobilinogen 0.2 mg/dL <=1.0 Urine Microscopic - 08/18/16 11:32 Bacteria Numerous NA Epithelial Cells 2 /hpf RBC, Urine 10 /hpf 0-2 WBC, Urine >50 /hpf 0-4 Encounters ACCT No. Visit Date/Time Discharge Status Pt. Type Provider Facility Loc./Unit Complaint [id number] 02/18/2014 09:34:00 2013 12:20:00 [id number] 02/12/2013 17:37:00 2012 21:15:00 DIS Inpatient Pattie INMAN [facility] [id number].10TN
--- NOTE | 2016-12-25 21:15 | NUR ---
REPORT RECEIVED FROM LATONIA WIGGINS. CARE ASSUMED.
--- NOTE | 2016-12-25 21:15 | NUR ---
DONTA PALAFOX APRN AT BEDSIDE.
--- NOTE | 2016-12-25 21:20 | NUR ---
STATUS SON AT BEDSIDE, PROVIDED VERBAL EDUCATION REQUESTED REGARDING TIA.
[2016-12-25 21:30] LABS: BLOOD, URINE TRACE-INTACT (NEGATIVE); COLOR,URINE YELLOW (YELLOW); LEUKOCYTE ESTERASE ,URINE 3+ (NEGATIVE); NITRITE,URINE NEGATIVE (NEGATIVE); UROBILINOGEN,URINE 0.2 EU/DL (NORMAL)
[2016-12-25 21:31] LABS: BASOPHILS % (AUTO) 0.5 % (0-2); EOSINOPHILS # (AUTO) 0.4 T/MM3 (0-0.5); EOSINOPHILS % (AUTO) 5.1 % (0-4); HCT - HEMATOCRIT 38.3 % (41-53); HGB - HEMOGLOBIN 12.7 GM/DL (13.5-17.5); IMMATURE GRANULOCYTE # (AUTO) 0.01 T/MM3 (0.00-0.03); IMMATURE GRANULOCYTE % (AUTO) 0.1 % (0.0-0.5); LYMPHOCYTES # (AUTO) 2.3 T/MM3 (1-4.8); LYMPHOCYTES % (AUTO) 29.7 % (23-45); MEAN CORPUSCULAR HGB 29.9 UUG (26-34); MEAN CORPUSCULAR HGB CONC(MCHC 33.2 GM/DL (31-37); MEAN CORPUSCULAR VOLUME 90.1 UM3 (80-100); MEAN PLATELET VOLUME 9.7 UM3 (9.4-12.4); MONOCYTES # (AUTO) 0.7 T/MM3 (0-0.8); MONOCYTES % (AUTO) 9.3 % (0-9.0); NEUTROPHILS #(AUTO)-ABSOLUTE 4.3 T/MM3 (1.8-7.7); NEUTROPHILS % (AUTO) 55.3 % (33-66); RED BLOOD COUNT 4.25 M/MM3 (4.50-5.90); WBC - WHITE BLOOD COUNT 7.8 T/MM3 (4.5-11.0)
[2016-12-25 21:40] LABS: ALBUMIN 2.9 G/DL (3.5-5.0); ALBUMIN/GLOBULIN RATIO 1.3 RATIO (1.1-2.2); ALKALINE PHOSPHATASE 115 U/L (38-126); ALT (SGPT) 33 U/L (21-72); ANION GAP 6 MEQ/L (5-15); AST (SGOT) 16 U/L (17-59); BUN/CREATININE RATIO 13 RATIO (6-26); CALCIUM 8.6 MG/DL (8.4-10.2); CHLORIDE 104 MEQ/L (98-107); CO2 - CARBON DIOXIDE 29 MEQ/L (22-30); CREATININE 1.1 MG/DL (0.8-1.5); GLOMERULAR FILTRATION RATE 64; GLUCOSE 83 MG/DL (75-110); POTASSIUM 4.1 MEQ/L (3.6-5); SODIUM 139 MEQ/L (134-144); TOTAL PROTEIN 5.2 G/DL (6.3-8.2)
[2016-12-25 21:42] LABS: BACTERIA,URINE TRACE (NEGATIVE); RBC,URINE 0-1 /HPF (0-3); SQUAMOUS EPITHELIAL CELL,UR 0-5; WBC,URINE 30-50 /HPF (0-5)
--- NOTE | 2016-12-25 22:04 | NUR ---
HOME MEDS PER [place] PALAFOX APRN, PT INSTRUCTED TO TAKE HIS MEDS NOW, HE SHOULD HAVE THIS AM. PT TOOK PLAVIX 75MG, AMLODIPINE 5MG AND LOSARTAN 50MG. SON REMAINS AT BEDSIDE.
--- NOTE | 2016-12-25 22:32 | NUR ---
DONTA PALAFOX APRN AT BEDSIDE.
[2016-12-25] MEDS ORDERED: CEPH500T PO (22:58)
[2016-12-25] MEDS ORDERED: CEPHALEXIN 500 MG CAPSULE PO ONE (23:00)
[2016-12-25 23:09] VITALS: BP 137/66; PULSE 77; RESP 18; TEMP 97.6; O2SAT 93
--- NOTE | 2016-12-25 23:09 | NUR ---
DISMISS PT ASSISTED TO WC. PT TAKEN TO PRIVATE CAR BY THIS RN.
--- NOTE | 2016-12-26 10:40 | DI ---
Indication: ITS.REASON: altered mental status PROCEDURE: CT HEAD W/O CONTRAST: Encounter: Initial Comparison: November 01, 2016 Technique: Axial CT images through the head were performed without contrast. Iterative Reconstruction dose reducing technique was utilized. FINDINGS: Mild generalized atrophy. The ventricles are of normal size, shape, and contour for the patient's age. There are numerous areas of low attenuation in the white matter which most likely represent changes from chronic microvascular ischemia. The brainstem, cerebellum, and cerebral hemispheres otherwise have a normal morphology and CT attenuation. There is no evidence of midline displacement. No hemorrhage, signs of acute territorial stroke, mass effect, mass lesions, or edema is evident. The visualized portions of the skull base, midface, and calvarium demonstrate no abnormality. The paranasal sinuses are well aerated and free of significant disease. The tympanic and mastoid cavities appear normal. IMPRESSION: No acute intracranial abnormality or hemorrhage. There is a preliminary report by [facility] radiologic. .
== END 2016-12-25 23:09 | disposition home or self-care (01) ==
LOC: ED 20:18
DX: G45.8 Other transient cerebral ischemic attacks and related syndromes (principal); N30.00 Acute cystitis without hematuria; I10 Essential (primary) hypertension; Z87.891 Personal history of nicotine dependence
CPT/HCPCS: 36415; 70450; 80053; 81001; 84484; 85025; 99284; A9270

== ENCOUNTER 2017-06-29 19:13 | Inpatient (IN) ==
[2017-06-29] MEDS ORDERED: CEFEPIME 1 GM in NS 100 ML IV ONE (19:34)
[2017-06-29] MEDS ORDERED: SALINE FLUSH 10ml SYRINGE IVF PRN (19:36)
--- OUTSIDE RECORDS SUMMARY | 2017-06-29 19:36 | External Medical Summary | Referral Summary ---
:1935 Author Organization [facility] Address [address] [place] [address] [place] [id number] Care Team Providers Name Role Phone Raulito Schultz Primary Care Physician Encounter VC Date(s): 10/08/15 - 10/08/15 [facility] [address] [place] [phone] [place] Discharge Diagnosis: Chronic CHF Discharge Diagnosis: Emphysema/COPD Discharge Diagnosis: CAD (coronary artery disease) Discharge Diagnosis: Benign essential HTN Discharge Diagnosis: Hypertensive chronic kidney disease Discharge Disposition: 01-Home or Self Care Attending Physician: Raulito Schultz MD Admitting Physician: Raulito Schultz MD Vital Signs Most recent to oldest [Reference Range]: 1 Temperature Tympanic [36.6-38.1 degC] 36.4 degC *LOW* (10/08/15 10:22 AM) Peripheral Pulse Rate [60-100 bpm] 68 bpm (10/08/15 10:22 AM) Respiratory Rate [14-20 br/min] 24 br/min *HI* (10/08/15 10:22 AM) Blood Pressure [90-140/60-90 mmHg] 170/94 mmHg *HI* (10/08/15 10:22 AM) SpO2 93 % (10/08/15 10:22 AM) Problem List No data available for this section Allergies, Adverse Reactions, Alerts No Known Medication Allergies Medications amLODIPine 5 mg oral tablet 5 mg 1 tabs, Oral, Daily, # 30 tabs, 6 Refill(s), Pharmacy: [id number], 1 tabs Oral Daily Start Date: 10/08/15 Status: Orderedmetoprolol tartrate 25 mg oral tablet 25 mg 1 tabs, Oral, BID, 0 Refill(s) Start Date: 10/06/15 Status: OrderedpredniSONE 20 mg oral tablet See Instructions, 3 TABS DAILY X 3 THEN 2 TABS DAILY X 3 THEN 1 TAB DAILY X 3 THEN STOP, 0 Refill(s) Start Date: 10/06/15 Stop Date: 10/13/15 Status: OrderedVentolin HFA 90 mcg/inh inhalation aerosol 1 puffs, Inhalation, q4hr, as needed for wheezing, 0 Refill(s) Start Date: 10/06/15 Status: Ordered Results No data available for this section Immunizations No data available for this section Procedures No data available for this section Social History Social History Type Response Smoking Status Former smoker; Type: Cigarettes Assessment and Plan Extracted from: Title: Office Visit Note Author: Raulito Schultz MD Date: 10/08/15 Assessment/Plan Benign essential HTN Blood pressure is elevated. Appears to be significant COPD on that I discontinue metoprolol he started the emergency room and begin amlodipine 5 mg daily. Recheck in 1 month. Ordered: Office Visit Level 3 New 79603 CAD (coronary artery disease) Chronic with history of bypass. Headache he needs further cardiac evaluation and we'll set him up to see Dr. Ahumada. Ordered: Office Visit Level 3 New 64039 Chronic CHF His proBNP was significantly elevated. I think he probably needs an echo and further cardiac evaluation. Again we'll have him see Dr. Ahumada. Ordered: Office Visit Level 3 New [address]2864 Emphysema/COPD PFTs are ordered for further evaluation. Ordered: Office Visit Level 3 New 39748 Hypertensive chronic kidney disease Recheck lab in one month. Orders: amLODIPine, 5 mg 1 tabs, Oral, Daily, # 30 tabs, 6 Refill(s), Pharmacy: [id number], 1 tabs Oral Daily
--- OUTSIDE RECORDS SUMMARY | 2017-06-29 19:36 | External Medical Summary | Continuity of Care Document ---
:1935 Author Organization [facility] Allergies Active Description Code Type Severity Reaction Onset Reported/ Identified Relationship Clinical to Patient Status Yes No Known No Drug Unknown NONE 02/12/2013 Drug Known Aller Allergies Drug gy Aller gies Yes No Known No Drug Unknown NONE 02/12/2013 Drug Known Aller Intolerances Drug gy Intol eranc es Yes No Known No Drug Unknown N/A 02/18/2014 Allergies Known Aller Aller gy gies Yes No Known NKMA N/A N/A 10/08/2015 Medication Allergies Medications Problems Date Dx Attending Type Code Diagnosis Diagnosed By Coded 02/12/2013 Serge Blankenship DO 272.4 HYPERLIPIDEMIA NEC/NOS 02/12/2013 Serge Blankenship DO 327.23 OBSTRUCTIVE SLEEP APNEA (ADULT) (PEDIATRIC) 02/12/2013 Serge Blankenship DO 414.00 CORON ATHEROSCLER NOS TYPE VESSEL, [place] OR GRAFT 02/12/2013 Serge Blankenship DO 435.9 TRANS CEREB ISCHEMIA NOS 02/12/2013 Serge Blankenship DO 511.9 PLEURAL EFFUSION NOS 02/12/2013 Serge Blankenship DO 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 02/12/2013 Serge Blankenship DO 784.51 DYSARTHRIA 02/12/2013 Serge Blankenship DO 784.59 OTHER SPEECH DISTURBANCE 02/12/2013 Serge Blankenship DO 799.02 HYPOXEMIA 02/12/2013 Serge Blankenship DO V45.81 AORTOCORONARY BYPASS 12/26/2015 Antoine, Final I10 Essential (primary) Raulito K hypertension 12/26/2015 Antoine, Final I25.10 Atherosclerotic heart Raulito K disease of [place] coronary artery without angina pectoris 12/26/2015 Antoine, Final J43.9 Emphysema, Raulito K unspecified 12/26/2015 Antoine, Final J44.9 Chronic obstructive Raulito K pulmonary disease, unspecified 12/26/2015 Antoine, Final N18.3 Chronic kidney Raulito K disease, stage 3 (moderate) 03/26/2016 Antoine, Final I10 Essential (primary) Raulito K hypertension 03/26/2016 Antoine, Final I25.10 Atherosclerotic heart Raulito K disease of [place] coronary artery without angina pectoris 03/26/2016 Antoine, Final J44.9 Chronic obstructive Raulito K pulmonary disease, unspecified 03/26/2016 Antoine, Final N18.3 Chronic kidney Raulito K disease, stage 3 (moderate) 08/18/2016 Tatiana Baptiste Final R39.9 Unspecified symptoms D and signs involving the genitourinary system 08/26/2016 Tatiana Baptiste Final I10 Essential (primary) D hypertension 08/26/2016 Tatiana Baptiste Final I25.10 Atherosclerotic heart D disease of [place] coronary artery without angina pectoris 08/26/2016 Tatiana Baptiste Final N39.0 Urinary tract D infection, site not specified 08/26/2016 Tatiana Baptiste Final I50.42 Chronic combined D systolic (congestive) and diastolic (congestive) heart failure 08/26/2016 Tatiana Baptiste Final J44.9 Chronic obstructive D pulmonary disease, unspecified 08/26/2016 Tatiana Baptiste Final N18.3 Chronic kidney D disease, stage 3 (moderate) Procedures Code Description Performed By Performed On Valeri Walker MD 02/18/2014 86.04 OTHER SKIN SUBQ I D 12/26/2015 57582 Office or other outpatient visit for the evaluation and management of an established patient, which requires at least 2 of these 3 lal components: A detailed history; A detailed examination; Medical d 03/26/2016 Office or other outpatient visit for the evaluation and management of an established patient, which requires at least 2 of these 3 lal components: A detailed history; A detailed examination; Medical d 08/18/2016 80045 Office or other outpatient visit for the evaluation and management of an established patient, which requires at least 2 of these 3 lal components: An expanded problem focused history; An expanded prob 08/26/2016 Office or other outpatient visit for the evaluation and management of an established patient, which requires at least 2 of these 3 lal components: A detailed history; A detailed examination; Medical d Encounters ACCT No. Visit Discharge Status Pt. Type Provider Facility Loc./Unit Complaint Date/Time [id number] 02/18/2014 02/18/2014 DIS Emergency Aaron ChowdhuryEDS 49 09:34:00 12:20:00 , [facility] M [id number] 02/12/2013 02/13/2013 DIS Inpatient Idris Blankenship DO10TN 54 17:37:00 21:15:00 [facility] [id number] 08/26/2016 08/26/2016 DIS Outpatient Oliva [facility] FM follow up 92 10:31:00 23:59:00 , [facility] Mirna [facility] [id number] 08/18/2016 08/18/2016 DIS Outpatient Oliva [facility] FM POSS UTI 90 10:57:00 23:59:00 , Tatiana Mirna [facility] [id number] 03/26/2016 03/26/2016 DIS Outpatient Antoine, [facility] FM TCPA htn 31 10:24:00 23:59:00 Raulito Schroeder [facility] [id number] 12/26/2015 12/26/2015 DIS Outpatient Antoine, [facility] FM htn 92 09:31:00 23:59:00 Raulito Schroeder [facility] [id number] 11/26/2015 11/26/2015 DIS Outpatient Antoine, [facility] FM 1 month 95 09:08:00 23:59:00 Raulito Schroeder recheck Clinic [id number] 10/23/2015 10/23/2015 DIS Outpatient Antoine, [facility] FM review 07 10:06:00 23:59:00 Raulito Schroeder PFTs Clinic [id number] 10/21/2015 10/21/2015 DIS Outpatient Antoine, [facility] FM PFT 69 13:11:00 23:59:00 Raulito Schroeder Clinic [id number] 10/08/2015 10/08/2015 DIS Outpatient Antoine, [facility] FM new to est 44 10:06:00 23:59:00 Raulito Schroeder after er Clinic visit
--- OUTSIDE RECORDS SUMMARY | 2017-06-29 19:36 | External Medical Summary | Referral Summary ---
:1935 Author Organization [facility] Address [address] [place] [address] [place] [address] Care Team Providers Name Role Phone Raulito Schultz Primary Care Physician Encounter VC Date(s): 08/26/16 - 08/26/16 [facility] [place] [phone] Discharge Diagnosis: Bacterial urinary tract infection Discharge Diagnosis: Benign essential HTN Discharge Diagnosis: Chronic kidney disease, stage 3 (moderate) Discharge Diagnosis: Atherosclerotic heart disease of [place] coronary artery without angina pectoris Discharge 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 Discharge Diagnosis: Chronic obstructive pulmonary disease, unspecified Discharge Disposition: 01-Home or Self Care Attending Physician: Tatiana Baptiste APRN Admitting Physician: Tatiana Baptiste APRN Vital Signs Most recent to oldest [Reference Range]: 1 Temperature Tympanic [36.6-38.1 degC] 36 degC *LOW* (08/26/16 10:42 AM) Peripheral Pulse Rate [60-100 bpm] 76 bpm (08/26/16 10:42 AM) Blood Pressure [90-140/60-90 mmHg] 148/88 mmHg *HI* (08/26/16 10:42 AM) Problem List Condition Effective Dates Status Health Status Informant Obesity(Confirmed) Active patient Allergies, Adverse Reactions, Alerts No Known Medication Allergies Medications atorvastatin 80 mg oral tablet 80 mg 1 tabs, Oral, Daily, given by dr merlyn mcgregor, # 30 tabs, 6 Refill(s), Pharmacy: [id number], 1 tabs Oral Daily,Instr:given by dr merlyn mcgregor Start Date: 08/26/16 Status: Orderedlosartan 50 mg oral tablet 50 mg 1 tabs, Oral, Daily, # 30 tabs, 2 Refill(s), Pharmacy: [facility], 1 tabs Oral Daily Start Date: 08/26/16 Status: Orderednitrofurantoin macrocrystals 50 mg oral capsule 50 mg 1 caps, Oral, QID, X 7 days, # 28 caps, 0 Refill(s), Pharmacy: [facility], 1 caps Oral QID,x7 days Start Date: 08/24/16 Stop Date: 08/31/16 Status: OrderedNitrostat 0.4 mg sublingual tablet 0.4 mg 1 tabs, SubLingual, q5min, as needed for chest pain, If chest pain not relieved in 5 minutes after first dose, seek immediate medical attention, # 25 tabs, 3 Refill(s) Start Date: 08/26/16 Status: OrderedPlavix 75 mg oral tablet 75 mg 1 tabs, Oral, Daily, # 30 tabs, 2 Refill(s), Pharmacy: [facility], 1 tabs Oral Daily Start Date: 08/26/16 Status: Ordered Results No data available for this section Immunizations No data available for this section Procedures No data available for this section Social History Social History Type Response Smoking Status Former smoker; Type: Cigarettes Assessment and Plan Extracted from: Title: Office Visit Note-UTI/CDM Author: Tatiana Baptiste [employer] SUPERVISOR Date: Assessment/Plan 1.Bacterial urinary tract infection Change to Macrodantinwhenavailable from the pharmacy. Continue to push fluids. Plan repeat UA in 2 weeks to verify resolution of infection. Ordered: Office Visit Level 4 Est 19271 2.Atherosclerotic heart disease of [place] coronary artery without angina pectoris Discussed with the patient the rationale forrestartingLipitor. He is agreeable. He wasn't aware that with a long-term medication. Refill of nitroglycerin provided if he has anyangina. Ordered: Office Visit Level 4 Est 67951 3.Benign essential HTN Restart mg daily. Monitor blood pressures periodically. Goal is less than 140/90. This will also be beneficial for his kidney disease. Ordered: Office Visit Level 4 Est 20106 4.Chronic combined systolic (congestive) and diastolic (congestive) heart failure Continue support stockings. For now I do not feel like me to restart his Lasix and potassium supplementation. Ordered: Office Visit Level 4 Est 66884 5.Chronic kidney disease, stage 3 (moderate) Plan to recheck in 2 weeks. Ordered: Office Visit Level 4 Est 84331 6.Chronic obstructive pulmonary disease, unspecified No specific respiratory issues at this time. Will not restart respiratory meds. Ordered: Office Visit Level 4 Est 14333 Plan follow-up in 2 weeks or sooner if medical needs arise.
--- OUTSIDE RECORDS SUMMARY | 2017-06-29 19:36 | External Medical Summary | Referral Summary ---
:1935 Author Organization [facility] Address [address] [place] [address] [place] [address] Care Team Providers Name Role Phone AntoineRaulito Nellie Primary Care Physician Encounter VC Date(s): 08/18/16 - 08/18/16 [facility] [place] [phone] [place] Discharge Diagnosis: Lower urinary tract symptoms Discharge Disposition: 01-Home or Self Care Attending Physician: Tatiana Baptiste APRN Admitting Physician: Tatiana Baptiste APRN Vital Signs Most recent to oldest [Reference Range]: 1 Temperature Tympanic [36.6-38.1 degC] 36.4 degC *LOW* (08/18/16 11:06 AM) Peripheral Pulse Rate [60-100 bpm] 76 bpm (08/18/16 11:06 AM) Blood Pressure [90-140/60-90 mmHg] 148/90 mmHg *HI* (08/18/16 11:06 AM) Problem List Condition Effective Dates Status Health Status Informant Obesity(Confirmed) Active patient Allergies, Adverse Reactions, Alerts No Known Medication Allergies Medications amLODIPine 5 mg oral tablet 5 mg 1 tabs, Oral, Daily, # 30 tabs, 6 Refill(s), Pharmacy: [facility], 1 tabs Oral Daily Start Date: 10/08/15 Status: OrderedAnoro Ellipta 62.5 mcg-25 mcg/inh inhalation powder 1 puffs, Inhalation, Daily, # 30 Each, 0 Refill(s), samples given to patient (Rx ) Start Date: 10/23/15 Status: Orderedatorvastatin 80 mg oral tablet 80 mg 1 tabs, Oral, Daily, given by dr merlyn mcgregor, # 30 tabs, 6 Refill(s), Pharmacy: [id number], 1 tabs Oral Daily,Instr:given by dr merlyn mcgregor Start Date: 03/26/16 Status: OrderedCipro 500 mg oral tablet 500 mg 1 tabs, Oral, q12hr, X 10 days, # 20 tabs, 0 Refill(s), Pharmacy: [facility], 1 tabs Oral q12hr,x10 days Start Date: 08/18/16 Stop Date: 08/28/16 Status: Orderedfurosemide 20 mg oral tablet 20 mg 1 tabs, Oral, Daily, # 30 tabs, 6 Refill(s), Pharmacy: [facility], 1 tabs Oral Daily Start Date: 10/23/15 Status: Orderedlosartan 50 mg oral tablet 50 mg 1 tabs, Oral, Daily, # 30 tabs, 6 Refill(s), Pharmacy: [facility], 1 tabs Oral Daily Start Date: 03/26/16 Status: OrderedMucinex Fast-Max Severe Congestion & Cold oral tablet 1 tabs, Oral, q4hr, as needed for cold symptoms, # 50 tabs, 0 Refill(s), called to pharmacy (Rx) Start Date: 01/01/16 Stop Date: 12/31/16 Status: OrderedNitrostat 0.4 mg sublingual tablet 0.4 mg 1 tabs, SubLingual, q5min, as needed for chest pain, given by dr merlyn mcgregor , # 25 tabs, 3 Refill(s), called to pharmacy (Rx) Start Date: 01/01/16 Status: OrderedPlavix 75 mg oral tablet 75 mg 1 tabs, Oral, Daily, 0 Refill(s) Start Date: 04/19/16 Status: Orderedpotassium chloride 10 mEq oral tablet, extended release 10 mEq 1 tabs, Oral, Daily, # 30 tabs, 6 Refill(s), Pharmacy: [facility], 1 tabs Oral Daily Start Date: 10/23/15 Status: OrderedVentolin HFA 90 mcg/inh inhalation aerosol 90 mcg 1 puffs, Inhalation, q4hr, as needed for wheezing, # 18 g, 3 Refill(s), Pharmacy: [facility], 1 puffs Inhalation q4hr,PRN:as needed for wheezing Start Date: 10/21/15 Status: Ordered Results Urinalysis Most recent to oldest [Reference Range]: 1 UA Color Yellow (08/18/16 11:32 AM) UA Appear Cloudy *ABN* (08/18/16 11:32 AM) UA pH [5.0-8.0] 5.5 (08/18/16 11:32 AM) UA Leuk Est [Negative] Pos 3+ *ABN* (08/18/16 11:32 AM) UA Nitrite [Negative] Positive *ABN* (08/18/16 11:32 AM) UA Protein [Negative] Pos 1+ *ABN* (08/18/16 11:32 AM) UA Glucose [Negative] Negative (08/18/16 11:32 AM) UA Ketones [Negative] Negative (08/18/16 11:32 AM) UA Urobilinogen [<=1.0 mg/dL] 0.2 mg/dL (08/18/16 11:32 AM) UA Bili [Negative] Negative (08/18/16 11:32 AM) UA Blood [Negative] Pos 2+ *ABN* (08/18/16 11:32 AM) UA Spec Grav [1.003-1.030] 1.010 (08/18/16 11:32 AM) Type Clean Catch (08/18/16 [...] Title: Office Visit Note-UTI Author: Tatiana Baptiste RADAR ENGINEER Date: 08/18/16 Assessment/Plan 1.Lower urinary tract symptoms Urinalysis indicative of urinary tract infection.Results reviewed with patient. Start Cipro 500 mg one by mouth twice a day 10 days. Push fluids. If he is unable to void her symptoms felt to improve over the next 24-48 hours he is to let us know or go to the ER. Questions and concerns were answered.
--- OUTSIDE RECORDS SUMMARY | 2017-06-29 19:36 | External Medical Summary | Referral Summary ---
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 Discharge Disposition: 01-Home or Self Care Attending Physician: Raulito Schultz MD Admitting Physician: Raulito Schultz MD Vital Signs Most recent to oldest [Reference Range]: 1 Temperature Tympanic [36.6-38.1 degC] 36.2 degC *LOW* (12/26/15 9:49 AM) Peripheral Pulse Rate [60-100 bpm] 68 bpm (12/26/15 9:49 AM) Respiratory Rate [14-20 br/min] 16 br/min (12/26/15 9:49 AM) Blood Pressure [90-140/60-90 mmHg] 154/86 mmHg *HI* (12/26/15 9:49 AM) Problem List No data available for this section Allergies, Adverse Reactions, Alerts No Known Medication Allergies Medications amLODIPine 5 mg oral tablet 5 mg 1 tabs, Oral, Daily, # 30 tabs, 6 Refill(s), Pharmacy: [facility], 1 tabs Oral Daily Start Date: 10/08/15 Status: OrderedAnoro Ellipta 62.5 mcg-25 mcg/inh inhalation powder 1 puffs, Inhalation, Daily, # 30 Each, 0 Refill(s), samples given to patient (Rx ) Start Date: 10/23/15 Status: Orderedfurosemide 20 mg oral tablet 20 mg 1 tabs, Oral, Daily, # 30 tabs, 6 Refill(s), Pharmacy: [facility], 1 tabs Oral Daily Start Date: 10/23/15 Status: Orderedmetoprolol tartrate 25 mg oral tablet 25 mg 1 tabs, Oral, BID, 0 Refill(s) Start Date: 10/06/15 Status: Orderedpotassium chloride 10 mEq oral tablet, extended release 10 mEq 1 tabs, Oral, Daily, # 30 tabs, 6 Refill(s), Pharmacy: [facility], 1 tabs Oral Daily Start Date: 10/23/15 Status: OrderedVentolin HFA 90 mcg/inh inhalation aerosol 90 mcg 1 puffs, Inhalation, q4hr, as needed for wheezing, # 18 g, 3 Refill(s), Pharmacy: [facility], 1 puffs Inhalation q4hr,PRN:as needed for wheezing Start Date: 10/21/15 Status: Ordered Results Chemistry Most recent to oldest [Reference Range]: 1 Sodium Lvl [135-144 mEq/L] 143 mEq/L (12/26/15 10:33 AM) Potassium Lvl [3.5-5.2 mEq/L] 4.3 mEq/L (12/26/15 10:33 AM) Chloride [99-111 mEq/L] 105 mEq/L (12/26/15 10:33 AM) CO2 [23-31 mEq/L] 29 mEq/L (12/26/15 10:33 AM) AGAP [3-20] 9 (12/26/15 10:33 AM) BUN [8-26 mg/dL] 16 mg/dL (12/26/15 10:33 AM) Glucose Lvl [70-99 mg/dL] 84 mg/dL (12/26/15 10:33 AM) Creatinine Lvl [0.72-1.25 mg/dL] 1.18 mg/dL (12/26/15 10:33 AM) eGFR [>60 mL/min] 59 mL/min 1 *ABN* (12/26/15 10:33 AM) Calcium Lvl [8.9-10.5 mg/dL] 9.1 mg/dL (12/26/15 10:33 AM) Albumin Lvl [3.4-4.8 gm/dL] 3.6 gm/dL (12/26/15 10:33 AM) Total Protein [6.2-8.1 gm/dL] 5.3 gm/dL *LOW* (12/26/15:33 AM) Globulin [1.8-4.0 gm/dL] 1.7 gm/dL *LOW* (12/26/15: AM) ALT [0-55 U/L] 11 U/L (12/26/15:33 AM) AST [5-34 U/L] 15 U/L (12/26/15: AM) Alk Phos [40-150 U/L] 108 U/L (12/26/15: AM) Bili Total [0.2-1.2 mg/dL] 0.8 mg/dL (12/26/15 10:33 AM) Chol [0-199 mg/dL] 133 mg/dL (12/26/15: AM) Trig [0-149 mg/dL] 76 mg/dL (12/26/15:33 AM) HDL [40-84 mg/dL] 40 mg/dL (12/26/15: AM) LDL [0-130 mg/dL] 78 mg/dL (12/26/15: AM) VLDL Cholesterol [0-28 mg/dL] 15 mg/dL (12/26/15:33 AM) Cardiac Risk [0.0-5.7] 3.3 (12/26/15 10:33 AM) 1Result Comment: Multiply eGFR results by 1.21 for race. Immunizations No data available for this section Procedures No data available for this section Social History Social History Type Response Smoking Status Former smoker; Type: Cigarettes Assessment and Plan Extracted from: Title: Office Visit Note Author: Raulito Schultz MD Date: 12/26/15 Assessment/Plan 1.Atherosclerotic heart disease of [place] coronary artery without angina pectoris This appears to be chronic and stable. He has not needed to use any nitroglycerin. Medications reviewedno changes in treatment plan are recommended. Ordered: Comprehensive Metabolic Panel Lipid Panel Office Visit Level 4 Est 86739 2.Benign essential HTN He seems to be confused about medications and I'm not sure what he is taking. I've asked him to bring his medications in next week to review those. His blood pressure is running high here today. I emphasized the importance of good blood pressure control before starting his kidneys. We may need to make further adjustments in his medications depending onwhat he is or is not taking at home. Regular routine follow-up in 3 months recommended. Ordered: Comprehensive Metabolic Panel Lipid Panel Office Visit Level 4 Est 09710 3.Chronic kidney disease, stage 3 (moderate) Chronicappears stable recheck lab today. Emphasized the importance of good blood pressure control. Ordered: Comprehensive Metabolic Panel Office Visit Level 4 Est 19082 4.Emphysema/COPD, Chronic obstructive pulmonary disease, unspecified This is chronic and relatively stable no change in current treatment recommended. Recheck in 3 months. Ordered: Office Visit Level 4 Est 17441
--- OUTSIDE RECORDS SUMMARY | 2017-06-29 19:36 | External Medical Summary | Referral Summary ---
:1935 Author Organization [facility] Address [address] [place] [address] [place] [address] Care Team Providers Name Role Phone Raulito Schultz Primary Care Physician Encounter VC Date(s): 03/26/16 - 03/26/16 [facility] [address] [place] [phone] [place] Discharge Diagnosis: Emphysema/COPD Discharge Diagnosis: Benign essential HTN Discharge Diagnosis: CAD (coronary artery disease) Discharge Diagnosis: Chronic kidney disease, stage 3 (moderate) Discharge Disposition: 01-Home or Self Care Attending Physician: Raulito Schultz MD Admitting Physician: Raulito Schultz MD Vital Signs Most recent to oldest [Reference Range]: 1 Temperature Tympanic [36.6-38.1 degC] 36.2 degC *LOW* (03/26/16 10:31 AM) Peripheral Pulse Rate [60-100 bpm] 64 bpm (03/26/16 10:31 AM) Respiratory Rate [14-20 br/min] 24 br/min *HI* (03/26/16 10:31 AM) Blood Pressure [90-140/60-90 mmHg] 162/76 mmHg *HI* (03/26/16 10:31 AM) Problem List Condition Effective Dates Status Health Status Informant Obesity(Confirmed) Active patient Allergies, Adverse Reactions, Alerts No Known Medication Allergies Medications amLODIPine 5 mg oral tablet 5 mg 1 tabs, Oral, Daily, # 30 tabs, 6 Refill(s), Pharmacy: [facility], 1 tabs Oral Daily Start Date: 10/08/15 Status: OrderedAnoro Ellipta 62.5 mcg-25 mcg/inh inhalation powder 1 puffs, Inhalation, Daily, # 30 Each, 0 Refill(s), samples given to patient (Rx ) Start Date: 10/23/15 Status: Orderedaspirin 81 mg oral tablet, chewable 81 mg 1 tabs, Oral, Daily, # 30 tabs, 3 Refill(s), called to pharmacy (Rx) Start Date: 01/01/16 Status: Orderedatorvastatin 80 mg oral tablet 80 mg 1 tabs, Oral, Daily, given by dr merlyn mcgregor, # 30 tabs, 6 Refill(s), Pharmacy: [id number], 1 tabs Oral Daily,Instr:given by dr merlyn mcgregor Start Date: 03/26/16 Status: Orderedfurosemide 20 mg oral tablet 20 mg 1 tabs, Oral, Daily, # 30 tabs, 6 Refill(s), Pharmacy: [facility], 1 tabs Oral Daily Start Date: 10/23/15 Status: Orderedlosartan 50 mg oral tablet 50 mg 1 tabs, Oral, Daily, # 30 tabs, 6 Refill(s), Pharmacy: [facility], 1 tabs Oral [...] to pharmacy (Rx) Start Date: 01/01/16 Status: Orderedpotassium chloride 10 mEq oral tablet, extended release 10 mEq 1 tabs, Oral, Daily, # 30 tabs, 6 Refill(s), Pharmacy: [facility], 1 tabs Oral Daily Start Date: 10/23/15 Status: OrderedVentolin HFA 90 mcg/inh inhalation aerosol 90 mcg 1 puffs, Inhalation, q4hr, as needed for wheezing, # 18 g, 3 Refill(s), Pharmacy: [facility], 1 puffs Inhalation q4hr,PRN:as needed for wheezing Start Date: 10/21/15 Status: Ordered Results No data available for this section Immunizations No data available for this section Procedures No data available for this section Social History Social History Type Response Smoking Status Former smoker; Type: Cigarettes Assessment and Plan Extracted from: Title: Office Visit Note Author: Raulito Schultz MD Date: 03/26/16 Assessment/Plan 1.Benign essential HTN, Essential (primary) hypertension Blood pressure is elevated today. I emphasized the importance of good blood pressure control especially in light of his chronic kidney disease. I' ve recommendedstarting losartan 50 mg a day. Recheck in 3 months. Laboratory studies at that time as well. I elected not to restart metoprolol with his heart rate in themid to low 60s. Ordered: Office Visit Level 4 Est 03038 2.CAD (coronary artery disease), Atherosclerotic heart disease of [place] coronary artery without angina pectoris Chronic relatively stable no signs of angina or ischemia. No change in current treatment recommended. Recheck in 3 months. Ordered: Office Visit Level 4 Est 07675 3.Chronic kidney disease, stage 3 (moderate), Chronic kidney disease, stage 3 (moderate) Importance of blood pressure control as mentioned abovediscussed. Losartan started. Recheck in 3 months with lab. Ordered: Office Visit Level 4 Est 77768 4.Emphysema/COPD, Chronic obstructive pulmonary disease, unspecified Overall this point he appears to be chronic and stable I'm not can restart an oral. She develops increased shortness of breath or respiratory difficulties he'll let us now. Ordered: Office Visit Level 4 Est 82718 Orders: atorvastatin, 80 mg 1 tabs, Oral, Daily, given by dr merlyn mcgregor, # 30 tabs, 6 Refill(s), Pharmacy: [facility], 1 tabs Oral Daily,Instr: given by dr merlyn mcgregor losartan, 50 mg 1 tabs, Oral, Daily, # 30 tabs, 6 Refill(s), Pharmacy: [facility], 1 tabs Oral Daily 5.chronic dependent edema I encouraged him to consider wearing support stockings and to keep his feet elevated when he has an opportunity.
--- OUTSIDE RECORDS SUMMARY | 2017-06-29 19:36 | External Medical Summary | Referral Summary ---
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 Discharge Diagnosis: Pulmonary emphysema Discharge Disposition: 01-Home or Self Care Attending Physician: Raulito Schultz MD Admitting Physician: Raulito Schultz MD Vital Signs Most recent to oldest [Reference Range]: 1 Temperature Tympanic [36.6-38.1 degC] 36.8 degC (10/23/15 10:11 AM) Peripheral Pulse Rate [60-100 bpm] 68 bpm (10/23/15 10:11 AM) Respiratory Rate [14-20 br/min] 28 br/min *HI* (10/23/15 10:11 AM) Blood Pressure [90-140/60-90 mmHg] 158/86 mmHg *HI* (10/23/15 10:11 AM) Problem List No data available for this section Allergies, Adverse Reactions, Alerts No Known Medication Allergies Medications amLODIPine 5 mg oral tablet 5 mg 1 tabs, Oral, Daily, # 30 tabs, 6 Refill(s), Pharmacy: [facility], 1 tabs Oral Daily Start Date: 10/08/15 Status: OrderedAnoro Ellipta 62.5 mcg-25 mcg/inh inhalation powder 1 puffs, Inhalation, Daily, # 30 Each, 0 Refill(s), samples given to patient (Rx ) Start Date: 10/23/15 Status: Orderedfurosemide 20 mg oral tablet 20 mg 1 tabs, Oral, Daily, # 30 tabs, 6 Refill(s), Pharmacy: [email or web address], 1 tabs Oral Daily Start Date: 10/23/15 Status: Orderedmetoprolol tartrate 25 mg oral tablet 25 mg 1 tabs, Oral, BID, 0 Refill(s) Start Date: 10/06/15 Status: Orderedpotassium chloride 10 mEq oral tablet, extended release 10 mEq 1 tabs, Oral, Daily, # 30 tabs, 6 Refill(s), Pharmacy: [facility], 1 tabs Oral Daily Start Date: 10/23/15 Status: OrderedVentolin HFA 90 mcg/inh inhalation aerosol 90 mcg 1 puffs, Inhalation, q4hr, as needed for wheezing, # 18 g, 3 Refill(s), [facility], 1 puffs Inhalation q4hr,PRN:as needed for wheezing Start Date: 10/21/15 Status: Ordered Results No data available for this section Immunizations No data available for this section Procedures No data available for this section Social History Social History Type Response Smoking Status Former smoker; Type: Cigarettes Assessment and Plan Extracted from: Title: Office Visit Note Author: Raulito Schultz MD Date: 10/23/15 Assessment/Plan Atherosclerotic heart disease of [place] coronary artery without angina pectoris, CAD (coronary artery disease) Chronic stable no change in current treatment. Ordered: Office Visit Level 4 Est 97954 Benign essential HTN Blood pressure is high here today. I administered furosemide for his CHFand hopefully will see improvement in his blood pressure recheck in 1 month. Chronic combined systolic (congestive) and diastolic (congestive) heart failure, Chronic combined systolic and diastolic heart failure Begin furosemide 20 mg by mouth every morning and potassium chloride 10 mEq daily. Recheck in 1 month. Ordered: Office Visit Level 4 Est 01096 Chronic kidney disease, stage 3 (moderate), Hypertensive chronic kidney disease BMP in 1 month. Ordered: Office Visit Level 4 Est 53483 Chronic obstructive pulmonary disease, unspecified, Pulmonary emphysema Start Anora 1 inhalation daily. Continue albuterol as neededfollow-up in one month. Recent PFT results reviewed showsmoderately severe COPD. Ordered: Office Visit Level 4 Est 43296 Orders: furosemide, 20 mg 1 tabs, Oral, Daily, # 30 tabs, 6 Refill(s), Pharmacy: [facility], 1 tabs Oral Daily potassium chloride, 10 mEq 1 tabs, Oral, Daily, # 30 tabs, 6 Refill(s), Pharmacy: [facility], 1 tabs Oral Daily umeclidinium-vilanterol, 1 puffs, Inhalation, Daily, # 30 Each, 0 Refill(s), samples given to patient (Rx)
--- OUTSIDE RECORDS SUMMARY | 2017-06-29 19:36 | External Medical Summary | Referral Summary ---
:1935 Author Organization [facility] [address] [place] [id number] Care Team Providers Name Role Phone Raulito Schultz Primary Care Physician Encounter VC Date(s): 11/26/15 - 11/26/15 [facility] [address] [place] [phone] [place] Discharge Diagnosis: Chronic obstructive pulmonary disease, unspecified Discharge Diagnosis: Acute bronchitis Discharge Diagnosis: CAD (coronary artery disease) Discharge Diagnosis: Chronic kidney disease, stage 3 (moderate) Discharge Diagnosis: Benign essential HTN Discharge 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 Discharge Disposition: 01-Home or Self Care Attending Physician: Raulito Schultz MD Admitting Physician: Raulito Schultz MD Vital Signs Most recent to oldest [Reference Range]: 1 Temperature Tympanic [36.6-38.1 degC] 36.7 degC (11/26/15 9:29 AM) Peripheral Pulse Rate [60-100 bpm] 76 bpm (11/26/15 9:29 AM) Respiratory Rate [14-20 br/min] 18 br/min (11/26/15 9:29 AM) Blood Pressure [90-140/60-90 mmHg] 168/94 mmHg *HI* (11/26/15 9:29 AM) Problem List No data available for this section Allergies, Adverse Reactions, Alerts No Known Medication Allergies Medications amLODIPine 5 mg oral tablet 5 mg 1 tabs, Oral, Daily, # 30 tabs, 6 Refill(s), Pharmacy: [id number], 1 tabs Oral Daily Start Date: 10/08/15 Status: OrderedAnoro Ellipta 62.5 mcg-25 mcg/inh inhalation powder 1 puffs, Inhalation, Daily, # 30 Each, 0 Refill(s), samples given to patient (Rx ) Start Date: 10/23/15 Status: OrderedCeftin 500 mg oral tablet 500 mg 1 tabs, Oral, BID, X 10 days, # 20 tabs, 0 Refill(s), Pharmacy: [id number], 1 tabs Oral BID,x10 days Start Date: 11/26/15 Stop Date: 12/06/15 Status: Orderedfurosemide 20 mg oral tablet 20 mg 1 tabs, Oral, Daily, # 30 tabs, 6 Refill(s), Pharmacy: [id number], 1 tabs Oral Daily Start Date: 10/23/15 Status: Orderedmetoprolol tartrate 25 mg oral tablet 25 mg 1 tabs, Oral, BID, 0 Refill(s) Start Date: 10/06/15 Status: Orderedpotassium chloride 10 mEq oral tablet, extended release 10 mEq 1 tabs, Oral, Daily, # 30 tabs, 6 Refill(s), Pharmacy: [id number], 1 tabs Oral Daily Start Date: 10/23/15 Status: OrderedVentolin HFA 90 mcg/inh inhalation aerosol 90 mcg 1 puffs, Inhalation, q4hr, as needed for wheezing, # 18 g, 3 Refill(s), Pharmacy: [id number], 1 puffs Inhalation q4hr,PRN:as needed for wheezing Start Date: 10/21/15 Status: Ordered Results Chemistry Most recent to oldest [Reference Range]: 1 Sodium Lvl [135-144 mEq/L] 140 mEq/L (11/26/15 10:05 AM) Potassium Lvl [3.5-5.2 mEq/L] 4.6 mEq/L (11/26/15 10:05 AM) Chloride [99-111 mEq/L] 105 mEq/L (11/26/15 10:05 AM) CO2 [23-31 mEq/L] 31 mEq/L (11/26/15 10:05 AM) AGAP [3-20] 4 (11/26/15 10:05 AM) BUN [8-26 mg/dL] 15 mg/dL (11/26/15 10:05 AM) Glucose Lvl [70-99 mg/dL] 95 mg/dL (11/26/15 10:05 AM) Creatinine Lvl [0.72-1.25 mg/dL] 1.44 mg/dL *HI* (11/26/15 10:05 AM) eGFR [>60 mL/min] 47 mL/min 1 *ABN* (11/26/15 10:05 AM) Calcium Lvl [8.9-10.5 mg/dL] 9.4 mg/dL (11/26/15 10:05 AM) 1Result Comment: Multiply eGFR results by 1.21 for race. Immunizations No data available for this section Procedures No data available for this section Social History Social History Type Response Smoking Status Former smoker; Type: Cigarettes Assessment and Plan Extracted from: Title: Office Visit Note Author: Raulito Schultz MD Date: 11/26/15 Assessment/Plan Acute bronchitis I recommended cefuroxime 500 mg twice a day 10 days. If not improving he'll let me now. Ordered: Office Visit Level 4 Est 41999 Benign essential HTN Blood pressures have improved at home better high here. We'll continue to have a monitor at homeand keep me posted continue current medications at this time. CAD (coronary artery disease) Chronic stable no change in current treatment. Ordered: Office Visit Level 4 Est 94927 Chronic combined systolic (congestive) and diastolic (congestive) heart failure Overall this appears to be stable at this time. Await correspondence from. Continue current treatment Ordered: Basic Metabolic Panel Office Visit Level 4 Est 84022 Chronic kidney disease, stage 3 (moderate) BMP is ordered today for further evaluation. Emphasized importance of good blood pressure control. Ordered: Basic Metabolic Panel Office Visit Level 4 Est 08510 Chronic obstructive pulmonary disease, unspecified Ordered: Office Visit Level 4 Est 75917 Orders: cefuroxime, 500 mg 1 tabs, Oral, BID, X 10 days, # 20 tabs, 0 Refill( s), Pharmacy: [id number], 1 tabs Oral BID,x10 days
--- NOTE | 2017-06-29 19:37 | Emergency Department Report ---
Fever HPI - General Stated Complaint: difficulty breathing; fever Source: patient, EMS Mode of arrival: EMS Limitations: no limitations - History of Present Illness HPI Narrative: Patient is an 82-year-old male presents emergent primary for evaluation of fever , weakness. Patient contacted his son this afternoon who felt the patient "was not right". Son called EMS on arrival patient was covered in dried feces stated he had not been out of bed to eat or drink anything today. Patient's O2 saturations 84% on arrival, patient was feverish. Fluids were started patient was brought to the ER for evaluation. - Related Data Home Medications Medication Instructions Recorded Confirmed Nitroglycerin 0.4 mg SL Q5MIN3 PRN #0 11/01/16 06/29/17 Amlodipine Besylate 5 mg PO DAILY #0 12/25/16 06/29/17 Budesonide/Formoterol Fumarate 2 puff PO BID #0 12/25/16 06/29/17 [Symbicort 160-4.5 Mcg Inhaler] Clopidogrel Bisulfate [Plavix] 75 mg PO DAILY #0 12/25/16 06/29/17 Albuterol Sulfate [Proair Hfa] 1 puff INH Q4H PRN 06/29/17 06/29/17 Atorvastatin Calcium 80 mg PO DAILY 06/29/17 06/29/17 Previous Rx's Medication Instructions Recorded Cefpodoxime [Vantin] 200 mg PO BIDWM 9 Days #18 tab 07/05/17 Cyanocobalamin (Vitamin B-12) 1 tab PO DAILY #30 tab 07/05/17 [Vitamin B-12] Losartan [Cozaar] 100 mg PO DAILY tab 07/05/17 Allergies Allergy/AdvReac Type Severity Reaction Status Date / Time No Known Allergies Allergy Verified 06/29/17 20:20 Review of Systems Constitutional: Reports: fever, chills, weakness ENT: Denies: throat pain, dental pain Cardiovascular: Denies: chest pain, palpitations, dyspnea on exertion Respiratory: Denies: cough, dyspnea, wheezes Gastrointestinal: Denies: abdominal pain, nausea, vomiting Genitourinary: Denies: dysuria, frequency Neurological: Denies: headache Psychiatric: Denies: anxiety, depression PFSH Patient Stated Medical History Transient Ischemic Attacks ( Yes: MULTIPLE TIA) Hearing Loss Yes Hypertension Yes Myocardial Infarction Yes Chronic Obstructive Pulmonary Yes Disease (COPD) Sleep Apnea Yes Gastroesophageal Reflux Yes Disease - Social History Smoking status: Never smoker Substance use type: does not use Physical Exam - General General appearance: alert, lethargic - Eye Eye exam: Present: PERRL, EOMI - ENT ENT exam: Present: normal exam, normal oropharynx, mucous membranes dry - Neck Neck exam: Present: full ROM, trachea midline - Chest Chest inspection: Present: symmetric chest wall rise. Absent: tenderness - Respiratory Respiratory exam: Present: normal lung sounds bilaterally. Absent: respiratory distress, wheezes, stridor - Cardiovascular Cardiovascular exam: Present: regular rate, normal rhythm, normal heart sounds - Abdominal Exam Abdominal exam: Present: soft, normal bowel sounds. Absent: distention, tenderness - Skin Skin exam: Present: warm, dry - Neurological Exam Neurological exam: Present: alert - Psychiatric Psychiatric exam: Present: normal affect, normal mood Course Vital Signs Temperature 101.3 F H 06/29/17 19:13 Pulse Rate 79 06/29/17 19:13 Respiratory Rate 23 06/29/17 19:13 Blood Pressure 153/67 H 06/29/17 19:13 Pulse Oximetry 91 06/29/17 19:13 Temperature 97.5 F 07/05/17 11:41 Pulse Rate 69 07/05/17 11:41 Respiratory Rate 18 07/05/17 11:41 Blood Pressure 160/77 H 07/05/17 11:41 Pulse Oximetry 92 07/05/17 11:41 Fever - MDM Narrative Medical decision making narrative: Patient with urinary tract infection, criteria for sepsis we'll admit to hospitalist service - Differential Diagnosis Likely: cellulitis, fever of unknown origin, gastroenteritis, community acquired pneumonia, pyelonephritis, viral infection, sepsis, influenza - Medical Records Attestation: I reviewed the patient's medical records. - Lab Data Result diagrams: 07/04/17 03:51 07/05/17 04:16 Lab Results 06/29/17 06/29/17 06/29/17 Range/Units 19:46 19:46 19:46 WBC 10.4 (4.5-11.0) T/MM3 RBC 4.54 (4.50-5.90) M/MM3 Hgb 13.6 (13.5-17.5) GM/DL Hct 42.8 (41-53) % MCV 94.3 (80-100) UM3 MCH 30.0 (26-34) UUG MCHC 31.8 (31-37) GM/DL RDW Std Deviation 44.1 (36.9-50.2) FL Plt Count 177 (130-400) T/MM3 MPV 9.5 (9.4-12.4) UM3 Immature Gran % (Auto) Not performed Neut % (Auto) Not performed Lymph % (Auto) Not performed [place] % (Auto) Not performed Eos % (Auto) Not performed Baso % (Auto) Not performed Neut # (Auto) Not performed Lymph # (Auto) Not performed [place] # (Auto) Not performed Eos # (Auto) Not performed Baso # (Auto) Not performed Abs Immat Gran (auto) Not performed Neutrophils % (Manual) 71.0 H (33-66) % Band Neutrophils % 27.0 H (0-6) % Lymphocytes % (Manual) 2.0 L (23-45) % Neutrophils # (Manual) 7.4 (1.8-7.7) T/MM3 Band Neutrophils # 2.8 T/MM3 Lymphocytes # (Manual) 0.2 L (1-4.8) T/MM3 RBC Morph Comment Normal Turbidity < 20 (0-20) Sodium 141 (134-144) MEQ/L Potassium 3.7 (3.6-5) MEQ/L Chloride 106 (98-107) MEQ/L Carbon Dioxide 27 (22-30) MEQ/L Anion Gap 8 (5-15) MEQ/L BUN 19.0 (9-20) MG/DL Creatinine 1.4 (0.8-1.5) MG/DL GFR Calculation 49 BUN/Creatinine Ratio 14 (6-26) RATIO Glucose 73 L (75-110) MG/DL Calculated Osmolality 272 (261-280) MOSM/KG Calcium 8.5 (8.4-10.2) MG/DL Total Bilirubin 0.60 (0.20-1.30) MG/DL Icterus Index < 2 (0-7) AST 115 H (17-59) U/L ALT 63 (21-72) U/L Alkaline Phosphatase 120 (38-126) U/L Total Protein 5.7 L (6.3-8.2) G/DL Albumin 3.0 L (3.5-5.0) G/DL Globulin 2.7 (2.4-3.6) G/DL Albumin/Globulin Ratio 1.1 (1.1-2.2) RATIO Plasma Lactate 2.0 (0.6-2.2) MMOL/L Procalcitonin 33.93 H* NG/ML Specimen Hemolysis < 15 (0-25) Ur Collection Type Urine Color (YELLOW) Urine Clarity Urine pH (5.0-8.0) Ur Specific [place] (1.015-1.025) Urine Protein (NEGATIVE) Urine Glucose (UA) (NEGATIVE) Urine Ketones (NEGATIVE) Urine Occult Blood (NEGATIVE) Urine Nitrate (NEGATIVE) Urine Bilirubin (NEGATIVE) Urine Urobilinogen (NORMAL) EU/DL Ur Leukocyte Esterase (NEGATIVE) Urine RBC (0-3) /HPF Urine WBC (0-5) /HPF Urine Bacteria (NEGATIVE) Ur Culture Indicated? 06/29/17 Range/Units 20:22 WBC (4.5-11.0) T/MM3 RBC (4.50-5.90) M/MM3 Hgb (13.5-17.5) GM/DL Hct (41-53) % MCV (80-100) UM3 MCH (26-34) UUG MCHC (31-37) GM/DL RDW Std Deviation (36.9-50.2) FL Plt Count (130-400) T/MM3 MPV (9.4-12.4) UM3 Immature Gran % (Auto) Neut % (Auto) Lymph % (Auto) [place] % (Auto) Eos % (Auto) Baso % (Auto) Neut # (Auto) Lymph # (Auto) [place] # (Auto) Eos # (Auto) Baso # (Auto) Abs Immat Gran (auto) Neutrophils % (Manual) (33-66) % Band Neutrophils % (0-6) % Lymphocytes % (Manual) (23-45) % Neutrophils # (Manual) (1.8-7.7) T/MM3 Band Neutrophils # T/MM3 Lymphocytes # (Manual) (1-4.8) T/MM3 RBC Morph Comment Turbidity (0-20) Sodium (134-144) MEQ/L Potassium (3.6-5) MEQ/L Chloride (98-107) MEQ/L Carbon Dioxide (22-30) MEQ/L Anion Gap (5-15) MEQ/L BUN (9-20) MG/DL Creatinine (0.8-1.5) MG/DL GFR Calculation BUN/Creatinine Ratio (6-26) RATIO Glucose (75-110) MG/DL Calculated Osmolality (261-280) MOSM/KG Calcium (8.4-10.2) MG/DL Total Bilirubin (0.20-1.30) MG/DL Icterus Index (0-7) AST (17-59) U/L ALT (21-72) U/L Alkaline Phosphatase (38-126) U/L Total Protein (6.3-8.2) G/DL Albumin (3.5-5.0) G/DL Globulin (2.4-3.6) G/DL Albumin/Globulin Ratio (1.1-2.2) RATIO Plasma Lactate (0.6-2.2) MMOL/L Procalcitonin NG/ML Specimen Hemolysis (0-25) Ur Collection Type Urine, catheter Urine Color Red (YELLOW) Urine Clarity Turbid Urine pH 5.0 (5.0-8.0) Ur Specific [place] 1.025 (1.015-1.025) Urine Protein 3+ A (NEGATIVE) Urine Glucose (UA) Negative (NEGATIVE) Urine Ketones Trace A (NEGATIVE) Urine Occult Blood 3+ A (NEGATIVE) Urine Nitrate Positive A (NEGATIVE) Urine Bilirubin 1+ A (NEGATIVE) Urine Urobilinogen 1.0 (NORMAL) EU/DL Ur Leukocyte Esterase 3+ (NEGATIVE) Urine RBC Tntc (0-3) /HPF Urine WBC 50-200 H (0-5) /HPF Urine Bacteria 3+ H (NEGATIVE) Ur Culture Indicated? Cult reflexed &setup - Radiology Data Attestation: I reviewed the patient's radiology results. Chest x-ray: No acute changes, stable test Disposition Clinical Impression: Urinary tract infection Sepsis Qualifiers: Sepsis type: sepsis due to unspecified organism Qualified Code(s): A41.9 - Sepsis, unspecified organism Disposition: To [facility] [place] Acute Care Condition: Stable Time of Disposition: 21:11 - Seen By: physician
[2017-06-29] MEDS ORDERED: ALBUTEROL/IPRATROPIUM 2.5mg-0.5mg/3ml NEB AEROSOL ONE (19:40)
[2017-06-29] MEDS ORDERED: NS 1,000 ML IV SCH (19:45)
[2017-06-29] MEDS ORDERED: ONDANSETRON 4 MG/2 ML INJECTION IVP PRN (22:03)
[2017-06-29] MEDS ORDERED: ACETAMINOPHEN 325 MG TABLET PO PRN (22:03)
[2017-06-29] MEDS ORDERED: HYDROCODONE/APAP 5mg/325mg TABLET PO PRN (22:03)
[2017-06-29 22:07] VITALS: BMI 36.9
[2017-06-29] MEDS: NS 1,000 ML IV SCH (22:33)
--- NOTE | 2017-06-29 22:45 | History & Physical Report ---
History of Present Illness Date: 06/30/17 Chief complaint: Altered mental status HPI: 82 yo M with PMH of HTN, GERD and COPD presented to the ER via EMS after family reported increased confusion at home. Patients family reports that patient has become more confused for the passed couple of months, but today get got acutely worse. He was speaking gibberish on the phone to family. When family arrived they found him febrile, and he had urinated himself, there was also blood on his pants. He was found to have temp of 101.3 in the ED and lab work showed increased WBC's with 27% bands, UA was positive for UTI. Patient was admitted for sepsis and IV ABX for his UTI. Review of Systems All systems PM: 10-point ROS was reviewed, no additional remarkable complaints except PFSH Patient Stated Medical History Dementia Yes: Undiagnosed Transient Ischemic Attacks ( Yes: MULTIPLE TIA) Hearing Loss Yes Angina Yes Hypertension Yes Myocardial Infarction Yes Chronic Obstructive Pulmonary Yes Disease (COPD) Pneumonia Yes Sleep Apnea Yes Gastroesophageal Reflux Yes Disease Hx Incontinence Yes Hx Urinary Tract Infection Yes Sepsis Yes Depression Yes Clinic Medical History Sepsis (Acute Medical) Urinary tract infection (Acute Medical) - Social History Smoking status: Former smoker Medications Home Medications Medication Instructions Recorded Confirmed Type Nitroglycerin 0.4 mg SL Q5MIN3 PRN #0 11/01/16 06/29/17 History Amlodipine Besylate 5 mg PO DAILY #0 12/25/16 06/29/17 History Budesonide/Formoterol Fumarate 2 puff PO BID #0 12/25/16 06/29/17 History [Symbicort 160-4.5 Mcg Inhaler] Clopidogrel Bisulfate [Plavix] 75 mg PO DAILY #0 12/25/16 06/29/17 History Losartan Potassium 50 mg PO DAILY #0 12/25/16 06/29/17 History Albuterol Sulfate [Proair Hfa] 1 puff INH Q4H PRN 06/29/17 06/29/17 History Atorvastatin Calcium 80 mg PO DAILY 06/29/17 06/29/17 History Allergies Allergy/AdvReac Type Severity Reaction Status Date / Time No Known Allergies Allergy Verified 06/29/17 20:20 Exam Vital Signs: Temperature 101.6 F H 06/29/17 22:03 Pulse Rate 77 06/29/17 22:03 Respiratory Rate 22 06/29/17 22:03 Blood Pressure 107/62 11/22/17 22:03 Pulse Oximetry 92 06/29/17 22:03 Height/Weight/BMI: Height 1.65 m Weight 100.7 kg Body Mass Index 36.9 - Constitutional Present: no acute distress - Routine Respiratory Exam Present: CTA bilaterally. Absent: wheezes - Routine Cardiovascular Exam Present: RRR. Absent: murmur - Routine Abdominal Exam Present: soft, normoactive bowel sounds, non distended. Absent: tenderness - Routine Extremities Exam Present: normal capillary refill - Routine Skin Exam Present: dry, warm - Routine Neurological Exam Present: alert, CN II-XII intact - Routine Psychiatric Exam Present: normal affect Results - Labs CBC & Chem 7: 06/30/17 04:19 06/30/17 04:19 Assessment and Plan (1) Altered mental state Current visit: Yes Status: Acute (2) Sepsis Current visit: Yes Status: Acute (3) Urinary tract infection Current visit: Yes Status: Acute Assessment and Plan: HPI is a 82 y.o. male with PMH of HTN, COPD, who visited the E fo increased confusion and incontinence. Pt is a poor historian is not really able to provide much hx. Reports he has not been feeling well the last couple of days but is not able to say exactly why. Reports he has had a cough and may be f/c. Denies any cp, n/v/d, or sob. Pt lives by himself and reports he's able to take care of himself okay. No family is at bedside to help with hx. Per HPI from telehospitalist, pt reported has had more confusion in the last few months but it is acutely worse. Exam: Gen: No acute distress, resting comfortably HEEN: no conjuctival injection, EOMI, moist mucous membranes Cards: RRR without murmur Lung: decreased breath sound in left middle and lower base, no wheezes or rhonci Abd: soft, non-tender, non-distended Ext: no cyanosis or clubbing, no edema Neuro: Alert and oriented x2 (not to time) Skin: dry, intact, no erythema Psych: appropriate affect A/P: Sepsis -Possible sources of infection likely UTI and possibly pna -WBC 28K, procal 33 -UA-->consistent with infection and pt has incontinence -PNA-->CXR shows some right sided effusion and possible infiltrate, will await official read -Will do Rocephin + Azithro-->Will cover UTI and CAP -D/c cefepime, psudomonas coverage not needed at this point -Blood and sputum cx's pending COPD Cont. home albuterol, budesonide/formoterol HTN -Will hold home losartan, amlodipine for now d/t sepsis CAD -Cont. home plavix, atorvastatin Ppx -DVT-lovenox DVT Prophylaxis: SCD's, Pradaxa Resuscitation Status: Full Code Sepsis Assessment - Evaluation Possible source: GI tract/intra-abdominal Confirmed Suspected Infection: Yes SIRS Criteria: acute mental status change, temperature > or equal to 100.4, Bands > or equal to 10% Severe Sepsis: lactate > or equal to 2.0 mg/dl Hospital Course Summary Disclaimer: The visit summary below is not to be considered part of the above Progress Note.
[2017-06-30] MEDS: CEFEPIME 1 GM in NS 100 ML IV SCH (03:29)
[2017-06-30] MEDS ORDERED: AZITHROMYCIN 250 MG TABLET PO ONE (11:22)
[2017-06-30] MEDS ORDERED: ALBUTEROL 2.5mg/3ml (0.083%) NEB AEROSOL PRN (11:28)
[2017-06-30] MEDS: NS 1,000 ML IV SCH ×2 (11:57→19:31)
[2017-06-30] MEDS: CEFTRIAXONE 1 G in NS 100 ML IV SCH (12:09)
[2017-06-30] MEDS ORDERED: INHALER ASSIST DEVICE (Optichamber) MC ONE (19:10)
[2017-07-01] MEDS: CEFEPIME 1 GM in NS 100 ML IV SCH (02:10)
[2017-07-01] MEDS: NS 1,000 ML IV SCH ×2 (05:53→17:22)
[2017-07-01] MEDS ORDERED: AZITHROMYCIN 250 MG TABLET PO SCH (06:30)
[2017-07-01] MEDS: CLOPIDOGREL 75 MG TABLET PO SCH (08:04)
[2017-07-01] MEDS: ATORVASTATIN 40 MG TABLET PO SCH (08:04)
[2017-07-01] MEDS ORDERED: ENOXAPARIN 40 MG/0.4 ML INJECTION SQ SCH (09:00)
--- NOTE | 2017-07-01 09:10 | XRay Report ---
Indication: fever altered mental status PROCEDURE: XR chest 1V: Encounter: Initial Comparison: November 08, 2016 Findings: Chronic left-sided pleural thickening with blunting of left costophrenic angle. No obvious new infiltrates. Right lung is grossly clear. No pneumothorax. Heart size remains enlarged. Prior CABG. Mediastinal contours are stable. Impression: No focal pneumonia. Chronic left-sided pleural abnormalities. .
[2017-07-01] MEDS: CEFTRIAXONE 1 G in NS 100 ML IV SCH (11:12)
[2017-07-01] MEDS ORDERED: INFLUENZA VAC High Dose 2017-18 (Fluzone HD*) (>=65yo) 0.5ml IM ONE (12:00)
[2017-07-01] MEDS ORDERED: PNEUMOCOCCAL 13 VACCINE 0.5ml INJECTION IM ONE (12:00)
--- NOTE | 2017-07-01 13:02 | Progress Note ---
- Date 07/01/17 Subjective: Pt is alert but not oriented. Denies any acute complaints but likely not able to give accurate hx. No family at bedside. Objective Vital signs: Temperature 97.3 F 07/01/17 11:00 Pulse Rate 59 L 07/01/17 11:00 Respiratory Rate 18 07/01/17 11:00 Blood Pressure 141/69 H 07/01/17 11:00 Pulse Oximetry 97 07/01/17 11:00 Height/Weight/BMI: Height 5 ft 5 in Weight 101.7 kg Body Mass Index 36.9 - Constitutional Present: no acute distress - Routine HEENT Exam Head: Present: normocephalic, atraumatic - Routine Respiratory Exam Present: decreased breath sounds (left middle and lower lobe). Absent: dyspnea - Routine Cardiovascular Exam Present: RRR, no murmur - Routine Abdominal Exam Present: soft, non distended, non tender - Routine Extremities Exam Present: no edema. Absent: cyanosis, clubbing - Routine Skin Exam Present: intact, dry. Absent: erythema - Routine Neurological Exam Present: alert, altered mental status Results - Labs CBC & Chem 7: 07/01/17 08:38 07/01/17 09:45 Assessment and Plan (1) Altered mental state Current visit: Yes Status: Acute (2) Sepsis Current visit: Yes Status: Acute (3) Urinary tract infection Current visit: Yes Status: Acute Assessment and Plan: Sepsis 2/2 UTI -Possible sources of infection likely UTI -WBC 28K-->29K, procal 33 -UA-->consistent with infection and pt has incontinence -CXR-->Chronic left sided effusion, no acute pathology -Rocephin D2 -Blood Cx's NGTD -Urine Cx-->Enterobacter susceptible to rocephin Thrombocytopenia -182-->63 -HIT vs. infection vs. spurious -4T Score for HIT--> 4 points, intermediate probability -Order HIT assay, order peripheral smear, order repeat cbc, d/c lovenox Dementia -Family notes worsening hx of confusion for 6 months to a year -Pt gets lost driving, lives by himself but his home is poorly kept -Unclear if official dx or if has been evaluated for this but hx is consistent with progressing dementia -Order B12, TSH, can consider imaging down the road COPD Cont. home albuterol, budesonide/formoterol HTN -Will hold home losartan, amlodipine for now d/t sepsis CAD -Cont. home plavix, atorvastatin Ppx -DVT-SCD Hospital Course Summary Disclaimer: The visit summary below is not to be considered part of the above Progress Note. Hospital Course: 07/01/17 13:17 Pt clinically doing better but WBC count not improving as expected. But it is only day 2 of abx so will give more time before further work up. Urine cx shows enterobacter susceptible to current abx. Plts decreased substantially today as HIT is a primary concern, will work up. Will also repeat testing to make sure not error. Pt will likely need placement at discharge.
[2017-07-01] MEDS ORDERED: PNEUMOCOCCAL VAC ADMIN CHARGE INJ ONE (14:00)
[2017-07-01] MEDS ORDERED: INFLUENZA VAC. INJ. ADMIN CHARGE INJ ONE (14:00)
[2017-07-02] MEDS: NS 1,000 ML IV SCH ×3 (01:25→13:55)
[2017-07-02] MEDS: CLOPIDOGREL 75 MG TABLET PO SCH (08:17)
[2017-07-02] MEDS: ATORVASTATIN 40 MG TABLET PO SCH (08:17)
[2017-07-02] MEDS: AMLODIPINE 5 MG TABLET PO SCH (10:57)
[2017-07-02] MEDS: CEFTRIAXONE 1 G in NS 100 ML IV SCH (11:10)
--- NOTE | 2017-07-02 11:59 | Progress Note ---
<Christen Cerna - Last Filed: 07/02/17 11:51> - Date 07/02/17 Subjective: Patient is seen today sitting in his room. He is oriented 3. He complains of confusion. In trying to remember family members, he becomes frustrated. Several times throughout our visit he makes the comment that he doesn't want to say the wrong thing to the wrong person. Some family members were in to visit him earlier. He talks about his son Foreign and his of 56 years who has . He complains of some dysuria, but reports he no longer has blood in his urine. Objective Vital signs: Temperature 97.5 F 07/02/17 07:42 Pulse Rate 61 07/02/17 08:49 Respiratory Rate 18 07/02/17 08:49 Blood Pressure 173/79 H 07/02/17 08:49 Pulse Oximetry 96 07/02/17 08:49 Height/Weight/BMI: Height 1.65 m Weight 102.1 kg Body Mass Index 36.9 - Constitutional Present: no acute distress, well nourished, well developed - Routine HEENT Exam Head: Present: normocephalic - Routine Respiratory Exam Present: CTA bilaterally. Absent: wheezes - Routine Cardiovascular Exam Present: RRR, S1, S2. Absent: murmur - Routine Abdominal Exam Present: soft, normoactive bowel sounds, non distended. Absent: tenderness - Routine Extremities Exam Present: no edema, normal capillary refill - Routine Skin Exam Present: dry, warm - Routine Neurological Exam Present: alert, oriented X3, normal speech (speech is slow) - Routine Lymphatic Exam Lymphatic: Absent: adenopathy - Routine Psychiatric Exam Present: normal affect, cooperative Results - Labs CBC & Chem 7: 07/02/17 04:30 07/02/17 04:30 Assessment and Plan (1) Sepsis Current visit: Yes Status: Acute (2) Urinary tract infection Current visit: Yes Status: Acute (3) Altered mental state Current visit: Yes Status: Acute Assessment and Plan: Assessment Urosepsis Leukocytosis Acute thrombocytopenia - possible HIT Dementia COPD Hypertension COPD Coronary artery disease Plan Leukocytosis is improving. Continue Rocephin. Enterobacter sensitive to ceftriaxone. Platelet count is back WNL 63-->179. Lovenox has been discontinued. Patient has been living alone, but family reports worsening confusion over time. Will need MAX eval and may need placement on dismissal. Consult OT/PT to assess functional abilities and work on strengthening. Resume home losartan for elevated BP's. Hospital Course Summary Disclaimer: The visit summary below is not to be considered part of the above Progress Note. Hospital Course: Assessment Urosepsis Leukocytosis Acute thrombocytopenia - possible HIT Dementia COPD Hypertension COPD Coronary artery disease 06/30/17 - Hospital admission -Possible sources of infection likely UTI and possibly pna -WBC 28K, procal 33 -UA-->consistent with infection and pt has incontinence -PNA-->CXR shows some right sided effusion and possible infiltrate, will await official read -Will do Rocephin + Azithro-->Will cover UTI and CAP -D/c cefepime, psudomonas coverage not needed at this point -Blood and sputum cx's pending Cont. home albuterol, budesonide/formoterol -Will hold home losartan, amlodipine for now d/t sepsis -Cont. home plavix, atorvastatin -DVT-lovenox SCD's, Pradaxa Full Code 07/01/17 Pt clinically doing better but WBC count not improving as expected. But it is only day 2 of abx so will give more time before further work up. Urine cx shows enterobacter susceptible to current abx. Plts decreased substantially today as HIT is a primary concern, will work up. Will also repeat testing to make sure not error. Pt will likely need placement at discharge. 07/02/17 Leukocytosis is improving. Continue Rocephin. Enterobacter sensitive to ceftriaxone. Platelet count is back WNL 63-->179. Lovenox has been discontinued. Patient has been living alone, but family reports worsening confusion over time. Will need MAX eval and may need placement on dismissal. Consult OT/PT to assess functional abilities and work on strengthening. Resume home losartan for elevated BP's. <Frida Campbell - Last Filed: 07/02/17 17:08> - Date 07/02/17 Objective Height/Weight/BMI: Results - Labs CBC & Chem 7: 07/02/17 04:30 07/02/17 04:30 Assessment and Plan (1) Sepsis Current visit: Yes Status: Acute (2) Urinary tract infection Problem details: Enterobacter Current visit: Yes Status: Acute (3) Altered mental state Current visit: Yes Status: Acute Assessment and Plan: I have independently evaluated and examined this patient. I reviewed the chart, the patient's history, and the BLOCK TRIMMER/PA's documented findings as above. We discussed and formulated the assessment and plan as above with additions as below: Mr. David c/o feeling slightly short of breath when seen but denied having a cough. He reported that his appetite is poor and denied pain. Nursing confirmed poor po intake. Respirations are nonlabored with good airflow and clear breath sounds. Conjunctiva are slightly injected bilaterally, conjugate gaze Abdomen soft, nontender Extremities without edema Weight is up a little over 1 kg from admission but down several kilograms from earlier in the year; unable to assess fluid balance due to urinary incontinence. HIT antibody pending. Procalcitonin has increased however clinically patient is improved with resolution of fever, decreasing white count and percent bands. Appropriate antibiotic being utilized for known infection-continue the same. Supplemental oxygen resumed as patient was off oxygen at the time of assessment. Chest x-ray from admission reviewed by myself-NAD. DVT Prophylaxis: SCD's Resuscitation Status: Full Code Hospital Course Summary Disclaimer: The visit summary below is not to be considered part of the above Progress Note.
[2017-07-02] MEDS ORDERED: LOSARTAN 50 MG TABLET PO SCH (12:15)
[2017-07-02] MEDS ORDERED: FUROSEMIDE 20 MG/2 ML INJECTION IVP ONE (18:52)
[2017-07-03] MEDS: NS 1,000 ML IV SCH (05:26)
[2017-07-03] MEDS: AMLODIPINE 5 MG TABLET PO SCH (09:02)
[2017-07-03] MEDS: ATORVASTATIN 40 MG TABLET PO SCH (09:02)
[2017-07-03] MEDS: CLOPIDOGREL 75 MG TABLET PO SCH (09:03)
[2017-07-03] MEDS: LOSARTAN 50 MG TABLET PO SCH (09:03)
--- NOTE | 2017-07-03 09:09 | Progress Note ---
<Meredith Malik - Last Filed: 07/03/17 09:04> - Date 07/03/17 Subjective: Mr. David is seen today in follow up for his UTI and hypertension. He is seen while sitting in his chair, eating breakfast. Initially he jokingly states that he "has no clue" how he is feeling today but later admits that he is doing better. He feels his breathing is improving and denies any cough, congestion, chest pain, fevers or chills. He continues to struggle with appetite and denies any nausea, vomiting, abdominal pain or diarrhea. His dysuria has resolved and bowels are moving. Review of his recent labs revealed resolution of his leukocytosis and stable BMP. Blood pressure has been notably elevated, currently 182/82, but he has not received his morning medications including Norvasc and losartan. Nursing reports that his IV site to his right upper arm infiltrated yesterday and has some swelling with mild erythema without red streaking or pain. Objective Vital signs: Temperature 96.1 F L 07/03/17 07:41 Pulse Rate 62 07/03/17 07:41 Respiratory Rate 22 07/03/17 07:41 Blood Pressure 182/82 H 07/03/17 07:41 Pulse Oximetry 95 07/03/17 07:41 Rhythm: Normal Sinus Rhythm Height/Weight/BMI: Height 5 ft 5 in Weight 222 lb 10.67 oz Body Mass Index 36.9 - Constitutional Present: no acute distress, well nourished, well developed, obese, cooperative Comments: Very pleasant on exam, joking and laughing with staff; A&O x3. - Routine HEENT Exam Head: Present: normocephalic, atraumatic Eye: Present: PERRL. Absent: conjunctival icterus ENT: Present: mucous membranes moist Comments: eating on exam. - Routine Respiratory Exam Present: decreased breath sounds (left>Right), crackles (bibasilar, L>R.) - Routine Cardiovascular Exam Present: RRR, S1, S2 - Routine Abdominal Exam Present: soft, normoactive bowel sounds, non tender - Routine Extremities Exam Present: edema (trace), non tender, pulses intact Comments: SCDs in place bilaterally. - Routine Back/Spine/Pelvis Exam Back/Spine: Present: full ROM. Absent: vertebral tenderness - Routine Musculoskeletal Exam Musculoskeletal: Present: moving extremities well - Routine Skin Exam Present: intact, dry, warm Comments: afebrile; mild swelling with erythema noted to right upper arm without tenderness or red streaking secondary to recently infiltrated IV; - Routine Neurological Exam Present: alert, oriented X3, moving all extremities, normal speech. Absent: facial asymmetry - Routine Lymphatic Exam Lymphatic: Absent: lymphedema - Routine Psychiatric Exam Present: normal affect, cooperative, good insight, good judgment Results - Labs CBC & Chem 7: 07/03/17 04:33 07/03/17 04:33 Assessment and Plan (1) Sepsis Current visit: Yes Status: Acute (2) Urinary tract infection Problem details: Enterobacter Current visit: Yes Status: Acute (3) Altered mental state Current visit: Yes Status: Acute Assessment and Plan: Assessment Urosepsis, improving. Leukocytosis Acute thrombocytopenia - possible HIT Dementia COPD Hypertension COPD Coronary artery disease Plan - 07/03/17 (Mirakian) Sepsis secondary to UTI improving. Leukocytosis and dysuria resolved. Continue Rocephin for UTI as culture revealed Enterobacter cloacae with sensitivity. Patient appears to be improving clinically. Slight bibasilar crackles noted on exam, L>R. Patient received Lasix 40mg IV last night. Continue with supplemental oxygen as needed to maintain SAO2>90%, weaning as able. Encourage incentive spirometry. CXR on admission revealed chronic left sided pleural abnormalities. Weight stable - continue to monitor daily. HIT antibody pending. Anemia stable and patient remains asymptomatic. Will recheck CBC and BMP in AM to monitor blood counts, electrolytes and renal function. DVT Prophylaxis: SCD's Resuscitation Status: Full Code - Time spent with patient Time with patient PN: 35 minutes Hospital Course Summary Disclaimer: The visit summary below is not to be considered part of the above Progress Note. Hospital Course: Assessment Urosepsis Leukocytosis Acute thrombocytopenia - possible HIT Dementia COPD Hypertension COPD Coronary artery disease 06/30/17 - Hospital admission -Possible sources of infection likely UTI and possibly pna -WBC 28K, procal 33 -UA-->consistent with infection and pt has incontinence -PNA-->CXR shows some right sided effusion and possible infiltrate, will await official read -Will do Rocephin + Azithro-->Will cover UTI and CAP -D/c cefepime, psudomonas coverage not needed at this point -Blood and sputum cx's pending Cont. home albuterol, budesonide/formoterol -Will hold home losartan, amlodipine for now d/t sepsis -Cont. home plavix, atorvastatin -DVT-lovenox SCD's, Pradaxa Full Code 07/01/17 Pt clinically doing better but WBC count not improving as expected. But it is only day 2 of abx so will give more time before further work up. Urine cx shows enterobacter susceptible to current abx. Plts decreased substantially today as HIT is a primary concern, will work up. Will also repeat testing to make sure not error. Pt will likely need placement at discharge. 07/02/17 Leukocytosis is improving. Continue Rocephin. Enterobacter sensitive to ceftriaxone. Platelet count is back WNL 63-->179. Lovenox has been discontinued. Patient has been living alone, but family reports worsening confusion over time. Will need MAX eval and may need placement on dismissal. Consult OT/PT to assess functional abilities and work on strengthening. Resume home losartan for elevated BP's. Plan - 07/03/17 (Mirakian) Sepsis secondary to UTI improving. Leukocytosis and dysuria resolved. Continue Rocephin for UTI as culture revealed Enterobacter cloacae with sensitivity. Patient appears to be improving clinically. Slight bibasilar crackles noted on exam, L>R. Patient received Lasix 40mg IV last night. Continue with supplemental oxygen as needed to maintain SAO2>90%, weaning as able. Encourage incentive spirometry. CXR on admission revealed chronic left sided pleural abnormalities. Weight stable - continue to monitor daily. HIT antibody pending. Anemia stable and patient remains asymptomatic. Will recheck CBC and BMP in AM to monitor blood counts, electrolytes and renal function. <Frida Campbell - Last Filed: 07/03/17 16:09> - Date 07/03/17 Objective Vital signs: Results - Labs CBC & Chem 7: 07/03/17 04:33 07/03/17 04:33 Assessment and Plan (1) Sepsis Current visit: Yes Status: Acute (2) Urinary tract infection Problem details: Enterobacter Current visit: Yes Status: Acute (3) Altered mental state Current visit: Yes Status: Acute Assessment and Plan: I have independently evaluated and examined this patient. I reviewed the chart, the patient's history, and the LEASE OUT WORKER/PA's documented findings as above. We discussed and formulated the assessment and plan as above with additions as below: Mr. David is much more alert today and reports that he feels fine. He denied dyspnea, abdominal pain, or dysuria. Appetite and oral intake have improved. His [id number] was present when he was seen earlier today and expressed families concern about the patient's ability to live safely alone indicating they're thinking that assisted living will likely be needed although he'll be resistant to a change. NAD, alert Respirations nonlabored, good airflow, breath sounds clear anteriorly with few basilar crackles posteriorly Abdomen benign/obese White count significantly improved with resolution of left shift. Renal function improving. Continue ceftriaxone. Discontinue IV fluids. Hospital Course Summary Disclaimer: The visit summary below is not to be considered part of the above Progress Note.
[2017-07-03] MEDS: CEFTRIAXONE 1 G in NS 100 ML IV SCH (12:09)
--- NOTE | 2017-07-04 08:28 | XRay Report ---
Indication: hypoxia/dyspnea Procedure: XR chest 2V: Encounter: Subsequent Comparison: 06/29/2017, 11/08/2016 Technique: PA and lateral radiographs of the chest were obtained. Findings: Lungs and airways: Normal lung volumes. No focal airspace consolidation. Normal pulmonary vasculature. Pleura: Unchanged chronic pleural-parenchymal thickening/scarring within the left mid to lower hemithorax without definite new pleural effusion. No pneumothorax. Heart and mediastinum: The cardiomediastinal silhouette and great vessels are within normal limits. Osseous structures and soft tissues: No acute osseous abnormality is seen. Postoperative changes of median sternotomy. Degenerative arthrosis of the shoulders. Degenerative disc disease of the thoracic spine. Impression: Unchanged chronic pleural parenchymal thickening/scarring within the left mid to lower hemithorax without definite new/acute cardiopulmonary process appreciated. .
[2017-07-04] MEDS: LOSARTAN 50 MG TABLET PO SCH (08:49)
[2017-07-04] MEDS: ATORVASTATIN 40 MG TABLET PO SCH (08:49)
[2017-07-04] MEDS: CLOPIDOGREL 75 MG TABLET PO SCH (08:50)
[2017-07-04] MEDS: AMLODIPINE 5 MG TABLET PO SCH (08:50)
[2017-07-04] MEDS: CEFTRIAXONE 1 G in NS 100 ML IV SCH (11:23)
--- NOTE | 2017-07-04 11:27 | Progress Note ---
<Cristiane Bansal D - Last Filed: 07/04/17 12:48> - Date 07/04/17 Subjective: Chris is doing well and is without complaints. He is grateful for the good care he has received. He denies any SOA, pain, abdominal or GI symptoms. He's had a good appetite. He denies weakness/dizziness. He would like to go home at time of discharge - he has a small house in [place] and states that he cooks for himself, goes grocery shopping, and drives. Staff reports that he is communicating much better. Objective Vital signs: Temperature 96.1 F L 07/04/17 11:00 Pulse Rate 66 07/04/17 11:00 Respiratory Rate 18 07/04/17 11:00 Blood Pressure 163/69 H 07/04/17 11:00 Pulse Oximetry 94 07/04/17 11:00 Rhythm: Normal Sinus Rhythm Height/Weight/BMI: Height 1.65 m Weight 102 kg Body Mass Index 36.9 - Constitutional Present: no acute distress, well nourished, well developed, obese - Routine HEENT Exam Head: Present: normocephalic Eye: Absent: conjunctival icterus, scleral injection ENT: Present: mucous membranes moist, oropharynx clear - Routine Respiratory Exam Present: crackles (left lower) - Routine Cardiovascular Exam Present: RRR, S1, S2 - Routine Abdominal Exam Present: soft, normoactive bowel sounds, non tender - Routine Extremities Exam Present: no edema, normal capillary refill - Routine Musculoskeletal Exam Musculoskeletal: Present: moving extremities well - Routine Skin Exam Present: intact, dry, warm - Routine Neurological Exam Present: alert, oriented X3, normal speech. Absent: facial asymmetry - Routine Psychiatric Exam Present: normal affect, normal thought process, cooperative Results - Labs CBC & Chem 7: 07/04/17 03:51 07/04/17 03:51 Assessment and Plan (1) Sepsis Current visit: Yes Status: Acute (2) Urinary tract infection Problem details: Enterobacter Current visit: Yes Status: Acute (3) Altered mental state Current visit: Yes Status: Acute Assessment and Plan: Assessment Sepsis secondary to Enterobacter cloacae UTI, improved Leukocytosis and bandemia - resolved Acute encephalopathy - improved Acute thrombocytopenia - possible HIT - platelets WNL Vitamin B12 deficiency Dementia COPD Hypertension COPD Coronary artery disease Plan Continue ceftriaxone (started in the evening of 06/29/17) for UTI. BC NGTD. Leukocytosis/bandemia - resolved; PCT quickly trending down. Mild hypernatremia (145). Renal function improved. BP has been elevated. Vit B12 deficiency (223) - start PO replacement. Continue IP PT/OT. Consider MAX - family is interested in SNF/placement but pt would like to go home. DVT Prophylaxis: SCD's Resuscitation Status: Full Code Hospital Course Summary Disclaimer: The visit summary below is not to be considered part of the above Progress Note. Hospital Course: Assessment Urosepsis Leukocytosis Acute thrombocytopenia - possible HIT Dementia COPD Hypertension COPD Coronary artery disease 06/30/17 - Hospital admission -Possible sources of infection likely UTI and possibly pna -WBC 28K, procal 33 -UA-->consistent with infection and pt has incontinence -PNA-->CXR shows some right sided effusion and possible infiltrate, will await official read -Will do Rocephin + Azithro-->Will cover UTI and CAP -D/c cefepime, psudomonas coverage not needed at this point -Blood and sputum cx's pending Cont. home albuterol, budesonide/formoterol -Will hold home losartan, amlodipine for now d/t sepsis -Cont. home plavix, atorvastatin -DVT-lovenox SCD's, Pradaxa Full Code 07/01/17 Pt clinically doing better but WBC count not improving as expected. But it is only day 2 of abx so will give more time before further work up. Urine cx shows enterobacter susceptible to current abx. Plts decreased substantially today as HIT is a primary concern, will work up. Will also repeat testing to make sure not error. Pt will likely need placement at discharge. 07/02/17 Leukocytosis is improving. Continue Rocephin. Enterobacter sensitive to ceftriaxone. Platelet count is back WNL 63-->179. Lovenox has been discontinued. Patient has been living alone, but family reports worsening confusion over time. Will need MAX eval and may need placement on dismissal. Consult OT/PT to assess functional abilities and work on strengthening. Resume home losartan for elevated BP's. Plan - 07/03/17 (Mirakian) Sepsis secondary to UTI improving. Leukocytosis and dysuria resolved. Continue Rocephin for UTI as culture revealed Enterobacter cloacae with sensitivity. Patient appears to be improving clinically. Slight bibasilar crackles noted on exam, L>R. Patient received Lasix 40mg IV last night. Continue with supplemental oxygen as needed to maintain SAO2>90%, weaning as able. Encourage incentive spirometry. CXR on admission revealed chronic left sided pleural abnormalities. Weight stable - continue to monitor daily. HIT antibody pending. Anemia stable and patient remains asymptomatic. Will recheck CBC and BMP in AM to monitor blood counts, electrolytes and renal function. 07/04/17 Continue ceftriaxone (started in the evening of 06/29/17) for UTI. BC NGTD. Leukocytosis/bandemia - resolved; PCT quickly trending down. Mild hypernatremia (145). Mild hypernatremia (145). Renal function improved. BP has been elevated. Vit B12 deficiency (223) - start PO replacement. Continue IP PT/OT. Consider MAX - family is interested in SNF/placement but pt would like to go home. <Frida Campbell - Last Filed: 07/04/17 22:14> - Date 07/04/17 Objective Vital signs: Height/Weight/BMI: Results - Labs CBC & Chem 7: 07/04/17 03:51 07/04/17 03:51 Assessment and Plan (1) Sepsis Current visit: Yes Status: Acute (2) Urinary tract infection Problem details: Enterobacter Current visit: Yes Status: Acute (3) Altered mental state Current visit: Yes Status: Acute Assessment and Plan: I have independently evaluated and examined this patient. I reviewed the chart, the patient's history, and the MASTIC WORKER/PA's documented findings as above. We discussed and formulated the assessment and plan as above with additions as below: Mr. David was seen earlier today at which time he reported that he "felt good but got over it". His appetite is good and he denied dyspnea or pain. Nursing expressed concern the blood pressure has continued to climb despite resuming losartan. NAD, in good spirits and pleasantly confused Respirations nonlabored, good airflow, breath sounds clear Abdomen benign, no suprapubic tenderness Platelet count is normalized-apparently hit antibody was canceled after repeat platelet count on 07/01 was significantly improved. Chest x-ray today reviewed by myself-chronic scarring at the left base but otherwise unremarkable. Discussed family's concerns about patient's safety at home with case management- subsequently have been advised patient has been [facility] [place] with tentative discharge date tomorrow. Patient agreeable to discharge wherever his son recommends. Losartan increased to 100 mg daily; hydralazine when necessary available for systolics above 190. Discontinue ceftriaxone, convert to Cefpodoxime for 5 additional days (10 days total antibiotic treatment). Nursing provide supplemental history. Hospital Course Summary Disclaimer: The visit summary below is not to be considered part of the above Progress Note.
[2017-07-04] MEDS: CYANOCOBALAMIN (B-12) 1,000mcg/ml INJECTION IM SCH (12:52)
[2017-07-04] MEDS ORDERED: LOSARTAN 50 MG TABLET PO ONE (15:53)
[2017-07-04] MEDS ORDERED: HYDRALAZINE 20 MG/ML INJECTION IVP PRN (16:02)
[2017-07-05] MEDS ORDERED: CEFPODOXIME 200mg TABLET PO SCH (08:00)
[2017-07-05 08:14] VITALS: RESP 18
[2017-07-05] MEDS: CLOPIDOGREL 75 MG TABLET PO SCH (08:56)
[2017-07-05] MEDS: ATORVASTATIN 40 MG TABLET PO SCH (08:56)
[2017-07-05] MEDS: CYANOCOBALAMIN (B-12) 1,000mcg/ml INJECTION IM SCH (08:57)
[2017-07-05] MEDS: AMLODIPINE 5 MG TABLET PO SCH (08:57)
[2017-07-05] MEDS ORDERED: LOSARTAN 50 MG TABLET PO SCH ×2 (09:00)
[2017-07-05 11:42] VITALS: BP 160/77; PULSE 69; TEMP 97.5; O2SAT 92
--- NOTE | 2017-07-05 14:03 | Extended Care Facility Orders ---
Admission Orders Admit to:: [facility] Allergies/Adverse Reactions: Allergies No Known Allergies Allergy (Verified 06/29/17 20:20) Admitting Diagnosis: Sepsis,UTI Admitting Physician: Frida Campbell MD Attending Physician: Frida Campbell MD Code Status: Full Code Anticiapted Length of Stay: 30 days or less Rehab Potential: fair Rehab Prognosis: fair Diet: 06/30/17 Lunch Regular Diet [DIET] Diet Modifications: Fluid Consistency: REGLIQU Food Consistency: CHMEAT May use Facility Protocol or Standing Orders: Yes May have flu vaccine: Yes Evaluations/Treatment: PT, OT [facility] Certification: I certify that SNF services are required to be given on an Inpatient basis because of the patients need for retirement care on a continuing basis for the condition(s) for which he/she received inpatient hospital services prior to his/her transfer to the SNF. SNF inpatient care is necessary for the following reasons Indication for [facility]: Other (PT,OT) - Additional Information In Event of Arrest: Start CPR,call 911,send patient to the ER Referrals: Raulito Schultz MD [Family Provider] - (Follow up with PCP in 1 week) Additional Orders: Start Vitamin B12 supplementation. Will need follow-up on serum level in 6 months. Vantin antibiotic for 9 additional days for treatment of urinary tract infection.
[2017-07-05] MEDS ORDERED: LOSARTAN 50 MG TABLET PO ONE (15:53)
--- NOTE | 2017-07-05 21:48 | Discharge Summary ---
Discharge Information Date of admission: 06/29/17 21:13 Anticipated date of discharge: 07/05/17 Attending Physician: Frida Campbell MD Primary care physician: Raulito Schultz MD Consults: - Discharge Diagnosis (1) Sepsis Status: Acute (2) Urinary tract infection Status: Acute (3) Altered mental state Status: Acute Sepsis secondary to Enterobacter cloacae UTI, improved Leukocytosis and bandemia - resolved Acute encephalopathy - improved Acute thrombocytopenia - probable lab error Vitamin B12 deficiency Dementia COPD Hypertension COPD Coronary artery disease - Laboratory Labs: On admission (06/29/17) white count was 10.4 with 71% neutrophils and 27% bands ; hemoglobin 13.6, platelet count 177K. Electrolytes were unremarkable. Creatinine 1.4, AST 115, ALT 67. Urinalysis with positive nitrite, +3 blood, TNTC RBC, 50-200 WBC, +3 bacteria Additional studies obtained during hospital course include: Platelet count 63K on the morning of 07/01 but 159 that afternoon; B12 223 on 07/01, and TSH 1.33- 07/0107/04/17 03:51 07/05/17 04:16 - Microbiology Blood cultures 2 negative after 5 days Urine culture > 100,000 colonies Enterobacter resistant to Augmentin, cefazolin , Bactrim; sensitive to cefepime and ceftriaxone in addition to Cipro and Levaquin. - Radiology Radiology: Chest x-ray on admission demonstrated chronic left-sided pleural thickening with blunting of the left costophrenic angle. Right lung was clear. Prior CABG. Repeat film on 07/04 demonstrated unchanged chronic scarring at the left mid and lower lung without new pathology. - Pathology Peripheral smear was reviewed by pathology due to initial reports thrombocytopenia (repeat CBC several hours later with normal platelet count however)-pathology report demonstrated moderate leukocytosis due to neutrophilia and moderate normochromic, normocytic anemia. Pathologist favored a reactive, possibly infectious, etiology for leukocytosis. History of Present Illness HPI: 82 yo M with PMH of HTN, GERD and COPD presented to the ER via EMS after family reported increased confusion at home. Patients family reports that patient has become more confused for the passed couple of months, but today get got acutely worse. He was speaking gibberish on the phone to family. When family arrived they found him febrile, and he had urinated himself, there was also blood on his pants. He was found to have temp of 101.3 in the ED and lab work showed increased WBC's with 27% bands, UA was positive for UTI. Patient was admitted for sepsis and IV ABX for his UTI. Hospital Course This is a general summary of the patient's hospital course. For more details refer to the complete medical record. Hospital course: Assessment Sepsis secondary to Enterobacter cloacae UTI, improved Leukocytosis and bandemia - resolved Acute encephalopathy - improved Transient thrombocytopenia -likely lab error Vitamin B12 deficiency Dementia COPD Hypertension COPD Coronary artery disease Hospital course Mr. David was hospitalized with sepsis likely due to UTI. Was initially treated with Rocephin and azithromycin although the latter was discontinued after 2 days when urine culture was confirmed and blood cultures were negative. Changes in the left lower lobe on the chest x-ray were found to be chronic rather than due to his pneumonia which was considered on admission. Within 2 days the patient was showing signs of clinical improvement although leukocytosis persisted through much of the hospitalization normalizing only after 6-7 days of antibiotics. The patient's mental status improved progressively through the hospitalization but weakness persisted requiring snf placement. On 07/01 platelet count was initially reported out at 63, Lovenox was discontinued. Platelet count was repeated 6 hours later at which time it was 159 consistent with what has been earlier in the course. This likely represented a lab error rather than true change. Count remained stable throughout the remainder of the hospital course. B12 was found to be low early in the hospital course-supplementation was initiated with IM B-12 for several days prior to conversion to oral B-12 replacement at discharge. Reassessment of B-12 level in 6 months is recommended. The patient's blood pressure was initially low normal and antihypertensives were held on admission. Amlodipine and losartan were resumed on approximately the third hospital day. Blood pressures continued to climb prompting increase in losartan from 50 to 100 mg daily. Family expressed concern about patient safety living alone; PT/OT both recommended intensive rehabilitative efforts before any consideration of repeat return to independent living. Case management assisted family in looking at options prior to discharge and ultimately was elected to discharge to [facility] giving the patient and family option of considering assisted living if that is necessary at completion of snf. On the date of discharge the patient was pleasantly confused but was able to tell me that he had exercised already undergone up and down the stairs with his therapist. He denied fever or dyspnea and reports that they feed him too much here. He was in good spirits and respirations were nonlabored with clear lung swanson. Abdomen is obese, soft, and nontender. White count is fully normalized with resolution of the left shift seen early in the hospitalization. Electrolytes and renal function are stable. Patient was converted to Cefpodoxime to complete 10 day course of antibiotics. Reassessment of urinalysis following completion of antibiotics in approximately 10 days should be considered. Patient is to follow-up with Dr. Schultz in 1-2 weeks. Discharge plans reviewed with family members. Time spent with patient: discharge greater than 30 minutes Discharge Plan - Med Rec/Dispo Referrals/Follow Up: Raulito Schultz MD [Family Provider] - (Follow up with PCP in 1 week) Radha Instructions: Urinary Tract Infection in Men (GEN), Sepsis (GEN) Prescriptions: New Cefpodoxime [Vantin] 200 mg PO BIDWM 9 Days #18 tab Cyanocobalamin (Vitamin B-12) [Vitamin B-12] 1 tab PO DAILY #30 tab Losartan [Cozaar] 100 mg PO DAILY tab Continue Nitroglycerin 0.4 mg SL Q5MIN3 PRN #0 PRN Reason: CHEST PAIN Budesonide/Formoterol Fumarate [Symbicort 160-4.5 Mcg Inhaler] 2 puff PO BID #0 Clopidogrel Bisulfate [Plavix] 75 mg PO DAILY #0 Atorvastatin Calcium 80 mg PO DAILY Albuterol Sulfate [Proair Hfa] 1 puff INH Q4H PRN PRN Reason: Prn Orders Amlodipine Besylate 5 mg PO DAILY #0 Discontinued Losartan Potassium 50 mg PO DAILY #0 - Disposition 03 To [facility] ([facility]) - Dismissal Complete Discharge Instructions are:: Complete
== END 2017-07-05 14:54 | DRG 871 ==
LOC: ED 19:13 → SUATTDRO 21:13 → MED 21:13
PROVIDERS: ADMIT Internal Medicine; ATTEND Internal Medicine